=== PATIENT | male | born 1970 | race African-American/Black ===

== ENCOUNTER → 2021-02-22 15:16 | Outpatient (CLI) | payer BC, SELFPAY ==
--- NOTE | ~2021-02-22 | US_ITS ---
EXAMINATION: US abdomen complete DATE: 02/22/2021 15:43 INDICATION: Liver disease, proteinuria TECHNIQUE: Multiple grayscale and Doppler ultrasound images of the abdomen were obtained. COMPARISON: None available FINDINGS: Bowel gas obscures visualization of the pancreas. The liver is normal with normal echogenic ity and echotexture. No surface nodularity. Normal hepatopetal flow in the main portal vein. The gall bladder is normal with no abnormal wall thickening, pericholecystic fluid or stones. The normal commo n bile duct measures 4 mm. There was no sonographic Page sign. The visualized portions of the aorta and inferior vena cava are normal. The right kidney measures 10.0 x 4.2 x 4.9 cm. The left kidney measures 13.4 x 8.8 x 7.1 cm. There is a 10.4 x 11.6 x 11.3 cm heterogeneous mass of the left kidney. The kidneys demonstrate normal parenc hymal echogenicity. There is no hydronephrosis. The spleen is normal in appearance and measures 11.6 cm cm. IMPRESSION: 1. Heterogeneous left kidney mass measuring up to 11.6 cm concerning for renal cell carcinoma. Urolog ic evaluation is recommended. These findings and recommendations were discussed with Dr. Juno Fang MD at 0958 hours on 02/23/2021 . Reviewed, dictated and finalized at location B. IMPRESSION: 1. Heterogeneous left kidney mass measuring up to 11.6 cm concerning for renal cell carcinoma. Urologic evaluation is recommended. These findings and recommendations were discussed with Dr. Juno Fang MD at 0 958 hours on 02/23/2021.
== END ==
PROVIDERS: PCP Emergency Medicine; Visit Provider Emergency Medicine
DX: K76.9 Liver disease, unspecified (principal)
CPT/HCPCS: 76700

== ENCOUNTER 2021-03-01 17:15 | Observation (INO) | payer BC, SELFPAY ==
[2021-03-01] VITALS (40 sets, daily range): BP systolic 145–205; BP diastolic 91–115; PULSE 76–106; RESP 9–24; TEMP 36–36.9; O2SAT 94–99; BMI 44.7
--- NOTE | ~2021-03-01 | XR_ITS ---
EXAMINATION: XR chest 2V EXAM DATE: 03/01/2021 18:00 INDICATION: Increasing shortness of breath, hypertension. TECHNIQUE: Frontal and lateral projections of the chest obtained and reviewed. There is no prior stud y for comparison. FINDINGS: There is right upper lobe granuloma. The lungs are clear. There are no pleural effusions. The cardiomediastinal silhouette is within normal limits. There is no pneumothorax suspected. The bones and soft tissues are unremarkable. IMPRESSION: No acute cardiopulmonary findings. Reviewed, dictated and finalized at location A. PHORIC ACID OPERATOR
--- NOTE | ~2021-03-01 | CT_ITS ---
EXAMINATION: CTA chest PE protocol EXAM DATE: 03/01/2021 19:21 INDICATION: Shortness of breath since last Sunday. Cough for months. TECHNIQUE: Spiral CTA of the chest (pulmonary arteries) was performed with 100 cc Omnipaque 350 intr avenous contrast injection. Images were acquired during the pulmonary arterial phase. Coronal maxi mum intensity projection 3D-reconstructions were created by the technologist on dedicated workstation . Axial, coronal and sagittal reformatted images were reviewed. The dose-length product (DLP) for t his examination was 1064.65 mGy-cm. The exposure was tailored according to patient size (auto mA ex posure control), and iterative reconstruction (ASIR) was used as additional dose reduction technique. There is no prior study for comparison. FINDINGS: The main, central pulmonary arteries are dilated which can indicate elevated pulmonary agnes rial pressure, pulmonary arterial hypertension. Pulmonary arteries are well opacified and without in traluminal filling defects. No thoracic aortic dissection. Right upper lobe granulomas, right maulik r calcified lymph nodes from prior granulomatous process. There are no pleural or pericardial effusi ons. Tracheobronchial tree is patent. There is no mediastinal, hilar or axillary lymphadenopathy. There is no pneumothorax. Heart normal in size. No evidence of coronary arterial calcification . Incompletely imaged mass probably left renal mass, imaged portion measuring up to 14 cm. There is thoracic spondylosis without osteoblastic or osteolytic lesions identified. IMPRESSION: 1. No pulmonary emboli or acute cardiopulmonary findings. 2. Dilated pulmonary arteries, consistent with pulmonary arterial hypertension. 3. Left upper quadrant mass probably renal origin, RCC. Follow-up nonemergent CT abdomen pelvis with contrast indicated. Reviewed, dictated and finalized at location A. D DEVELOPMENT ASSISTANT IMPRESSION: 1. No pulmonary emboli or acute cardiopulmonary findings. 2. Dilated pulmonary arteries, consistent with pulmonary arterial hypertension . 3. Left upper quadrant mass probably renal origin, RCC. Follow-up nonemergent CT abdomen pelvis with contrast indicated.
--- NOTE | 2021-03-01 17:35 | ECG_ITS ---
Measurements Intervals [place] Rate: 86 P: 47 NM: 158 QRS: 7 QRSD: 101 T: 90 QT: 379 QTc: 454 Interpretive Statements SINUS RHYTHM POSSIBLE LEFT ATRIAL ENLARGEMENT INCOMPLETE RIGHT BUNDLE BRANCH BLOCK BORDERLINE T WAVE ABNORMALITY- HIGH LATERAL LEADS BORDERLINE ECG Electronically Signed On 03-01-2021 20:14:42 INSTRUMENT MAINTENANCE SUPERVISOR by Jerad Velasquez D.O.
--- NOTE | 2021-03-01 17:43 | ED.GENADULT ---
HPI - General Adult General Chief complaint: Shortness of Breath/Dyspnea Stated complaint: sob Time Seen by Provider: 03/01/21 17:23 Source: patient and RN notes reviewed History of Present Illness HPI narrative: Patient is 50 y/o male complaining of mild shortness of breath starting 4 days ago. He states that his SOB is worse with exertion. He has some cough. He has no fever or chest pain. Related Data Home Medications Medication Instructions Recorded Confirmed hydralazine 50 mg PO TID 03/01/21 03/01/21 Allergies Allergy/AdvReac Type Severity Reaction Status Date / Time No Known Allergies Allergy Verified 03/01/21 23:00 Review of Systems Constitutional: Constitutional: Denies chills, Denies fever(s), Denies headache(s) and Denies weakness Eyes: Eyes: Denies blurry vision ENT: Denies headache(s) and Denies neck pain Cardiovascular: Cardiovascular: Denies chest pain and Reports dyspnea Respiratory: Respiratory: Reports cough and Reports dyspnea Gastrointestinal: Gastrointestinal: Denies abdominal pain, Denies diarrhea, Denies nausea and Denies vomiting Genitourinary: Genitourinary: Denies hematuria and Denies dysuria Musculoskeletal: Musculoskeletal: Denies back pain and Denies neck pain Neurologic: Denies headache(s) and Denies weakness [facility] Family History Family History (Updated 03/01/21 @ 23:15 by Makeda Shafer RN) Mother Diabetes mellitus Chronic kidney disease COPD (chronic obstructive pulmonary disease) Father Diabetes mellitus Social History Social History Smoking status: Never smoker Alcohol intake: current Drinks per week: 1 Substance use: never Spiritual care concerns: No Exam Const: General: no acute distress and well developed Orientation/consciousness: oriented to person, oriented to place, oriented to time and patient oriented x3 HENMT: Head: normocephalic Ears: external ears normal General nose exam: Normal external nose present Eyes: General: appearance normal, both eyes and all related structures Conjunctivae: conjunctivae normal Neck: Neck: normal visual inspection and full ROM Chest: Chest palpation & inspection: normal inspection of the chest and no tenderness Resp: Effort & Inspection: normal respiratory effort Auscultation: clear to auscultation bilaterally Cardio: Rate: regular rate Rhythm: regular rhythm GI: GI Palp: No abdominal tenderness and Yes Soft to palpation Skin: General skin exam: normal color and turgor normal Neuro: General: oriented to person, oriented to place, oriented to time and patient oriented x3 Cognition (Neuro): normal cognition Extrem: General: full ROM and edema bilateral Psych: Appearance: grossly normal Mental Status: mental status grossly normal Affect: normal affect Course Consultations Consultation #1: Discussed with Dr. Madrigal, who agrees to admit. Date: 03/01/21 Time: 20:08 Vital Signs Vital signs: Vital Signs Temperature 36.0 C L 03/01/21 17:17 Pulse Rate 94 03/01/21 17:17 Respiratory Rate 20 03/01/21 17:17 Blood Pressure 205/115 H 03/01/21 17:17 Pulse Oximetry 98 03/01/21 17:17 Temperature 36.8 C 03/01/21 23:16 Pulse Rate 79 03/02/21 00:00 Respiratory Rate 24 H 03/01/21 23:16 Blood Pressure 166/91 H 03/01/21 23:16 Pulse Oximetry 98 03/01/21 23:16 Medical Decision Making Vital Signs Vital Signs: Vital Signs Temperature 36.0 C L 03/01/21 17:17 Pulse Rate 94 03/01/21 17:17 Respiratory Rate 20 03/01/21 17:17 Blood Pressure 205/115 H 03/01/21 17:17 Pulse Oximetry 98 03/01/21 17:17 Temperature 36.8 C 03/01/21 23:16 Pulse Rate 79 03/02/21 00:00 Respiratory Rate 24 H 03/01/21 23:16 Blood Pressure 166/91 H 03/01/21 23:16 Pulse Oximetry 98 03/01/21 23:16 Lab Data Result diagrams: 03/01/21 17:49 03/01/21 17:49 Labs: Lab Results 03/01
--- NOTE | 2021-03-01 17:51 | PC.NURSE ---
Pt off floor to radiology
[2021-03-01 18:01] LABS: Basophils Percent Auto 0.2 % (0.2-1.2); Eosinophils Absolute Auto 0.2 K/mm3 (0-0.3); Eosinophils Percent Auto 2.6 % (0-4.4); Hematocrit 33.7 % (42.0-52.0); Hemoglobin 10.4 g/dL (14.0-18.0); Immature Granulocyte Absolute 0.03 K/mm3 (0.00-0.031); Immature Granulocyte Percent A 0.4 % (0-0.5); Lymphocytes Absolute Auto 1.99 K/mm3 (0.9-3.2); Lymphocytes Percent Auto 24.4 % (18.3-44.2); Mean Corpuscular HGB Conc 30.9 g/dl (32-36); Mean Corpuscular Hemoglobin 27.4 pg (26-34); Mean Corpuscular Volume 88.7 fl (80-100); Monocytes Absolute Auto 0.9 K/mm3 (0.1-0.6); Monocytes Percent Auto 11.1 % (2.6-8.5); Neutrophils Percent Auto 61.3 % (45.5-73.1); Platelet Count Result 326 k/mm3 (150-375); Red Cell Distribution Width 15.1 % (11.5-14.5); White Blood Count 8.2 K/mm3 (4.5-10.0)
[2021-03-01 18:11] LABS: Alanine Aminotransferase 32 U/L (4-50); Albumin Level 4.2 g/dL (3.5-5.1); Alkaline Phosphatase 122 U/L (38-126); Anion Gap 7 mmol/L (8-16); Aspartate Amino Transferase 67 U/L (17-59); Bilirubin,Total 0.3 mg/dL (0.2-1.3); Blood Urea Nitrogen 16 mg/dL (9-20); Calcium 8.8 mg/dL (8.4-10.2); Carbon Dioxide 27 mmol/L (22-30); Chloride 106 mmol/L (98-107); Estimated CRCL calculation 106 ml/min; Estimated Glomerular Filt Rate > 60; Glucose 107 mg/dL (65-110); Potassium 3.8 mmol/L (3.4-5.0); Sodium 140 mmol/L (137-145)
[2021-03-01 18:13] LABS: D Dimer 1.63 ug/mL (<0.48)
[2021-03-01] MEDS: amLODIPine BESYLATE 5 MG TABLET 10 MG PO (18:13)
[2021-03-01 18:22] LABS: NT Pro B Type Natriuretic Pept 885 pg/mL (5-100)
[2021-03-01 18:28] LABS: Troponin I 0.041 ng/mL (0.000-0.034)
[2021-03-01] MEDS: lisinopriL 20 MG TABLET PO (19:27)
--- NOTE | 2021-03-01 20:18 | PM.IMHP ---
H&P: HPI History of Present Illness Date/Time: 03/01/21 20:18 Chief Complaint: Shortness of breath Narrative: This is a 50-year-old male with past medical history significant for obesity, obstructive sleep apnea had a sleep study done in the outpatient setting has been fit tested for CPAP machine it is in the midst of getting CPAP machine, hypertension. Patient presented to the emergency room due to shortness of breath at exertion, patient also has apnea episodes at nighttime, PND, patient denies chest pain or orthopnea, no dizziness ,no lightheadedness, no chest pain, no vision changes, no headaches, no syncope or near syncope, he has bilateral lower extremity ankle edema, patient has noticed worsening of shortness of breath over the course of the last few weeks or so, he has a dry cough, denies any chills, fevers, no nausea, no vomiting, no abdominal pain. Preliminary workup was significant for a blood pressure upon arrival to the emergency room 187/115, he had elevated troponins, and ECG with nonspecific changes, a chest x-ray did not show any acute cardiopulmonary abnormality and patient had a CT angio of the chest PE protocol was negative for acute pulmonary embolism. Decision has been made to admit the patient for further assessment, evaluation and treatment. Review of Systems Review of Systems: Shortness of breath at exertion bilateral lower extremity ankle edema PND Constitutional: Constitutional: Denies chills, Denies fatigue, Denies fever(s), Denies malaise and Denies weakness Eyes: Eyes: Denies change in vision ENT: Denies dysphagia, Denies vertigo, Denies dizziness, Denies headache(s), Denies nasal congestion, Denies nasal discharge, Denies nasal obstruction and Denies odynophagia Cardiovascular: Cardiovascular: Reports pedal edema, Denies claudication, Denies lightheadedness, Denies radiating jaw, neck or arm pain, Denies palpitations, Reports dyspnea, Reports dyspnea on exertion, Denies orthopnea and Reports paroxysmal nocturnal dyspnea Respiratory: Respiratory: Reports cough and Denies excessive phlegm production Comments: Nonproductive Gastrointestinal: Gastrointestinal: Denies abdominal pain, Denies dyspepsia, Denies heartburn, Denies nausea and Denies vomiting Genitourinary: Genitourinary: Reports no additional male genitourinary complaints and Reports as per HPI Musculoskeletal: Musculoskeletal: Reports no additional musculoskeletal complaints and Reports as per HPI Integumentary/Breasts: Skin/Breast: Denies rash Neurologic: Denies focal weakness and Denies Sensory deficit (Neuro) Psychiatric: Psychiatric: Reports no additional psychiatric complaints and Reports as per HPI Endocrine: Endocrine: Reports no additional endocrine complaints and Reports as per HPI Hematologic/Lymphatic: Hematologic/Lymphatic: Reports no additional hematologic/lymphatic complaints and Reports as per HPI Allergic/Immunologic: Allergic/Immunologic: Reports no additional allergic/immunologic complaints and Reports as per HPI [facility] Family History Family History (Updated 03/01/21 @ 23:15 by Makeda Shafer RN) Mother Diabetes mellitus Chronic kidney disease COPD (chronic obstructive pulmonary disease) Father Diabetes mellitus Social History Social History Smoking status: Never smoker Alcohol intake: current Drinks per week: 1 Substance use: never Spiritual care concerns: No Meds Home Medications and Allergies Home Medications Medication Instructions Recorded Confirmed Type hydralazine 50 mg PO TID 03/01/21 03/01/21 History Allergies Allergy/AdvReac Type Severity Reaction Status Date / Time No Known Allergies Allergy Verified 03/01/21 23:00 Vital Signs Vital Signs - 24 hr 03/01/21 17:17 03/01/21 17:35 03/01/21 17:36 Temperature 96.8 F L 98.5 F Pulse Rate 94 92 88 Respiratory Rate 20 16 21 H Blood Pressure 205/115 H Pulse Oximetry 98
[2021-03-01] MEDS: FUROSEMIDE INJ 40 MG/4 ML VIAL IV PUSH (20:28)
[2021-03-01 21:33] LABS: Troponin I 0.047 ng/mL (0.000-0.034)
--- NOTE | 2021-03-01 22:50 | PC.NURSE ---
This patient, Prosper Gross, was admitted to IMU Room 200-01 on 03/01/21 at 2250 . Patient/family oriented to hospital policies and general routines including ID bracelet, bed and alarms, visiting hours, pain management, procedures, bathroom and other care routines, personal items, smoking policy, room service/diet, and visiting hours. Information on how to activate the Rapid Response Team has been discussed. Patient/Family are encouraged to report perceived risks to care and to ask questions if they do not understand what they are told or what they should do.
[2021-03-02] VITALS (15 sets, daily range): BP systolic 138–153; BP diastolic 71–101; PULSE 64–101; RESP 18–210; TEMP 36.2–37.3; O2SAT 95–100
--- NOTE | 2021-03-02 | ECHO_ITS ---
Patient Info Name: Prosper Gross Age: 50 years : 1970 Gender: Male Ht: 78 in Wt: 389 lbs BSA: 3.19 m2 HR: 93 bpm BP: 150 / 87 mmHg Heart Rhythm: Sinus Rhythm Exam Date: 03/02/2021 9:19 AM Exam Location: [facility] Pulmonary Patient Status: Outpatient Admit Date: 03/01/2021 Staff Ordering Physician: Fannie Noyola MD Casualty Claim Adjuster: Elroy Page RDCS, RT Attending Provider: Judith Caceres PA-C Referring Physician: Dennys ALEJANDRE; Exam Type: CA echo dop color flow w con Study Info Indications I50.9 - Heart failure, unspecified Complete two-dimensional, color flow and Doppler transthoracic echocardiogram is performed with contrast to opacify the left ventricle and to improve the deliniation of the left ventricle endocardial borders. Summary 1. Normal left ventricular size with moderate concentric hypertrophy. No segmental wall motion abnormalities. Calculated ejection fraction 68%, visually 60-65%. Normal diastolic function. 2. No chamber enlargement. 3. No significant valve disease. 4. Moderate pulmonary hypertension, estimated pulmonary arterial systolic pressure is 48 mmHg. 5. Normal sinus rhythm. Left Ventricle Left ventricular chamber dimension is normal. Left ventricular systolic function is normal, estimated at 60-65%. There is moderately increased left ventricular wall thickness. Left ventricular septal wall motion is normal. The left ventricular diastolic function is normal. Right Ventricle Right ventricular chamber dimension is normal. Right ventricular systolic function is normal. Left Atria Left atrial chamber dimension is normal. Right Atria Right atrial chamber dimension is normal. Aortic Valve The aortic valve is trileaflet. There is no aortic valve sclerosis. There is no aortic valve stenosis. There is no aortic valve regurgitation. Pulmonic Valve The pulmonic valve is normal. There is no pulmonic valve stenosis. There is no pulmonic regurgitation. Mitral Valve The mitral valve has normal leaflets. There is no mitral valve stenosis. There is no mitral valve regurgitation. Tricuspid Valve The tricuspid valve leaflets are normal. There is no significant tricuspid valve stenosis. There is trace tricuspid valve regurgitation. Moderate pulmonary hypertension, estimated pulmonary arterial systolic pressure is 48 mmHg. Pericardium/Pleural The pericardium appears normal. There is no pericardial effusion. Inferior Vena Cava Normal inferior vena cava with >50% collapse upon inspiration consistent with Empty right atrial pressure, 10 mmHg. Aorta The aortic root size at the sinus of Valsalva is normal. The prox ascending aorta size is normal. Left Ventricular Outflow Tract Name Value Normal LVOT 2D LVOT Diameter 2.44 cm LVOT Doppler LVOT Peak Gradient 4 mmHg LVOT Mean Gradient 2 mmHg LVOT VTI 21.38 cm LVOT VTI/AV VTI Ratio 0.79 LVOT Stroke Volume 99.81 ml LVOT CO 8.5
[2021-03-02 00:35] LABS: Troponin I 0.042 ng/mL (0.000-0.034)
[2021-03-02] MEDS: hydrALAZINE HCL 50 MG TABLET PO (07:51)
[2021-03-02 08:13] LABS: Hematocrit 37.6 % (42.0-52.0); Hemoglobin 11.6 g/dL (14.0-18.0)
[2021-03-02 08:42] LABS: Anion Gap 11 mmol/L (8-16); Blood Urea Nitrogen 16 mg/dL (9-20); Carbon Dioxide 27 mmol/L (22-30); Chloride 102 mmol/L (98-107); Estimated CRCL calculation 98 ml/min; Estimated Glomerular Filt Rate > 60; Glucose 112 mg/dL (65-110); Potassium 4.1 mmol/L (3.4-5.0); Sodium 140 mmol/L (137-145)
[2021-03-02] MEDS: PERFLUTREN LIPID MICROSPHERES 1.5 ML VIAL DILUTED TO 10 ML TOTAL VOLUME IV PUSH (09:40)
--- NOTE | 2021-03-02 10:26 | PM.IMPN ---
Progress Note: A&P Assessment and Plan (1) Severe hypertension: Code(s): I10 - Essential (primary) hypertension Status: Acute Assessment and Plan: Blood pressure was significantly elevated on presentation up to 205/115. He reports he had been compliant with his blood pressure medication Blood pressure has improved at appropriate rate with resuming his home hydralazine 50 mg TID Monitor blood pressure closely; cautious normalization with goal of reducing mean arterial pressure by 25% Continue to monitor blood pressure trends closely Will obtain renal duplex (2) CHF (congestive heart failure): Qualifiers: Heart failure chronicity: unspecified Heart failure type: unspecified Qualified Code(s): I50.9 - Heart failure, unspecified Code(s): I50.9 - Heart failure, unspecified Status: Acute Assessment and Plan: Presented with SOB and lower extremity edema. BNP 885 Appreciate cardiology consultation and recommendations regarding diuresis Echocardiogram is pending Received 1 dose IV Lasix in the ED and had good output. Continue to monitor intake and output (3) Elevated troponin I level: Code(s): R77.8 - Other specified abnormalities of plasma proteins Status: Acute Assessment and Plan: Troponin mildly elevated up to 0.047. He is asymptomatic without chest pain EKG reviewed with no evidence of ischemic changes Appreciate cardiology consultation (4) Obstructive sleep apnea: Code(s): G47.33 - Obstructive sleep apnea (adult) (pediatric) Status: Acute Assessment and Plan: He is in the process of getting set up for a CPAP machine at home Echocardiogram is pending CTA demonstrates dilated pulmonary arteries consistent with pulmonary arterial hypertension (5) Acute kidney injury: Code(s): N17.9 - Acute kidney failure, unspecified Status: Acute Assessment and Plan: Creatinine mildly elevated at 1.4 today. This is likely due to contrast and diuresis Monitor renal function closely. Renally dose medications and avoid nephrotoxins (6) Left kidney mass: Code(s): N28.89 - Other specified disorders of kidney and ureter Status: Acute Assessment and Plan: CTA shows incidental left upper quadrant mass, likely renal in origin. Follow-up CT abdomen/pelvis with contrast is indicated for further evaluation He already received contrast for the CTA and his creatinine is elevated, so will hold off at this time. This can be completed outpatient Subjective Date/time seen: 03/02/21 10:26 Interval history: Date of service: 03/02/2021 Prosper Gross is a 50-year-old male with a history of hypertension who is seen in follow-up for shortness of breath. He is feeling better today. He denies shortness of breath or dyspnea on exertion. Denies orthopnea. Denies cough. He reports slight improvement in the swelling of his lower extremities. No chest pain or palpitations. He has been able to ambulate independently. He denies dizziness or lightheadedness. Denies abdominal pain, nausea, vomiting, diarrhea, fevers, or chills. No urinary symptoms. Denies back pain. No myalgias or arthralgias. He has no additional concerns at this time. Review of Systems Review of Systems: All systems reviewed & are unremarkable except as noted in HPI and below Exam Narrative: Mr. Gross is a well-nourished, well-appearing 50-year-old _male who is sitting up at bedside. He appears comfortable and is in NARD. Neuro: awake, alert and oriented x4, speech clear, no focal neuro deficits noted HEENMT: normocephalic, atraumatic, EOMI, sclerae anicteric, moist oral mucosa Neck: supple, no lymphadenopathy Respiratory: Diminished breath sounds bilaterally without crackles, rhonchi, or wheezes, nonlabored breathing Cardio: regular rate, regular rhythm with S1-S2 Abdomen: Protuberant, normoactive bowel
--- NOTE | 2021-03-02 12:06 | PM.CNCAR ---
Assessment and Plan Additional Plan This is a 50-year-old black male with longstanding hypertension currently being treated with a high dose of hydralazine with poor results. He presents to the hospital with shortness of breath and some lower extremity edema. He has responded well and that he feels better following some diuresis. He also has significant sleep apnea and evidence of pulmonary hypertension sleep apnea is not yet treated as he has not yet done a CPAP titration trial. Echocardiogram was done this morning the results of that are not available at the time of this dictation. At this time I would recommend shifting him from hydralazine to the combination of an ARVIND-inhibitor and beta-iván since he has responded poorly to hydralazine thus far. I am also going to start a diuretic as well. It is extremely important that he follows up with CPAP titration and treatment of that he understands this very well. We will leave any further recommendations as would be appropriate after reviewing his echocardiogram assessing his response to adjusting his hypertension regimen as I mentioned. Hopefully he can be discharged in the next 24-48 hours. Juan M Luna MD [facility] History of Present Illness History of Present Illness Consult date/time: 03/02/21 12:06 Reason For Visit: CHF, Severe Hypertension Narrative: This is a 50-year-old gentleman I am seeing at the request of the hospitalist today because of elevated troponin levels. The patient is not aware of any previous cardiac problems and began to experience some episodes of shortness of breath recently and went to see his primary care physician apparently yesterday about this. 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 He has noticed some episodes of exertional shortness of breath that have been unusual for him. He uses examples of walking from his car to his place of employment or up a couple of flights of stairs. He also noticed some swelling/edema of his lower extremities and went to the physician's office. His PCP found to be very hypertensive and advised him to come to the emergency room to be evaluated and admitted. He reports a longstanding history of hypertension since he was a young man. He saw physicians in [place] in the past was treated with medications that we do not have records of. He was off of treatment for a while and then recently became established with a new PCP placed him on hydralazine. Hydralazine dosage has been uptitrated over the last 6 months he states his blood pressure really has not responded or improved in response to this as best as he can tell. He is not reporting any symptoms of chest pain he denies any orthopnea or PND. He also was found recently to have evidence of sleep apnea. He has a history of loud snoring at night for a number of years and apnea spells that were noted by his . The patient states the sleep study was done that demonstrated evidence of significant sleep apnea he has yet to undergo a CPAP titration study and then receive a positive pressure device. He had a CT scan of the chest done in the emergency room upon admission presumably to promote mostly rule out pulmonary embolism. That was negative but it did show stigmata suggestive of pulmonary hypertension. The patient's troponin levels are modestly elevated since admission but they are flat. Electrocardiogram shows no acute ischemic changes. Review of Systems Constitutional: Constitutional: Reports no additional constitutional complaints Eyes: Eyes: Reports no additional eye complaints ENT: Reports system reviewed and no additional complaints, except as documented Cardiovascular: Cardiovascular: Reports as per HPI Respiratory: Respiratory: Reports dyspnea on exertion Gastrointestinal: Gastrointest
[2021-03-02] MEDS: METOPROLOL SUCCINATE EXT REL 100 MG TABCR PO (13:03)
[2021-03-03] VITALS (8 sets, daily range): BP systolic 137–143; BP diastolic 82–95; PULSE 62–81; RESP 14–24; TEMP 36.7–37; O2SAT 97–99
[2021-03-03 05:18] LABS: Hematocrit 36.6 % (42.0-52.0); Hemoglobin 11.2 g/dL (14.0-18.0); Mean Corpuscular HGB Conc 30.6 g/dl (32-36); Mean Corpuscular Hemoglobin 26.9 pg (26-34); Mean Corpuscular Volume 87.8 fl (80-100); Mean Platelet Volume 9.1 fl (7.4-10.4); Platelet Count Result 394 k/mm3 (150-375); Red Blood Count 4.17 M/mm3 (4.6-6.20); Red Cell Distribution Width 15.1 % (11.5-14.5); White Blood Count 7.3 K/mm3 (4.5-10.0)
[2021-03-03 05:41] LABS: Anion Gap 6 mmol/L (8-16); Blood Urea Nitrogen 21 mg/dL (9-20); Calcium 8.8 mg/dL (8.4-10.2); Carbon Dioxide 31 mmol/L (22-30); Chloride 102 mmol/L (98-107); Estimated CRCL calculation 92 ml/min; Estimated Glomerular Filt Rate 60; Glucose 109 mg/dL (65-110); Potassium 4.1 mmol/L (3.4-5.0); Sodium 139 mmol/L (137-145)
[2021-03-03] MEDS: CHLORTHALIDONE 25 MG TABLET PO (08:26)
[2021-03-03] MEDS: METOPROLOL SUCCINATE EXT REL 100 MG TABCR PO (08:26)
[2021-03-03] MEDS: ENOXAPARIN 40 MG/0.4 ML SYRINGE SUB-Q (08:26)
[2021-03-03] MEDS: lisinopriL 20 MG TABLET PO (08:26)
--- NOTE | 2021-03-03 12:52 | PM.PNCARD ---
Progress Note: A&P Assessment and Plan (1) Elevated troponin I level: Code(s): R77.8 - Other specified abnormalities of plasma proteins Status: Acute Assessment and Plan: Not reporting any complaints of chest pain. EKG does not have any ischemic changes. Mild, flat troponin elevation that is likely related to uncontrolled hypertension. (2) CHF (congestive heart failure): Qualifiers: Heart failure chronicity: unspecified Heart failure type: unspecified Qualified Code(s): I50.9 - Heart failure, unspecified Code(s): I50.9 - Heart failure, unspecified Status: Acute Assessment and Plan: Presented with shortness of breath and lower extremity edema. Echocardiogram demonstrated normal left ventricular systolic function with an ejection fraction of 60 65%. He has normal diastolic function. He does not have any significant valve disease. He has moderate pulmonary hypertension with a PASP of 48 mmHg. Shortness of breath and swelling have improved with control of blood pressure and diuresis. (3) Severe hypertension: Code(s): I10 - Essential (primary) hypertension Status: Acute Assessment and Plan: History of hypertension for which he had been placed on hydralazine for by his PCP. Dose had been up titrated for the past 6 months but his blood pressure had not responded appropriately. Hydralazine discontinued and started on lisinopril, metoprolol, and chlorthalidone. Reasonable control of BP on this regimen. Subjective Date/time seen: 03/03/21 12:52 Cardiology follow up for hypertension, elevated troponin Date of service 03/03/21: Patient does not have any physical complaints today. Denies chest pain, shortness of breath. However, he is agitated that he is still in the hospital. Became even more agitated when I explained the plan of care and results of his diagnostic testing to him. He and his told me that all of this information was already explained to them. Review of Systems Constitutional: Constitutional: Reports no additional constitutional complaints Eyes: Eyes: Reports no additional eye complaints ENT: Reports system reviewed and no additional complaints, except as documented Cardiovascular: Cardiovascular: Reports as per HPI and Reports dyspnea on exertion Respiratory: Respiratory: Reports dyspnea on exertion Gastrointestinal: Gastrointestinal: Reports no additional gastrointestinal complaints Musculoskeletal: Musculoskeletal: Reports no additional musculoskeletal complaints Integumentary/Breasts: Skin/Breast: Reports system reviewed and no additional complaints, except as docu Endocrine: Endocrine: Reports no additional endocrine complaints Hematologic/Lymphatic: Hematologic/Lymphatic: Reports no additional hematologic/lymphatic complaints Allergic/Immunologic: Allergic/Immunologic: Reports no additional allergic/immunologic complaints Exam Const: General: comfortable and no acute distress HENMT: Mouth: Yes moist mucous membranes Eyes: Sclera: sclerae normal Pupils: Equal, round and reactive pupils present Neck: Neck: supple and no JVD Resp: Effort & Inspection: normal respiratory effort Auscultation: clear to auscultation bilaterally Other: Breath sounds are distant but clear Cardio: Rate: regular rate Rhythm: regular rhythm Heart sounds: Gallop heart sound present S4 gallop GI: Inspection: normal to inspection GI Palp: Yes Soft to palpation Auscultation: normal bowel sounds Skin: General skin exam: normal color Neuro: Cranial nerves: Yes Equal, round and reactive pupils present Cognition (Neuro): normal cognition Extrem: General: normal to inspection Psych: Appearance: grossly normal Mental Status: mental status grossly normal Objective Data Vital Signs Vital Signs: Vital Signs - 24 hr 03/02/21 13:03 03/02/21 13:36 03/02/21 16:00 Temperature 36.2 C L Pulse Rate 85 80 71 Respiratory Rate 18 Blood Pres
--- NOTE | 2021-03-03 13:09 | PC.NURSE ---
On 03/03/21, the student, [Terry Snow], provided care and completed [facility] documentation on this patient. I have reviewed the student's documentation and agree with the findings.
--- NOTE | 2021-03-03 13:41 | PM.DS ---
DS: Admitting Diagnosis Discharge Date 03/03/2021 Admitting Diagnosis Hypertension, CHF DS: Discharge Diagnosis Discharge Diagnosis (1) Severe hypertension: Code(s): I10 - Essential (primary) hypertension Status: Acute Assessment and Plan: Blood pressure was significantly elevated on presentation up to 205/115. He reports he had been compliant with his blood pressure medication. He was seen in consultation by Cardiology recommended discontinuation of his home hydralazine and transition to lisinopril 20 mg daily, metoprolol succinate 100 mg daily and chlorthalidone 25 mg daily. His blood pressures were well controlled on this regimen. Ordered renal duplex given his kidney injury, though he refuses testing. He was instructed to monitor his blood pressure at home daily and record for review by PCP. (2) CHF (congestive heart failure): Qualifiers: Heart failure chronicity: unspecified Heart failure type: unspecified Qualified Code(s): I50.9 - Heart failure, unspecified Code(s): I50.9 - Heart failure, unspecified Status: Acute Assessment and Plan: Presented with SOB and lower extremity edema. BNP 885. Echocardiogram reviewed which showed EF 68% with normal diastolic function. He did have symptomatic improvement with diuresis. He will follow-up with cardiology as an outpatient. (3) Elevated troponin I level: Code(s): R77.8 - Other specified abnormalities of plasma proteins Status: Acute Assessment and Plan: Troponin mildly elevated up to 0.047. He was asymptomatic without chest pain. EKG reviewed with no evidence of ischemic changes. Mild elevation with flat trend felt to be related to uncontrolled hypertension, not indicative of ACS (4) Obstructive sleep apnea: Code(s): G47.33 - Obstructive sleep apnea (adult) (pediatric) Status: Acute Assessment and Plan: He is in the process of getting set up for a CPAP machine at home. Echo demonstrated moderate pulmonary hypertension, also evident on CT with dilated pulmonary arteries. It is imperative that he continues with follow-up to obtain CPAP machine and initiate CPAP therapy. (5) Acute kidney injury: Code(s): N17.9 - Acute kidney failure, unspecified Status: Acute Assessment and Plan: Creatinine mildly elevated up to 1.5. This was likely due to diuresis and IV contrast. Repeat BMP in 1 week for further monitoring. (6) Left kidney mass: Code(s): N28.89 - Other specified disorders of kidney and ureter Status: Acute Assessment and Plan: CTA showed incidental left upper quadrant mass, likely renal in origin. He did have a abdominal ultrasound performed on 02/23/2021 per his primary care provider which showed heterogenous left kidney mass measuring up to 11.6 cm concerning for renal cell carcinoma with recommendations for urologic evaluation. He would like to continue to follow-up with his PCP regarding this. No further evaluation/intervention during this hospitalization. DS: Summary Hospital Course Hospital Course: Date of admission: 03/01/2021 Date of discharge: 03/03/2021 Prosper Gross is a 50-year-old male with a history of hypertension who presented to the emergency department on 03/01/2021 with complaints of shortness of breath ongoing for 4 days. On presentation to the emergency department, his blood pressure was elevated up to 205/115 with additional vital signs stable, H&H slightly decreased with additional CBC and BMP unremarkable, troponin 0.041, BNP 885, CXR showed no acute cardiopulmonary findings, and CT of the chest was negative for PE but did demonstrate findings consistent with pulmonary artery hypertension and evidence of renal mass. He was admitted to the hospitalist service for further evaluation management was seen in consultation by cardiology. Please see above for further details. His blood pressure improved with a
== END 2021-03-03 13:55 | disposition home or self-care (01) ==
LOC: ANHED 18:20 → ANHIMU 22:30
PROVIDERS: Physician Assistant; Admitting Provider Internal Medicine; Emergency Provider Emergency Medicine; PCP Emergency Medicine; Visit Provider Internal Medicine
DX: I11.0 Hypertensive heart disease with heart failure (principal); I50.9 Heart failure, unspecified; R77.8 Other specified abnormalities of plasma proteins; R06.02 Shortness of breath; N17.9 Acute kidney failure, unspecified; G47.33 Obstructive sleep apnea (adult) (pediatric); R60.0 Localized edema; E66.01 Morbid (severe) obesity due to excess calories; N28.89 Other specified disorders of kidney and ureter; Z68.41 Body mass index [BMI] 40.0-44.9, adult
CPT/HCPCS: 36415; 71046; 71275; 80048; 80053; 83880; 84484; 85014; 85018; 85025; 85027; 85380; 93005; 96372; 96374; 99285; A9270; C8929; G0378; J1650; J1940; Q9957; Q9967

== ENCOUNTER 2021-07-28 15:27 | Outpatient (CLI) | payer BC, SELFPAY ==
--- NOTE | ~2021-07-28 | CT_ITS ---
EXAMINATION: CT abdomen pelvis wo/w con EXAM DATE: 07/28/2021 16:01 INDICATION: Neoplasm of uncertain behavior. Left renal mass on pulmonary CT. TECHNIQUE: Spiral CT of the abdomen without contrast followed by both abdomen and pelvis with 100 cc intravenous Omnipaque 350. Axial, coronal and sagittal images of the abdomen and pelvis were reviewe d. The dose-length product (DLP) for this examination was 2550.50 mGy-cm. The exposure was tailored according to patient size (auto mA exposure control), and iterative reconstruction (ASIR) was used a s additional dose reduction technique. Correlation is made to CT pulmonary scan 03/01/2021. FINDINGS: There is heterogeneously enhancing mass centered at the superior pole of left kidney measur ing 13 cm, most likely renal cell cancer. Mass does not appear to be invading the renal hilum. Only o ne left renal artery identified. Normal right kidney. The liver, spleen, adrenal glands and pancreas are unremarkable. Gallbladder is unremarkable. No bi liary obstruction. The prostate is unremarkable. The bladder is unremarkable. There is no retroper itoneal or pelvic lymphadenopathy. Small to moderate-sized umbilical fat-containing hernia. There are no findings to suggest appendicitis. The stomach and small bowel are unremarkable. There is expected amount of colonic stool. No free intraperitoneal gas. The heart is normal in size. T here are no pericardial or pleural effusions. The lung bases are unremarkable. There are no osteobl astic or osteolytic lesions identified. IMPRESSION: Large left renal mass likely renal cell cancer. No evidence of metastatic disease. Reviewed, dictated and finalized at location A. IMPRESSION: Large left renal mass likely renal cell cancer. No evidence of meta static disease.
[2021-07-28 15:52] LABS: Estimated Glomerular Filt Rate 45
== END 2021-07-28 15:28 | disposition home or self-care (01) ==
PROVIDERS: PCP Emergency Medicine; Visit Provider Urology
DX: D41.20 Neoplasm of uncertain behavior of unspecified ureter (principal)
CPT/HCPCS: 74178; Q9967

== ENCOUNTER 2022-04-19 17:29 | Outpatient (CLI) | payer BC, SELFPAY ==
--- NOTE | ~2022-04-19 | US_ITS ---
EXAMINATION: US renal BI DATE: 04/19/2022 18:24 INDICATION: TOTAL NEPHRECTOMY. History of renal cancer TECHNIQUE: Multiple grayscale and Doppler ultrasound images of the kidneys were obtained. COMPARISON: CT abdomen and pelvis 07/28/2021. FINDINGS: The right kidney measures 11.2 x 5.5 x 6.2 cm. The left kidney is surgically absent The kidneys demon strate normal parenchymal echogenicity. There is no hydronephrosis. The bladder is normal. IMPRESSION: Left nephrectomy. Otherwise unremarkable renal sonogram findings. Reviewed, dictated and finalized at location K. L [employer]
== END 2022-04-19 17:30 | disposition home or self-care (01) ==
LOC: ANHIMG 17:39
PROVIDERS: PCP Emergency Medicine; Visit Provider Internal Medicine Nephrology
DX: Z90.5 Acquired absence of kidney (principal)
CPT/HCPCS: 76775

== ENCOUNTER 2022-05-26 01:39 | Day surgery (SDC) | payer BC, SELFPAY ==
[2022-05-11 11:54] VITALS: BMI 44.6
--- NOTE | 2022-05-25 15:17 | WPDANESEPPF ---
Anes - Initial Pre Proc Eval Procedure: Operation Date: 05/26/22 10:30 Proposed Procedures p Esophagogastroduodenoscopy & Colonoscopy - Juancho Parsons MD Date/Time: 05/25/22 15:17 Surgeon: Juancho Parsons MD Pre Op Diagnosis: TOMMY Patient Data Age: 51 Gender: M Height: 1.98 m Weight: 175 kg Allergies Allergy/AdvReac Type Severity Reaction Status Date / Time lisinopril AdvReac Anaphylactic Verified 05/26/22 09:20 Shock Home Medications Medication Instructions Recorded Confirmed Type chlorthalidone 25 mg tablet 25 mg PO DAILY #30 tabs 03/03/21 05/26/22 Rx metoprolol succinate 100 mg 100 mg PO QAM #30 tabs 03/03/21 05/26/22 Rx tablet,extended release 24 hr (Toprol XL) Patient hx anesthesia problems: none Family hx anesthesia problems: none Results Review: All pre-operative results and documents have been reviewed as part of the pre-operative evaluation. [facility] Past Medical History Medical History (Updated 05/25/22 @ 15:18 by Juan J Garza DO) Anemia CHF (congestive heart failure) Hyperlipidemia Obstructive sleep apnea Severe hypertension Family History Family History (Updated 03/01/21 @ 23:15 by Makeda Shafer RN) Mother Diabetes mellitus Chronic kidney disease COPD (chronic obstructive pulmonary disease) Father Diabetes mellitus Social History Social History Smoking status: Never smoker Alcohol intake: current Drinks per week: 1 Substance use: never Substance use type: does not use Living arrangements: with family Spiritual care concerns: No Anes - Eval Final PreProcedure Day of Procedure 05/25/22 15:17 Patient weight: morbidly obese Heart: regular rate and rhythm Lungs: clear to auscultation Airway: Mallampati scale class II Neurological: alert and oriented Last oral intake: >/= 8 hours ASA classification: III Emergent: no Anesthetic plan: proceed Anesthesia type and monitoring: general GIVS and standard monitoring Results Review: All pre-operative results and documents have been reviewed as part of the pre-operative evaluation. Informed Consent: The patient's anesthetic plan and its attendant risks and benefits were discussed with the patient/family/POA. Questions were solicited and answers provided to the satisfaction of the patient/family/POA.
[2022-05-26 09:23] VITALS: BP 177/90; PULSE 66; RESP 17; O2SAT 100
[2022-05-26] MEDS: LACTATED RINGERS 1,000 ML 150 ML IV CONT (09:28)
--- NOTE | 2022-05-26 09:49 | PM.HPGS ---
History of Present Illness History of Present Illness Consent: Risks, benefits, and alternatives have been discussed and questions answered. Patient agrees to proceed with procedure. Chief complaint: MEGHAN Narrative: Prosper Gross is a 51 year old male with meghan, he has CKD and post nephrectomy. Never had scopes. Denies overt gib Review of Systems Constitutional: Constitutional: Denies headache(s) and Denies weakness Eyes: Eyes: Denies blurry vision ENT: Reports Normal hearing present, Denies headache(s) and Denies neck pain Cardiovascular: Cardiovascular: Denies chest pain and Denies dyspnea Respiratory: Respiratory: Denies dyspnea Gastrointestinal: Gastrointestinal: Reports no additional gastrointestinal complaints Genitourinary: Genitourinary: Denies dysuria Musculoskeletal: Musculoskeletal: Denies neck pain Integumentary/Breasts: Skin/Breast: Denies dry skin Neurologic: Reports Normal hearing present, Denies headache(s) and Denies weakness Psychiatric: Psychiatric: Denies anxiety Endocrine: Endocrine: Denies change in body appearance Hematologic/Lymphatic: Hematologic/Lymphatic: Denies easy bleeding Allergic/Immunologic: Allergic/Immunologic: Denies urticaria [facility] Past Medical History Medical History (Updated 05/26/22 @ 09:50 by Juancho Parsons MD) Anemia CHF (congestive heart failure) Hyperlipidemia Iron deficiency anemia Obstructive sleep apnea Severe hypertension Family History Family History (Updated 03/01/21 @ 23:15 by Makeda Shafer RN) Mother Diabetes mellitus Chronic kidney disease COPD (chronic obstructive pulmonary disease) Father Diabetes mellitus Social History Social History Smoking status: Never smoker Alcohol intake: current Drinks per week: 1 Substance use: never Substance use type: does not use Living arrangements: with family Spiritual care concerns: No Meds Home Medications and Allergies Home Medications Medication Instructions Recorded Confirmed Type chlorthalidone 25 mg tablet 25 mg PO DAILY #30 tabs 03/03/21 05/26/22 Rx metoprolol succinate 100 mg 100 mg PO QAM #30 tabs 03/03/21 05/26/22 Rx tablet,extended release 24 hr (Toprol XL) Allergies Allergy/AdvReac Type Severity Reaction Status Date / Time lisinopril AdvReac Anaphylactic Verified 05/26/22 09:20 Shock Vital Signs Vital Signs - 24 hr 05/26/22 09:23 Pulse Rate 66 Respiratory Rate 17 Blood Pressure 177/90 H Pulse Oximetry 100 Oxygen Delivery Room Air Exam Const: General: comfortable and no acute distress HENMT: Face/Nose/Sinus: Normal nares present Eyes: General: appearance normal, both eyes and all related structures Neck: Neck: no JVD Resp: Auscultation: clear to auscultation bilaterally Cardio: Rate: regular rate Rhythm: regular rhythm GI: Inspection: non-distended GI Palp: Yes Soft to palpation Skin: General skin exam: normal color Neuro: General: gait normal Speech: normal speech Extrem: General: normal to inspection Psych: Mental Status: mental status grossly normal Assessment and Plan Assessment and plan (1) Iron deficiency anemia: Code(s): D50.9 - Iron deficiency anemia, unspecified Status: Acute Assessment and Plan: egd and colonoscopy to assess if gi blood loss
--- NOTE | 2022-05-26 10:22 | SUR.OPER ---
EGD: END TIME 1007 COLON: START TIME 1014
[2022-05-26 10:31] VITALS: BP 100/54; PULSE 66; RESP 18; O2SAT 100
[2022-05-26 10:41] VITALS: BP 93/67; PULSE 68; RESP 19; O2SAT 100
[2022-05-26 10:51] VITALS: BP 114/67; PULSE 66; RESP 16; O2SAT 99
== END 2022-05-26 11:00 | disposition home or self-care (01) ==
PROVIDERS: PCP Emergency Medicine; Visit Provider Internal Medicine Gastroenterology
PROC: 0DJ08ZZ Inspection of Upper Intestinal Tract, Via Natural or Artificial Opening Endoscopic (ICD-10-PCS; CPT 43235; principal; 2022-05-26 10:30)
DX: Z12.11 Encounter for screening for malignant neoplasm of colon (principal); C7A.8 Other malignant neuroendocrine tumors; K64.8 Other hemorrhoids; D50.9 Iron deficiency anemia, unspecified; D13.2 Benign neoplasm of duodenum; I13.0 Hypertensive heart and chronic kidney disease with heart failure and stage 1 through stage 4 chronic kidney disease, or unspecified chronic kidney disease; I50.9 Heart failure, unspecified; N18.9 Chronic kidney disease, unspecified; G47.33 Obstructive sleep apnea (adult) (pediatric); E78.5 Hyperlipidemia, unspecified; E66.01 Morbid (severe) obesity due to excess calories; Z68.42 Body mass index [BMI] 45.0-49.9, adult; Z90.5 Acquired absence of kidney
CPT/HCPCS: 45378; 43239; 43251; 88305; J2704; J7120

== ENCOUNTER 2023-07-26 07:54 | Outpatient (CLI) | payer BC, SELFPAY ==
--- NOTE | ~2023-07-26 | US_ITS ---
Renal-Bladder ultrasound Clinical History: Chronic kidney disease Technique: Real-time sonographic imaging of the kidneys and urinary bladder was performed. Findings: The right kidney measures 12.3 cm in length there is no right hydronephrosis or renal calcu karol identified. Renal cortical echogenicity is increased. No right renal mass lesion is identified. L eft kidney not visualized. The urinary bladder is not imaged. Impression: Echogenic right kidney is compatible with chronic medical renal disease. Left kidney absent. Correlate for prior resection. Reviewed, dictated and finalized at location M. Impression: Echogenic right kidney is compatible with chronic medical renal disease. Left kidney absent. Correlate for prior resection.
== END 2023-07-26 07:55 | disposition home or self-care (01) ==
PROVIDERS: PCP Emergency Medicine; Visit Provider Internal Medicine Nephrology
DX: I12.9 Hypertensive chronic kidney disease with stage 1 through stage 4 chronic kidney disease, or unspecified chronic kidney disease (principal); N18.4 Chronic kidney disease, stage 4 (severe); E87.5 Hyperkalemia; Z90.5 Acquired absence of kidney
CPT/HCPCS: 76775

== ENCOUNTER 2023-08-15 15:43 | Outpatient (CLI) | payer BC, SELFPAY ==
[2023-08-15 15:55] LABS: Basophils Percent Auto 0.2 % (0.2-1.2); Eosinophils Absolute Auto 0.3 K/mm3 (0-0.3); Eosinophils Percent Auto 2.7 % (0-4.4); Hematocrit 26.7 % (42.0-52.0); Hemoglobin 7.9 g/dL (14.0-18.0); Immature Granulocyte Absolute 0.04 K/mm3 (0.00-0.031); Immature Granulocyte Percent A 0.4 % (0-0.5); Lymphocytes Absolute Auto 2.22 K/mm3 (0.9-3.2); Lymphocytes Percent Auto 22.8 % (18.3-44.2); Mean Corpuscular HGB Conc 29.6 g/dl (32-36); Mean Corpuscular Volume 98.2 fl (80-100); Mean Platelet Volume 7.9 fl (7.4-10.4); Monocytes Absolute Auto 0.9 K/mm3 (0.1-0.6); Monocytes Percent Auto 8.8 % (2.6-8.5); Neutrophils Absolute Auto 6.3 K/mm3 (1.3-6.7); Neutrophils Percent Auto 65.1 % (45.5-73.1); Platelet Count Result 346 k/mm3 (150-375); Red Blood Count 2.72 M/mm3 (4.6-6.20); Red Cell Distribution Width 14.6 % (11.5-14.5); White Blood Count 9.7 K/mm3 (4.5-10.0)
[2023-08-15 15:58] LABS: Hypochromasia 1+; Platelet Estimate Adequate (Adequate); Schistocytes None Seen
[2023-08-15 15:59] LABS: Blood Urea Nitrogen 49 mg/dL (8-26); Carbon Dioxide 21 mmol/L (22-30); Chloride 113 mmol/L (98-109); Estimated Glomerular Filt Rate 19; Glucose 90 mg/dL (70-105); Ionized Calcium (POC) 1.16 mmol/L (1.11-1.31); Potassium 5.3 mmol/L (3.5-4.9); Sodium 143 mmol/L (138-146)
== END 2023-08-15 15:44 | disposition home or self-care (01) ==
LOC: ANHLAB 15:45
PROVIDERS: PCP Emergency Medicine; Visit Provider Internal Medicine Hematology & Oncology
DX: D64.9 Anemia, unspecified (principal)
CPT/HCPCS: 36415; 80047; 85025

== ENCOUNTER 2024-04-25 12:14 | Outpatient (CLI) | payer BC, SELFPAY ==
[2024-04-25 13:40] LABS: Albumin Level 3.1 g/dL (3.5-5.1); Anion Gap 3 mmol/L (4-12); Blood Urea Nitrogen 84 mg/dL (9-20); Calcium 7.8 mg/dL (8.4-10.2); Carbon Dioxide 16 mmol/L (22-30); Chloride 121 mmol/L (98-107); Estimated Glomerular Filt Rate 9; Glucose 90 mg/dL (65-110); Phosphorus 6.8 mg/dL (2.5-4.5); Potassium 6.5 mmol/L (3.4-5.0); Sodium 140 mmol/L (137-145)
[2024-04-25 13:58] LABS: Creatinine Urine 83.4 mg/dL
[2024-04-25 14:34] LABS: Total Protein Urine Random > 600 mg/dL; Ur Ttl Prot Creatinine Ratio > 7.19 mg/mg (0-0.20)
[2024-04-25 14:37] LABS: Vitamin D 25 Hydroxy < 12.8 ng/mL
== END 2024-04-25 12:15 | disposition home or self-care (01) ==
LOC: ANHLAB 12:15
PROVIDERS: PCP Emergency Medicine; Visit Provider Internal Medicine Nephrology
DX: E55.9 Vitamin D deficiency, unspecified (principal); I12.9 Hypertensive chronic kidney disease with stage 1 through stage 4 chronic kidney disease, or unspecified chronic kidney disease; N18.4 Chronic kidney disease, stage 4 (severe); Z90.5 Acquired absence of kidney
CPT/HCPCS: 36415; 80069; 82306; 82570; 84156

== ENCOUNTER 2024-05-15 10:11 | Outpatient (CLI) | payer BC, SELFPAY ==
[2024-05-15 10:29] LABS: Hemoglobin 7.9 g/dL (14.0-18.0); Mean Corpuscular HGB Conc 30.4 g/dl (32-36); Mean Corpuscular Hemoglobin 30.3 pg (26-34); Mean Corpuscular Volume 99.6 fl (80-100); Mean Platelet Volume 8.8 fl (7.4-10.4); Platelet Count Result 419 k/mm3 (150-375); Red Blood Count 2.61 M/mm3 (4.6-6.20); Red Cell Distribution Width 15.1 % (11.5-14.5); White Blood Count 8.6 K/mm3 (4.5-10.0)
== END 2024-05-15 10:12 | disposition home or self-care (01) ==
LOC: ANHLAB 10:12
PROVIDERS: PCP Emergency Medicine; Visit Provider General Practice
DX: D64.9 Anemia, unspecified (principal)
CPT/HCPCS: 36415; 85027

== ENCOUNTER 2024-06-03 16:31 | Outpatient (CLI) | payer BC, SELFPAY ==
--- OUTSIDE RECORDS SUMMARY | 2024-06-03 16:34 | XMS_ITS | Clinical Summary ---
Author Organization [facility] [place] [address] Address [address] [place] [address] Care Team Providers Care Enrobing Machine Feeder Name Role Phone Juno Fang MD Primary Care Provider [phone] Arjun Lagunas MD Unavailable [phone] Allergies Active Allergy Reactions Criticality Noted Date Comments Lisinopril Angioedema High 09/23/2021 Unexplained angioedema R/T Lisinopril until declared otherwise by physician. Oxycodone Angioedema High 09/24/2021 Medications metoprolol XL (TOPROL-XL) 100 mg 24 hr tablet Take 1 tablet by mouth daily 1 Active levoFLOXacin (LEVAQUIN) 500 mg tabletIndicatio ns:Other (complete free text reason below),infectio n Take 500 mg by mouth daily. Indications: Other (complete free text reason below), infection Active Active Problems Problem Noted Date Diagnosed Date WAYNE (acute kidney injury) 06/03/2024 Abnormal hemoglobin (Hgb) 06/03/2024 Morbid obesity 09/20/2021 Left renal mass 08/12/2021 Overview (08/12/2021): Added automatically from request for surgery [id number] Primary hypertension 06/23/2021 Encounters Date Type Department Care Team Description 06/03/2024 Orders Only [facility] [id number] [place] [address] Fadia Bergman RN 06/03/2024 Orders Only [facility] [id number] [place] [id number] Angella Deal RN from Last 3 Months Medical History Medical History Date Comments Sleep apnea Hypertension Morbid obesity (HCC) 09/20/2021 WAYNE (acute kidney injury) (HCC) 06/03/2024 Family History Medical History Relation Name Comments Heart disease Mother Heart disease Other Relation Name Status Comments Mother Other Social History Tobacco Use Types Packs/Day Years Used Date Smoking Tobacco: Never Smokeless Tobacco: Never AUDIT-C Answer Date Recorded Q1: How often do you have a drink containing alc ohol? 2-4 times a month 09/16/2021 Q2: How many drinks containi ng alcohol do you have on a typical day when you are drinking? 3 or 4 09/16/2021 Q3: How often do you have si x or more drinks on one occasion? Never 09/16/2021 Sex and Gender Information Value Date Recorded Sex Assigned at Not on file Legal Sex Male 10:43 PM [employer] Gender Identity Not on file Sexual Orientation Not on file Obstetrics History Last Filed Vital Signs Vital Sign Reading Time Taken Comments Blood Pressure 136/84 10/19/2021 8:55 AM CDT Pulse 88 10/19/2021 8:55 AM CDT Temperature 36.4 C (97.6 F) 10/19/2021 8:55 AM CDT Respiratory Rate 16 10/19/2021 8:55 AM CDT Oxygen Saturation 97% 10/19/2021 8:55 AM CDT Inhaled Oxygen Concentration - - Weight 177.7 kg (391 lb 12.1 oz) 09/23/2021 6:24 AM CDT Height 198.1 cm (6' 5.99 ) 09/24/2021 7:34 AM CD T Body Mass Index 45.28 09/23/2021 6:24 AM CDT Plan of Treatment Health Maintenance Due Date Last Done Comments Colon Cancer Screening-Colonoscopy 1968 Depression Screening 1968 Hepatitis C Screening 1968 Prostate Cancer Screening-PSA 1968 Pneumococcal vaccine <65 (1 of 2 - PCV) 1974 DTaP/Tdap/Td Vaccine (1 - Tdap) 09/23/1979 Hepatitis B Screening 1986 Regular Well Visit/Exam 18-64 1986 Zoster Vaccine (1 of 2) 2018 Covid-19 Vaccine ( season) 2023 06/20/2021, 01/10/2021, 12/20/2020 Influenza Vaccine (#1) 2023 Insurance [facility] BCBS [employer] [facility] Advance Directives For more information, please contact: [phone] * Full Code (Latest Code Status on File) Date Activated Date Inactivated Comments 09/26/2021 11:15 AM 09/30/2021 4:39 PM * Full Code Date Activated Date Inactivated Comments 09/23/2021 2:58 PM 09/24/2021 7:29 AM * Full Code Date Activated Date Inactivated Comments 09/23/2021 2:58 PM 09/23/2021 2:58 PM Care Teams Enrobing Machine Feeder Relationship Specialty Start Date End Date Juno Fang MD PCP - General Family Medicine 03/01/21 [place] [id number] [place] [address] Consulting Physician Urology 09/23/21
--- OUTSIDE RECORDS SUMMARY | 2024-06-03 16:34 | XMS_ITS ---
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 Ordering Clinician Indication Dosage Frequency Signature (SIG) Comments Components ONS [facility] 05-27 06:00: 00 Yes [id number] Number of Repeats Allowed: Frequency: Every Dialysis Treatment Mircera 05-25 14:23: 46 Yes [id number] Number of Repeats Allowed: Frequency: LOGAN dosing, every two weeks calcitriol 05-23 16:42: 44 Yes [id number] Number of Repeats Allowed: Frequency: Three times a week heparin sodium, porcine 05-19 20:28: 31 Yes [id number] Number of Repeats Allowed: Frequency: Three times a week on Sunday, Sunday and SundayDo sOrdered: Loading Dose 1000 Units 1:1000 Units/mLRo tiffanie: Intravenou s heparin sodium, porcine 05-19 20:28: 31 Yes [id number] Number of Repeats Allowed: Frequency: Three times a week on Sunday, Sunday and SundayDo sOrdered: Hourly Dose 600 Units/Hr 1:1000 Units/mLRo tiffanie: Intravenou s hydrALAZINE HCl 05-19 20:24: 39 Yes Number of Repeats Allowed: Frequency: Two times a day Vitamin D (Ergocalcif francisco) 05-19 20:24: 33 Yes Number of Repeats Allowed: Frequency: One time a week Normal Saline Solution 0.9% NaCl 05-19 20:24: 23 Yes [id number] Number of Repeats Allowed: Frequency: Post-dialy sisDosesOr dered: Arterial Lumen 10 mL Route: Intracathe terDosesOr dered: Venous Lumen 10 mL Route: Intracathe ter Metoprolol Succinate ER 05-19 20:23: 52 Yes Number of Repeats Allowed: Frequency: One time a day Gabapentin 05-19 20:23: 42 Yes Number of Repeats Allowed: Frequency: Three times a day Colchicine 05-19 20:23: 13 Yes Number of Repeats Allowed: Frequency: Two times a week Bumetanide 05-19 20:23: 09 Yes Number of Repeats Allowed: Frequency: One time a day Oxygen 05-19 20:22: 47 Yes [id number] Number of Repeats Allowed: Frequency: As needed ondansetron hydrochlori de 05-19 20:22: 23 Yes [id number] Number of Repeats Allowed: Frequency: Every 4 hours as needed diphenhydra mine hydrochlori de 05-19 20:22: 08 Yes [id number] Number of Repeats Allowed: Frequency: Every 4 hours as needed clonidine 05-19 20:21: 50 Yes [id number] Number of Repeats Allowed: Frequency: Every 4 hours as needed acetaminoph en 05-19 20:21: 35 Yes [id number] Number of Repeats Allowed: Frequency: Every 4 hours as needed Problems This patient has no known problems. Procedures Procedure Date / Time Performed Performing Clinician Rupinder ce Details Central Venous Catheter (CVC) 2024-05-05 06:00:00 Access Site Chest (Right) Access Use Start Date 2024-05-12 00:00:0 0 DIALYSIS TREATMENT INFORMATION Conventional Hemodialysis Date Type Treatment Start Date Treatment End Date Pre-Treatment Vitals Post-Treatment Vitals Weight Gain BFR DFR Actual UF Dialysis Access Febru ian2024 In-Ce nter Hemod ialys is Treat ment 2024-06-02 T21:37:43. 000Z 2024-06-03 T01:53:08. 000Z BP Sitting (Pre-Dialysis) 174/103 mmHg BP Sitting (Post-D ialysis ) 173/ 100 mmHg BP Standing (Pre-Dialysis) 180/106 mmHg BP Standing (P ost-Dialysis) 156/99 mmHg Sitting Heart Rate Pre-Dialysis 72 BPM Sitting Heart Rate Post-Dialysis 66 BPM Standing Heart Rate Pre-Dialysis 79 BPM Standing Heart Rate Post-Dialysis 86 BPM Temperature Pre-Dialysis 97.3 degF Temperature Post -Dialysis 97.7 degF May 30, 2024 In-Center Hemodialysis Treatment [id number]:31:24.000Z [id number]:49:19.000Z BP Sitting (Pre-Dialysis) 168/96 mmHg BP Sitting (Post-Dialysis) 161/95 mmHg Concurrent Access: falseCentral Venous Catheter (CVC) Chest (Right) Arterial BP Standing (Pre-Dialysis) 161/94 mmHg BP Standing (P ost-Dialysis) 138/74 mmHg Sitting Heart Rate Pre-Dialysis 84 BPM Sitting Heart Rate Post-Dialysis 63 BPM Standing Heart Rate Pre-Dialysis 90 BPM Standing Heart Rate Post-Dialysis 95 BPM Temperature Pre-Dialysis 97.2 degF Temperature Post -Dialysis 97.6 degF May 28, 2024 In-Center Hemodialysis Treatment [id number]:37:53.000Z [id number]:37:37.000Z BP Sitting (Pre-Dialysis) 152/96 mmHg BP Sitting (Post-Dialysis) 160/92 mmHg Concurrent Access: falseCentral Venous Catheter (CVC) Chest (Right) Arterial BP Standing (Pre-Dialysis) 152/96 mmHg BP Standing (P ost-Dialysis) 150/92 mmHg Sitting Heart Rate Pre-Dialysis 75 BPM Sitting Heart Rate Post-Dialysis 58 BPM Standing Heart Rate Pre-Dialysis 75 BPM Standing Heart Rate Post-Dialysis 84 BPM Temperature Pre-Dialysis 97.4 degF Temperature Post -Dialysis 97.3 degF May 26, 2024 In-Center Hemodialysis Treatment [id number]:24:55.000Z [id number]:30:45.000Z BP Sitting (Pre-Dialysis) 164/85 mmHg BP Sitting (Post-Dialysis) 170/87 mmHg Concurrent Access: falseCentral Venous Catheter (CVC) Chest (Right) Arterial BP Standing (Pre-Dialysis) 143/84 mmHg BP Standing (P ost-Dialysis) 149/50 mmHg Sitting Heart Rate Pre-Dialysis 70 BPM Sitting Heart Rate Post-Dialysis 50 BPM Standing Heart Rate Pre-Dialysis 84 BPM Standing Heart Rate Post-Dialysis 75 BPM Temperature Pre-Dialysis 97.9 degF Temperature Post -Dialysis 97.5 degF May 23, 2024 In-Center Hemodialysis Treatment [id number]:12:53.000Z [id number]:20:23.000Z BP Sitting (Pre-Dialysis) 152/87 mmHg BP Sitting (Post-Dialysis) 180/100 mmHg Concurrent Access: falseCentral Venous Catheter (CVC) Chest (Right) Arterial Sitting Heart Rate Pre-Dialysis 87 BPM BP Standi ng (Post-Dialysis) 188/98 mmHg Temperature Pre-Dialysis 98 degF Sitting Heart Ra te Post-Dialysis 98 BPM Standing Heart Rate Post-Iliana lysis 98 BPM Temperature Post-Dialysis 98 degF May 21, 2024 In-Center Hemodialysis Treatment [id number]:54:11.000Z [id number]:56:16.000Z BP Sitting (Pre-Dialysis) 153/99 mmHg BP Sitting (Post-Dialysis) 122/78 mmHg Concurrent Access: falseCentral Venous Catheter (CVC) Chest (Right) Arterial Sitting Heart Rate Pre-Dialysis 81 BPM BP Standi ng (Post-Dialysis) 120/74 mmHg Temperature Pre-Dialysis 98 degF Sitting Heart Ra te Post-Dialysis 78 BPM Standing Heart Rate Post-Iliana lysis 87 BPM Temperature Post-Dialysis 98 degF May 19, 2024 In-Center Hemodialysis Treatment [id number]:23:10.000Z [id number]:29:25.000Z BP Sitting (Pre-Dialysis) 197/107 mmHg BP Sitting (Post-Dialysis) 170/90 mmHg Concurrent Access: falseCentral Venous Catheter (CVC) Chest (Right) Arterial Sitting Heart Rate Pre-Dialysis 96 BPM BP Standi ng (Post-Dialysis) 182/99 mmHg Temperature Pre-Dialysis 98 degF Sitting Heart Ra te Post-Dialysis 68 BPM Standing Heart Rate Post-Iliana lysis 81 BPM Temperature Post-Dialysis 98 .6 degF May 16, 2024 In-Center Hemodialysis Treatment [id number]:57:58.000Z [id number]:08:23.000Z BP Sitting (Pre-Dialysis) 167/114 mmHg BP Sitting (Post-Dialysis) 156/94 mmHg Concurrent Access: falseCentral Venous Catheter (CVC) Chest (Right) Arterial Sitting Heart Rate Pre-Dialysis 76 BPM BP Standing (Post-Dialysis) 141/79 mmHg Temperature Pre-Dialysis 98.1 degF Sitting Heart Ra te Post-Dialysis 65 BPM Standing Heart Rate Post-Iliana lysis 84 BPM Temperature Post-Dialysis 98 .2 degF May 14, 2024 In-Center Hemodialysis Treatment [id number]:22:00.000Z [id number]:27:21.000Z BP Sitting (Pre-Dialysis) 173/108 mmHg BP Sitting (Post-Dialysis) 151/104 mmHg Concurrent Access: falseCentral Venous Catheter (CVC) Chest (Right) Arterial BP Standing (Pre-Dialysis) 168/106 mmHg BP Standing (P ost-Dialysis) 144/79 mmHg Sitting Heart Rate Pre-Dialysis 73 BPM Sitting Heart Rate Post-Dialysis 59 BPM Standing Heart Rate Pre-Dialysis 81 BPM Standing Heart Rate Post-Dialysis 75 BPM Temperature Pre-Dialysis 98 degF Temperature Post -Dialysis 98 degF May 12, 2024 In-Center Hemodialysis Treatment [id number]:22:00.000Z [id number]:52:48.000Z BP Sitting (Pre-Dialysis) 146/75 mmHg BP Sitting (Post-Dialysis) 146/94 mmHg Concurrent Access: falseCentral Venous Catheter (CVC) Chest (Right) Arterial BP Standing (Pre-Dialysis) 172/99 mmHg Sitting Heart Rate Post-Dialysis 62 BPM Sitting Heart Rate Pre-Dialysis 76 BPM Standing Heart Rate Pre-Dialysis 80 BPM Temperature Pre-Dialysis 98 degF DIALYSIS ORDER Dialysis Procedure Orders Type of Dialysis Procedure Order Order Date/Time Observations In-Center Hemodialysis Treatment 2024 Target Weight 175 kg Dialysate Flow Rate 800 mL/min Blood Flow Rate 400 mL/min Treatment Time 255 min(total) Max UF Rate 13 mL/kg/hr Base Sodium Dialysate Base Sodium 138 mE q/L dialysate_temp 37 C BiCarb Dialysate BiCarbonate 38 meq/L Access Concurrent No Arterial Access Central [facility]ous [facility] (CVC) (Chest (Right)) Venous Access Central Venous [facility] (CVC) (Chest (Right)) Dialyzer Nipro Elisio 19H 162 6 treatment_[email or web address] Dialysate Bath Potassium Potassium 3 mEq /L Dialysate Bath Calcium Calcium 2.5 mEq/L Results Adequacy Description Draw Date Result/Unit Status Ref Range Result Comments stdKT/V Total 2024-06-03 17:41:01 F Unable to calculate: Post BUN lab result is unknown LENGTH OF DIALYSIS 2024-06-03 17:41:01 255 min F Total Kt/V 2024-06-03 17:41:01 F Unable to calculate: Post BUN lab result is unknown Residual kt/v 2024-06-03 17:41:01 F Unable to calculate: Post BUN lab result is unknown spKt/V 2024-06-03 17:41:01 F Unable to calculate: Post BUN lab result is unknown URR% 2024-06-03 17:41:01 F Unable to calculate: Post BUN lab result is unknown HEIGHT IN INCHES 2024-06-03 17:41:01 70 Inches F AMPUTATE FACTOR 2024-06-03 17:41:01 0 F CURRENT KRU 2024-06-03 17:41:01 F Unable to calculate: Post BUN lab result is unknown stdKt/V (DIAL) 2024-06-03 17:41:01 F Unable to calculate: Post BUN lab result is unknown Dialyzer MORRIS 2024-06-03 17:41:01 1626 Calc F BLOOD FLOW-QWB 2024-06-03 17:41:01 398 F Std Renal KT/V 2024-06-03 17:41:01 F Unable to calculate: Post BUN lab result is unknown DIALYZER FLOW-QD 2024-06-03 17:41:01 800 mL/min F PATIENT AGE 2024-06-03 17:41:01 53 Years F TOTAL HOURS/WEEK DIALYSIS 2024-06-03 17:41:01 12 hrs F TBW (Hui) 2024-06-03 17:41:01 F Unable to calculate: Post BUN lab result is unknown nPCR 2024-06-03 17:41:01 F Unable to calculate: Post BUN lab result is unknown WEIGHT - PRE DAY 1 2024-06-03 17:41:01 175.9 kg F BSA ANGEL 2024-06-03 17:41:01 F Unable to calculate: Post BUN lab result is unknown PRESCRIBED DAYS/WEEK 2024-06-03 17:41:01 3 Day/Wk F VM (KT/V MEAN VOL) 2024-06-03 17:41:01 F Unable to calculate: Post BUN lab result is unknown VT (KT/V TX VOL) 2024-06-03 17:41:01 F Unable to calculate: Post BUN lab result is unknown WEIGHT - POST DAY 1 2024-06-03 17:41:01 174.6 kg F WEIGHT (KG) 2024-06-03 17:41:01 175 kg F eKt/V 2024-06-03 17:41:01 F Unable to calculate: Post BUN lab result is unknown KT/V PRESCRIBED 2024-06-03 17:41:01 F Unable to calculate: Post BUN lab result is unknown Urea nitrogen [Mass/volume] in Serum or Plasma 2024-06-03 17:39:27 71 mg/dL F 9.0-23.0 Creatinine [Mass/volume] in Serum or Plasma 2024-06-03 17:39:27 9.18 mg/dL F 0.7-1.3 URR% 2024-06-03 17:32:15 64 % F stdKT/V Total 2024-06-03 17:32:15 N/A F nPCR 2024-06-03 17:32:15 0.91 G/KG/D F BSA ANGEL 2024-06-03 17:32:15 2.76 sq m F stdKt/V (DIAL) 2024-06-03 17:32:15 N/A F Residual kt/v 2024-06-03 17:32:15 F WEIGHT - POST DAY 1 2024-06-03 17:32:15 174.5 kg F PRESCRIBED DAYS/WEEK 2024-06-03 17:32:15 3 Day/Wk F BLOOD FLOW-QWB 2024-06-03 17:32:15 379 F PATIENT AGE 2024-06-03 17:32:15 53 Years F VM (KT/V MEAN VOL) 2024-06-03 17:32:15 78.8 F WEIGHT - PRE DAY 1 2024-06-03 17:32:15 174.5 kg F KT/V PRESCRIBED 2024-06-03 17:32:15 1.26 F CURRENT KRU 2024-06-03 17:32:15 F Std Renal KT/V 2024-06-03 17:32:15 N/A F DIALYZER FLOW-QD 2024-06-03 17:32:15 500 mL/min F HEIGHT IN INCHES 2024-06-03 17:32:15 70 Inches F TBW (Hui) 2024-06-03 17:32:15 74.98 Liters F Total Kt/V 2024-06-03 17:32:15 1.11 F WEIGHT (KG) 2024-06-03 17:32:15 175 kg F VT (KT/V TX VOL) 2024-06-03 17:32:15 63.6 L F eKt/V 2024-06-03 17:32:15 0.98 F LENGTH OF DIALYSIS 2024-06-03 17:32:15 256 min F AMPUTATE FACTOR 2024-06-03 17:32:15 0 F Dialyzer MORRIS 2024-06-03 17:32:15 1626 Calc F TOTAL HOURS/WEEK DIALYSIS 2024-06-03 17:32:15 12 hrs F spKt/V 2024-06-03 17:32:15 1.11 F Urea nitrogen [Mass/volume] in Serum or Plasma --post dialysis 2024-06-03 17:30:15 20 mg/dL F 9.0-23.0 Urea nitrogen [Mass/volume] in Serum or Plasma 2024-06-01 01:30:20 55 mg/dL F 9.0-23.0 CRE CLR UR/BSA 2024-05-30 17:30:41 6 mL/min F 85.0-125.0 BSA ANGEL 2024-05-30 17:30:41 2.76 sq m K BODY WEIGHT (LBS) 2024-05-30 17:21:33 385 lbs F Creatinine [Mass/volume] in Urine 2024-05-28 21:16:23 114.04 mg/dL F AMPUTATE FACTOR 2024-05-28 18:32:21 0 F eKt/V 2024-05-28 18:32:21 0.76 F stdKt/V (DIAL) 2024-05-28 18:32:21 N/A F Total Kt/V 2024-05-28 18:32:21 0.85 F stdKT/V Total 2024-05-28 18:32:21 N/A F LENGTH OF DIALYSIS 2024-05-28 18:32:21 242 min F spKt/V 2024-05-28 18:32:21 0.85 F HEIGHT IN INCHES 2024-05-28 18:32:21 70 Inches F nPCR 2024-05-28 18:32:21 0.82 G/KG/D F Residual kt/v 2024-05-28 18:32:21 F WEIGHT (KG) 2024-05-28 18:32:21 175 kg F WEIGHT - PRE DAY 1 2024-05-28 18:32:21 172.7 kg F Std Renal KT/V 2024-05-28 18:32:21 N/A F PATIENT AGE 2024-05-28 18:32:21 53 Years F URR% 2024-05-28 18:32:21 54 % F KT/V PRESCRIBED 2024-05-28 18:32:21 1.19 F CURRENT KRU 2024-05-28 18:32:21 F BLOOD FLOW-QWB 2024-05-28 18:32:21 371 F Dialyzer MORRIS 2024-05-28 18:32:21 1626 Calc F DIALYZER FLOW-QD 2024-05-28 18:32:21 800 mL/min F VT (KT/V TX VOL) 2024-05-28 18:32:21 83.2 L F TBW (Hui) 2024-05-28 18:32:21 74.1 Liters F WEIGHT - POST DAY 1 2024-05-28 18:32:21 171.9 kg F PRESCRIBED DAYS/WEEK 2024-05-28 18:32:21 3 Day/Wk F VM (KT/V MEAN VOL) 2024-05-28 18:32:21 83.9 F TOTAL HOURS/WEEK DIALYSIS 2024-05-28 18:32:21 12 hrs F Urea nitrogen [Mass/volume] in Serum or Plasma --post dialysis 2024-05-28 18:30:23 30 mg/dL F 9.0-23.0 BUN/CREAT 2024-05-28 16:19:15 7.6 Calc F 6.9-32.9 Creatinine [Mass/volume] in Serum or Plasma 2024-05-28 16:18:28 8.57 mg/dL F 0.7-1.3 Urea nitrogen [Mass/volume] in Serum or Plasma 2024-05-28 16:18:28 65 mg/dL F 9.0-23.0 AMPUTATE FACTOR 2024-05-27 08:15:15 0 F COLLECTION TIME FOR URINE 2024-05-26 23:24:09 1440 min F TOTAL VOLUME-24 HR URINE 2024-05-26 23:24:09 1000 mL F nPCR 2024-05-24 16:38:58 0.55 G/KG/D F LENGTH OF DIALYSIS 2024-05-24 16:38:58 240 min F VM (KT/V MEAN VOL) 2024-05-24 16:38:58 84.1 F Residual kt/v 2024-05-24 16:38:58 F TOTAL HOURS/WEEK DIALYSIS 2024-05-24 16:38:58 8 hrs F spKt/V 2024-05-24 16:38:58 0.84 F TBW (Hui) 2024-05-24 16:38:58 74.17 Liters F WEIGHT (KG) 2024-05-24 16:38:58 175 kg F PATIENT AGE 2024-05-24 16:38:58 53 Years F stdKT/V Total 2024-05-24 16:38:58 N/A F PRESCRIBED DAYS/WEEK 2024-05-24 16:38:58 3 Day/Wk F HEIGHT IN INCHES 2024-05-24 16:38:58 70 Inches F BLOOD FLOW-QWB 2024-05-24 16:38:58 377 F DIALYZER FLOW-QD 2024-05-24 16:38:58 800 mL/min F eKt/V 2024-05-24 16:38:58 0.75 F stdKt/V (DIAL) 2024-05-24 16:38:58 N/A F KT/V PRESCRIBED 2024-05-24 16:38:58 1.18 F VT (KT/V TX VOL) 2024-05-24 16:38:58 84.2 L F URR% 2024-05-24 16:38:58 51 % F AMPUTATE FACTOR 2024-05-24 16:38:58 0 F WEIGHT - PRE DAY 1 2024-05-24 16:38:58 178.1 kg F CURRENT KRU 2024-05-24 16:38:58 F Total Kt/V 2024-05-24 16:38:58 0.84 F Dialyzer MORRIS 2024-05-24 16:38:58 1626 Calc F Std Renal KT/V 2024-05-24 16:38:58 N/A F WEIGHT - POST DAY 1 2024-05-24 16:38:58 172.1 kg F BSA ANGEL 2024-05-24 16:38:58 2.76 sq m F Urea nitrogen [Mass/volume] in Serum or Plasma --post dialysis 2024-05-24 16:37:21 30 mg/dL F 9.0-23.0 URR% 2024-05-22 14:14:16 51 % F Dialyzer MORRIS 2024-05-22 14:14:16 1264 Calc F WEIGHT - POST DAY 1 2024-05-22 14:14:16 174.6 kg F TOTAL HOURS/WEEK DIALYSIS 2024-05-22 14:14:16 4 hrs F BSA ANGEL 2024-05-22 14:14:16 2.76 sq m F VT (KT/V TX VOL) 2024-05-22 14:14:16 84.1 L F stdKT/V Total 2024-05-22 14:14:16 N/A F VM (KT/V MEAN VOL) 2024-05-22 14:14:16 84.1 F WEIGHT (KG) 2024-05-22 14:14:16 175 kg F PATIENT AGE 2024-05-22 14:14:16 53 Years F spKt/V 2024-05-22 14:14:16 0.77 F DIALYZER FLOW-QD 2024-05-22 14:14:16 500 mL/min F AMPUTATE FACTOR 2024-05-22 14:14:16 0 F PRESCRIBED DAYS/WEEK 2024-05-22 14:14:16 3 Day/Wk F stdKt/V (DIAL) 2024-05-22 14:14:16 N/A F eKt/V 2024-05-22 14:14:16 0.69 F Std Renal KT/V 2024-05-22 14:14:16 N/A F LENGTH OF DIALYSIS 2024-05-22 14:14:16 240 min F WEIGHT - PRE DAY 1 2024-05-22 14:14:16 177.3 kg F Residual kt/v 2024-05-22 14:14:16 F TBW (Hui) 2024-05-22 14:14:16 75.01 Liters F Total Kt/V 2024-05-22 14:14:16 0.77 F KT/V PRESCRIBED 2024-05-22 14:14:16 1.04 F BLOOD FLOW-QWB 2024-05-22 14:14:16 394 F CURRENT KRU 2024-05-22 14:14:16 F nPCR 2024-05-22 14:14:16 0.46 G/KG/D F HEIGHT IN INCHES 2024-05-22 14:14:16 70 Inches F Urea nitrogen [Mass/volume] in Serum or Plasma --post dialysis 2024-05-22 14:12:17 44 mg/dL F 9.0-23.0 Urea nitrogen [Mass/volume] in Serum or Plasma 2024-05-22 14:07:21 89 mg/dL F 9.0-23.0 Urea nitrogen [Mass/volume] in Serum or Plasma 2024-05-22 14:06:22 61 mg/dL F 9.0-23.0 CRE CLR UR/BSA 2024-05-18 08:36:47 F Canceled - Specimen not received 5 days past draw date,Unable to Calculate. KRU-UREA CLR UR 2024-05-18 08:36:47 F Canceled - Specimen not received 5 days past draw date BSA ANGEL 2024-05-18 08:36:47 F Canceled - Specimen not received 5 days past draw date Urea nitrogen [Mass/volume] in Urine 2024-05-18 08:23:43 F Canceled - Specimen not received 5 days past draw date Creatinine [Mass/volume] in Urine 2024-05-18 08:23:43 F Canceled - Specimen not received 5 days past draw date stdKt/V (DIAL) 2024-05-13 22:57:31 N/A F PRESCRIBED DAYS/WEEK 2024-05-13 22:57:31 3 Day/Wk F Dialyzer MORRIS 2024-05-13 22:57:31 1264 Calc F spKt/V 2024-05-13 22:57:31 0.81 F stdKT/V Total 2024-05-13 22:57:31 N/A F LENGTH OF DIALYSIS 2024-05-13 22:57:31 209 min F DIALYZER FLOW-QD 2024-05-13 22:57:31 500 mL/min F HEIGHT IN INCHES 2024-05-13 22:57:31 70 Inches F Total Kt/V 2024-05-13 22:57:31 0.81 F Residual kt/v 2024-05-13 22:57:31 F PATIENT AGE 2024-05-13 22:57:31 53 Years F URR% 2024-05-13 22:57:31 53 % F VM (KT/V MEAN VOL) 2024-05-13 22:57:31 69.7 F TBW (Hui) 2024-05-13 22:57:31 75.35 Liters F BLOOD FLOW-QWB 2024-05-13 22:57:31 399 F eKt/V 2024-05-13 22:57:31 0.71 F WEIGHT - POST DAY 1 2024-05-13 22:57:31 175.6 kg F KT/V PRESCRIBED 2024-05-13 22:57:31 0.9 F nPCR 2024-05-13 22:57:31 0.48 G/KG/D F CURRENT KRU 2024-05-13 22:57:31 F VT (KT/V TX VOL) 2024-05-13 22:57:31 69.7 L F AMPUTATE FACTOR 2024-05-13 22:57:31 0 F Std Renal KT/V 2024-05-13 22:57:31 N/A F TOTAL HOURS/WEEK DIALYSIS 2024-05-13 22:57:31 3 hrs F WEIGHT (KG) 2024-05-13 22:57:31 175 kg F WEIGHT - PRE DAY 1 2024-05-13 22:57:31 177.1 kg F BUN/CREAT 2024-05-13 22:56:53 10.5 Calc F 6.9-32.9 Urea nitrogen [Mass/volume] in Serum or Plasma 2024-05-13 22:55:40 92 mg/dL F 9.0-23.0 Creatinine [Mass/volume] in Serum or Plasma 2024-05-13 22:55:40 8.79 mg/dL F 0.7-1.3 COLLECTION TIME FOR URINE 2024-05-13 21:22:28 1440 min F Urea nitrogen [Mass/volume] in Serum or Plasma --post dialysis 2024-05-13 16:12:14 43 mg/dL F 9.0-23.0 TOTAL VOLUME-24 HR URINE 2024-05-13 08:03:20 0 mL F BODY WEIGHT (LBS) 2024-05-13 08:03:20 0 lbs F AMPUTATE FACTOR 2024-05-13 08:03:13 0 F Urea nitrogen [Mass/volume] in Serum or Plasma --post dialysis Anemia Description Draw Date Result/Unit Status Ref Range Result Comments HCT CALC HGBX3 2024-05-31 21:05:58 20.7 % F 42.0-52.0 Hemoglobin [Mass/volume] in Blood 2024-05-31 21:05:10 6.9 g/dL F 14.0-18.0 HCT CALC HGBX3 2024-05-29 21:56:04 22.5 % F 42.0-52.0 Hemoglobin [Mass/volume] in Blood 2024-05-29 21:55:24 7.5 g/dL F 14.0-18.0 Ferritin [Mass/volume] in Serum or Plasma 2024-05-25 04:49:48 1147 ng/mL F 22.0-322.0 IRON SATURATION 2024-05-25 04:11:37 32 % F 21.0-49.0 TIBC 2024-05-25 04:11:37 217 ug/dL F 250.0-425.0 Iron binding capacity.unsaturated [Mass/volume] in Serum or Plasma 2024-05-25 02:18:14 148 ug/dL F 75.0-360.0 Iron [Mass/volume] in Serum or Plasma 2024-05-25 02:18:14 69 ug/dL F 65.0-175.0 HCT CALC HGBX3 2024-05-25 00:55:44 22.5 % F 42.0-52.0 Hemoglobin [Mass/volume] in Blood 2024-05-25 00:55:10 7.5 g/dL F 14.0-18.0 HCT CALC HGBX3 2024-05-22 16:39:25 22.2 % F 42.0-52.0 MCHC [Mass/volume] by Automated count 2024-05-22 16:38:16 30.3 g/dL F 29.6-35.3 Erythrocyte distribution width [Ratio] by Automated count 2024-05-22 16:38:16 15 % F 11.0-15.0 MCH [Entitic mass] by Automated count 2024-05-22 16:38:16 30.6 pg F 25.9-34.2 Hemoglobin [Mass/volume] in Blood 2024-05-22 16:38:16 7.4 g/dL F 14.0-18.0 Platelets [#/volume] in Blood by Automated count 2024-05-22 16:38:16 449 x 10^3 cells/uL F 140.0-450.0 Erythrocytes [#/volume] in Blood by Automated count 2024-05-22 16:38:16 2.4 x 10^6 cells/uL F 4.6-6.2 Hematocrit [Volume Fraction] of Blood by Automated count 2024-05-22 16:38:16 24.3 % F 41.0-53.0 MCV [Entitic volume] by Automated count 2024-05-22 16:38:16 101.1 fL F 80.0-100.0 Reticulocytes/100 erythrocytes in Blood by Automated count 2024-05-20 08:19:21 F Canceled - Specimen not received 5 days past draw date Ferritin [Mass/volume] in Serum or Plasma 2024-05-16 05:19:33 843 ng/mL F 22.0-322.0 HCT CALC HGBX3 2024-05-15 16:12:08 24.3 % F 42.0-52.0 Hemoglobin [Mass/volume] in Blood 2024-05-15 16:11:25 8.1 g/dL F 14.0-18.0 IRON SATURATION 2024-05-14 09:20:49 33 % F 21.0-49.0 TIBC 2024-05-14 09:20:49 226 ug/dL F 250.0-425.0 Iron binding capacity.unsaturated [Mass/volume] in Serum or Plasma 2024-05-14 08:36:52 151 ug/dL F 75.0-360.0 Iron [Mass/volume] in Serum or Plasma 2024-05-14 08:28:24 75 ug/dL F 65.0-175.0 TIBC Platelets [#/volume] in Blood by Automated count MCHC [Mass/volume] by Automated count IRON SATURATION MCH [Entitic mass] by Automated count Erythrocytes [#/volume] in Blood by Automated count Reticulocytes/100 erythrocytes in Blood by Automated count Iron [Mass/volume] in Serum or Plasma HCT CALC HGBX3 Erythrocyte distribution width [Ratio] by Automated count MCV [Entitic volume] by Automated count Hemoglobin [Mass/volume] in Blood Iron binding capacity.unsaturated [Mass/volume] in Serum or Plasma Ferritin [Mass/volume] in Serum or Plasma Hematocrit [Volume Fraction] of Blood by Automated count ABSOLUTE RETIC COUNT FluidBP Description Draw Date Result/Unit Status Ref Range Result Comments Sodium [Moles/volume] in Serum or Plasma 2024-05-28 19:31:28 139 mEq/L F 132.0-146.0 Sodium [Moles/volume] in Serum or Plasma 2024-05-14 08:36:53 141 mEq/L F 132.0-146.0 Sodium [Moles/volume] in Serum or Plasma General Description Draw Date Result/Unit Status Ref Range Result Comments Aspartate aminotransferase [Enzymatic activity/volume] in Serum or Plasma 2024-06-03 17:39:27 24 U/L F 0.0-33.0 Alanine aminotransferase [Enzymatic activity/volume] in Serum or Plasma 2024-06-03 17:39:27 10 U/L F 10.0-49.0 Chloride [Moles/volume] in Serum or Plasma 2024-05-28 19:31:28 100 mEq/L F 99.0-109.0 Chloride [Moles/volume] in Serum or Plasma 2024-05-23 03:55:12 106 mEq/L F 99.0-109.0 Aspartate aminotransferase [Enzymatic activity/volume] in Serum or Plasma 2024-05-22 14:07:21 34 U/L F 0.0-33.0 Chloride [Moles/volume] in Serum or Plasma 2024-05-14 08:36:53 107 mEq/L F 99.0-109.0 Alanine aminotransferase [Enzymatic activity/volume] in Serum or Plasma 2024-05-13 22:55:40 37 U/L F 10.0-49.0 Aluminum [Mass/volume] in Serum or Plasma 2024-05-13 18:52:30 10 ug/L F 0.0-9.0 Chloride [Moles/volume] in Serum or Plasma InfectionVaccination Description Draw Date Result/Unit Status Ref Range Result Comments Lymphocytes/100 leukocytes in Blood by Automated count 2024-05-22 16:38:16 12.2 % F Basophils [#/volume] in Blood by Automated count 2024-05-22 16:38:16 37 Cells/uL F 0.0-400.0 Neutrophils [#/volume] in Blood by Automated count 2024-05-22 16:38:16 3964 Cells/uL F 2000.0-8800.0 Lymphocytes [#/volume] in Blood by Automated count 2024-05-22 16:38:16 640 Cells/uL F 620.0-3660.0 Monocytes/100 leukocytes in Blood by Automated count 2024-05-22 16:38:16 7.9 % F Eosinophils/100 leukocytes in Blood by Automated count 2024-05-22 16:38:16 3.8 % F Basophils/100 leukocytes in Blood by Automated count 2024-05-22 16:38:16 0.7 % F Neutrophils/100 leukocytes in Blood by Automated count 2024-05-22 16:38:16 75.5 % F Monocytes [#/volume] in Blood by Automated count 2024-05-22 16:38:16 415 Cells/uL F 0.0-1100.0 Eosinophils [#/volume] in Blood by Automated count 2024-05-22 16:38:16 200 Cells/uL F 0.0-700.0 Leukocytes [#/volume] in Blood by Automated count 2024-05-22 16:38:16 5.2 x 10^3 cells/uL F 4.0-11.0 Lymphocytes/100 leukocytes in Blood by Automated count Basophils/100 leukocytes in Blood by Automated count Monocytes [#/volume] in Blood by Automated count Monocytes/100 leukocytes in Blood by Automated count Neutrophils [#/volume] in Blood by Automated count Eosinophils [#/volume] in Blood by Automated count Basophils [#/volume] in Blood by Automated count Neutrophils/100 leukocytes in Blood by Automated count Eosinophils/100 leukocytes in Blood by Automated count Lymphocytes [#/volume] in Blood by Automated count Leukocytes [#/volume] in Blood by Automated count MineralBone Disorder Description Draw Date Result/Unit Status Ref Range Result Comments Alkaline phosphatase [Enzymatic activity/volume] in Serum or Plasma 2024-06-03 17:39:27 114 U/L F 46.0-116.0 CA CORRECTED 2024-05-23 06:18:47 8.4 mg/dL F CA/PHOS PRODUCT 2024-05-23 06:17:03 56.3 Calc F 21.0-53.0 CA*PO4 CORRCTD 2024-05-23 06:17:03 62.9 Calc F 21.0-53.0 Calcium [Mass/volume] in Serum or Plasma 2024-05-23 03:55:12 7.5 mg/dL F 8.7-10.4 Phosphate [Mass/volume] in Serum or Plasma 2024-05-23 03:55:06 7.5 mg/dL F 2.4-5.1 Parathyrin.intact [Mass/volume] in Serum or Plasma 2024-05-22 15:13:16 1258 pg/mL F 18.0-80.0 Alkaline phosphatase [Enzymatic activity/volume] in Serum or Plasma 2024-05-22 14:07:21 112 U/L F 46.0-116.0 CA CORRECTED 2024-05-14 09:22:30 8.4 mg/dL F CA*PO4 CORRCTD 2024-05-14 09:20:49 80.4 Calc F 21.0-53.0 CA/PHOS PRODUCT 2024-05-14 09:20:49 72 Calc F 21.0-53.0 Calcium [Mass/volume] in Serum or Plasma 2024-05-14 08:28:24 7.5 mg/dL F 8.7-10.4 Phosphate [Mass/volume] in Serum or Plasma 2024-05-14 08:28:24 9.6 mg/dL F 2.4-5.1 25-Hydroxyvitamin D3+25-Hydroxyvitamin D2 [Mass/volume] in Serum or Plasma 2024-05-14 07:05:12 22.1 ng/mL F Parathyrin.intact [Mass/volume] in Serum or Plasma 2024-05-13 17:53:16 1111 pg/mL F 18.0-80.0 Phosphate [Mass/volume] in Serum or Plasma Calcium [Mass/volume] in Serum or Plasma Parathyrin.intact [Mass/volume] in Serum or Plasma CA CORRECTED CA/PHOS PRODUCT CA*PO4 CORRCTD Nutrition Description Draw Date Result/Unit Status Ref Range Result Comments A/G RATIO 2024-06-03 17:40:09 0.9 Calc F 1.0-2.5 GLOBULIN 2024-06-03 17:40:09 3.1 g/dL F 0.9-5.0 Lactate dehydrogenase [Enzymatic activity/volume] in Serum or Plasma 2024-06-03 17:39:27 295 U/L F 120.0-246.0 Albumin [Mass/volume] in Serum or Plasma by Bromocresol green (BCG) dye binding method 2024-06-03 17:39:27 2.9 g/dL F 3.4-4.8 Bicarbonate [Moles/volume] in Serum or Plasma 2024-06-03 17:39:27 29 mEq/L F 20.0-31.0 Protein [Mass/volume] in Serum or Plasma 2024-06-03 17:39:27 6 g/dL F 5.7-8.2 Potassium [Moles/volume] in Serum or Plasma 2024-05-28 19:31:28 4.6 mEq/L F 3.5-5.5 Bicarbonate [Moles/volume] in Serum or Plasma 2024-05-28 16:18:28 32 mEq/L F 20.0-31.0 Potassium [Moles/volume] in Serum or Plasma 2024-05-23 03:55:12 5 mEq/L F 3.5-5.5 A/G RATIO 2024-05-22 14:08:20 1 Calc F 1.0-2.5 GLOBULIN 2024-05-22 14:08:20 3 g/dL F 0.9-5.0 Lactate dehydrogenase [Enzymatic activity/volume] in Serum or Plasma 2024-05-22 14:07:21 401 U/L F 120.0-246.0 Bicarbonate [Moles/volume] in Serum or Plasma 2024-05-22 14:07:21 25 mEq/L F 20.0-31.0 Protein [Mass/volume] in Serum or Plasma 2024-05-22 14:07:21 5.9 g/dL F 5.7-8.2 Albumin [Mass/volume] in Serum or Plasma by Bromocresol green (BCG) dye binding method 2024-05-22 14:07:21 2.9 g/dL F 3.4-4.8 Potassium [Moles/volume] in Serum or Plasma 2024-05-14 08:36:53 5.3 mEq/L F 3.5-5.5 Glucose [Mass/volume] in Serum or Plasma 2024-05-13 22:55:40 96 mg/dL F 70.0-99.0 Bicarbonate [Moles/volume] in Serum or Plasma 2024-05-13 22:55:40 24 mEq/L F 20.0-31.0 Albumin [Mass/volume] in Serum or Plasma by Bromocresol green (BCG) dye binding method 2024-05-13 22:55:40 2.9 g/dL F 3.4-4.8 Potassium [Moles/volume] in Serum or Plasma Encounters No encounter information to report Immunizations Ordered Immunization Name Filled Immunization Name Date Status Comments Refusal Reason TST-PPD intradermal 2024-05-21 22:30:00 Influenza Vaccination 2024-02-19 05:00:00 Plan of Treatment Planned Activity Provider Planned Date Details Commen ts Diagnostic Test Pending NAVA ARSEN 2024-06-02 06:00:00 Potassium [Moles/volume] in Serum or Plasma [code = 2823-3] Diagnostic Test Pending NAVA ARSEN 2024-06-02 06:00:00 Creatinine [Mass/volume] in Serum or Plasma [code = 2160-0] Diagnostic Test Pending NAVA ARSEN 2024-06-01 07:30:[address] [code = 2265] Future Scheduled Test NADJA CHILDRESS 2024-06-04 06:00:00 Hemoglobin [Mass/volume] in Blood [code = 718-7] Diagnostic Test Pending NAVA ARSEN 2024-06-02 06:00:00 Sodium [Moles/volume] in Serum or Plasma [code = 2951-2] Diagnostic Test Pending NAVA ARSEN 2024-05-24 09:06:04 Parathyrin.intact [Mass/volume] in Serum or Plasma [code = 2731-8] Diagnostic Test Pending NAVA ARSEN 2024-06-02 06:00:[address] [code = 2265] Diagnostic Test Pending NAVA ARSEN 2024-05-23 12:45:20 Ferritin [Mass/volume] in Serum or Plasma [code = 2276-4] Diagnostic Test Pending NAVA ARSEN 2024-06-02 06:00:00 Alanine aminotransferase [Enzymatic activity/volume] in Serum or Plasma [code = 1742-6] Diagnostic Test Pending NAVA ARSEN 2024-06-01 07:30:51 Reticulocytes/100 erythrocytes in Blood by Automated count [code = 69684-8] Diagnostic Test Pending NAVA ARSEN 2024-05-26 07:14:30 Hemoglobin [Mass/volume] in Blood [code = 718-7] Diagnostic Test Pending [facility] 2024-05-30 17:58:55 In-Center Hemodialysis Treatment [code = QNF884] Diet Order [facility] May 21, 2024 Diet Calorie 20 kcal/d Fluid Value 1200 mL/d Phosphorus Value 1000 mg/d Potassium Value 2000 mg/d Protein Value 1.3 gm/kg Sodium Value 2000 mg/d Calculated Weight 153 kg
--- OUTSIDE RECORDS SUMMARY | 2024-06-03 16:34 | XMS_ITS | Clinical Summary ---
Author Organization [facility] Amaris lawson Address [address] [place] [address] Phone Care Team Providers Care Hide Puller Name Role Phone Juno Fang MD Primary Care Provider [phone] Allergies Active Allergy Reactions Criticality Noted Date Comments Lisinopril Angioedema High 09/23/2021 Unexplained angioedema R/T Lisinopril until declared otherwise by physician. Oxycodone Angioedema High 09/24/2021 Medications Medication Sig Dispensed Refills Start Date End Date Status amLODIPine (Norvasc) 10 MG tablet Take 1 tablet by mouth in the morning. 01/03/2022 Active metoprolol succinate XL (TOPROL-XL) 100 MG 24 hr tablet Take 1 tablet by mouth in the morning. 03/15/2021 Active calcium acetate (PHOSLO) 667 MG capsule Take 2 capsules (1,334 mg total) by mouth in the morning and 2 capsules (1,334 mg total) at noon and 2 capsules (1,334 mg total) in the evening. Take with meals. 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 Overview (03/22/2022): left Chronic kidney disease 03/22/2022 Anemia 03/22/2022 Morbid obesity 09/20/2021 Renal mass 08/12/2021 Overview (03/21/2022): Added automatically from request for surgery [id number] Primary hypertension 06/23/2021 Encounters Date Type Department Care Team Description 05/23/2024 Orders Only [facility] [address] [facility] [place] [address] Irene Grace NP from Last 3 Months Family History Medical History Relation Comments Hypertension Brother Kidney disease Brother Diabetes mellitus Father Hypertension Father Kidney disease Father Diabetes mellitus Mother Heart disease Mother Hypertension Mother Relation Status Comments Brother Father Mother Social History Tobacco Use Types Packs/Day Years Used Date Smoking Tobacco: Never Smokeless Tobacco: Never Tobacco Cessation:Counseling Given: Not Answered Alcohol Use Standard Drinks/Week Comments Yes 0 (1 standard drink = 0.6 oz pur e alcohol) 2 - 4 times a month Sex and Gender Information Value Date Recorded Sex Assigned at Not on file Gender Identity Not on file Sexual Orientation Not on file Last Filed Vital Signs Vital Sign Reading Time Taken Comments Blood Pressure 146/84 03/22/2022 9:00 AM COMMUNITY HEALTH PROGRAM COORDINATOR Pulse - - Temperature 37.4 C (99.3 F) 03/22/2022 9:00 AM COMMUNITY HEALTH PROGRAM COORDINATOR Respiratory Rate 18 03/22/2022 9:00 AM COMMUNITY HEALTH PROGRAM COORDINATOR Oxygen Saturation - - Inhaled Oxygen Concentration - - Weight 179 kg (394 lb) 03/22/2022 9:00 AM COMMUNITY HEALTH PROGRAM COORDINATOR Height 198.1 cm (6' 6 ) 03/22/2022 9:00 AM COMMUNITY HEALTH PROGRAM COORDINATOR Body Mass Index 45.53 03/22/2022 9:00 AM COMMUNITY HEALTH PROGRAM COORDINATOR Plan of Treatment Health Maintenance Due Date Last Done Comments Pneumococcal PPSV23 Highest Risk Adult (1 of 3 - PCV13 ) 09/23/1987 Influenza Vaccine (#1) 2023 Care Teams Hide Puller Relationship Specialty Start Date End Date Juno Fang MD [address] [place] [phone] PCP - General Family Medicine 02/07/22
--- OUTSIDE RECORDS SUMMARY | 2024-06-03 16:34 | XMS_ITS | Encounter Summary ---
Author Organization [facility] Address [address] [place] [address] Care Team Providers Care Stockroom Associate Name Role Phone Juno Fang MD Primary Care Provider [phone] Reason for Visit * Reason Onset Date Comments Blood Work Concerns 06/03/2024 Encounter Details Date Type Department Care Team (Late st Contact Info) Description 06/03/2024 Telephone [facility] [place] [address] [facility] [address] [place] [address] Armond Gonzalez MD [address] [facility] [address] [place] [address] Blood Work Concerns Social History Tobacco Use Types Packs/Day Years Used Date Smoking Tobacco: Former Cigarettes Comments:Socially when young er Alcohol Use Standard Drinks/Week Comments Not Currently 0 (1 standard drink = 0.6 oz pur e alcohol) Feeling Safe Answer Date Recorded Are you in a relationship wi th someone who hurts you emotionally and/or physically? No 08/27/2023 Sex and Gender Information Value Date Recorded Sex Assigned at Not on file Legal Sex Male 11:33 AM CONTACT CENTER ENGINEER Gender Identity Not on file Sexual Orientation Not on file documented as of this encounter Miscellaneous Notes * Telephone Encounter - Shayla Rodriguez - 06/03/2024 10:10 AM CST Patient called today and said that he was in the hospital for a couple weeks and now is on dialysis. When patient had dialysis yesterday they told him that his hemoglobin was low and that he needed to go to the ER for a blood transfusion. Patient called here and wanted to know if there was naythingthat we could do for him. He is going to come up and get labs drawn today to see what those results are and if low enough we can set him up for a blood transfusion. Patient verbalized understanding with no further questions. ACT CENTER ENGINEER documented in this encounter Plan of Treatment Upcoming Encounters Date Type Department Care Team (Late st Contact Info) Description 06/17/2024 3:30 PM CONTACT CENTER ENGINEER Office Visit [facility] [place] [address] [facility] [address] [place] [address] Armond Gonzalez MD [address] [facility] [address] [place] [address] Scheduled Orders Name Type Priority Associated Diagnoses Orde r Schedule BASIC METABOLIC PANEL Lab Routine Chronic anemia Expected: 06/03/2024, Expires: 06/03/2025 CBC WITH DIFFERENTIAL Lab Routine Chronic anemia Expected: 06/03/2024, Expires: 06/03/2025 documented as of this encounter Visit Diagnoses Diagnosis Chronic anemia- Primary Anemia, unspecified documented in this encounter Care Teams Stockroom Associate Relationship Specialty Start Date End Date Juno Fang MD [address] [place] [phone] PCP - General Family Practice 07/04/22 documented as of this encounter
--- OUTSIDE RECORDS SUMMARY | 2024-06-03 16:34 | XMS_ITS | CONTINUITY OF CARE DOCUMENT ---
Author Name magno kiran Address Unknown Organization [facility] Address [address] [place] [address] [address] [place] [address] Phone [phone] Care Team Providers Care Promotional Demonstrator Name Role Phone magno kiran Unavailable Unavailable
--- OUTSIDE RECORDS SUMMARY | 2024-06-03 16:34 | XMS_ITS | Encounter Summary ---
Author Organization [facility] Address [address] [place] [address] Phone Care Team Providers Care Police Artist Name Role Phone Juno Fang MD Primary Care Provider Arjun Lagunas MD Unavailable [phone] Encounter Details Date Type Department Care Team (Latest Contact Info) Description 04/08/2018 Orders Only [facility] Scanning, Provider Social History Tobacco Use Types Packs/Day Years Used Date Smoking Tobacco: Never Assessed Sex and Gender Information Value Date Recorded Sex Assigned at Not on file Legal Sex Male 10:43 PM MANAGER COUNTRY Gender Identity Not on file Sexual Orientation Not on file documented as of this encounter Plan of Treatment Not on file documented as of this encounter Procedures Procedure Name Priority Date/Time Associated Diagnosis Comments SCAN - LABS 04/08/2018 documented in this encounter Results * SCAN - LABS (04/08/2018) us Provider Scanning Final Result documented in this encounter Visit Diagnoses Not on filedocumented in this encounter Care Teams Police Artist Relationship Specialty Start Date End Date Juno Fang MD PCP - General Family Medicine 03/01/21 [place] [address] [place] [address] Consulting Physician Urology 09/23/21 documented as of this encounter
--- OUTSIDE RECORDS SUMMARY | 2024-06-03 16:34 | XMS_ITS | Clinical Summary ---
Author Organization [facility] Michael garrido Nessa Address [address] [place] [address] Care Team Providers Care Supply Controller Name Role Phone Juno Fang MD Primary Care Provider [phone] Allergies Active Allergy Reactions Criticality Noted Date Comments Lisinopril Shortness of Breath/Wheezing,Angioede ma High 09/23/2021 Unexplained angioedema R/T Lisinopril until declared otherwise by physician. Unexplained angioedema R/T Lisinopril until declared otherwise by physician. Oxycodone Angioedema High 09/24/2021 Medications amLODIPine (NORVASC) 10 mg tablet 07/02/2022 Active metoprolol succinate (TOPROL XL) 100 mg Extended Release 24 hour tablet Take 200 mg by mouth daily. 07/02/2022 Active IRON ORAL Take by mouth. 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 Encounters Date Type Department Care Team Description 06/03/2024 Telephone [facility] - [place] [address] [place] [address] Armond Gonzalez MD Blood Work Concerns 05/27/2024 External Device Data STL ABSTRACTION Provider, Abstract 05/13/2024 Abstract [facility] [address] [place] [address] Armond Gonzalez MD 04/02/2024 Telephone [facility] - [place] [address] [place] [address] Armond Gonzalez MD Update 03/14/2024 Telephone [facility] - [place] [address] [place] [address] Armond Gonzalez MD Retacrit Denial 03/03/2024 Orders Only [facility] [place] [address] [place] [address] Armond Gonzalez MD Chronic anemia from Last 3 Months Family History Medical History Relation Name Comments No Known Problems Brother 1 No Known Problems Brother 2 No Known Problems Brother 3 No Known Problems Daughter 1 No Known Problems Daughter 2 No Known Problems Daughter 3 Diabetes Father Breast Cancer Maternal Aunt 1 Breast Cancer Maternal Aunt 2 Breast Cancer Maternal Aunt 3 Other Maternal Grandfather tumor o n head Heart Disease Maternal Grandmother Hypertension Maternal Grandmother Other Maternal Grandmother tumors Stroke Maternal Grandmother Arthritis Mother Diabetes Mother Heart Disease Mother Hypertension Mother Kidney Disease Mother dialysis Dementia Paternal Aunt 3 No Known Problems Son Colon Cancer Neg Hx Relation Name Status Comments Brother 1 Alive Brother 2 Alive Brother 3 Alive Daughter 1 Alive Daughter 2 Alive Daughter 3 Alive Father Maternal Aunt 1 Maternal Aunt 2 Maternal Aunt 3 Maternal Aunt 4 Alive Maternal Grandfather Maternal Grandmother Maternal Uncle x4 Alive Mother Alive Nephew Alive Paternal Aunt 1 Paternal Aunt 2 Paternal Aunt 3 Alive Paternal Aunt 4 Alive Paternal Cousin 1 many Alive Paternal Cousin 2 many Alive Paternal Grandfather Paternal Grandmother Paternal Uncle 1 Paternal Uncle 2 Paternal Uncle 3 Alive Paternal Uncle 4 Alive Son Alive Social History Tobacco Use Types Packs/Day Years [...] on file Legal Sex Male 11:33 AM ANIMAL THERAPIST Gender Identity Not on file Sexual Orientation Not on file Last Filed Vital Signs Vital Sign Reading Time Taken Comments Blood Pressure 116/71 08/27/2023 10:03 AM CDT Pulse 58 08/27/2023 10:03 AM CDT Temperature 36.6 C (97.8 F) 08/27/2023 9:47 AM CDT Respiratory Rate 16 08/27/2023 10:0 3 AM CDT Oxygen Saturation 99% 08/27/2023 10: 03 AM CDT Inhaled Oxygen Concentration - - Weight 170.3 kg (375 lb 6.4 oz) 08/27/2023 7:58 AM CDT Height 198.1 cm (6' 6 ) 08/27/2023 7:58 AM CDT Body Mass Index 43.38 08/27/2023 7:58 AM CDT Plan of Treatment Upcoming Encounters Date Type Department Care Team (Late st Contact Info) Description 06/17/2024 3:30 PM ANIMAL THERAPIST Office Visit [facility] H[facility] [address] [facility] [address] [place] [address] Armond Gonzalez MD [address] [facility] [address] [place] [address] Health Maintenance Due Date Last Done Comments Pre-Diabetes and Diabetes Screening 1968 DTAP/TDAP/TD VACCINES (1 - Tdap) 09/23/1987 HEPATITIS B VACCINES (1 of 3 - 19+ 3-dose series) 09/23/1987 COLORECTAL SCREENING 2013 Colorectal Cancer Screening 2013 FIT-DNA Q 3 years 2013 FIT/FOBT Q 1 year 2013 Flex Sig/CT Colonography Q 5 years 2013 ZOSTER VACCINE (1 of 2) 2018 INFLUENZA VACCINE (#1) 2023 UPPER GI ENDOSCOPY 08/26/2024 08/27/2023, 1 , 09/21/2022, Additional history exists Insurance [facility] FEDERAL [facility] FEDERAL Advance Directives For more information, please contact: [phone] * Full Code (Latest Code Status on File) Date Activated Date Inactivated Comments 08/27/2023 7:32 AM 08/27/2023 12:53 PM * Full Code Date Activated Date Inactivated Comments 02/08/2023 10:33 AM 02/08/2023 2:42 PM * Full Code Date Activated Date Inactivated Comments 09/21/2022 11:52 AM 09/21/2022 3:52 PM Care Teams Supply Controller Relationship Specialty Start Date End Date Juno Fang MD [address] [place] [phone] PCP - General Family Practice 07/04/22
--- OUTSIDE RECORDS SUMMARY | 2024-06-03 16:34 | XMS_ITS | Referral Summary ---
Author Organization [facility] [address] Address [address] [place] [address] Care Team Providers Care Printing Machine Operator Name Role Phone Juno Fang MD Primary Care Provider [phone] Arjun Lagunas MD Unavailable [phone] Encounters Date Type Department Care Team Description 06/03/2024 Orders Only [facility] [id number] [place] [address] Fadia Bergman, DANNY 06/03/2024 Orders Only [facility] [id number] [place] [address] Angella Deal, RN from Last 3 Months Allergies Active Allergy Reactions Criticality Noted Date Comments Lisinopril Angioedema High 09/23/2021 Unexplained angioedema R/T Lisinopril until declared otherwise by physician. Oxycodone Angioedema High 09/24/2021 Medications metoprolol XL (TOPROL-XL) 100 mg 24 hr tablet Take 1 tablet by mouth daily Active levoFLOXacin (LEVAQUIN) 500 mg tabletIndicatio ns:Other (complete free text reason below),infectio n Take 500 mg by mouth daily. Indications: Other (complete free text reason below), infection Active Active Problems Problem Noted Date Diagnosed Date WAYNE (acute kidney injury) 06/03/2024 Abnormal hemoglobin (Hgb) 06/03/2024 Morbid obesity 09/20/2021 Left renal mass 08/12/2021 Overview (08/12/2021): Added automatically from request for surgery [id number] Primary hypertension 06/23/2021 Social History Tobacco Use Types Packs/Day Years [...] on file Legal Sex Male 10:43 PM MOTEL MAID Gender Identity Not on file Sexual Orientation [...] 09/23/2021 6:24 AM CDT Plan of Treatment Not on file Insurance [facility] FEDERAL [facility] Advance Directives For more information, please contact: [phone] * Full Code (Latest Code Status on File) Date Activated Date Inactivated Comments 09/26/2021 11:15 AM 09/30/2021 4:39 PM * Full Code Date Activated Date Inactivated Comments 09/23/2021 2:58 PM 09/24/2021 7:29 AM * Full Code Date Activated Date Inactivated Comments 09/23/2021 2:58 PM 09/23/2021 2:58 PM Care Teams Printing Machine Operator Relationship Specialty Start Date End Date Juno Fang MD PCP - General Family Medicine 03/01/21 [place] [address] [place] [address] Consulting Physician Urology 09/23/21
--- OUTSIDE RECORDS SUMMARY | 2024-06-03 16:34 | XMS_ITS | Continuity of Care Document ---
Author Organization [facility] Address [address] [place] [address] [place] [address] Phone Care Team Providers Care Inspector Timers Name Role Phone Juno Fang MD Unavailable Unavailable Allergies, Adverse Reactions, Alerts Substance Reaction Status Criticality oxycodone Active No Information lisinopril Active No Information Medications Medication Instructions Dosage Effective Dates (start - stop) Status Comments metoprolol succinate ER 200 mg tablet,extended release 24 hr take 1 tablet by oral route every day 200 MG - Active Norvasc 10 mg tablet take 1 tablet by or al route every day 10 MG - Active Procedures Procedure Date OFFICE/OUTPATIENT VISIT, EST PREV VISIT, EST, AGE 40-64 OFFICE/OUTPATIENT VISIT, EST OFFICE/OUTPATIENT VISIT, EST OFFICE/OUTPATIENT VISIT, EST OFFICE/OUTPATIENT VISIT, EST OFFICE/OUTPATIENT VISIT, EST PREV VISIT, EST, AGE 40-64 OFFICE/OUTPATIENT VISIT, EST OFFICE/OUTPATIENT VISIT, EST OFFICE/OUTPATIENT VISIT, EST OFFICE/OUTPATIENT VISIT, EST OFFICE/OUTPATIENT VISIT, EST OFFICE/OUTPATIENT VISIT, EST PREV VISIT, NEW, AGE 40-64 OFFICE/OUTPATIENT VISIT, NEW Advance Directives Directive Yes / No Effective Date File Name No Information Encounters Encounter Description Practice Location Reason(s) For Visit Diagnoses Date Provider Providers Copied on Encounter OFFICE/OUTPA TIENT VISIT, EST [facility], [address], [place], [place], [address], [place] tel:[phone] [facility] HTN (chief complaint) hearing loss1 (chief complaint) anemia1 (chief complaint) HLP (chief complaint) kidney1 (chief complaint) HTN w/ CKD stage 3AnemiaMixed hyperlipidemiaHyper kalemiaSensorineura l hearing loss, bilateral August- 4 Leoncio Fraire. [address], [place], [place], [address] , [place]. [phone] [facility], [address], [place], [place], [address], [place] tel:[phone] [facility] No Information 4 Leoncio Fraire. [address], [place], [place], [address] , [place]. tel:[phone] PREV VISIT, EST, AGE 40-64 [facility], [address], [place], [place], [address], [place] tel:[phone] [facility] physical (chief complaint) Encounter for general adult medical exam w abnormal findingsHTN w/ CKD stage 3Iron deficiency anemiaObstructive sleep apnea hypopneaSensorineur al hearing loss, bilateralMalignant poorly differentiated neuroendocrine tumorsHyperkalemia 4 Leoncio Fraire. [address], [place], [place], [address] , [place]. [phone] OFFICE/OUTPA TIENT VISIT, EST [facility], [address], [place], [place], [address], [place] tel:[phone] [facility] sick (chief complaint) iron deficiency 1 (chief complaint) HTN (chief complaint) Iron deficiency anemiaEssential (primary) hypertensionAcute sinusitisAcute renal failure 3 Leoncio Fraire. [address], [place], [place], [address] , [place]. tel:[phone] OFFICE/OUTPA TIENT VISIT, [facility], [address], [place], [place], [address], [place] tel:[phone] [facility] sleep apnea1 (chief complaint) renal disease1 (chief complaint) iron deficiency 1 (chief complaint) HTN (chief complaint) Essential (primary) hypertensionIron deficiency anemiaAcute renal failurePrimary central sleep apnea 2 Leoncio Fraire. [address], [place], [place], [address] , [place]. tel:[phone] OFFICE/OUTPA TIENT VISIT, EST [facility], [address], [place], [place], [address], [place] tel:[phone] [facility] HTN (chief complaint) iron deficiency 1 (chief complaint) sleep apnea1 (chief complaint) renal disease1 (chief complaint) Essential (primary) hypertensionAcute renal failureIron deficiency anemiaPrimary central sleep apnea 2 Leoncio Fraire. [address], [place], [place], [address] , [place]. tel:[phone] OFFICE/OUTPA TIENT VISIT, EST [facility], [address] [place], [address], [place] tel:[phone] [facility] HTN (chief complaint) iron deficiency 1 (chief complaint) renal (chief complaint) glucose1 (chief complaint) Essential (primary) hypertensionAcute renal failureProteinuriaI sarah deficiency anemiaHyperglycemia 2 Leoncio Fraire. [address], [place], [place], [address] , [place]. tel:[phone] PREV VISIT, EST, AGE 40-64 [facility], [address] [place], [address], [place] tel:[phone] [facility] physical (chief complaint) Encounter for general adult medical exam w abnormal findingsMalignant neoplasm of left renal pelvisSleep apneaFatty liverEssential (primary) hypertensionPulmona ry hypertensionAcute renal failureProteinuriaA bnormal weight lossAnemia 2 Leoncio Fraire. [address], [place], [place], [address] , [place]. tel:[phone] OFFICE/OUTPA TIENT VISIT, [facility], [address] [place], [address], tel:[phone] [facility] HTN (chief complaint) sleep apnea1 (chief complaint) RCC (chief complaint) Anemia1 (chief complaint) Sleep apneaEssential (primary) hypertensionMaligna nt neoplasm of left renal pelvisAnemia 2 Fang Juno. [address], [place], [place], [address] , [place]. tel:[phone] OFFICE/OUTPA TIENT VISIT, [facility], [address] [place], [address], tel:[phone] [facility] sob1 (chief complaint) anemia1 (chief complaint) sleep apnea1 (chief complaint) renal mass1 (chief complaint) LFT (chief complaint) Sleep apneaOther specified disorder of kidneyAnemiaLiver diseasePulmonary hypertension Feb- 1 Fang Juno. [address], [place], [place], [address] , [place]. tel:[phone] OFFICE/OUTPA TIENT VISIT, [facility], [address] [place], [address], [place] tel:[phone] [facility] HTN (chief complaint) sob (chief complaint) sleep apnea1 (chief complaint) renal lesion1 (chief complaint) Sleep apneaEssential (primary) hypertensionShortne ss of breathOther specified disorder of kidney 1 Fang Juno. [address], [place], [place], [address] , [place]. tel:[phone] OFFICE/OUTPA TIENT VISIT, [facility], [address] [place], [address], tel:[phone] [facility] HTN (chief complaint) proteinuri a1 (chief complaint) glucose1 (chief complaint) LFT (chief complaint) anemia1 (chief complaint) ProteinuriaLiver diseaseHyperglycemi aAnemiaEssential thrombocytosisEssen tial (primary) hypertensionSleep apnea 1 Leoncio Fraire. [address], [place], [place], [address] , [place]. tel:[phone] OFFICE/OUTPA TIENT VISIT, EST [facility], [address], [place], [place], [address], [place] tel:[phone] [facility] HTN (chief complaint) sinus1 (chief complaint) Essential (primary) hypertensionAcute sinusitis 1 Leoncio Fraire. [address], [place], [place], [address] , [place]. tel:[phone] PREV VISIT, NEW, AGE 40-64 [facility], [address], [place], [place], [address], [place] tel:[phone] [facility] physical (chief complaint) Encounter for general adult medical exam w abnormal findingsEssential (primary) hypertensionSleep apneaAbnormal weight gainEdema 1 Leoncio Fraire. [address], [place], [place], [address] , [place]. tel:[phone] Family History Family Member Type Diagnosis Age At Onset Father Problem Diabetes mellitus Father Problem Renal disease Father Problem Hypertension Brother Problem Renal disease Brother Problem Hypertension Father Problem of 75 DKA Mother Problem Hypertension Mother Problem Diabetes mellitus Payers Payer name Insurance type Covered green party ID Authoriza tion(s) No Information Social History Type Description Quantity Date Captured Comments Alcohol Use Details beer & wine Caffeine Use Details Unknown Tobacco Use Status Current non-smoker Smoking Status Never smoker Sex Male Vital Signs Date / Time: Height Weight BMI Pulse Rate Blood Pressure Temperature Respiratory Rate Body Surface Area Head Circumference BMI percentile Pulse Ox Inhaled Ox 12:18 PM 77.00 in 379.80 lbs 45.0 4 kg/m eter (2) 62 /min 140/88 mm[Hg] 97.7 F 16 /min Chief Complaint And Reason For Visit From encounter dated '09/20/2023 12:18'. HTN (chief complaint). Description: Pt has HTN Pt takes toprol and norvasc and his bp is ok today Pt denies any chest pain or headache. hearing loss1 (chief complaint). Description: Pt denies any ear pain and he stats that his hearing loss is not so bad and he does not want to do hearing study now anemia1 (chief complaint). Description: Pt has chronic anemia due to chronic renal disease. Pt is on procrit shot biweekly now by hematology. he had negative EGD and colonoscopy HLP (chief complaint). Description: Pt has mild high tG Pt is working on diet kidney1 (chief complaint). Description: Pt has chronic kidney disease with high kcl Pt is seeing nephrology Pt has normal UO Pt is on kcl lowering agent now by nephrology. He denies any chest pain Plan Of Treatment Date Type Action Status Referral Ordered: HEARING TEST PURE TONE AUDIOMETRY, AIR ordered Referral Ordered: Hematology (related to Iron deficiency anemia) ordered Referral Ordered: Referrals: Hematology. Evaluate and treat ordered Referral Ordered: COLONOSCOPY AND BIOPSY ordered Referral Ordered: Nephrology (related to Acute renal failure) ordered Referral Ordered: Referrals: Nephrology. Evaluate and treat ordered Referral Ordered: Urology (related to Other specified disorder of kidney) ordered Referral Ordered: Referrals: Urology. Evaluate and treat ordered Referral Ordered: Amador Frey -[facility] : Internal Medicine : Nephrology (related to Proteinuria) ordered Referral Referred To: Amador Frey [address], [phone] Ordered: Referrals: [facility]opathic [facility]opathic Physicians : Internal Medicine : Nephrology. Amador Frey. Evaluate and treat ordered Referral Ordered: US EXAM, ABDOM, COMPLETE ordered Referral Ordered: SLEEP STUDY, ATTENDED ordered History Of Present Illness Encounter Date Complaint History Of Prese nt Illness kidney1 Pt has chronic k idney disease with high kcl Pt is seeing nephrology Pt has normal UO Pt is on kcl lowering agent now by nephrology. He denies any chest pain HLP Pt has mild high tG Pt is working on diet anemia1 Pt has chronic a nemia due to chronic renal disease. Pt is on procrit shot biweekly now by hematology. he had negative EGD and colonoscopy hearing loss1 Pt denies any ea r pain and he stats that his hearing loss is not so bad and he does not want to do hearing study now HTN Pt has HTN Pt ta kes toprol and norvasc and his bp is ok today Pt denies any chest pain or headache. physical pt needs annual physical Pt has HTn, pt takes metoprolol and norvasc and his bp remains elevated He has chronic anemia with normal MCV. He is seeing hematology/oncology now. he also has chronic renal disease and he sees Dr. Pham now. 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 Pt has history of RCC s/p left nephrectomy. Pt has sleep apnea Pt uses cpap nighty. Pt c/o bilateral muffled hearing for several months Pt denies any tinnitus, dizziness or ear pain or drainage Pt denies any sinus issue . Pt overall doing well Pt denies any acute complaints. HTN Pt has HTN. pt t akes metoprolol and norvasc and his bp is stable at home Pt denies any chest pain or headache sick Pt c/o acute ons et of sinus pain, sinus pressure, , sinus headache, purulent sinus drainage and postnasal drainage for 4 days. Pt denies any fever or cough. Pt denies any sore throat or sob. Pt seth any GI symptoms. Pt denies any sick contact. iron deficiency1 Pt has iron def iciency anemia Pt denies any bleeding ,Pt has leonardo with hematology next month and he has EGD and colonoscopy scheduled in one week HTN Pt has HTN Pt ta kes norvasc and metoprolol and his bp is stable. Pt needs refill iron deficiency1 Pt has iron def iciency anemia. Pt has not made leonardo with GI and hematology yet. Pt denies any bleeding Pt seth any fatigue, dizziness or sob renal disease1 Pt has chronic r enal disease with proteinuria. Pt is seeing nephrology and he will do more lab work and renal ultrasound as well. Pt has normal UO sleep apnea1 Pt has severe sl eep apnea with snoring Pt got his CPAP and he started to use nightly. Pt states that he snores much less and feels much better rested the next day. Pt feels more energy as well. renal disease1 Pt has renal dis ease Pt has normal UO Pt has not heard from nephrology yet sleep apnea1 Pt has severe sl eep apnea .Pt is noncompliant with cpap set up. he still has not set up cpap yet with P iron deficiency1 Pt has iron def iciency anemia Pt denies any blood loss. pt does feel fatigue HTN Pt has HTN Pt ta kes metoprolol and norvasc and his bp is stable. Pt denies any chest pain or headache or edema. Pt denies any vision change glucose1 Pt has history o f high glucose. Pt denies any polyuria, polydipsia. Pt has normal A1c renal Pt has renal dis ease and also proteinuria. Pt has normal UO iron deficiency1 Pt had lab done which showed iron deficiency anemia. Pt denies any blood loss. Pt does have chronic fatigue. Pt seth any sob HTN Pt has history o f HTN Pt has been off all bp meds but his bp is very high today Pt denies any chest pain or headache or vision change physical Pt needs annual physical. .Pt has HTN, Pt was taking metoprolol, lisinopril and chlorthalidone but he lost some weight and his bp is normalized now and he is off above bp meds from hospital physician. He has left RCC s/p laparoscopic left nephrectomy and he is doing ok. Pt started physical therapy also. He did develop angioedema post op requiring intubation. He is allergic to ? lisinopril vs oxycodone per hospital. Pt has been intentionally losing weight and also he had surgery which he could not eat well post op and he lost some weight. He denies any appetite loss, nausea, vomiting, abd pain, change of bowel, early satiety, etc. He does have severe sleep apnea. Pt still has not set up CPAP yet. Pt also has high LFT and anemia. He also developed renal failure post op. Pt states that his renal function improved prior to discharge. Pt has normal UO now. Pt never did follow up lab work. Pt overall feels fine . Anemia1 Pt has normocyti c anemia Pt denies any bleeding. Pt does have chronic fatigue Pt denies any dizziness or chest pain RCC Pt has most like ly left RCC. Pt still has not made leonardo with urology yet. Pt is extremely noncompliant. Pt is aware of potential malignant cancer of his left kidney sleep apnea1 Pt has severe sl eep apnea. Pt c/o fatigue. Pt still has not heard from [facility] and he still has not contacted [facility] to check on the status HTN Pt has HTN. Pt t akes metoprolol, lisinopril and chlorthalidone and his bp is around 130/70 at home. Pt needs refill. pt denies any edema Pt sees cardiology Pt denies any chest pain or sob sob1 Pt presented to ER with severe HTN, mild fluid overload. he had cardiac echo done which showed normal left ventricular EF with left ventricular concentric hypertrophy. he was evaluated by cardiology and he did have elevated troponin without ischemic cardiac disease and cardiology think it is due to HTN and fluid overload. He is on lisinopril and metoprolol and chlorthalidone currently and his bp is better. He is off hydralazine. He denies any chest pain or sob. anemia1 Pt has stable an emia. Pt has normal MCV. Pt denies any blood loss. His colonguard is normal renal mass1 Pt has suspiciou s left renal mass Pt has not heard from urology yet LFT Pt has mildly hi gh LFT. His liver ultrasound is ok Pt denies any abd pain or jaundice. sleep apnea1 Pt has severe sl eep apnea. Pt has not heard from [facility] yet HTN Pt has HTN Pt ta kes hydralazine 50 mg TID and his bp is still high. Pt denies any chest pain or headache sob Pt feels exertio nal sob and some fasting heart rate since one week ago pt denies any chest pain Pt denies any calf pain or recent business travel consultant denies any edema. sleep apnea1 Pt has severe sl eep apnea. with oxygen desaturation. pt does feel fatigue. renal lesion1 Pt has suspiciou s left renal lesion suspicious for RCC. HTN Pt has HTN. Pt t akes hydralazine 25 mg tid ad his bp is still high. Pt basically is noncompliant and he misses does of the medication frequently. He denies any chest pain or headache. Pt denies any vision change. proteinuria1 Pt has proteinur ia Pt denies any urinary symptoms. glucose1 Pt has high gluc ose .Pt denies any polyuria, polydipsia. LFT Pt has mildly hi gh LFT. Pt denies any abd pain or jaundice. anemia1 Pt has mild anem ia with normal MCV. Pt denies any blood loss. Pt has mildly high platelet. Pt denies any bruising or bleeding sinus1 Pt c/o acute sin us infection, purulent sinus drainage, postnasal drainage, sore throat for 2-3 days. Pt denies any cough or sob Pt denies any fever. Pt states that he gets sinus infection same time every year. Pt denies any headache. HTN Pt has HTN Pt ceron s been taking hydralazine 10 mg TD and his bp is down to 170/100 Pt denies any chest pain, dizziness, headache vision change physical Pt needs annual physical Pt is morbidly obese. Pt has severe sleep apnea and he tried oral device but did not work so he has not been using any device for sleep apnea. pt snores heavily at night and he sometimes stop breathing at night. he feels very tired all the time. He denies any chest pain or headache. Pt also has severe HTN. Pt took some bp meds in the past but he is not sure the name of it which made him passing out. Pt states that he lost some weight during that time and he thinks the bp med was too strong. he think the bp med was a combination of HCTZ but he is not sure. Pt states that he overall feels very tired all the time and does not have any energy at all. he again denies any chest pain or headache . Instructions Date Instruction Additional Infor mation No Information Assessments Type Assessment Date assessment HTN w/ CKD stage 3 assessment Anemia assessment Mixed hyperlipidemia assessment Hyperkalemia assessment Sensorineural hearing loss, bila teral Mental Status Date Cognitive Assessment Orientation - [place] ed to time, place, person, situation.
--- OUTSIDE RECORDS SUMMARY | 2024-06-03 16:34 | XMS_ITS | Encounter Summary ---
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 Contacted [facility], where orders originated, to discuss hemodialysis schedule. Notified that patient was instructed to go to ER for transfusion & disregardorders. HT ANALYST documented in this encounter Plan of Treatment Not on file documented as of this encounter Visit Diagnoses Not on filedocumented in this encounter Care Teams Forming Tube Selector Relationship Specialty Start Date End Date Juno Fang MD PCP - General Family Medicine 03/01/21 [place] [id number] [place] [id number] Consulting Physician Urology 09/23/21 documented as of this encounter
--- OUTSIDE RECORDS SUMMARY | 2024-06-03 16:34 | XMS_ITS | Encounter Summary ---
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
[2024-06-03 17:20] LABS: Basophils Percent Auto 0.2 % (0.2-1.2); Eosinophils Absolute Auto 0.3 K/mm3 (0-0.3); Eosinophils Percent Auto 2.4 % (0-4.4); Hematocrit 23.1 % (42.0-52.0); Hemoglobin 7.2 g/dL (14.0-18.0); Immature Granulocyte Absolute 0.06 K/mm3 (0.00-0.031); Immature Granulocyte Percent A 0.5 % (0-0.5); Lymphocytes Absolute Auto 2.04 K/mm3 (0.9-3.2); Lymphocytes Percent Auto 18.5 % (18.3-44.2); Mean Corpuscular HGB Conc 31.2 g/dl (32-36); Mean Corpuscular Hemoglobin 31.6 pg (26-34); Mean Corpuscular Volume 101.3 fl (80-100); Mean Platelet Volume 9.2 fl (7.4-10.4); Monocytes Absolute Auto 1.3 K/mm3 (0.1-0.6); Monocytes Percent Auto 11.3 % (2.6-8.5); Neutrophils Absolute Auto 7.4 K/mm3 (1.3-6.7); Neutrophils Percent Auto 67.1 % (45.5-73.1); Platelet Count Result 363 k/mm3 (150-375); Red Blood Count 2.28 M/mm3 (4.6-6.20); Red Cell Distribution Width 13.9 % (11.5-14.5)
[2024-06-03 17:30] LABS: Alanine Aminotransferase 15 U/L (6-50); Albumin Level 3.1 g/dL (3.5-5.1); Alkaline Phosphatase 116 U/L (38-126); Anion Gap 5 mmol/L (4-12); Aspartate Amino Transferase 35 U/L (17-59); Bilirubin,Total 0.6 mg/dL (0.2-1.3); Blood Urea Nitrogen 46 mg/dL (9-20); Calcium 8.2 mg/dL (8.4-10.2); Carbon Dioxide 37 mmol/L (22-30); Chloride 95 mmol/L (98-107); Estimated Glomerular Filt Rate 9; Glucose 89 mg/dL (65-110); Potassium 3.9 mmol/L (3.4-5.0); Sodium 137 mmol/L (137-145)
[2024-06-03 17:39] LABS: Immunoglobulin A 467 mg/dL (70-400); Immunoglobulin G 1316 mg/dL (700-1600); Immunoglobulin M 47 mg/dL (40-230); Iron 72 ug/dL (49-181)
[2024-06-03 17:48] LABS: Percent Iron Saturation 33 % (20-50)
[2024-06-03 18:36] LABS: Folic Acid 6.4 ng/mL (2.76->20)
[2024-06-05 01:48] LABS: Protein, Total 6.2 g/dL (6.1-8.1)
[2024-06-05 15:03] LABS: Kappa\\Lambda Light Chains 1.34 (0.26-1.65); Lambda Light Chain 155.1 mg/L (5.7-26.3)
[2024-06-05 20:08] LABS: Albumin 2.7 g/dL (3.8-4.8); Alpha 1 Globulin 0.4 g/dL (0.2-0.3); Alpha 2 Globulin 0.7 g/dL (0.5-0.9); Beta 1 Globulin 0.4 g/dL (0.4-0.6); Gamma Globulin 1.3 g/dL (0.8-1.7)
== END 2024-06-03 16:32 | disposition home or self-care (01) ==
LOC: ANHLAB 16:32
PROVIDERS: PCP Emergency Medicine; Visit Provider Internal Medicine Hematology & Oncology
DX: D64.9 Anemia, unspecified (principal)
CPT/HCPCS: 36415; 80053; 82607; 82728; 82746; 82784; 83540; 83550; 83883; 84155; 84165; 85025

== ENCOUNTER 2024-06-17 06:49 | Outpatient (RCR) | payer BC, SELFPAY ==
[2024-06-17] VITALS (9 sets, daily range): BP systolic 143–168; BP diastolic 92–109; PULSE 60–67; RESP 14–16; TEMP 36.6–36.8; O2SAT 95–100
[2024-06-17 07:53] LABS: Hemoglobin 5.8 g/dL (14.0-18.0)
[2024-06-17] MEDS: ACETAMINOPHEN 325 MG TABLET 650 MG PO (07:54)
[2024-06-17] MEDS: diphenhydrAMINE HCl CAP 25 MG CAPSULE PO (07:55)
[2024-06-17] MEDS: FUROSEMIDE INJ 40 MG/4 ML VIAL 20 MG IV PUSH (10:24)
== END 2024-07-16 16:09 | disposition home or self-care (01) ==
LOC: ANHCPCTRAN 06:49
PROVIDERS: PCP Emergency Medicine; Visit Provider Internal Medicine Hematology & Oncology
DX: D64.9 Anemia, unspecified (principal)
CPT/HCPCS: 36415; 36430; 85014; 85018; 86850; 86900; 86901; 86923; 96374; A9270; J1940; J7050; P9016

== ENCOUNTER 2024-07-18 06:51 | Outpatient (RCR) | payer BC, SELFPAY ==
--- NOTE | 2024-07-17 11:03 | PC.NURSE ---
Patient arrived to have blood transfusion. I looked to see if blood was ready and it was not. The Antibody screen was still pending. I called lab to investigate and they said they would need 4 pink top tubes and they would send it out to the reference lab. I inquired how long that would take and they said around 3-4 hours. I then inquired how long after that it would take to get the blood once we had the screening done, they said at least an hour after that. The patient called off work today to receive this blood and did not get to receive his dialysis on Sunday due to his low hemoglobin. I asked the lab who they notify when they need more blood on patients and they were unsure. I called Dr. Gonzalez's office to ask if they received a call about the blood they had not. We also did not receive a call about needing more specimens. The patient will come back tomorrow to receive the blood and then try to make his appointment for dialysis tomorrow afternoon.
[2024-07-18] VITALS (7 sets, daily range): BP systolic 151–160; BP diastolic 93–100; PULSE 60–66; RESP 14–15; TEMP 36.1–36.4; O2SAT 99–100
[2024-07-18] MEDS: diphenhydrAMINE HCl CAP 25 MG CAPSULE PO (07:38)
[2024-07-18] MEDS: ACETAMINOPHEN 325 MG TABLET 650 MG PO (07:38)
[2024-07-18] MEDS: SODIUM CHLORIDE 0.9% IV 250 ML 125 ML (08:19)
[2024-07-18] MEDS: FAMOTIDINE 20 MG/2 ML VIAL IV PUSH (08:48)
== END 2024-10-16 23:59 | disposition home or self-care (01) ==
LOC: ANHCPCTRAN 06:51
PROVIDERS: PCP Emergency Medicine; Visit Provider Internal Medicine Hematology & Oncology
DX: D64.9 Anemia, unspecified (principal)
CPT/HCPCS: 36415; 36430; 86850; 86860; 86870; 86880; 86900; 86901; 86902; 86905; 86906; 86922; 86971; 86972; 86978; A9270; J7050; P9016

== ENCOUNTER 2024-08-19 15:35 | Outpatient (CLI) | payer BC, SELFPAY ==
[2024-08-19 16:26] LABS: Basophils Percent Auto 0.2 % (0.2-1.2); Eosinophils Absolute Auto 0.4 K/mm3 (0-0.3); Eosinophils Percent Auto 3.7 % (0-4.4); Immature Granulocyte Absolute 0.08 K/mm3 (0.00-0.031); Immature Granulocyte Percent A 0.8 % (0-0.5); Lymphocytes Absolute Auto 1.37 K/mm3 (0.9-3.2); Lymphocytes Percent Auto 14.4 % (18.3-44.2); Mean Corpuscular HGB Conc 30.2 g/dl (32-36); Mean Corpuscular Hemoglobin 31.6 pg (26-34); Mean Corpuscular Volume 104.6 fl (80-100); Mean Platelet Volume 9.7 fl (7.4-10.4); Monocytes Absolute Auto 1.3 K/mm3 (0.1-0.6); Monocytes Percent Auto 13.2 % (2.6-8.5); Neutrophils Absolute Auto 6.4 K/mm3 (1.3-6.7); Neutrophils Percent Auto 67.7 % (45.5-73.1); Platelet Count Result 390 k/mm3 (150-375); Red Blood Count 1.96 M/mm3 (4.6-6.20); Red Cell Distribution Width 14.2 % (11.5-14.5); White Blood Count 9.5 K/mm3 (4.5-10.0)
[2024-08-19 16:39] LABS: Hematocrit 20.5 % (42.0-52.0); Hemoglobin 6.2 g/dL (14.0-18.0)
== END 2024-08-19 15:36 | disposition home or self-care (01) ==
PROVIDERS: PCP Emergency Medicine; Visit Provider Internal Medicine Hematology & Oncology
DX: D64.9 Anemia, unspecified (principal)
CPT/HCPCS: 36415; 85025; 86850; 86880; 86900; 86901

== ENCOUNTER 2024-08-27 06:54 | Outpatient (RCR) | payer BC, SELFPAY ==
[2024-08-27 08:00] VITALS: TEMP 36.6
[2024-08-27] MEDS: ACETAMINOPHEN 325 MG TABLET 650 MG PO (08:00)
[2024-08-27] MEDS: diphenhydrAMINE HCl CAP 25 MG CAPSULE PO (08:00)
[2024-08-27] MEDS: SODIUM CHLORIDE 0.9% IV 250 ML 30 ML IV CONT (08:12)
[2024-08-27 08:15] VITALS: BP 133/79; PULSE 64; RESP 14; TEMP 36.6; O2SAT 97
[2024-08-27 08:30] VITALS: BP 137/79; PULSE 64; RESP 15; TEMP 36.5; O2SAT 96
[2024-08-27 09:30] VITALS: BP 146/94; PULSE 65; RESP 14; TEMP 36.5; O2SAT 99
[2024-08-27 10:30] VITALS: BP 134/78; PULSE 66; RESP 16; TEMP 36.4; O2SAT 96
[2024-08-27 11:08] VITALS: BP 141/89; PULSE 62; RESP 15; TEMP 36.6; O2SAT 95
== END 2024-11-25 23:59 | disposition home or self-care (01) ==
LOC: ANHCPCTRAN 06:54
PROVIDERS: PCP Emergency Medicine; Visit Provider Internal Medicine Hematology & Oncology
DX: D64.9 Anemia, unspecified (principal)
CPT/HCPCS: 36415; 36430; 86850; 86860; 86870; 86880; 86900; 86901; 86922; 86978; A9270; J7050; P9016

== ENCOUNTER 2025-01-01 07:38 | Outpatient (CLI) | payer BC, MEDICARE, SELFPAY ==
--- OUTSIDE RECORDS SUMMARY | 2024-06-19 11:49 | XMS_ITS | Continuity of Care Document ---
Author Organization [facility] Address [address] [place] [address] [place] [address] Phone Care Team Providers Care Project Officer Name Role Phone Juno Fang MD Unavailable [...] route every day 10 MG - Active hydralazine 25 mg tablet take 1 tablet by oral route 2 times every day with food 25 MG - Active Procedures Procedure Date OFFICE/OUTPATIENT VISIT, EST OFFICE/OUTPATIENT VISIT, EST PREV [...] Providers Copied on Encounter OFFICE/OUTPA TIENT VISIT, [facility], [address], [place], [place], [id number], tel:[phone] [facility] HTN (chief complaint) gout1 (chief complaint) AnemiaMixed hyperlipidemiaChron ic kidney disease, stage 4 (severe)GoutEssenti al (primary) hypertension 5 Leoncio Fierro [address], [address], [place], [place], [address] , [place]. [phone] OFFICE/OUTPA TIENT VISIT, [facility], [address], [place], [place], [address], [place] tel:[phone] [facility] HTN (chief complaint) hearing loss1 (chief complaint) anemia1 (chief complaint) HLP (chief complaint) kidney1 (chief complaint) HTN w/ CKD stage 3AnemiaMixed hyperlipidemiaHyper kalemiaSensorineura l hearing loss, bilateral August- 4 Leoncio Fraire. [address], [place], [place], [address] , [place]. tel:[phone] PREV VISIT, EST, AGE 40-64 [facility], [address], [place], [place], [address], [place] tel:[phone] [facility] physical (chief complaint) Encounter for general adult medical exam w abnormal findingsHTN w/ CKD stage 3Iron deficiency anemiaObstructive sleep apnea hypopneaSensorineur al hearing loss, bilateralMalignant poorly differentiated neuroendocrine tumorsHyperkalemia 4 Leoncio Fraire. [address], [address], [place], [place], [address] , [place]. [phone] OFFICE/OUTPA TIENT VISIT, [facility], [address], [place], [place], [address], [place] tel:[phone] [facility] sick (chief complaint) iron deficiency 1 (chief complaint) HTN (chief complaint) Iron deficiency anemiaEssential (primary) hypertensionAcute sinusitisAcute renal failure 3 Leoncio Fierro [address], [place], [place], [address] , [place]. tel:[phone] OFFICE/OUTPA TIENT VISIT, [facility], [address] [place] [address], [place] tel:[phone] [facility] sleep apnea1 (chief complaint) renal disease1 (chief complaint) iron deficiency 1 (chief complaint) HTN (chief complaint) Essential (primary) hypertensionIron deficiency anemiaAcute renal failurePrimary central sleep apnea 2 Leoncio Fierro [address], [place], [place], [address] , [place]. [phone] OFFICE/OUTPA TIENT VISIT, [facility], [address] [place] [address], [place] tel:[phone] [facility] HTN (chief complaint) iron deficiency 1 (chief complaint) sleep apnea1 (chief complaint) renal disease1 (chief complaint) Essential (primary) hypertensionAcute renal failureIron deficiency anemiaPrimary central sleep apnea 2 Leoncio Fierro [address], [address], [place], [place], [address] , [place]. [phone] OFFICE/OUTPA TIENT VISIT, [facility], [address] [place] [address], [place] tel:[phone] [facility] HTN (chief complaint) iron deficiency 1 (chief complaint) renal (chief complaint) glucose1 (chief complaint) Essential (primary) hypertensionAcute renal failureProteinuriaI sarah deficiency anemiaHyperglycemia 2 Leoncio Fierro [address], [address], [place], [place], [address] , [place]. tel:[phone] PREV VISIT, EST, AGE 40-64 [facility], [address] [place] [address], [place] tel:[phone] [facility] physical (chief complaint) Encounter for general adult medical exam w abnormal findingsMalignant neoplasm of left renal pelvisSleep apneaFatty liverEssential (primary) hypertensionPulmona ry hypertensionAcute renal failureProteinuriaA bnormal weight lossAnemia 2 Leoncio Fraire. [address], [address], [place], [place], [address] , [place]. tel:[phone] OFFICE/OUTPA TIENT VISIT, [facility], [address], [place], [place], [address], [place] tel:[phone] [facility] HTN (chief complaint) sleep apnea1 (chief complaint) RCC (chief complaint) Anemia1 (chief complaint) Sleep apneaEssential (primary) hypertensionMaligna nt neoplasm of left renal pelvisAnemia 2 Leoncio Fraire. [address], [place], [place], [address] , [place]. tel:[phone] OFFICE/OUTPA TIENT VISIT, [facility], [address], [place], [place], [address], [place] tel:[phone] [facility] sob1 (chief complaint) anemia1 (chief complaint) sleep apnea1 (chief complaint) renal mass1 (chief complaint) LFT (chief complaint) Sleep apneaOther specified disorder of kidneyAnemiaLiver diseasePulmonary hypertension Feb- 1 Leoncio Fraire. [address], [place], [place], [address] , [place]. tel:[phone] OFFICE/OUTPA TIENT VISIT, [facility], [address], [place], [place], [address], [place] tel:[phone] [facility] HTN (chief complaint) sob (chief complaint) sleep apnea1 (chief complaint) renal lesion1 (chief complaint) Sleep apneaEssential (primary) hypertensionShortne ss of breathOther specified disorder of kidney 1 Leoncio Fraire. [address], [place], [place], [address] , [place]. tel:[phone] OFFICE/OUTPA TIENT VISIT, [facility], [address] [place], [address], [place] tel:[phone] [facility] HTN (chief complaint) proteinuri a1 (chief complaint) glucose1 (chief complaint) LFT (chief complaint) anemia1 (chief complaint) ProteinuriaLiver diseaseHyperglycemi aAnemiaEssential thrombocytosisEssen tial (primary) hypertensionSleep apnea 1 Leoncio Fierro [address] [place] [address] , [place]. [phone] OFFICE/OUTPA TIENT VISIT, [facility], [address], [address], tel:[phone] [facility] HTN (chief complaint) sinus1 (chief complaint) Essential (primary) hypertensionAcute sinusitis 1 Leoncio Fierro [address] [facility] [place] [address] , [place]. tel:[phone] PREV VISIT, NEW, AGE 40-64 [facility], [address] [place], [place], [address], [place] tel:[phone] [facility] physical (chief complaint) Encounter for general adult medical exam w abnormal findingsEssential (primary) hypertensionSleep apneaAbnormal weight gainEdema 1 Leoncio Fierro [address] [facility] [place] [address] , [place]. [phone] Family History Family Member Type Diagnosis Age At Onset Father Problem Diabetes mellitus Father Problem Renal disease Father Problem Hypertension Brother Problem Renal disease Brother Problem Hypertension Father Problem of 75 DKA Mother Problem Hypertension Mother Problem Diabetes mellitus Payers Payer name Insurance type Covered alliance party ID Authoriza tiorlin(s) [facility] CI [id number] Social History Type Description Quantity Date Captured Comments Alcohol Use Details beer & wine Caffeine Use Details Unknown Tobacco Use Status Current non-smoker Smoking Status Never smoker Sex Male Vital Signs Date / Time: Height Weight BMI Pulse Rate Blood Pressure Temperature Respiratory Rate Body Surface Area Head Circumference BMI percentile Pulse Ox Inhaled Ox 5:10 PM 77.00 in 395.20 lbs 46.8 6 kg/m eter (2) 84 /min 170/120 mm[Hg] 98.5 F 16 /min Chief Complaint And Reason For Visit From encounter dated '06/19/2024 16:49'. HTN (chief complaint). Description: Pt has chronic HTN. He was recently admitted to hospital due torenal failure and he is on dialysis now M. Sunday and Sunday. He has rather severe anemia and hereceived iron transfusion last week by his change control specialist. Pt denies any bleeding Pt is only taking metoprolol now and his bp is still very high. He is not sure if he supposes to take norvasc or any other medication. he denies any chest pain or headache . gout1 (chief complaint). Description: Pt was told that he has gout while in hospital but i can not find any uric acid level Pt denies any gout attack Plan Of Treatment Date Type Action Status [...] Referred To: Amador Frey [address], [phone] Ordered: Referrals: Allopathic & Osteopathic Physicians : Internal Medicine : Nephrology. Amador Frey. Evaluate and treat ordered Referral Ordered: US EXAM, ABDOM, COMPLETE ordered Referral Ordered: SLEEP STUDY, ATTENDED ordered History Of Present Illness Encounter Date Complaint History Of Prese nt Illness HTN Pt has chronic H [place]. He was recently admitted to hospital due to renal failure and he is on dialysis now M. Sunday and Sunday. He has rather severe anemia and he received iron transfusion last week by his change control specialist. Pt denies any bleeding Pt is only taking metoprolol now and his bp is still very high. He is not sure if he supposes to take norvasc or any other medication. he denies any chest pain or headache . gout1 Pt was told that he has gout while in hospital but i can not find any uric acid level Pt denies any gout attack kidney1 Pt has chronic k idney disease [...] doing well Pt denies any acute complaints. sick Pt c/o acute ons et of [...] scheduled in one week HTN Pt has HTN. pt t akes metoprolol and norvasc and his bp is stable at home Pt denies any chest pain or headache HTN Pt has HTN Pt ta kes [...] has not set up cpap yet with [facility] iron deficiency1 Pt has iron def iciency anemia Pt denies any blood loss. pt does feel fatigue HTN Pt has HTN Pt ta kes metoprolol and norvasc and his bp is stable. Pt denies any chest pain or headache or edema. Pt denies any vision change renal Pt has renal dis ease and also proteinuria. Pt has normal UO glucose1 Pt has history o f high glucose. Pt denies any polyuria, polydipsia. Pt has normal A1c iron deficiency1 Pt had lab done which [...] fatigue. Pt still has not heard from [facility] and he still has not contacted [facility] to check on the status HTN Pt has HTN. Pt t akes metoprolol, lisinopril and chlorthalidone and his bp is around 130/70 at home. Pt needs refill. pt denies any edema Pt sees cardiology Pt denies any chest pain or sob sleep apnea1 Pt has severe sl eep apnea. Pt has not heard from [facility] yet sob1 Pt presented to ER with severe [...] He denies any chest pain or sob. renal mass1 Pt has suspiciou s left renal mass Pt has not heard from urology yet LFT Pt has mildly hi gh LFT. His liver ultrasound is ok Pt denies any abd pain or jaundice. anemia1 Pt has stable an emia. Pt has normal MCV. Pt denies any blood loss. His colonguard is normal HTN Pt has HTN Pt ta kes hydralazine 50 mg TID and his bp is still high. Pt denies any chest pain or headache sob Pt feels exertio nal sob and some fasting heart rate since one week ago pt denies any chest pain Pt denies any calf pain or recent travel nurse denies any edema. sleep apnea1 Pt has [...] headache . Instructions Date Instruction Additional Infor david No Information Assessments Type Assessment Date assessment Anemia assessment Mixed hyperlipidemia assessment Chronic kidney disease, stage 4 (severe) assessment Gout assessment Essential (primary) hypertension Mental Status Date Cognitive Assessment Orientation - [place] ed to time, place, person, situation.
--- NOTE | ~2025-01-01 | CT_ITS ---
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 Lung bases: Clear. Visualized heart and pericardium: Unremarkable. Liver: Small cyst in segment 6. Gallbladder: Unremarkable. Spleen: Unremarkable. Pancreas: Unremarkable. Adrenal glands: Left side probably removed. Kidneys: Right kidney- No hydronephrosis. No renal stones. Left kidney-removed. No soft tissue abnormality within nephrectomy bed. Distal esophagus/stomach: Unremarkable. Small bowel loops: Normal caliber and wall thickness. Colon: Normal caliber and wall thickness. Normal RLQ appendix. Nodes: No enlarged nodes. A few small nodes between right kidney and IVC unchanged. Small mesenteric nodes unchanged Peritoneum: No ascites. No free intraperitoneal air. Urinary bladder: Unremarkable. Prostate: Unremarkable. Bones: No acute bony abnormality. Soft tissues: Small umbilical hernia with fat. Small midline ventral supraumbilical hernia with fat. Unopacified abdominal aorta: No aneurysmal dilatation. IMPRESSION: 1. No acute findings or significant change from prior exam. 2. No evidence of active malignancy given noncontrast technique. Reviewed, dictated and finalized at location R.
--- OUTSIDE RECORDS SUMMARY | 2025-01-01 07:54 | XMS_ITS ---
Author Organization [facility] [address] Address [address] [place] [address] Care Team Providers Care Box Sorter Name Role Phone Juno Fang MD Primary Care Provider Arjun Lagunas MD Unavailable [phone] Devin Pham MD Unavailable [phone] Melissa Beltran RN Unavailable Juan M Luna MD Unavailable [phone] Transplant Episode Kidney Candidate [facility] ([place], [place]) - [facility] Evaluation began on 10/02/2024 Marked as Active on 10/02/2024 Reason: Evaluation - Standard Kidney CoordinatorMelissa Beltran RN Fax: N/A Email: N/A Scores Score Value Updated Exceptions/Reas ons CPRA Not available EPTS (Calc) 22 01/01/2025 [place] Organ Diagnosis Organ Primary Contributory Kidney Hypertensive Nephrosclerosis Care Team Name Role Phone Fax Email Melissa Beltran RN Kidney Coordinator [phone] N/A N/A Devin Pham MD Referring Physician [phone] N/A Pippa Lagunas [employer] Architect [phone] N/A N/A Melissa Rivera Primary Senior Branch Manager N/A N/A N/A Events Pre-Transplant Referred: 08/25/2024 Evaluation began: 10/02/2024 Appointments (12/01/2024 - 01/31/2025) When With Visit Type Description 12/30/2024 Transplant - [facility] O UTPATIENT VISIT Dialysis History Dialysis History Start End Type Comments Center 07/23/2024 In-center Hemodialysis [facility] Dialysis Center Information Center Phone Fax Address [facility] [phone] [place] [phone]
--- OUTSIDE RECORDS SUMMARY | 2025-01-01 07:54 | XMS_ITS | Clinical Summary ---
Author Organization [facility] [address] Address [address] [place] [address] Care Team Providers Care Cartridge Gauger Name Role Phone Juno Fang MD Primary Care Provider [phone] Arjun Lagunas MD Unavailable [phone] Devin Pham MD Unavailable [phone] Melissa Beltran RN Unavailable [phone] Juan M Luna MD Unavailable [phone] Allergies Active Allergy Reactions Criticality Noted Date Comments Lisinopril Angioedema,Shortness of breath High 09/23/2021 Unexplained angioedema R/T Lisinopril until declared otherwise by physician. Unexplained angioedema R/T Lisinopril until declared otherwise by physician. Unexplained angioedema R/T Lisinopril until declared otherwise by physician. Oxycodone Angioedema High 09/24/2021 Medications metoprolol XL (TOPROL-XL) 200 mg extended release tablet Take 1 tablet (200 mg total) by mouth daily 03/15/2021 Active hydrALAZINE (APRESOLINE) 25 mg tablet Take 1 tablet (25 mg total) by mouth 2 (two) times a day 06/19/2024 Active calcium acetate,phospha t bind, (PHOSLO) 667 mg capsule Take 2 capsules (1,334 mg total) by mouth 3 (three) times a day with meals TAKES 1 WITH SNACK 05/23/2024 Active amLODIPine (NORVASC) 10 mg tablet Take 1 tablet (10 mg total) by mouth daily Active magnesium gluconate 200 mg tabletIndicatio ns:hypomagnesem ia Take 2 tablets (400 mg total) by mouth daily Active Active Problems Problem Noted Date Diagnosed Date ESRD (end stage renal disease) on dialysis 08/26 Assessment & Plan (10/09/2024 4:22 PM CDT): Patient agreeable for permanent access during office visit. All questions were appropriately answered. As he is right-hand dominant will proceed with creation of left arm AV fistula versus graft. Risks of the procedure including not limited to bleeding, infection, nerve injury, stroke, , communicated patient full understanding. He wishes to proceed. Assessment & Plan (08/26/2024 12:46 PM CDT): Patient requiring permanent access. As he is right-hand dominant will proceed with creation of left arm AV fistula versus graft. Risks of the procedure including not limited to bleeding, infection, nerve injury, stroke, PA, communicated patient full understanding. Will have patient obtain cardiac risk assessment before procedure. Since his was on the phone with minimal opportunity to ask questions due to her location will offer patient to return and discuss surgery further with before procedure. WAYNE (acute kidney injury) 06/03/2024 Abnormal hemoglobin (Hgb) 06/03/2024 Morbid obesity 09/20/2021 Left renal mass 08/12/2021 Overview (08/12/2021): Added automatically from request for surgery [id number] Primary hypertension 06/23/2021 Encounters Date Type Department Care Team Description 12/31/2024 Telephone [facility] Transplant [facility]ney [address] [facility] [address] [id number] [place] [address] Pippa Lagunas 12/30/2024 9:00 AM CDT Documentation [facility] [address] [facility], 8th Floor, [place] [address] Pippa Lagunas 12/30/2024 Telephone [facility] Trans[facility]ney [address] [facility] [address] [phone] [place] [address] Pippa Lagunas. 12/30/2024 Telephone [facility] [address] [facility] [address] [id number] [place] [address] Pippa Lagunas. 12/15/2024 Telephone [facility] [address] [facility] [address] [id number] [place] [address] Pippa Lagunas. 12/03/2024 Telephone [facility] [address] [facility] [address] [id number] [place] [address] Pippa Lagunas. 11/10/2024 Telephone [facility] D[facility] Access Center at [address] [address] Luci Sheehan RN 11/06/2024 12:00 PM CDT Anesthesia Event [facility] OR [address] [place] [address] Lisa Velez NP 11/06/2024 9:28 AM CDT - 11/06/2024 12:40 PM CDT Hospital Encounter [facility] OR [address] [place] [address] Charbel Tracy MD Discharge Disposition: Discharge to home or self care 10/20/2024 Documentation [facility] [address] [facility] [address] [phone] [place] [address] Melissa Rivera 10/10/2024 Orders Only [facility] [address] [address] Charbel Tracy MD Dependence on renal dialysis (Primary Dx); End stage renal disease (HCC); Other specified complication of vascular prosthetic devices, implants and grafts, initial encounter 10/09/2024 8:42 AM CDT - 10/09/2024 11:59 PM CDT Hospital [facility] [address] [facility] [address] [place] [address] ESRD (end stage renal disease) on dialysis (HCC) (Primary Dx); Primary hypertension Discharge Disposition: Discharge to home or self care 10/09/2024 Documentation [facility] [address] [facility] [address] [phone] [place] [address] Alyse Astorga 10/06/2024 Documentation [facility] [address] [facility] [address] [phone] [place] [address] Alyse Astorga Evaluation Scheduling 10/02/2024 Telephone [facility] [address] [facility] [address] [phone] [place] [address] Melissa Beltran RN 10/02/2024 Telephone [facility] [address] [facility] [address] [phone] [place] [address] Alyse Astorga 10/02/2024 Telephone [facility]ney [address] [facility] [address] [phone] [place] [address] Melissa Beltran, RN from Last 3 Months Immunizations Immunization Administration Dates Next Due Influenza, Unspecified 02/19/2024 Td, Unspecified 05/21/2024 Surgical History Surgery Date Site/Laterality Comments NEPHRECTOMY 04/23/2021 - 04/22/2022 Left KNEE SURGERY Left ARTHROSCOPY ESOPHAGOGASTRODUODENOSCOPY 09/21/2022 with needle aspiration/biopsy ESOPHAGOGASTRODUODENOSCOPY 02/08/2023 TUNNELED VENOUS CATHETER PLACEMENT 05/05/2024 Right RIJ permacath placement -Dr. Dowd @ [facility] Medical History Medical History Date Comments Sleep apnea W/ CPAP Hypertension Morbid obesity (HCC) 09/20/2021 WAYNE (acute kidney injury) 06/03/2024 CKD (chronic kidney disease) requiring chronic d ialysis (HCC) Neuroendocrine neoplasm of duodenum (HCC) 2022 Renal cell carcinoma of left kidney (HCC) 2021 Family History Medical History Relation Name Comments Diabetes Father Arthritis Mother Diabetes Mother Heart disease Mother Hypertension Mother Kidney disease Mother Relation Name Status Comments Father Mother Other Social History Tobacco Use Types Packs/Day Years Used Date Smoking Tobacco: Former Cigarettes Smokeless Tobacco: Never Tobacco Cessation:Counseling Given: Not Answered AUDIT-C Answer Date Recorded Q1: How often do you have a drink containing alcohol? Never 11/06/2024 Q2: How many drinks containi ng alcohol do you have on a typical day when you are drinking? Patient does not drink Q3: How often do you have si x or more drinks on one occasion? Never 11/06/2024 Personal Safety Answer Date Recorded Have you ever been in or are you currently in a harmful physical or emotional relationship or is someone making you feel afraid or unsafe? 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 Gender Identity Not on file Sexual Orientation Not on file Obstetrics History Last Filed Vital Signs Vital Sign Reading Time Taken Comments Blood Pressure 141/84 11/06/2024 10:04 AM CDT Pulse 70 11/06/2024 10:04 AM CDT Temperature 37.1 C (98.7 F) 11/06/2024 10:04 AM CDT Respiratory Rate 20 11/06/2024 10:04 AM CDT Oxygen Saturation 98% 11/06/2024 10:04 AM CDT Inhaled Oxygen Concentration - - Weight 158.3 kg (349 lb) 11/06/2024 10:04 AM CDT Height 198.1 cm (6' 6) 11/06/2024 10:04 AM CDT Body Mass Index 40.33 11/06/2024 10:04 AM CDT Plan of Treatment Health Maintenance Due Date Last Done Comments Colon Cancer Screening-Colonoscopy 1968 Depression Screening 1968 Hepatitis C Screening 1968 Prostate Cancer Screening-PSA 1968 Meningococcal B Vaccine (1 o f 4 - Increased Risk) 1978 Hepatitis B Screening 1986 Regular Well Visit/Exam 18-64 1986 Pneumococcal vaccine <65 (1 of 2 - PCV) 09/23/1987 Zoster Vaccine (1 of 2) 2018 DTaP/Tdap/Td Vaccine (1 - Tdap) 05/22/2024 Covid-19 Vaccine (4 - season) 2024 06/20/2021, 01/10/2021, 12/20/2020 Influenza Vaccine (#1) 2024 02/19/2024 Procedures Procedure Name Priority Date/Time Associated Diagnosis Comments ANTIBODY IDENTIFICATION Timed 11/07/19 10:55 AM CDT ANTIBODY SCREEN Timed 11/06/2024 10:55 AM CDT ABO/RH Timed 11/06/2024 10:55 AM CDT TYPE AND SCREEN Timed 11/06/2024 10:55 AM CDT EGFR STAT 11/06/2024 10:03 AM CDT DIFFERENTIAL AUTO STAT 11/06/2024 10: 03 AM CDT PROTIME-INR STAT 11/06/2024 10:03 AM CDT BASIC METABOLIC PANEL STAT 11/06/2024 10:03 AM CDT CBC WITH AUTO DIFFERENTIAL STAT 11/06/2024 10:03 AM CDT from Last 3 Months Results * Antibody identification (11/06/2024 10:55 AM CDT) Antibody Identification Interpretation See Comments Comment: 11/06/2024 12:45 [id number] Unable to resolve reactivity due to insufficient sample Blood 11/06/2024 10:5 5 AM CDT 11/06/2024 10:58 AM CDT us Nicole Montgomery MD LAB BLOOD BANK TEST ORDERABL ES Final Result [facility] [address] [place] [address] * ABO/Rh (11/06/2024 10:55 AM CDT) Pathologist [facility] ABO/Rh O Positive Blood 11/06/2024 10:5 5 AM CDT 11/06/2024 10:58 AM CDT Narrative [facility] - 11/06/2024 12:43 PM CDT Has the patient had Daratumumab or Isatuximab in the past 6 months?->Unknown Nicole Montgomery MD LAB BLOOD BANK TEST ORDERABL ES Final Result Performing Organization Address [facility] Co de Phone Number [address] [address] * (ABNORMAL) Antibody screen (11/06/2024 10:55 AM CDT) Pathologist [facility] Zain, indirect, Gel Interpretation Positive( A) Blood 11/06/2024 10:5 5 AM CDT 11/06/2024 10:58 AM CDT Narrative [facility] - 11/06/2024 12:43 PM CDT Has the patient had Daratumumab or Isatuximab in the past 6 months?->Unknown Nicole Montgomery MD LAB BLOOD BANK TEST ORDERABL ES Final Result Performing Organization Address City/[facility] Co de Phone Number [address] [address] * (ABNORMAL) eGFR (11/06/2024 10:03 AM CDT) Pathologist [facility] eGFR 6(L) >=60 mL/min/1. 73 m2 Comment: Interpretive Data Reference Interval Normal >/= 90 mL/min/1.73m2 Mildly decreased* 60 - 89 mL/min/1.73m2 Mildly to moderately decreased 45 - 59 mL/min/1.73m2 Moderately to severely decreased 30 - 44 mL/min/1.73m2 Severely decreased 15 - 29 mL/min/1.73m2 Kidney Failure < 15 mL/min/1.73m2 *Relative to young adult level Estimated glomerular filtration rate is determined by the 2020 CKD-EPI equation recommended by the National Kidney Foundation (A Unifying Approach to GFR Estimation: Recommendations of the NKF-ASK Task Force on Reassessing the Inclusion of Race in Diagnosing Kidney Disease, JASN 2020). The CKD-EPI equation should not be used for patients with unstable renal function and has not been validated in children and those over 70. Current interpretive data was last reviewed 2021. Blood 11/06/2024 10:0 3 AM CDT 11/06/2024 10:06 AM CDT us Charbel Tracy MD LAB BLOOD ORDERABLES Final Resul t [place] [id number] [facility] [place] [address] * (ABNORMAL) Differential, auto (11/06/2024 10:03 AM CDT) Neutrophil abs 5.02 1.50 - 6.50 K/cumm Imm gran abs 0.02 0.00 - 0.10 K/cumm [facility] Lymphocyte abs 1.33 0.80 - 3.30 K/cumm [facility] Monocyte abs 0.90(H) 0.20 - 0.80 K/cumm [facility] Eosinophil abs 0.27 0.00 - 0.50 K/cumm [facility] Basophil abs 0.03 0.00 - 0.10 K/cumm [facility] Neutrophil pct 66.2 % [facility] Comment: Interpretive Data Percent cell count reference ranges are not reported, since discordance with absolute values may lead to misinterpretation of CBC data. Current Interpretive Data was last revised on 2017. Imm gran pct 0.3 % [facility] Comment: Interpretive Data Percent cell count reference ranges are not reported, since discordance with absolute values may lead to misinterpretation of CBC data. Current Interpretive Data was last revised on 2017. Lymphocyte pct 17.6 % [facility] Comment: Interpretive Data Percent cell count reference ranges are not reported, since discordance with absolute values may lead to misinterpretation of CBC data. Current Interpretive Data was last revised on 2017. Monocyte pct 11.9 % [facility] Comment: Interpretive Data Percent cell count reference ranges are not reported, since discordance with absolute values may lead to misinterpretation of CBC data. Current Interpretive Data was last revised on 2017. Eosinophil pct 3.6 % [facility] Comment: Interpretive Data Percent cell count reference ranges are not reported, since discordance with absolute values may lead to misinterpretation of CBC data. Current Interpretive Data was last revised on 2017. Basophil pct 0.4 % [facility] Comment: Interpretive Data Percent cell count reference ranges are not reported, since discordance with absolute values may lead to misinterpretation of CBC data. Current Interpretive Data was last revised on 2017. Blood 11/06/2024 10:0 3 AM CDT 11/06/2024 10:06 AM CDT us Charbel Tracy MD LAB BLOOD ORDERABLES Final Resul t [place] [address] [facility] [place] [address] * (ABNORMAL) CBC with auto differential (11/06/2024 10:03 AM CDT) WBC 7.57 3.80 - 9.90 K/cumm Hgb 7.3(L) 13.0 - 17.5 g/dL [facility] Hct 23.2(L) 38.9 - 50.3 % [facility] Plt 297 150 - 400 K/cumm [facility] MPV 8.9(L) 9.1 - 12.3 fL [facility] RBC 2.28(L) 4.30 - 5.80 M/cumm [facility] MCV 101.8(H) 81.3 - 96.4 fL [facility] MCH 32.0 27.1 - 33.3 pg [facility] MCHC 31.5(L) 32.3 - 35.7 g/dL [facility] RDW CV 14.4 11.1 - 14.9 % [facility] RDW SD 51.8(H) 35.7 - 48.1 fL [facility] NRBC abs 0.00 0.00 - 0.01 K/cumm [facility] Blood 11/06/2024 10:0 3 AM CDT 11/06/2024 10:06 AM CDT Charbel Tracy MD LAB BLOOD ORDERABLES Final Resul t Performing Organization Address [facility] de Phone Number [address] [place] [address] * (ABNORMAL) Protime-INR (11/06/2024 10:03 AM CDT) PT 15.40(H) 12.00 - 14.60 sec Comment:Ref Range High INR 1.20 0.90 - 1.20 [facility] Comment: Ref Range High Interpretive data Oral anticoagulant therapeutic ranges: Venous thromboembolism prophylaxis or treatment: 2.0-3.0 CARDIOLOGY Standard range: 2.0-3.0 High-intensity range: 2.5-3.5 Refer to indication-specific guidelines for appropriate target ranges for prosthetic heart valve replacement. Current interpretive data was last revised on 2019. Blood 11/06/2024 10:0 3 AM CDT 11/06/2024 10:06 AM CDT Charbel Tracy MD LAB BLOOD ORDERABLES Final Resul t Performing Organization Address [facility] Co de Phone Number [address] [address] * (ABNORMAL) Basic metabolic panel (11/06/2024 10:03 AM CDT) Sodium 137 135 - 145 mmol/L Potassium, pl 5.0(H) 3.3 - 4.9 mmol/L [facility] Chloride 95(L) 97 - 110 mmol/L [facility] CO2 32 22 - 32 mmol/L [facility] Anion gap 10 2 - 15 mmol/L [facility] BUN 56(H) 6 - 25 mg/dL [facility] Creatinine 9.22(H) 0.80 - 1.30 mg/dL [facility] Glucose 100 70 - 199 mg/dL [facility] Comment: Interpretive Data Fasting glucose >/= 126 mg/dl is diagnostic for diabetes. Fasting is defined as no caloric intake for at least 8 hours. Fasting glucose between 100 mg/dl to 125 mg/dl is diagnostic of prediabetes. In a patient with classic symptoms of hyperglycemia or hyperglycemic crisis, a random glucose >/= 200 mg/dl is diagnostic for diabetes. In the absence of unequivocal hyperglycemia, results should be confirmed by repeat testing. The classification and Diagnosis of Diabetes Diabetes Care 202; 46: S19-S40. Current interpretive data was last revised 2022. Calcium 9.1 8.5 - 10.3 mg/dL [facility] Blood 11/06/2024 10:0 3 AM CDT 11/06/2024 10:06 AM CDT us Charbel Tracy MD LAB BLOOD ORDERABLES Final Resul t Performing Organization Address City/State/[facility] Co de Phone Number [facility] [address] [facility] [place] [address] from Last 3 Months Insurance [facility] FEDERAL [facility] FEDERAL [facility] [employer]AL [facility] FEDERAL MEDICARE Advance Directives For more information, please contact: [phone] * Full Code (Latest Code Status on File) Date Activated Date Inactivated Comments 09/26/2021 11:15 AM 09/30/2021 4:39 PM * Full Code Date Activated Date Inactivated Comments 09/23/2021 2:58 PM 09/24/2021 7:29 AM * Full Code Date Activated Date Inactivated Comments 09/23/2021 2:58 PM 09/23/2021 2:58 PM Care Teams Cartridge Gauger Relationship Specialty Start Date End Date Juno Fang MD PCP - General Family Medicine 03/01/21 [place] [address] [place] [address] Consulting Physician Urology 09/23/21 Devin Pham MD [address] [facility] 1 [place] [address] Referring Physician Nephrology 08/25/24 Melissa Beltran, RN [address] [address] Drafter Civil 08/25/24 Juan M Luna MD [address] [facility] [address] [place] [address] Consulting Physician Cardiology 10/31/24
--- OUTSIDE RECORDS SUMMARY | 2025-01-01 07:54 | XMS_ITS | Encounter Summary ---
Author Organization [facility] Address [address] [place] [address] Phone Care Team Providers Care Forms Builder Name Role Phone Juno Fang MD Primary Care Provider [phone] Arjun Laugnas MD Unavailable [phone] Devin Pham MD Unavailable [phone] Melissa Beltran RN Unavailable [phone] Juan M Luna MD Unavailable [phone] Encounter Details Date Type Department Care Team (Latest Contact Info) Description 04/08/2018 Orders Only [facility] Scanning, Provider Social History Tobacco Use Types Packs/Day Years Used Date Smoking Tobacco: Never Assessed Sex and Gender Information Value Date Recorded Sex Assigned at Not on file 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 1 [place] [address] Referring Physician Nephrology 08/25/24 Melissa Beltran, RN [address] [facility] [address] [place] [address] Machine Hoop Maker Helper 08/25/24 Juan M Luna MD [address] [facility] [address] [place] [address] Consulting Physician Cardiology 10/31/24 documented as of this encounter
--- OUTSIDE RECORDS SUMMARY | 2025-01-01 07:54 | XMS_ITS | Encounter Summary ---
Author Organization [facility] Healthcare Address [address] [place] [address] Care Team Providers Care Manager Activities Name Role Phone Juno Fang MD Primary Care Provider [phone] Arjun Lagunas MD Unavailable [phone] Devin Pham MD Unavailable [phone] Melissa Beltran RN Unavailable [phone] Juan M Luna MD Unavailable [phone] Encounter Details Date Type Department Care Team (Late st Contact Info) Description 09/23/2024 Orders Only [facility] Health Information Management [address] [place] [address] Scanning, Provider Social History Tobacco Use Types Packs/Day Years Used Date Smoking Tobacco: Former Cigarettes Smokeless Tobacco: Never AUDIT-C Answer Date Recorded Q1: How often do you have a drink containing alcohol? Never 08/19/2024 Q2: How many drinks containi ng alcohol do you have on a typical day when you are drinking? Patient does not drink Q3: How often do you have si x or more drinks on one occasion? 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 Gender Identity Not on file Sexual Orientation Not on file documented as of this encounter Plan of Treatment Not on file documented as of this encounter Procedures Procedure Name Priority Date/Time Associated Diagnosis Comments CARDIOLOGY DOCUMENT SCAN 09/23/2024 9:28 PM CDT documented in this encounter Results * Cardiology Document Scan (09/23/2024 9:28 PM CDT) Anatomical Region Laterality Modality Other us Provider Scanning CV CARDIAC SERVICES PROCEDURES Final Result documented in this encounter Visit Diagnoses Not on filedocumented in this encounter Care Teams Manager Activities Relationship Specialty Start Date End Date Juno Fang MD PCP - General Family Medicine 03/01/21 [place] [address] [address] [facility] [address] [place] [address] Consulting Physician Urology 09/23/21 Devin Pham MD [address] [facility] 1 [place], [place] [id number] Referring Physician Nephrology 08/25/24 Melissa Beltran, RN [address] [facility] [address] [place] [address] Low Raw Sugar Cutter 08/25/24 Juan M Luna MD [address] [facility] 102 [place] [address] Consulting Physician Cardiology 10/31/24 documented as of this encounter
--- OUTSIDE RECORDS SUMMARY | 2025-01-01 07:55 | XMS_ITS | Clinical Summary ---
Author Organization [facility] Michael Santo Address [address] [place] [address] Care Team Providers Care Sole Filler Name Role Phone Juno Fang MD Primary Care Provider [phone] Allergies Active Allergy Reactions Criticality Noted Date Comments Lisinopril Shortness of Breath/Wheezing,Angioede ma High 09/23/2021 Unexplained angioedema R/T Lisinopril until declared otherwise by physician. Unexplained angioedema R/T Lisinopril until declared otherwise by physician. Oxycodone Angioedema High 09/24/2021 Medications metoprolol succinate (TOPROL XL) 100 mg Extended Release 24 hour tablet Take 200 mg by mouth daily. 07/02/2022 Active IRON ORAL Take by mouth. Active colchicine (COLCRYS) 0.6 mg tablet 05/09/2024 Active calcium ACETATE (PHOSLO) 667 mg Capsule Take 1,334 mg by mouth. 05/23/2024 Active ergocalciferol (VITAMIN D2) 50,000 unit capsule 05/09/2024 Active cholecalciferol, vitamin D3, 5,000 unit Take 5,000 Units by mouth daily. Active torsemide (DEMADEX) 100 mg tablet Take 100 mg by mouth daily. 07/16/2024 Active hydrALAZINE (APRESOLINE) 25 mg tablet Take 25 mg by mouth 2 times daily. 06/19/2024 Active amLODIPine (NORVASC) 10 mg tablet Take 10 mg by mouth daily. 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 Encounters Date Type Department Care Team Description 10/14/2024 External Device Data STL ABSTRACTION Provider, Abstract 10/14/2024 Orders Only [facility] [address] [place] [address] Armond Gonzalez MD 10/07/2024 3:45 PM CDT Office Visit [facility] On[facility] [address] [place] [address] Armond Gonzalez MD Chronic anemia (Primary Dx); 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 Gender Identity Not on file Sexual Orientation Not on file Last Filed Vital Signs Vital Sign Reading Time Taken Comments Blood Pressure 124/77 10/07/2024 3:36 PM CDT Pulse 71 10/07/2024 3:36 PM CDT Temperature 36.6 C (97.9 F) 10/07/2024 3:36 PM CDT Respiratory Rate 15 10/07/2024 3:36 PM CDT Oxygen Saturation 93% 10/07/2024 3:36 PM CDT Inhaled Oxygen Concentration - - Weight 157.8 kg (347 lb 12.8 oz) 10/07/2024 3:36 PM CDT Height 198.1 cm (6' 6) 08/27/2023 7:58 AM CDT Body Mass Index 40.19 08/27/2023 7:58 AM CDT Plan of Treatment Upcoming Encounters Date Type Department Care Team (Late st Contact Info) Description 01/15/2025 3:45 PM CDT Office Visit [facility] Oncology and Hematology [facility] [address] [place] [address] Armond Gonzalez MD [address] [facility] [place] [address] Health Maintenance Due Date Last Done Comments Pre-Diabetes and Diabetes Screening 1968 DTAP/TDAP/TD VACCINES (1 - Tdap) 09/23/1987 HEPATITIS B VACCINES (1 of 3 - 19+ 3-dose series) 09/23/1987 COLORECTAL SCREENING 2013 Colorectal Cancer Screening 2013 FIT-DNA Q 3 years 2013 FIT/FOBT Q 1 year 2013 Flex Sig/CT Colonography Q 5 years 2013 ZOSTER VACCINE (1 of 2) 2018 UPPER GI ENDOSCOPY 08/26/2024 08/27/2023, 1 , 09/21/2022, Additional history exists INFLUENZA VACCINE (#1) 2024 Procedures Procedure Name Priority Date/Time Associated Diagnosis Comments BASIC METABOLIC PANEL Routine 10/07/2024 4:25 PM CDT CBC WITH DIFFERENTIAL Routine 10/07/2024 4:24 PM CDT from Last 3 Months Results * BASIC METABOLIC PANEL (10/07/2024 4:25 PM CDT) Blood Armond Gonzalez MD CHEMISTRY ORDERABLES Final Resu lt * CBC WITH DIFFERENTIAL (10/07/2024 4:24 PM CDT) Blood Armond Gonzalez MD HEMATOLOGY ORDERABLES Final Res ult from Last 3 Months Insurance [facility] [place] [id number] FEDERAL [facility] [employer] Advance Directives For more information, please contact: [phone] * Full Code (Latest Code Status on File) Date Activated Date Inactivated Comments 08/27/2023 7:32 AM 08/27/2023 12:53 PM * Full Code Date Activated Date Inactivated Comments 02/08/2023 10:33 AM 02/08/2023 2:42 PM * Full Code Date Activated Date Inactivated Comments 09/21/2022 11:52 AM 09/21/2022 3:52 PM Care Teams Sole Filler Relationship Specialty Start Date End Date Juno Fang MD [address] [place] [address] PCP - General Family Practice 07/04/22
--- OUTSIDE RECORDS SUMMARY | 2025-01-01 07:55 | XMS_ITS | Clinical Summary ---
Author Organization [facility] Amaris lawson Address [address] [place] [address] Phone Care Team Providers Care Operator Ground [employer] Name Role Phone Juno Fang MD Primary Care Provider [phone] Allergies Active Allergy Reactions Criticality Noted Date Comments Lisinopril Angioedema High 09/23/2021 Unexplained angioedema R/T Lisinopril until declared otherwise by physician. Oxycodone Angioedema High 09/24/2021 Medications amLODIPine (Norvasc) 10 MG tablet Take 1 [...] with meals. 180 capsule 3 05/23/2024 Active hydrALAZINE (APRESOLINE) 25 MG tablet Take 1 tablet (25 mg total) by mouth in the morning and 1 tablet (25 mg total) in the evening. 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): left Chronic kidney disease 03/22/2022 Anemia 03/22/2022 Morbid obesity 09/20/2021 Renal mass 08/12/2021 Overview (03/21/2022): Added automatically from request for surgery [id number] Primary hypertension 06/23/2021 Encounters Date Type Department Care Team Description 10/06/2024 Orders Only [facility] [address] [place] [address] Irene Grace, MANAGER STONE from Last 3 Months Family History Medical [...] at Not on file Legal Sex Male 10:35 AM MDT Gender Identity Not on file Sexual Orientation Not on file Last Filed Vital Signs Vital Sign Reading Time Taken Comments Blood Pressure 146/84 03/22/2022 9:00 AM STEERER Pulse - - Temperature 37.4 C (99.3 F) 03/22/2022 9:00 AM STEERER Respiratory Rate 18 03/22/2022 9:00 AM STEERER Oxygen Saturation - - Inhaled Oxygen Concentration - - Weight 179 kg (394 lb) 03/22/2022 9:00 AM STEERER Height 198.1 cm (6' 6) 03/22/2022 9:00 AM STEERER Body Mass Index 45.53 03/22/2022 9:00 AM STEERER Plan of Treatment Health Maintenance Due Date Last Done Comments Pneumococcal PPSV23 Highest Risk Adult (1 of 3 - PCV13) 09/23/1987 Influenza Vaccine (#1) 2024 02/19/2024 [place] [address] [facility] Care Teams Operator Ground Based [employer] Relationship Specialty Start Date End Date Juno Fang MD [address] [place] [address] PCP - General Family Medicine 02/07/22
--- OUTSIDE RECORDS SUMMARY | 2025-01-01 07:55 | XMS_ITS | Encounter Summary ---
Author Organization [facility] Address [address] [place] [address] Care Team Providers Care Drink Box Mechanic Name Role Phone Juno Fang MD Primary Care Provider [phone] Arjun Lagunas MD Unavailable [phone] Devin Pham MD Unavailable [phone] Melissa Beltran RN Unavailable [phone] Juan M Luna MD Unavailable [phone] Encounter Details Date Type Department Care Team (Late st Contact Info) Description 12/31/2024 Telephone [facility] Transplant Kidney [address] [facility] [phone] [place] [address] Pippa Lagunas Social History Tobacco Use Types Packs/Day Years [...] on file Legal Sex Male 10:43 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 Told him to call his RN coordinator once he confirms that is thecase. He left a message on my VM today noting he's having the test on tomorrow. Transferred call Brent Mcallister---SLW documented in this encounter Plan of Treatment Not on file documented as of this encounter Visit Diagnoses Not on filedocumented in this encounter Care Teams Drink Box Mechanic Relationship Specialty Start Date End Date Juno Fang MD PCP - General Family Medicine 03/01/21 [place] [address] [address] [facility] [address] [place] [address] Consulting Physician Urology 09/23/21 Devin Pham MD [address] [facility] [address] [place], [place] [id number] Referring Physician Nephrology 08/25/24 Melissa Beltran, RN [address] [facility] [address] [place] [address] School Photograph Editor 08/25/24 Juan M Luna MD [address] [facility] [address] [place] [address] Consulting Physician Cardiology 10/31/24 documented as of this encounter
--- OUTSIDE RECORDS SUMMARY | 2025-01-01 07:56 | XMS_ITS ---
Author Organization [facility] ([facility]) Address [address] [place] [id number] Care Team Providers Care Hammer Heater Name Role Phone Unavailable Unavailable Unavailable Allergies, Adverse Reactions, Alerts Allergy Name Allergy Type Status Severity Reaction(s) Onset Date Inactive Date Treating Clinician Comments No Known Allergies Allergy Active 2024-04 17:47:3 9 Medications Ordered Medication Name Filled Medication Name Start Date Stop Date Current Medication? Ordering Clinician Indication Dosage Frequency Signature (SIG) Comments Components Venofer 12-04 21:18: 26 Yes [id number] Number of Repeats Allowed: Frequency: One time a weekDosesO rdered: Maintenanc e Dose 50 Milligram Route: Intravenou s calcitriol 12-04 19:27: 44 Yes [id number] Number of Repeats Allowed: Frequency: Three times a week calcitriol 10-04 05:00: 00 Yes [id number] Number of Repeats Allowed: Frequency: Three times a week Epogen 10-02 15:48: 00 Yes [id number] Number of Repeats Allowed: Frequency: Three times a week Venofer 10-02 15:45: 41 Yes [id number] Number of Repeats Allowed: Frequency: One time a weekDosesO rdered: Maintenanc e Dose 100 Milligram Route: Intravenou s calcitriol 09-13 05:00: 00 Yes [id number] Number of Repeats Allowed: Frequency: Three times a week heparin sodium, porcine 08-22 18:59: 18 Yes [id number] Number of Repeats Allowed: Frequency: Three times a week on Sunday, Sunday and SundayDose sOrdered: Post CVC Instillati on 2200 Units 1:1000 Units/mLRo torres martinez: Intracathe terDosesOr dered: Post CVC Instillati on 2300 Units 1:1000 Units/mLRo torres martinez: Intracathe ter ONS [facility] 08-14 18:03: 20 Yes [id number] Number of Repeats Allowed: Frequency: Every Dialysis Treatment Epogen 08-13 13:51: 49 Yes [id number] Number of Repeats Allowed: Frequency: Three times a week Normal Saline Solution 0.9% NaCl 07-23 15:00: 39 Yes [id number] Number of Repeats Allowed: Frequency: Post-dialy sisDosesOr dered: Arterial Lumen 10 mL Route: Intracathe terDosesOr dered: Venous Lumen 10 mL Route: Intracathe ter heparin sodium, porcine 07-11 17:23: 10 Yes [id number] Number of Repeats Allowed: Frequency: Three times a week on Sunday, Sunday and sOrdered: Loading Dose 2000 Units 1:1000 Units/mLRo torres martinez: Intravenou s calcitriol 07-10 05:00: 00 Yes [id number] Number of Repeats Allowed: Frequency: Three times a week heparin sodium, porcine 06-13 21:39: 56 Yes [id number] Number of Repeats Allowed: Frequency: Three times a week on Sunday, Sunday and sOrdered: Hourly Dose 1000 Units/Hr 1:1000 Units/mLRo torres martinez: Intravenou s hydrALAZINE HCl 05-19 20:24: 39 Yes Number of Repeats Allowed: Frequency: Two times a day Vitamin D (Ergocalcif francisco) 05-19 20:24: 33 Yes Number of Repeats Allowed: Frequency: One time a week Metoprolol Succinate ER 05-19 20:23: 52 Yes Number of Repeats Allowed: Frequency: One time a day Gabapentin 05-19 20:23: 42 Yes Number of Repeats Allowed: Frequency: Three times a day Colchicine 05-19 20:23: 13 Yes Number of Repeats Allowed: Frequency: Two times a week Bumetanide 05-19 20:23: 09 Yes Number of Repeats Allowed: Frequency: One time a day Oxygen 05-19 20:22: 47 Yes [id number] Number of Repeats Allowed: Frequency: As needed ondansetron hydrochlori de 05-19 20:22: 23 Yes [id number] Number of Repeats Allowed: Frequency: Every 4 hours as needed diphenhydra mine hydrochlori de 05-19 20:22: 08 Yes [id number] Number of Repeats Allowed: Frequency: Every 4 hours as needed clonidine 05-19 20:21: 50 Yes [id number] Number of Repeats Allowed: Frequency: Every 4 hours as needed acetaminoph en 05-19 20:21: 35 Yes [id number] Number of Repeats Allowed: Frequency: Every 4 [...] Gain BFR DFR Actual UF Dialysis Access [facility] 2024 In-Ce nter Hemod ialys is Treat ment 2024-12-31 T20:33:21. 000Z 2025-01-01 T01:18:21. 000Z BP Sitting (Pre-Dialysis) 158/80 mmHg BP Sitting (Post-D ialysis ) 150/ 71 mmHg Sitting Heart Rate Pre-Dialysis 66 BPM BP Standi ng (Post-Dialysis) 120/78 mmHg Temperature Pre-Dialysis 98 degF Sitting Heart Ra te Post-Dialysis 76 BPM Standing Heart Rate Post-Iliana lysis 76 BPM Temperature Post-Dialysis 97 .6 degF December 29, 2024 In-Center Hemodialysis Treatment 7229-63-56M30:32:05.000Z 7758-20-86J27:05:50.000Z BP Sitting (Pre-Dialysis) 163/87 mmHg BP Sitting (Post-Dialysis) 152/86 mmHg Concurrent Access: falseCentral Venous Catheter (CVC) Chest (Right) Arterial Sitting Heart Rate Pre-Dialysis 66 BPM BP Standing (Post-Dialysis) 139/85 mmHg Temperature Pre-Dialysis 97.8 degF Sitting Heart Ra te Post-Dialysis 73 BPM Standing Heart Rate Post-Iliana lysis 74 BPM Temperature Post-Dialysis 97 .2 degF December 26, 2024 In-Center Hemodialysis Treatment 8778-31-11L22:52:50.000Z 2938-84-15Q03:22:50.000Z BP Sitting (Pre-Dialysis) 142/85 mmHg BP Sitting (Post-Dialysis) 130/83 mmHg Concurrent Access: falseCentral Venous Catheter (CVC) Chest (Right) Arterial Sitting Heart Rate Pre-Dialysis 63 BPM BP Standi ng (Post-Dialysis) 132/77 mmHg Temperature Pre-Dialysis 98 degF Sitting Heart Ra te Post-Dialysis 60 BPM Standing Heart Rate Post-Iliana lysis 69 BPM Temperature Post-Dialysis 97 .8 degF December 24, 2024 In-Center Hemodialysis Treatment 3936-01-42P04:30:32.000Z 2265-24-45G28:08:52.000Z BP Sitting (Pre-Dialysis) 180/95 mmHg BP Sitting (Post-Dialysis) 154/84 mmHg Concurrent Access: falseCentral Venous Catheter (CVC) Chest (Right) Arterial Sitting Heart Rate Pre-Dialysis 67 BPM Sitting H eart Rate Post-Dialysis 58 BPM Temperature Pre-Dialysis 97.5 degF Temperature Post -Dialysis 97.9 degF December 22, 2024 In-Center Hemodialysis Treatment 9710-61-28U57:48:23.000Z 0707-88-83V58:22:08.000Z BP Sitting (Pre-Dialysis) 170/87 mmHg BP Sitting (Post-Dialysis) 170/93 mmHg Concurrent Access: falseCentral Venous Catheter (CVC) Chest (Right) Arterial Sitting Heart Rate Pre-Dialysis 83 BPM BP Standing (Post-Dialysis) 146/91 mmHg Temperature Pre-Dialysis 98.3 degF Sitting Heart Ra te Post-Dialysis 72 BPM Standing Heart Rate Post-Iliana lysis 69 BPM Temperature Post-Dialysis 98 degF December 19, 2024 In-Center Hemodialysis Treatment 5224-78-90V52:34:23.000Z 9022-27-07Y12:40:13.000Z BP Sitting (Pre-Dialysis) 161/99 mmHg BP Sitting (Post-Dialysis) 149/88 mmHg Concurrent Access: falseCentral Venous Catheter (CVC) Chest (Right) Arterial Sitting Heart Rate Pre-Dialysis 59 BPM Sitting H eart Rate Post-Dialysis 54 BPM Temperature Pre-Dialysis 98 degF Temperature Post -Dialysis 97.3 degF December 17, 2024 In-Center Hemodialysis Treatment 2236-26-99N67:34:13.000Z 9350-40-25P74:07:55.000Z BP Sitting (Pre-Dialysis) 149/84 mmHg BP Sitting (Post-Dialysis) 132/76 mmHg Concurrent Access: falseCentral Venous Catheter (CVC) Chest (Right) Arterial Sitting Heart Rate Pre-Dialysis 62 BPM Sitting H eart Rate Post-Dialysis 57 BPM Temperature Pre-Dialysis 97.8 degF Temperature Post -Dialysis 97.8 degF December 15, 2024 In-Center Hemodialysis Treatment 8614-76-83L07:33:37.000Z 3228-01-00M42:06:57.000Z BP Sitting (Pre-Dialysis) 161/87 mmHg BP Sitting (Post-Dialysis) 142/88 mmHg Concurrent Access: falseCentral Venous Catheter (CVC) Chest (Right) Arterial Sitting Heart Rate Pre-Dialysis 65 BPM BP Standi ng (Post-Dialysis) 131/73 mmHg Temperature Pre-Dialysis 98 degF Sitting Heart Ra te Post-Dialysis 57 BPM Standing Heart Rate Post-Iliana lysis 54 BPM Temperature Post-Dialysis 97 .5 degF December 12, 2024 In-Center Hemodialysis Treatment 1705-47-14P85:30:35.000Z 1171-69-98J26:04:45.000Z BP Sitting (Pre-Dialysis) 152/87 mmHg BP Sitting (Post-Dialysis) 130/69 mmHg Concurrent Access: falseCentral Venous Catheter (CVC) Chest (Right) Arterial Sitting Heart Rate Pre-Dialysis 66 BPM Sitting H eart Rate Post-Dialysis 60 BPM Temperature Pre-Dialysis 97.5 degF Temperature Post -Dialysis 97.9 degF December 10, 2024 In-Center Hemodialysis Treatment 4343-83-14H29:25:21.000Z 3240-20-25G80:58:16.000Z BP Sitting (Pre-Dialysis) 165/68 mmHg BP Sitting (Post-Dialysis) 133/84 mmHg Concurrent Access: falseCentral Venous Catheter (CVC) Chest (Right) Arterial Sitting Heart Rate Pre-Dialysis 68 BPM Sitting H eart Rate Post-Dialysis 59 BPM Temperature Pre-Dialysis 97.6 degF Temperature Post -Dialysis 98 degF December 08, 2024 In-Center Hemodialysis Treatment 8179-05-38O22:33:30.000Z 7819-73-48I78:03:30.000Z BP Sitting (Pre-Dialysis) 152/87 mmHg BP Sitting (Post-Dialysis) 142/83 mmHg Concurrent Access: falseCentral Venous Catheter (CVC) Chest (Right) Arterial Sitting Heart Rate Pre-Dialysis 77 BPM BP Standi ng (Post-Dialysis) 136/82 mmHg Temperature Pre-Dialysis 98 degF Sitting Heart Ra te Post-Dialysis 68 BPM Standing Heart Rate Post-Iliana lysis 71 BPM Temperature Post-Dialysis 97 .4 degF December 05, 2024 In-Center Hemodialysis Treatment 5373-56-99P65:34:30.000Z 0383-09-13Q76:05:45.000Z BP Sitting (Pre-Dialysis) 152/84 mmHg BP Sitting (Post-Dialysis) 120/60 mmHg Concurrent Access: falseCentral Venous Catheter (CVC) Chest (Right) Arterial Sitting Heart Rate Pre-Dialysis 72 BPM BP Standing (Post-Dialysis) 123/78 mmHg Temperature Pre-Dialysis 98.7 degF Sitting Heart Ra te Post-Dialysis 71 BPM Standing Heart Rate Post-Iliana lysis 77 BPM Temperature Post-Dialysis 98 .7 degF December 03, 2024 In-Center Hemodialysis Treatment 6382-65-22M87:33:34.000Z 1043-51-57R61:11:36.000Z BP Sitting (Pre-Dialysis) 131/76 mmHg BP Sitting (Post-Dialysis) 136/71 mmHg Concurrent Access: falseCentral Venous Catheter (CVC) Chest (Right) Arterial Sitting Heart Rate Pre-Dialysis 81 BPM BP Standing (Post-Dialysis) 140/86 mmHg Temperature Pre-Dialysis 98.2 degF Sitting Heart Ra te Post-Dialysis 68 BPM Standing Heart Rate Post-Iliana lysis 78 BPM Temperature Post-Dialysis 97 .6 degF December 01, 2024 In-Center Hemodialysis Treatment 5832-10-08U12:31:22.000Z 0805-51-05B85:06:22.000Z BP Sitting (Pre-Dialysis) 116/68 mmHg BP Sitting (Post-Dialysis) 117/71 mmHg Concurrent Access: falseCentral Venous Catheter (CVC) Chest (Right) Arterial Sitting Heart Rate Pre-Dialysis 72 BPM Sitting H eart Rate Post-Dialysis 62 BPM Temperature Pre-Dialysis 98.7 degF Temperature Post -Dialysis 98.1 degF November 28, 2024 In-Center Hemodialysis Treatment 5213-05-88S00:34:10.000Z 9871-90-36K79:17:05.000Z BP Sitting (Pre-Dialysis) 159/119 mmHg BP Sitting (Post-Dialysis) 118/63 mmHg Concurrent Access: falseCentral Venous Catheter (CVC) Chest (Right) Arterial Sitting Heart Rate Pre-Dialysis 62 BPM Sitting H eart Rate Post-Dialysis 72 BPM Temperature Pre-Dialysis 97.3 degF Temperature Post -Dialysis 97.7 degF November 26, 2024 In-Center Hemodialysis Treatment 6371-80-48S72:28:09.000Z 1137-54-84G14:02:44.000Z BP Sitting (Pre-Dialysis) 170/76 mmHg BP Sitting (Post-Dialysis) 137/69 mmHg Concurrent Access: falseCentral Venous Catheter (CVC) Chest (Right) Arterial Sitting Heart Rate Pre-Dialysis 74 BPM Sitting H eart Rate Post-Dialysis 61 BPM Temperature Pre-Dialysis 98 degF Temperature Post -Dialysis 97.4 degF November 24, 2024 In-Center Hemodialysis Treatment 4847-60-95H77:29:05.000Z 3548-88-81P58:04:05.000Z BP Sitting (Pre-Dialysis) 130/84 mmHg BP Sitting (Post-Dialysis) 130/71 mmHg Concurrent Access: falseCentral Venous Catheter (CVC) Chest (Right) Arterial Sitting Heart Rate Pre-Dialysis 78 BPM BP Standing (Post-Dialysis) 126/70 mmHg Temperature Pre-Dialysis 97.8 degF Sitting Heart Ra te Post-Dialysis 75 BPM Standing Heart Rate Post-Iliana lysis 75 BPM Temperature Post-Dialysis 97 .6 degF November 21, 2024 In-Center Hemodialysis Treatment 2666-73-68W14:28:00.000Z 9914-10-65X46:58:00.000Z BP Sitting (Pre-Dialysis) 178/103 mmHg BP Sitting (Post-Dialysis) 161/97 mmHg Concurrent Access: falseCentral Venous Catheter (CVC) Chest (Right) Arterial Sitting Heart Rate Pre-Dialysis 82 BPM Sitting H eart Rate Post-Dialysis 64 BPM Temperature Pre-Dialysis 97.7 degF November 19, 2024 In-Center Hemodialysis Treatment 2422-03-90U44:26:41.000Z 8739-96-74D20:57:06.000Z BP Sitting (Pre-Dialysis) 167/90 mmHg BP Sitting (Post-Dialysis) 145/85 mmHg Concurrent Access: falseCentral Venous Catheter (CVC) Chest (Right) Arterial Sitting Heart Rate Pre-Dialysis 74 BPM Sitting H eart Rate Post-Dialysis 61 BPM Temperature Pre-Dialysis 97.5 degF Temperature Post -Dialysis 97.5 degF November 17, 2024 In-Center Hemodialysis Treatment 6171-87-10Q87:37:25.000Z 5082-80-36N61:14:30.000Z BP Sitting (Pre-Dialysis) 145/84 mmHg BP Sitting (Post-Dialysis) 145/85 mmHg Concurrent Access: falseCentral Venous Catheter (CVC) Chest (Right) Arterial Sitting Heart Rate Pre-Dialysis 78 BPM BP Standi ng (Post-Dialysis) 163/91 mmHg Temperature Pre-Dialysis 98 degF Sitting Heart Ra te Post-Dialysis 61 BPM Standing Heart Rate Post-Iliana lysis 71 BPM Temperature Post-Dialysis 97 .7 degF November 14, 2024 In-Center Hemodialysis Treatment 0243-68-26O63:24:00.000Z 2867-03-52X77:01:41.000Z BP Sitting (Pre-Dialysis) 142/75 mmHg BP Sitting (Post-Dialysis) 123/76 mmHg Concurrent Access: falseCentral Venous Catheter (CVC) Chest (Right) Arterial Sitting Heart Rate Pre-Dialysis 72 BPM BP Standi ng (Post-Dialysis) 168/78 mmHg Temperature Pre-Dialysis 98 degF Sitting Heart Ra te Post-Dialysis 64 BPM Standing Heart Rate Post-Iliana lysis 75 BPM Temperature Post-Dialysis 98 degF November 12, 2024 In-Center Hemodialysis Treatment 2257-44-48Y34:28:36.000Z 3147-79-91Q54:02:00.000Z BP Sitting (Pre-Dialysis) 152/78 mmHg BP Sitting (Post-Dialysis) 119/68 mmHg Concurrent Access: falseCentral Venous Catheter (CVC) Chest (Right) Arterial Sitting Heart Rate Pre-Dialysis 73 BPM Sitting H eart Rate Post-Dialysis 59 BPM Temperature Pre-Dialysis 97.9 degF Temperature Post -Dialysis 97.5 degF November 10, 2024 In-Center Hemodialysis Treatment 4887-44-53W66:33:54.000Z 6827-06-43V94:06:24.000Z BP Sitting (Pre-Dialysis) 152/76 mmHg BP Sitting (Post-Dialysis) 141/82 mmHg Concurrent Access: falseCentral Venous Catheter (CVC) Chest (Right) Arterial Sitting Heart Rate Pre-Dialysis 78 BPM BP Standing (Post-Dialysis) 126/86 mmHg Temperature Pre-Dialysis 97.5 degF Sitting Heart Ra te Post-Dialysis 60 BPM Standing Heart Rate Post-Iliana lysis 62 BPM Temperature Post-Dialysis 97 .3 degF November 07, 2024 In-Center Hemodialysis Treatment 9128-01-18Q77:10:36.000Z 1319-55-61I15:52:16.000Z BP Sitting (Pre-Dialysis) 158/85 mmHg BP Sitting (Post-Dialysis) 146/84 mmHg Concurrent Access: falseCentral Venous Catheter (CVC) Chest (Right) Arterial Sitting Heart Rate Pre-Dialysis 75 BPM Sitting H eart Rate Post-Dialysis 61 BPM Temperature Pre-Dialysis 97.3 degF Temperature Post -Dialysis 97.5 degF November 05, 2024 In-Center Hemodialysis Treatment 1028-04-28Q72:30:46.000Z 1261-28-78M69:07:26.000Z BP Sitting (Pre-Dialysis) 139/77 mmHg BP Sitting (Post-Dialysis) 124/62 mmHg Concurrent Access: falseCentral Venous Catheter (CVC) Chest (Right) Arterial Sitting Heart Rate Pre-Dialysis 77 BPM BP Standing (Post-Dialysis) 123/40 mmHg Temperature Pre-Dialysis 97.5 degF Sitting Heart Ra te Post-Dialysis 67 BPM Standing Heart Rate Post-Iliana lysis 78 BPM Temperature Post-Dialysis 97 .8 degF November 03, 2024 In-Center Hemodialysis Treatment 9046-73-33V26:40:23.000Z 0692-36-45B98:12:28.000Z BP Sitting (Pre-Dialysis) 144/79 mmHg BP Sitting (Post-Dialysis) 107/56 mmHg Concurrent Access: falseCentral Venous Catheter (CVC) Chest (Right) Arterial BP Standing (Pre-Dialysis) 160/77 mmHg BP Standing (P ost-Dialysis) 124/69 mmHg Sitting Heart Rate Pre-Dialysis 67 BPM Sitting Heart Rate Post-Dialysis 75 BPM Standing Heart Rate Pre-Dialysis 87 BPM Standing Heart Rate Post-Dialysis 64 BPM Temperature Pre-Dialysis 97.2 degF Temperature Post -Dialysis 97.5 degF October 31, 2024 In-Center Hemodialysis Treatment 5794-22-32O25:33:18.000Z 2276-96-12U24:06:14.000Z BP Sitting (Pre-Dialysis) 133/72 mmHg BP Sitting (Post-Dialysis) 124/69 mmHg Concurrent Access: falseCentral Venous Catheter (CVC) Chest (Right) Arterial Sitting Heart Rate Pre-Dialysis 67 BPM Sitting H eart Rate Post-Dialysis 61 BPM Temperature Pre-Dialysis 97.6 degF Temperature Post -Dialysis 97.5 degF October 29, 2024 In-Center Hemodialysis Treatment 1636-54-19K60:27:24.000Z 2711-50-98U21:56:59.000Z BP Sitting (Pre-Dialysis) 141/82 mmHg BP Sitting (Post-Dialysis) 137/87 mmHg Concurrent Access: falseCentral Venous Catheter (CVC) Chest (Right) Arterial Sitting Heart Rate Pre-Dialysis 78 BPM Sitting H eart Rate Post-Dialysis 72 BPM Temperature Pre-Dialysis 97.3 degF Temperature Post -Dialysis 97.5 degF October 27, 2024 In-Center Hemodialysis Treatment 1136-52-12A20:36:10.000Z 8455-64-98D19:07:00.000Z BP Sitting (Pre-Dialysis) 138/78 mmHg BP Sitting (Post-Dialysis) 138/76 mmHg Concurrent Access: falseCentral Venous Catheter (CVC) Chest (Right) Arterial Sitting Heart Rate Pre-Dialysis 66 BPM BP Standing (Post-Dialysis) 117/68 mmHg Temperature Pre-Dialysis 97.3 degF Sitting Heart Ra te Post-Dialysis 76 BPM Standing Heart Rate Post-Iliana lysis 71 BPM Temperature Post-Dialysis 97 .5 degF October 24, 2024 In-Center Hemodialysis Treatment 4732-28-99G62:58:00.000Z 1093-05-02I36:30:58.000Z BP Sitting (Pre-Dialysis) 133/75 mmHg BP Sitting (Post-Dialysis) 128/76 mmHg Concurrent Access: falseCentral Venous Catheter (CVC) Chest (Right) Arterial BP Standing (Pre-Dialysis) 160/77 mmHg BP Standing (P ost-Dialysis) 140/77 mmHg Sitting Heart Rate Pre-Dialysis 66 BPM Sitting Heart Rate Post-Dialysis 56 BPM Standing Heart Rate Pre-Dialysis 87 BPM Standing Heart Rate Post-Dialysis 87 BPM Temperature Pre-Dialysis 97.2 degF Temperature Post -Dialysis 97.7 degF October 22, 2024 In-Center Hemodialysis Treatment 3599-97-08X33:37:43.000Z 5724-40-32B97:10:38.000Z BP Sitting (Pre-Dialysis) 124/71 mmHg BP Sitting (Post-Dialysis) 126/75 mmHg Concurrent Access: falseCentral Venous Catheter (CVC) Chest (Right) Arterial Sitting Heart Rate Pre-Dialysis 66 BPM BP Standing (Post-Dialysis) 145/88 mmHg Temperature Pre-Dialysis 97.5 degF Sitting Heart Ra te Post-Dialysis 60 BPM Standing Heart Rate Post-Iliana lysis 75 BPM Temperature Post-Dialysis 97 .5 degF October 20, 2024 In-Center Hemodialysis Treatment 1250-59-74X31:29:45.000Z 8620-10-95Y93:58:55.000Z BP Sitting (Pre-Dialysis) 138/66 mmHg BP Sitting (Post-Dialysis) 141/73 mmHg Concurrent Access: falseCentral Venous Catheter (CVC) Chest (Right) Arterial Sitting Heart Rate Pre-Dialysis 63 BPM Sitting H eart Rate Post-Dialysis 61 BPM Temperature Pre-Dialysis 97.7 degF Temperature Post -Dialysis 97.8 degF October 17, 2024 In-Center Hemodialysis Treatment 6410-36-82S16:32:26.000Z 2125-67-24Z06:04:06.000Z BP Sitting (Pre-Dialysis) 172/89 mmHg BP Sitting (Post-Dialysis) 152/93 mmHg Concurrent Access: falseCentral Venous Catheter (CVC) Chest (Right) Arterial Sitting Heart Rate Pre-Dialysis 71 BPM Sitting H eart Rate Post-Dialysis 61 BPM Temperature Pre-Dialysis 98 degF October 15, 2024 In-Center Hemodialysis Treatment 1058-44-71P81:36:52.000Z 6661-93-79N42:13:07.000Z BP Sitting (Pre-Dialysis) 158/85 mmHg BP Sitting (Post-Dialysis) 136/73 mmHg Concurrent Access: falseCentral Venous Catheter (CVC) Chest (Right) Arterial Sitting Heart Rate Pre-Dialysis 71 BPM Sitting H eart Rate Post-Dialysis 63 BPM Temperature Pre-Dialysis 97.3 degF Temperature Post -Dialysis 97.5 degF October 13, 2024 In-Center Hemodialysis Treatment 8605-27-64W31:30:38.000Z 6769-05-02Y36:03:58.000Z BP Sitting (Pre-Dialysis) 146/83 mmHg BP Sitting (Post-Dialysis) 128/76 mmHg Concurrent Access: falseCentral Venous Catheter (CVC) Chest (Right) Arterial Sitting Heart Rate Pre-Dialysis 78 BPM Sitting H eart Rate Post-Dialysis 70 BPM Temperature Pre-Dialysis 97.3 degF Temperature Post -Dialysis 98 degF October 10, 2024 In-Center Hemodialysis Treatment 3902-80-43I76:41:52.000Z 4539-71-15Z18:14:47.000Z BP Sitting (Pre-Dialysis) 156/86 mmHg BP Sitting (Post-Dialysis) 142/81 mmHg Concurrent Access: falseCentral Venous Catheter (CVC) Chest (Right) Arterial Sitting Heart Rate Pre-Dialysis 75 BPM BP Standing (Post-Dialysis) 122/87 mmHg Temperature Pre-Dialysis 97.9 degF Sitting Heart Ra te Post-Dialysis 57 BPM Standing Heart Rate Post-Iliana lysis 71 BPM Temperature Post-Dialysis 97 .2 degF October 08, 2024 In-Center Hemodialysis Treatment 8761-93-99O58:46:00.000Z 8503-54-46S91:19:59.000Z BP Sitting (Pre-Dialysis) 144/76 mmHg BP Sitting (Post-Dialysis) 140/77 mmHg Concurrent Access: falseCentral Venous Catheter (CVC) Chest (Right) Arterial Sitting Heart Rate Pre-Dialysis 61 BPM Sitting H eart Rate Post-Dialysis 62 BPM Temperature Pre-Dialysis 98 degF Temperature Post -Dialysis 98 degF October 06, 2024 In-Center Hemodialysis Treatment 3492-69-80M40:31:45.000Z 7282-60-84P34:06:45.000Z BP Sitting (Pre-Dialysis) 155/86 mmHg BP Sitting (Post-Dialysis) 117/61 mmHg Concurrent Access: falseCentral Venous Catheter (CVC) Chest (Right) Arterial Sitting Heart Rate Pre-Dialysis 66 BPM BP Standi ng (Post-Dialysis) 126/73 mmHg Temperature Pre-Dialysis 98 degF Sitting Heart Ra te Post-Dialysis 60 BPM Standing Heart Rate Post-Iliana lysis 71 BPM Temperature Post-Dialysis 98 degF October 03, 2024 In-Center Hemodialysis Treatment 8158-37-80N53:30:00.000Z 8411-91-33R33:06:37.000Z BP Sitting (Pre-Dialysis) 141/76 mmHg BP Sitting (Post-Dialysis) 135/59 mmHg Concurrent Access: falseCentral Venous Catheter (CVC) Chest (Right) Arterial BP Standing (Pre-Dialysis) 132/88 mmHg BP Standing (P ost-Dialysis) 111/64 mmHg Sitting Heart Rate Pre-Dialysis 71 BPM Sitting Heart Rate Post-Dialysis 63 BPM Standing Heart Rate Pre-Dialysis 75 BPM Standing Heart Rate Post-Dialysis 70 BPM Temperature Pre-Dialysis 97.5 degF Temperature Post -Dialysis 98 degF October 01, 2024 In-Center Hemodialysis Treatment 8413-30-62H01:33:38.000Z 7093-02-97X08:03:13.000Z BP Sitting (Pre-Dialysis) 150/75 mmHg BP Sitting (Post-Dialysis) 140/75 mmHg Concurrent Access: falseCentral Venous Catheter (CVC) Chest (Right) Arterial Sitting Heart Rate Pre-Dialysis 74 BPM BP Standi ng (Post-Dialysis) 138/71 mmHg Temperature Pre-Dialysis 98 degF Sitting Heart Ra te Post-Dialysis 66 BPM Standing Heart Rate Post-Iliana lysis 94 BPM Temperature Post-Dialysis 97 .8 degF September 29, 2024 In-Center Hemodialysis Treatment 2750-07-46S71:42:58.000Z 9543-71-36Z59:19:38.000Z BP Sitting (Pre-Dialysis) 129/71 mmHg BP Sitting (Post-Dialysis) 133/68 mmHg Concurrent Access: falseCentral Venous Catheter (CVC) Chest (Right) Arterial Sitting Heart Rate Pre-Dialysis 69 BPM BP Standing (Post-Dialysis) 141/80 mmHg Temperature Pre-Dialysis 97.3 degF Sitting Heart Ra te Post-Dialysis 69 BPM Standing Heart Rate Post-Iliana lysis 69 BPM Temperature Post-Dialysis 97 .6 degF September 26, 2024 In-Center Hemodialysis Treatment 2936-10-41X59:32:14.000Z 4465-66-63U70:08:29.000Z BP Sitting (Pre-Dialysis) 135/69 mmHg BP Sitting (Post-Dialysis) 113/69 mmHg Concurrent Access: falseCentral Venous Catheter (CVC) Chest (Right) Arterial Sitting Heart Rate Pre-Dialysis 87 BPM BP Standing (Post-Dialysis) 110/65 mmHg Temperature Pre-Dialysis 97.5 degF Sitting Heart Ra te Post-Dialysis 61 BPM Standing Heart Rate Post-Iliana lysis 63 BPM September 24, 2024 In-Center Hemodialysis Treatment 8725-50-52E92:38:25.000Z 3796-84-08L77:29:15.000Z BP Sitting (Pre-Dialysis) 137/67 mmHg BP Sitting (Post-Dialysis) 130/69 mmHg Concurrent Access: falseCentral Venous Catheter (CVC) Chest (Right) Arterial Sitting Heart Rate Pre-Dialysis 66 BPM Sitting H eart Rate Post-Dialysis 69 BPM Temperature Pre-Dialysis 97.3 degF Temperature Post -Dialysis 97.9 degF 2024 In-Center Hemodialysis Treatment 2846-94-77J15:29:58.000Z 8057-68-74H50:44:33.000Z BP Sitting (Pre-Dialysis) 132/68 mmHg BP Sitting (Post-Dialysis) 151/64 mmHg Concurrent Access: falseCentral Venous Catheter (CVC) Chest (Right) Arterial Sitting Heart Rate Pre-Dialysis 74 BPM Sitting H eart Rate Post-Dialysis 64 BPM Temperature Pre-Dialysis 97.5 degF Temperature Post -Dialysis 98 degF September 19, 2024 In-Center Hemodialysis Treatment 5094-62-62A48:54:56.000Z 1221-74-86R73:28:16.000Z BP Sitting (Pre-Dialysis) 152/88 mmHg BP Sitting (Post-Dialysis) 123/69 mmHg Concurrent Access: falseCentral Venous Catheter (CVC) Chest (Right) Arterial Sitting Heart Rate Pre-Dialysis 72 BPM BP Standing (Post-Dialysis) 123/59 mmHg Temperature Pre-Dialysis 97.6 degF Sitting Heart Ra te Post-Dialysis 60 BPM Standing Heart Rate Post-Iliana lysis 71 BPM Temperature Post-Dialysis 97 .5 degF September 17, 2024 In-Center Hemodialysis Treatment [id number]:33:27.000Z 1419-56-90A34:35:32.000Z BP Sitting (Pre-Dialysis) 138/79 mmHg BP Sitting (Post-Dialysis) 135/78 mmHg Concurrent Access: falseCentral Venous Catheter (CVC) Chest (Right) Arterial Sitting Heart Rate Pre-Dialysis 80 BPM Sitting H eart Rate Post-Dialysis 67 BPM Temperature Pre-Dialysis 97.7 degF September 15, 2024 In-Center Hemodialysis Treatment 5510-49-69D62:33:19.000Z 6487-71-77U58:07:54.000Z BP Sitting (Pre-Dialysis) 138/79 mmHg BP Sitting (Post-Dialysis) 144/77 mmHg Concurrent Access: falseCentral Venous Catheter (CVC) Chest (Right) Arterial Sitting Heart Rate Pre-Dialysis 64 BPM BP Standing (Post-Dialysis) 128/71 mmHg Temperature Pre-Dialysis 97.6 degF Sitting Heart Ra te Post-Dialysis 58 BPM Standing Heart Rate Post-Iliana lysis 57 BPM Temperature Post-Dialysis 97 .7 degF September 12, 2024 In-Center Hemodialysis Treatment 2625-41-45V89:33:40.000Z 6621-13-21R19:02:25.000Z BP Sitting (Pre-Dialysis) 152/82 mmHg BP Sitting (Post-Dialysis) 140/65 mmHg Concurrent Access: falseCentral Venous Catheter (CVC) Chest (Right) Arterial Sitting Heart Rate Pre-Dialysis 80 BPM BP Standing (Post-Dialysis) 120/68 mmHg Temperature Pre-Dialysis 97.9 degF Sitting Heart Ra te Post-Dialysis 69 BPM Standing Heart Rate Post-Iliana lysis 75 BPM Temperature Post-Dialysis 97 .6 degF September 10, 2024 In-Center Hemodialysis Treatment 4825-73-28A58:38:16.000Z 3025-55-62F68:08:41.000Z BP Sitting (Pre-Dialysis) 134/80 mmHg BP Sitting (Post-Dialysis) 138/76 mmHg Concurrent Access: falseCentral Venous Catheter (CVC) Chest (Right) Arterial Sitting Heart Rate Pre-Dialysis 71 BPM Sitting H eart Rate Post-Dialysis 63 BPM Temperature Pre-Dialysis 97.6 degF Temperature Post -Dialysis 97.6 degF September 08, 2024 In-Center Hemodialysis Treatment 5819-14-24P88:31:56.000Z 6683-01-59T69:10:16.000Z BP Sitting (Pre-Dialysis) 163/82 mmHg BP Sitting (Post-Dialysis) 120/73 mmHg Concurrent Access: falseCentral Venous Catheter (CVC) Chest (Right) Arterial Sitting Heart Rate Pre-Dialysis 71 BPM BP Standing (Post-Dialysis) 149/78 mmHg Temperature Pre-Dialysis 97.7 degF Sitting Heart Ra te Post-Dialysis 62 BPM Standing Heart Rate Post-Iliana lysis 71 BPM Temperature Post-Dialysis 97 .8 degF September 05, 2024 In-Center Hemodialysis Treatment 3858-46-29H05:40:54.000Z 1122-93-67O52:13:49.000Z BP Sitting (Pre-Dialysis) 151/85 mmHg BP Sitting (Post-Dialysis) 144/76 mmHg Concurrent Access: falseCentral Venous Catheter (CVC) Chest (Right) Arterial Sitting Heart Rate Pre-Dialysis 75 BPM BP Standing (Post-Dialysis) 131/79 mmHg Temperature Pre-Dialysis 97.7 degF Sitting Heart Ra te Post-Dialysis 64 BPM Standing Heart Rate Post-Iliana lysis 69 BPM Temperature Post-Dialysis 97 .6 degF September 03, 2024 In-Center Hemodialysis Treatment [id number]:31:26.000Z 2641-15-07E19:13:06.000Z BP Sitting (Pre-Dialysis) 157/82 mmHg BP Sitting (Post-Dialysis) 134/74 mmHg Concurrent Access: falseCentral Venous Catheter (CVC) Chest (Right) Arterial Sitting Heart Rate Pre-Dialysis 82 BPM Sitting H eart Rate Post-Dialysis 62 BPM Temperature Pre-Dialysis 98 degF Temperature Post -Dialysis 97.5 degF September 01, 2024 In-Center Hemodialysis Treatment 2521-68-25R72:28:27.000Z 7229-13-77O04:01:22.000Z BP Sitting (Pre-Dialysis) 157/92 mmHg BP Sitting (Post-Dialysis) 128/70 mmHg Concurrent Access: falseCentral Venous Catheter (CVC) Chest (Right) Arterial Sitting Heart Rate Pre-Dialysis 71 BPM BP Standing (Post-Dialysis) 130/69 mmHg Temperature Pre-Dialysis 97.5 degF Sitting Heart Ra te Post-Dialysis 60 BPM Standing Heart Rate Post-Iliana lysis 75 BPM Temperature Post-Dialysis 97 .5 degF August 29, 2024 In-Center Hemodialysis Treatment 4166-10-88E48:59:10.000Z 9940-39-60B86:29:10.000Z BP Sitting (Pre-Dialysis) 156/92 mmHg BP Sitting (Post-Dialysis) 165/82 mmHg Concurrent Access: falseCentral Venous Catheter (CVC) Chest (Right) Arterial Sitting Heart Rate Pre-Dialysis 78 BPM Sitting H eart Rate Post-Dialysis 64 BPM Temperature Pre-Dialysis 97.3 degF Temperature Post -Dialysis 98 degF August 27, 2024 In-Center Hemodialysis Treatment 7426-47-32C79:25:51.000Z 7571-17-77Y10:00:51.000Z BP Sitting (Pre-Dialysis) 149/83 mmHg BP Sitting (Post-Dialysis) 153/82 mmHg Concurrent Access: falseCentral Venous Catheter (CVC) Chest (Right) Arterial Sitting Heart Rate Pre-Dialysis 74 BPM Sitting H eart Rate Post-Dialysis 67 BPM Temperature Pre-Dialysis 97.3 degF Temperature Post -Dialysis 98 degF August 25, 2024 In-Center Hemodialysis Treatment 1703-18-28G46:35:14.000Z 6002-33-55W90:07:19.000Z BP Sitting (Pre-Dialysis) 97/65 mmHg BP Sitting (Post-Dialysis) 124/75 mmHg Concurrent Access: falseCentral Venous Catheter (CVC) Chest (Right) Arterial Sitting Heart Rate Pre-Dialysis 72 BPM BP Standing (Post-Dialysis) 124/66 mmHg Temperature Pre-Dialysis 97.2 degF Sitting Heart Ra te Post-Dialysis 68 BPM Standing Heart Rate Post-Iliana lysis 79 BPM Temperature Post-Dialysis 97 degF August 22, 2024 In-Center Hemodialysis Treatment [id number]:11:18.000Z 2796-79-32N01:46:18.000Z BP Sitting (Pre-Dialysis) 129/62 mmHg BP Sitting (Post-Dialysis) 134/59 mmHg Concurrent Access: falseCentral Venous Catheter (CVC) Chest (Right) Arterial Sitting Heart Rate Pre-Dialysis 68 BPM BP Standing (Post-Dialysis) 121/40 mmHg Temperature Pre-Dialysis 96.9 degF Sitting Heart Ra te Post-Dialysis 64 BPM Standing Heart Rate Post-Iliana lysis 81 BPM Temperature Post-Dialysis 97 .2 degF August 20, 2024 In-Center Hemodialysis Treatment 6999-27-46U44:45:59.000Z 1952-85-01L42:17:39.000Z BP Sitting (Pre-Dialysis) 130/70 mmHg BP Sitting (Post-Dialysis) 109/59 mmHg Concurrent Access: falseCentral Venous Catheter (CVC) Chest (Right) Arterial Sitting Heart Rate Pre-Dialysis 74 BPM BP Standi ng (Post-Dialysis) 99/50 mmHg Temperature Pre-Dialysis 97.8 degF Sitting Heart Ra te Post-Dialysis 87 BPM Standing Heart Rate Post-Iliana lysis 76 BPM Temperature Post-Dialysis 97 .7 degF August 18, 2024 In-Center Hemodialysis Treatment 6690-14-21U65:36:17.000Z 7663-88-06P14:06:42.000Z BP Sitting (Pre-Dialysis) 145/77 mmHg BP Sitting (Post-Dialysis) 132/77 mmHg Concurrent Access: falseCentral Venous Catheter (CVC) Chest (Right) Arterial Sitting Heart Rate Pre-Dialysis 77 BPM Sitting H eart Rate Post-Dialysis 63 BPM Temperature Pre-Dialysis 97.8 degF Temperature Post -Dialysis 97.6 degF August 15, 2024 In-Center Hemodialysis Treatment 7973-36-53F99:37:13.000Z 0448-90-14K78:09:43.000Z BP Sitting (Pre-Dialysis) 136/68 mmHg BP Sitting (Post-Dialysis) 125/87 mmHg Concurrent Access: falseCentral Venous Catheter (CVC) Chest (Right) Arterial BP Standing (Pre-Dialysis) 150/87 mmHg BP Standing (P ost-Dialysis) 134/76 mmHg Sitting Heart Rate Pre-Dialysis 70 BPM Sitting Heart Rate Post-Dialysis 69 BPM Standing Heart Rate Pre-Dialysis 65 BPM Standing Heart Rate Post-Dialysis 71 BPM Temperature Pre-Dialysis 97.2 degF Temperature Post -Dialysis 97.5 degF August 13, 2024 In-Center Hemodialysis Treatment 3270-23-46W20:56:22.000Z 2637-40-41Z31:28:27.000Z BP Sitting (Pre-Dialysis) 139/77 mmHg BP Sitting (Post-Dialysis) 125/71 mmHg Concurrent Access: falseCentral Venous Catheter (CVC) Chest (Right) Arterial Sitting Heart Rate Pre-Dialysis 71 BPM BP Standing (Post-Dialysis) 126/77 mmHg Temperature Pre-Dialysis 97.5 degF Sitting Heart Ra te Post-Dialysis 84 BPM Standing Heart Rate Post-Iliana lysis 86 BPM Temperature Post-Dialysis 97 .5 degF August 11, 2024 In-Center Hemodialysis Treatment 2877-96-77A93:41:55.000Z 3117-19-30P73:10:00.000Z BP Sitting (Pre-Dialysis) 151/70 mmHg BP Sitting (Post-Dialysis) 141/82 mmHg Concurrent Access: falseCentral Venous Catheter (CVC) Chest (Right) Arterial Sitting Heart Rate Pre-Dialysis 75 BPM BP Standing (Post-Dialysis) 144/82 mmHg Temperature Pre-Dialysis 97.9 degF Sitting Heart Ra te Post-Dialysis 69 BPM Standing Heart Rate Post-Iliana lysis 81 BPM Temperature Post-Dialysis 97 .5 degF August 08, 2024 In-Center Hemodialysis Treatment 4480-97-85Y40:41:19.000Z 0355-10-24O45:13:24.000Z BP Sitting (Pre-Dialysis) 150/85 mmHg BP Sitting (Post-Dialysis) 149/80 mmHg Concurrent Access: falseCentral Venous Catheter (CVC) Chest (Right) Arterial Sitting Heart Rate Pre-Dialysis 71 BPM BP Standi ng (Post-Dialysis) 148/85 mmHg Temperature Pre-Dialysis 98 degF Sitting Heart Ra te Post-Dialysis 66 BPM Standing Heart Rate Post-Iliana lysis 79 BPM Temperature Post-Dialysis 97 degF August 06, 2024 In-Center Hemodialysis Treatment 7649-26-29K19:32:39.000Z 1120-65-02L39:07:39.000Z BP Sitting (Pre-Dialysis) 158/99 mmHg BP Sitting (Post-Dialysis) 154/90 mmHg Concurrent Access: falseCentral Venous Catheter (CVC) Chest (Right) Arterial Sitting Heart Rate Pre-Dialysis 62 BPM BP Standing (Post-Dialysis) 143/78 mmHg Temperature Pre-Dialysis 97.6 degF Sitting Heart Ra te Post-Dialysis 66 BPM Standing Heart Rate Post-Iliana lysis 83 BPM Temperature Post-Dialysis 97 .5 degF August 04, 2024 In-Center Hemodialysis Treatment 1674-96-31U40:29:00.000Z 2902-99-41S70:02:59.000Z BP Sitting (Pre-Dialysis) 158/82 mmHg BP Sitting (Post-Dialysis) 146/86 mmHg Concurrent Access: falseCentral Venous Catheter (CVC) Chest (Right) Arterial Sitting Heart Rate Pre-Dialysis 75 BPM Sitting H eart Rate Post-Dialysis 74 BPM Temperature Pre-Dialysis 97.9 degF Temperature Post -Dialysis 97.3 degF August 01, 2024 In-Center Hemodialysis Treatment 5486-89-88A71:31:16.000Z 4989-48-03C99:02:31.000Z BP Sitting (Pre-Dialysis) 121/68 mmHg BP Sitting (Post-Dialysis) 125/73 mmHg Concurrent Access: falseCentral Venous Catheter (CVC) Chest (Right) Arterial BP Standing (Pre-Dialysis) 121/88 mmHg Sitting Heart Rate Post-Dialysis 72 BPM Sitting Heart Rate Pre-Dialysis 88 BPM Temperatu re Post-Dialysis 97 degF Standing Heart Rate Pre-Dialysis 68 BPM Temperature Pre-Dialysis 97.3 degF July 30, 2024 In-Center Hemodialysis Treatment 3953-67-80R68:38:35.000Z 4302-61-97Q65:06:30.000Z BP Sitting (Pre-Dialysis) 155/85 mmHg BP Sitting (Post-Dialysis) 142/90 mmHg Concurrent Access: falseCentral Venous Catheter (CVC) Chest (Right) Arterial Sitting Heart Rate Pre-Dialysis 71 BPM BP Standing (Post-Dialysis) 168/88 mmHg Temperature Pre-Dialysis 97.5 degF Sitting Heart Ra te Post-Dialysis 67 BPM Standing Heart Rate Post-Iliana lysis 77 BPM Temperature Post-Dialysis 98 .6 degF July 28, 2024 In-Center Hemodialysis Treatment 9205-22-08F04:39:10.000Z 9607-78-12Z58:11:40.000Z BP Sitting (Pre-Dialysis) 130/75 mmHg BP Sitting (Post-Dialysis) 117/62 mmHg Concurrent Access: falseCentral Venous Catheter (CVC) Chest (Right) Arterial Sitting Heart Rate Pre-Dialysis 83 BPM Sitting H eart Rate Post-Dialysis 79 BPM Temperature Pre-Dialysis 97.5 degF Temperature Post -Dialysis 97.6 degF July 25, 2024 In-Center Hemodialysis Treatment 5157-30-63B40:37:30.000Z 1590-58-71J82:11:40.000Z BP Sitting (Pre-Dialysis) 157/64 mmHg BP Sitting (Post-Dialysis) 155/77 mmHg Concurrent Access: falseCentral Venous Catheter (CVC) Chest (Right) Arterial BP Standing (Pre-Dialysis) 140/77 mmHg BP Standing (P ost-Dialysis) 162/82 mmHg Sitting Heart Rate Pre-Dialysis 68 BPM Sitting Heart Rate Post-Dialysis 91 BPM Standing Heart Rate Pre-Dialysis 98 BPM Standing Heart Rate Post-Dialysis 87 BPM Temperature Pre-Dialysis 97.2 degF Temperature Post -Dialysis 97.2 degF July 23, 2024 In-Center Hemodialysis Treatment 6479-53-72F01:26:29.000Z 8372-25-78F21:26:29.000Z BP Sitting (Pre-Dialysis) 156/98 mmHg BP Sitting (Post-Dialysis) 147/62 mmHg Concurrent Access: falseCentral Venous Catheter (CVC) Chest (Right) Arterial BP Standing (Pre-Dialysis) 196/106 mmHg Sitti ng Heart Rate Post-Dialysis 60 BPM Sitting Heart Rate Pre-Dialysis 70 BPM Temperatu re Post-Dialysis 97 degF Standing Heart Rate Pre-Dialysis 83 BPM Temperature Pre-Dialysis 97.7 degF July 21, 2024 In-Center Hemodialysis Treatment 3291-59-05G68:31:01.000Z 2661-44-80C83:05:11.000Z BP Sitting (Pre-Dialysis) 171/85 mmHg BP Sitting (Post-Dialysis) 180/91 mmHg Concurrent Access: falseCentral Venous Catheter (CVC) Chest (Right) Arterial Sitting Heart Rate Pre-Dialysis 75 BPM BP Standing (Post-Dialysis) 194/123 mmHg Temperature Pre-Dialysis 97.3 degF Sitting Heart Ra te Post-Dialysis 62 BPM Standing Heart R ate Post-Dialysis 70 BPM Temperature Post-Dialysis 97 .8 degF July 18, 2024 In-Center Hemodialysis Treatment 2357-28-28C66:43:26.000Z 2603-73-33J04:20:00.000Z BP Sitting (Pre-Dialysis) 149/86 mmHg BP Sitting (Post-Dialysis) 142/75 mmHg Concurrent Access: falseCentral Venous Catheter (CVC) Chest (Right) Arterial Sitting Heart Rate Pre-Dialysis 71 BPM BP Standing (Post-Dialysis) 151/83 mmHg Temperature Pre-Dialysis 98.2 degF Sitting Heart Ra te Post-Dialysis 66 BPM Standing Heart Rate Post-Iliana lysis 78 BPM Temperature Post-Dialysis 97 .7 degF July 14, 2024 In-Center Hemodialysis Treatment 3777-77-83H72:47:30.000Z 9477-33-53N20:17:30.000Z BP Sitting (Pre-Dialysis) 163/77 mmHg BP Sitting (Post-Dialysis) 156/86 mmHg Concurrent Access: falseCentral Venous Catheter (CVC) Chest (Right) Arterial Sitting Heart Rate Pre-Dialysis 76 BPM Sitting H eart Rate Post-Dialysis 66 BPM Temperature Pre-Dialysis 97.8 degF Temperature Post -Dialysis 97.6 degF July 11, 2024 In-Center Hemodialysis Treatment 0761-86-40O56:27:24.000Z 6762-08-51N19:58:14.000Z BP Sitting (Pre-Dialysis) 173/89 mmHg BP Sitting (Post-Dialysis) 169/88 mmHg Concurrent Access: falseCentral Venous Catheter (CVC) Chest (Right) Arterial Sitting Heart Rate Pre-Dialysis 74 BPM BP Standing (Post-Dialysis) 175/101 mmHg Temperature Pre-Dialysis 97.6 degF Sitting Heart Ra te Post-Dialysis 64 BPM Standing Heart R ate Post-Dialysis 77 BPM Temperature Post-Dialysis 97 .7 degF July 09, 2024 In-Center Hemodialysis Treatment 7188-98-09N02:33:13.000Z 5795-35-75L40:14:28.000Z BP Sitting (Pre-Dialysis) 162/98 mmHg BP Sitting (Post-Dialysis) 140/75 mmHg Concurrent Access: falseCentral Venous Catheter (CVC) Chest (Right) Arterial Sitting Heart Rate Pre-Dialysis 76 BPM Sitting H eart Rate Post-Dialysis 67 BPM Temperature Pre-Dialysis 97.7 degF Temperature Post -Dialysis 97.6 degF July 07, 2024 In-Center Hemodialysis Treatment 6517-55-04N78:47:17.000Z 0380-92-09X90:21:52.000Z BP Sitting (Pre-Dialysis) 149/87 mmHg BP Sitting (Post-Dialysis) 146/93 mmHg Concurrent Access: falseCentral Venous Catheter (CVC) Chest (Right) Arterial BP Standing (Pre-Dialysis) 150/82 mmHg BP Standing (P ost-Dialysis) 154/82 mmHg Sitting Heart Rate Pre-Dialysis 78 BPM Sitting Heart Rate Post-Dialysis 76 BPM Standing Heart Rate Pre-Dialysis 81 BPM Standing Heart Rate Post-Dialysis 76 BPM Temperature Pre-Dialysis 97.8 degF Temperature Post -Dialysis 97.8 degF July 04, 2024 In-Center Hemodialysis Treatment 1378-98-84F17:37:52.000Z 6361-67-50A44:01:12.000Z BP Sitting (Pre-Dialysis) 141/77 mmHg BP Sitting (Post-Dialysis) 133/76 mmHg Concurrent Access: falseCentral Venous Catheter (CVC) Chest (Right) Arterial Sitting Heart Rate Pre-Dialysis 70 BPM BP Standing (Post-Dialysis) 131/74 mmHg Temperature Pre-Dialysis 97.6 degF Sitting Heart Ra te Post-Dialysis 73 BPM Standing Heart Rate Post-Iliana lysis 74 BPM Temperature Post-Dialysis 97 .6 degF July 02, 2024 In-Center Hemodialysis Treatment 9714-99-52M35:30:28.000Z 7939-65-71Y11:20:00.000Z BP Sitting (Pre-Dialysis) 123/95 mmHg BP Sitting (Post-Dialysis) 136/78 mmHg Concurrent Access: falseCentral Venous Catheter (CVC) Chest (Right) Arterial Sitting Heart Rate Pre-Dialysis 88 BPM BP Standing (Post-Dialysis) 128/87 mmHg Temperature Pre-Dialysis 97.4 degF Sitting Heart Ra te Post-Dialysis 74 BPM Standing Heart Rate Post-Iliana lysis 76 BPM Temperature Post-Dialysis 97 .3 degF June 30, 2024 In-Center Hemodialysis Treatment 5188-01-83F60:37:00.000Z 1453-74-01P66:09:55.000Z BP Sitting (Pre-Dialysis) 138/70 mmHg BP Sitting (Post-Dialysis) 133/78 mmHg Concurrent Access: falseCentral Venous Catheter (CVC) Chest (Right) Arterial Sitting Heart Rate Pre-Dialysis 80 BPM Sitting H eart Rate Post-Dialysis 73 BPM Temperature Pre-Dialysis 97.5 degF Temperature Post -Dialysis 97.6 degF June 27, 2024 In-Center Hemodialysis Treatment 4193-56-98L75:33:05.000Z 8507-36-45B57:03:55.000Z BP Sitting (Pre-Dialysis) 166/93 mmHg BP Sitting (Post-Dialysis) 137/81 mmHg Concurrent Access: falseCentral Venous Catheter (CVC) Chest (Right) Arterial Sitting Heart Rate Pre-Dialysis 89 BPM BP Standing (Post-Dialysis) 150/84 mmHg Temperature Pre-Dialysis 97.5 degF Sitting Heart Ra te Post-Dialysis 71 BPM Standing Heart Rate Post-Iliana lysis 76 BPM Temperature Post-Dialysis 97 .3 degF June 25, 2024 In-Center Hemodialysis Treatment 7250-18-16M33:28:33.000Z 1707-62-68A17:01:03.000Z BP Sitting (Pre-Dialysis) 168/101 mmHg BP Sitting (Post-Dialysis) 166/98 mmHg Concurrent Access: falseCentral Venous Catheter (CVC) Chest (Right) Arterial Sitting Heart Rate Pre-Dialysis 82 BPM Sitting H eart Rate Post-Dialysis 76 BPM Temperature Pre-Dialysis 97.3 degF Temperature Post -Dialysis 97.3 degF June 23, 2024 In-Center Hemodialysis Treatment 5045-26-06W86:27:00.000Z 2524-40-03I81:58:56.000Z BP Sitting (Pre-Dialysis) 160/94 mmHg BP Sitting (Post-Dialysis) 178/94 mmHg Concurrent Access: falseCentral Venous Catheter (CVC) Chest (Right) Arterial BP Standing (Pre-Dialysis) 153/92 mmHg BP Standing (P ost-Dialysis) 177/99 mmHg Sitting Heart Rate Pre-Dialysis 80 BPM Sitting Heart Rate Post-Dialysis 68 BPM Standing Heart Rate Pre-Dialysis 74 BPM Standing Heart Rate Post-Dialysis 69 BPM Temperature Pre-Dialysis 98.3 degF Temperature Post -Dialysis 97.5 degF June 20, 2024 In-Center Hemodialysis Treatment 8600-56-30R04:40:18.000Z 0445-00-52D19:54:03.000Z BP Sitting (Pre-Dialysis) 178/101 mmHg BP Sitting (Post-Dialysis) 165/97 mmHg Concurrent Access: falseCentral Venous Catheter (CVC) Chest (Right) Arterial Sitting Heart Rate Pre-Dialysis 76 BPM Sitting H eart Rate Post-Dialysis 65 BPM Temperature Pre-Dialysis 97.6 degF Temperature Post -Dialysis 97.7 degF June 18, 2024 In-Center Hemodialysis Treatment 4020-18-14R23:32:00.000Z 1122-55-09K16:48:06.000Z BP Sitting (Pre-Dialysis) 152/95 mmHg BP Sitting (Post-Dialysis) 182/106 mmHg Concurrent Access: falseCentral Venous Catheter (CVC) Chest (Right) Arterial BP Standing (Pre-Dialysis) 132/83 mmHg BP Standing (P ost-Dialysis) 178/66 mmHg Sitting Heart Rate Pre-Dialysis 82 BPM Sitting Heart Rate Post-Dialysis 83 BPM Standing Heart Rate Pre-Dialysis 99 BPM Standing Heart Rate Post-Dialysis 87 BPM Temperature Pre-Dialysis 97.7 degF Temperature Post -Dialysis 97.5 degF June 16, 2024 In-Center Hemodialysis Treatment 0254-11-87M14:34:00.000Z 1021-75-24N60:51:45.000Z BP Sitting (Pre-Dialysis) 174/101 mmHg BP Sitting (Post-Dialysis) 162/100 mmHg Concurrent Access: falseCentral Venous Catheter (CVC) Chest (Right) Arterial BP Standing (Pre-Dialysis) 182/103 mmHg BP Standing (P ost-Dialysis) 140/84 mmHg Sitting Heart Rate Pre-Dialysis 93 BPM Sitting Heart Rate Post-Dialysis 72 BPM Standing Heart Rate Pre-Dialysis 90 BPM Standing Heart Rate Post-Dialysis 84 BPM Temperature Pre-Dialysis 97.2 degF Temperature Post -Dialysis 97 degF June 13, 2024 In-Center Hemodialysis Treatment 3024-01-92U13:24:46.000Z 6572-13-99P20:43:56.000Z BP Sitting (Pre-Dialysis) 165/81 mmHg BP Sitting (Post-Dialysis) 174/96 mmHg Concurrent Access: falseCentral Venous Catheter (CVC) Chest (Right) Arterial BP Standing (Pre-Dialysis) 178/68 mmHg BP Standing (P ost-Dialysis) 165/101 mmHg Sitting Heart Rate Pre-Dialysis 75 BPM Sitting Heart Rate Post-Dialysis 76 BPM Standing Heart Rate Pre-Dialysis 85 BPM Standing Heart Rate Post-Dialysis 85 BPM Temperature Pre-Dialysis 97.5 degF Temperature Post -Dialysis 97.4 degF June 11, 2024 In-Center Hemodialysis Treatment 9094-49-49U40:38:07.000Z 8765-89-40F71:37:42.000Z BP Sitting (Pre-Dialysis) 163/97 mmHg BP Sitting (Post-Dialysis) 156/87 mmHg Concurrent Access: falseCentral Venous Catheter (CVC) Chest (Right) Arterial BP Standing (Pre-Dialysis) 179/114 mmHg BP Standing (P ost-Dialysis) 130/87 mmHg Sitting Heart Rate Pre-Dialysis 81 BPM Sitting Heart Rate Post-Dialysis 76 BPM Standing Heart Rate Pre-Dialysis 88 BPM Standing Heart Rate Post-Dialysis 74 BPM Temperature Pre-Dialysis 97.6 degF Temperature Post -Dialysis 97.5 degF June 09, 2024 In-Center Hemodialysis Treatment 1957-86-75E88:39:59.000Z 1496-20-61D73:59:59.000Z BP Sitting (Pre-Dialysis) 153/89 mmHg BP Sitting (Post-Dialysis) 148/85 mmHg Concurrent Access: falseCentral Venous Catheter (CVC) Chest (Right) Arterial BP Standing (Pre-Dialysis) 149/95 mmHg BP Standing (P ost-Dialysis) 138/83 mmHg Sitting Heart Rate Pre-Dialysis 92 BPM Sitting Heart Rate Post-Dialysis 75 BPM Standing Heart Rate Pre-Dialysis 61 BPM Standing Heart Rate Post-Dialysis 76 BPM Temperature Pre-Dialysis 97.8 degF Temperature Post -Dialysis 97.2 degF June 06, 2024 In-Center Hemodialysis Treatment 9792-53-38S11:44:48.000Z 7776-16-20V27:53:33.000Z BP Sitting (Pre-Dialysis) 182/118 mmHg BP Sitting (Post-Dialysis) 167/99 mmHg Concurrent Access: falseCentral Venous Catheter (CVC) Chest (Right) Arterial Sitting Heart Rate Pre-Dialysis 75 BPM BP Standing (Post-Dialysis) 160/93 mmHg Temperature Pre-Dialysis 97.6 degF Sitting Heart Ra te Post-Dialysis 63 BPM Standing Heart Rate Post-Iliana lysis 80 BPM Temperature Post-Dialysis 97 .4 degF June 04, 2024 In-Center Hemodialysis Treatment 9512-97-90G58:32:33.000Z 1132-97-55Y02:32:58.000Z BP Sitting (Pre-Dialysis) 177/100 mmHg BP Sitting (Post-Dialysis) 147/94 mmHg Concurrent Access: falseCentral Venous Catheter (CVC) Chest (Right) Arterial Sitting Heart Rate Pre-Dialysis 82 BPM BP Standing (Post-Dialysis) 161/80 mmHg Temperature Pre-Dialysis 97.3 degF Sitting Heart Ra te Post-Dialysis 60 BPM Standing Heart Rate Post-Iliana lysis 80 BPM Temperature Post-Dialysis 97 .2 degF June 02, 2024 In-Center Hemodialysis Treatment 9059-71-46S31:37:43.000Z 5310-52-43P21:53:08.000Z BP Sitting (Pre-Dialysis) 174/103 mmHg BP Sitting (Post-Dialysis) 173/100 mmHg Concurrent Access: falseCentral Venous Catheter (CVC) Chest (Right) Arterial BP Standing (Pre-Dialysis) 180/106 mmHg BP Standing (P ost-Dialysis) 156/99 mmHg Sitting Heart Rate Pre-Dialysis 72 BPM Sitting Heart Rate Post-Dialysis 66 BPM Standing Heart Rate Pre-Dialysis 79 BPM Standing Heart Rate Post-Dialysis 86 BPM Temperature Pre-Dialysis 97.3 degF Temperature Post -Dialysis 97.7 degF May 30, 2024 In-Center Hemodialysis Treatment 6632-09-06M78:31:24.000Z 0976-15-04B14:49:19.000Z BP Sitting (Pre-Dialysis) 168/96 mmHg BP Sitting (Post-Dialysis) 161/95 mmHg Concurrent Access: falseCentral Venous Catheter (CVC) Chest (Right) Arterial BP Standing (Pre-Dialysis) 161/94 mmHg BP Standing (P ost-Dialysis) 38/74 mmHg Sitting Heart Rate Pre-Dialysis 84 BPM Sitting Heart Rate Post-Dialysis 63 BPM Standing Heart Rate Pre-Dialysis 90 BPM Standing Heart Rate Post-Dialysis 95 BPM Temperature Pre-Dialysis 97.2 degF Temperature Post -Dialysis 97.6 degF May 28, 2024 In-Center Hemodialysis Treatment 0040-53-56J68:37:53.000Z 1316-04-49K49:37:37.000Z BP Sitting (Pre-Dialysis) 152/96 mmHg BP Sitting [...] degF May 26, 2024 In-Center Hemodialysis Treatment 7016-56-21S30:24:55.000Z 9470-12-09L92:30:45.000Z BP Sitting (Pre-Dialysis) 164/85 mmHg BP Sitting [...] degF May 23, 2024 In-Center Hemodialysis Treatment 8447-27-70P68:12:53.000Z 1503-37-20T17:20:23.000Z BP Sitting (Pre-Dialysis) 152/87 mmHg BP Sitting (Post-Dialysis) 180/100 mmHg Concurrent Access: falseCentral Venous Catheter (CVC) Chest (Right) Arterial Sitting Heart Rate Pre-Dialysis 87 BPM BP Standi ng (Post-Dialysis) 188/98 mmHg Temperature Pre-Dialysis 98 degF Sitting Heart Ra te Post-Dialysis 98 BPM Standing Heart Rate Post-Iliana lysis 98 BPM Temperature Post-Dialysis 98 degF May 21, 2024 In-Center Hemodialysis Treatment 3104-78-44L73:54:11.000Z 0021-44-07K11:56:16.000Z BP Sitting (Pre-Dialysis) 153/99 mmHg BP Sitting (Post-Dialysis) 122/78 mmHg Concurrent Access: falseCentral Venous Catheter (CVC) Chest (Right) Arterial Sitting Heart Rate Pre-Dialysis 81 BPM BP Standi ng (Post-Dialysis) 120/74 mmHg Temperature Pre-Dialysis 98 degF Sitting Heart Ra te Post-Dialysis 78 BPM Standing Heart Rate Post-Iliana lysis 87 BPM Temperature Post-Dialysis 98 degF May 19, 2024 In-Center Hemodialysis Treatment [id number]:10.000Z [id number]:29:25.000Z BP Sitting (Pre-Dialysis) 197/107 mmHg BP Sitting (Post-Dialysis) 170/90 mmHg Concurrent Access: falseCentral Venous Catheter (CVC) Chest (Right) Arterial Sitting Heart Rate Pre-Dialysis 96 BPM BP Standi ng (Post-Dialysis) 182/99 mmHg Temperature Pre-Dialysis 98 degF Sitting Heart Ra te Post-Dialysis 68 BPM Standing Heart Rate Post-Iliana lysis 81 BPM Temperature Post-Dialysis 98 .6 degF May 16, 2024 In-Center Hemodialysis Treatment [id number]:58.000Z [id number]:08:23.000Z BP Sitting (Pre-Dialysis) 167/114 mmHg BP Sitting (Post-Dialysis) 156/94 mmHg Concurrent Access: falseCentral Venous Catheter (CVC) Chest (Right) Arterial Sitting Heart Rate Pre-Dialysis 76 BPM BP Standing (Post-Dialysis) 141/79 mmHg Temperature Pre-Dialysis 98.1 degF Sitting Heart Ra te Post-Dialysis 65 BPM Standing Heart Rate Post-Iliana lysis 84 BPM Temperature Post-Dialysis 98 .2 degF May 14, 2024 In-Center Hemodialysis Treatment [id number]:22:00.000Z [id number]:27:21.000Z BP Sitting (Pre-Dialysis) 173/108 mmHg BP Sitting [...] degF May 12, 2024 In-Center Hemodialysis Treatment [id number]:22:00.000Z [id number]:52:48.000Z BP Sitting (Pre-Dialysis) 146/75 mmHg BP Sitting (Post-Dialysis) 146/94 mmHg Concurrent Access: falseCentral Venous Catheter (CVC) Chest (Right) Arterial BP Standing (Pre-Dialysis) 172/99 mmHg Sitting Heart Rate Post-Dialysis 62 BPM Sitting Heart Rate Pre-Dialysis 76 BPM Standing Heart Rate Pre-Dialysis 80 BPM Temperature Pre-Dialysis 98 degF DIALYSIS ORDER Dialysis Procedure Orders Type of Dialysis Procedure Order Order Date/Time Observations In-Center Hemodialysis Treatment September 15, 2024 Target Weight 159 kg Dialysate Flow Rate 800 mL/min Blood Flow Rate 400 mL/min Treatment Time 270 min(total) Max UF Rate 13 mL/kg/hr Base Sodium Dialysate Base Sodium 138 mE q/L dialysate_temp 37 C BiCarb Dialysate BiCarbonate 38 meq/L Access Concurrent No Arterial Access [facility] (CVC) (Chest (Right)) Venous Access [facility] (CVC) (Chest (Right)) Dialyzer Franki Xie 19H 162 6 treatment_[email or web address] Dialysate Bath Potassium Potassium 3 mEq /L Dialysate Bath Calcium Calcium 2.5 mEq/L In-Center Hemodialysis [id number] Observation Value Target Weight 161 kg Dialysate Flow Rate 800 mL/min Blood Flow Rate 400 mL/min Treatment Time 270 min(total) Max UF Rate 13 mL/kg/hr Base Sodium Dialysate Base Sodium 138 mE q/L dialysate_temp 37 C BiCarb Dialysate BiCarbonate 38 meq/L Access Concurrent No Arterial Access [facility] (CVC) (Chest (Right)) Venous Access [facility] (CVC) (Chest (Right)) Dialyzer Franki Xie 19H 162 6 treatment_[email or web address] Dialysate Bath Potassium Potassium 3 mEq /L Dialysate Bath Calcium Calcium 2.5 mEq/L Results Adequacy Description Draw Date Result/Unit Status Ref Range Result Comments AMPUTATE FACTOR 2024-12-31 21:25:43 0 F WEIGHT (KG) 2024-12-31 21:25:43 159 kg F HEIGHT IN INCHES 2024-12-31 21:25:43 70 Inches F PATIENT AGE 2024-12-31 21:25:43 54 Years F KT/V PRESCRIBED 2024-12-31 15:27:20 1.44 F stdKT/V Total 2024-12-31 15:27:20 N/A F DIALYZER FLOW-QD 2024-12-31 15:27:20 800 mL/min F TOTAL HOURS/WEEK DIALYSIS 2024-12-31 15:27:20 13 hrs F BLOOD FLOW-QWB 2024-12-31 15:27:20 374 F PRESCRIBED DAYS/WEEK 2024-12-31 15:27:20 3 Day/Wk F WEIGHT (KG) 2024-12-31 15:27:20 159 kg F AMPUTATE FACTOR 2024-12-31 15:27:20 0 F HEIGHT IN INCHES 2024-12-31 15:27:20 70 Inches F URR% 2024-12-31 15:27:20 58 % F CURRENT KRU 2024-12-31 15:27:20 F Unable to calculate: Post BUN lab result is unknown Total Kt/V 2024-12-31 15:27:20 1.06 F eKt/V 2024-12-31 15:27:20 0.94 F WEIGHT - POST DAY 1 2024-12-31 15:27:20 160.6 kg F BSA ANGEL 2024-12-31 15:27:20 2.65 sq m F PATIENT AGE 2024-12-31 15:27:20 54 Years F Std Renal KT/V 2024-12-31 15:27:20 N/A F spKt/V 2024-12-31 15:27:20 1.06 F WEIGHT - PRE DAY 1 2024-12-31 15:27:20 165 kg F LENGTH OF DIALYSIS 2024-12-31 15:27:20 270 min F VT (KT/V TX VOL) 2024-12-31 15:27:20 74.7 L F nPCR 2024-12-31 15:27:20 1.25 G/KG/D F Dialyzer MORRIS 2024-12-31 15:27:20 1626 Calc F TBW (Hui) 2024-12-31 15:27:20 70.21 Liters F VM (KT/V MEAN VOL) 2024-12-31 15:27:20 70.1 F stdKt/V (DIAL) 2024-12-31 15:27:20 N/A F Residual kt/v 2024-12-31 15:27:20 F Unable to calculate: Post BUN lab result is unknown Urea nitrogen [Mass/volume] in Serum or Plasma --post dialysis 2024-12-31 15:25:18 31 mg/dL F 9.0-23.0 Creatinine [Mass/volume] in Serum or Plasma 2024-12-31 15:19:19 13.71 mg/dL F 0.7-1.3 nPCR 2024-12-30 07:45:28 F Unable to calculate: Post BUN lab result is unknown VM (KT/V MEAN VOL) 2024-12-30 07:45:28 F Unable to calculate: Post BUN lab result is unknown WEIGHT - POST DAY 1 2024-12-30 07:45:28 162.1 kg F WEIGHT - PRE DAY 1 2024-12-30 07:45:28 166.1 kg F BSA ANGEL 2024-12-30 07:45:28 F Unable to calculate: Post BUN lab result is unknown TOTAL HOURS/WEEK DIALYSIS 2024-12-30 07:45:28 13 hrs F spKt/V 2024-12-30 07:45:28 F Unable to calculate: Post BUN lab result is unknown Residual kt/v 2024-12-30 07:45:28 F Unable to calculate: Post BUN lab result is unknown BLOOD FLOW-QWB 2024-12-30 07:45:28 389 F PRESCRIBED DAYS/WEEK 2024-12-30 07:45:28 3 Day/Wk F KT/V PRESCRIBED 2024-12-30 07:45:28 F Unable to calculate: Post BUN lab result is unknown WEIGHT (KG) 2024-12-30 07:45:28 159 kg F PATIENT AGE 2024-12-30 07:45:28 54 Years F Std Renal KT/V 2024-12-30 07:45:28 F Unable to calculate: Post BUN lab result is unknown TBW (Hui) 2024-12-30 07:45:28 F Unable to calculate: Post BUN lab result is unknown URR% 2024-12-30 07:45:28 F Unable to calculate: Post BUN lab result is unknown,Unable to Calculate. DIALYZER FLOW-QD 2024-12-30 07:45:28 800 mL/min F Total Kt/V 2024-12-30 07:45:28 F Unable to calculate: Post BUN lab result is unknown HEIGHT IN INCHES 2024-12-30 07:45:28 70 Inches F LENGTH OF DIALYSIS 2024-12-30 07:45:28 270 min F stdKT/V Total 2024-12-30 07:45:28 F Unable to calculate: Post BUN lab result is unknown AMPUTATE FACTOR 2024-12-30 07:45:28 0 F CURRENT KRU 2024-12-30 07:45:28 F Unable to calculate: Post BUN lab result is unknown stdKt/V (DIAL) 2024-12-30 07:45:28 F Unable to calculate: Post BUN lab result is unknown Dialyzer MORRIS 2024-12-30 07:45:28 1626 Calc F VT (KT/V TX VOL) 2024-12-30 07:45:28 F Unable to calculate: Post BUN lab result is unknown eKt/V 2024-12-30 07:45:28 F Unable to calculate: Post BUN lab result is unknown WEIGHT - POST DAY 1 2024-12-30 07:45:28 162.1 kg F Std Renal KT/V 2024-12-30 07:45:28 F Unable to calculate: Post BUN lab result is unknown TBW (Ez) 2024-12-30 07:45:28 F Unable to calculate: Post BUN lab result is unknown Residual kt/v 2024-12-30 07:45:28 F Unable to calculate: Post BUN lab result is unknown VM (KT/V MEAN VOL) 2024-12-30 07:45:28 F Unable to calculate: Post BUN lab result is unknown eKt/V 2024-12-30 07:45:28 F Unable to calculate: Post BUN lab result is unknown stdKt/V (DIAL) 2024-12-30 07:45:28 F Unable to calculate: Post BUN lab result is unknown DIALYZER FLOW-QD 2024-12-30 07:45:28 800 mL/min F PRESCRIBED DAYS/WEEK 2024-12-30 07:45:28 3 Day/Wk F TOTAL HOURS/WEEK DIALYSIS 2024-12-30 07:45:28 13 hrs F KT/V PRESCRIBED 2024-12-30 07:45:28 F Unable to calculate: Post BUN lab result is unknown nPCR 2024-12-30 07:45:28 F Unable to calculate: Post BUN lab result is unknown WEIGHT (KG) 2024-12-30 07:45:28 159 kg F Dialyzer MORRIS 2024-12-30 07:45:28 1626 Calc F PATIENT AGE 2024-12-30 07:45:28 54 Years F WEIGHT - PRE DAY 1 2024-12-30 07:45:28 166.1 kg F CURRENT KRU 2024-12-30 07:45:28 F Unable to calculate: Post BUN lab result is unknown stdKT/V Total 2024-12-30 07:45:28 F Unable to calculate: Post BUN lab result is unknown URR% 2024-12-30 07:45:28 F Unable to calculate: Post BUN lab result is unknown,Unable to Calculate. Total Kt/V 2024-12-30 07:45:28 F Unable to calculate: Post BUN lab result is unknown AMPUTATE FACTOR 2024-12-30 07:45:28 0 F HEIGHT IN INCHES 2024-12-30 07:45:28 70 Inches F spKt/V 2024-12-30 07:45:28 F Unable to calculate: Post BUN lab result is unknown VT (KT/V TX VOL) 2024-12-30 07:45:28 F Unable to calculate: Post BUN lab result is unknown BLOOD FLOW-QWB 2024-12-30 07:45:28 389 F BSA ANGEL 2024-12-30 07:45:28 F Unable to calculate: Post BUN lab result is unknown LENGTH OF DIALYSIS 2024-12-30 07:45:28 270 min F Urea nitrogen [Mass/volume] in Serum or Plasma --post dialysis 2024-12-30 07:27:13 F Canceled - Speci men not received 5 days past draw date Urea nitrogen [Mass/volume] in Serum or Plasma --post dialysis 2024-12-30 07:27:13 F Canceled - Speci men not received 5 days past draw date spKt/V 2024-12-28 07:39:33 F Unable to calculate: Post BUN lab result is unknown Std Renal KT/V 2024-12-28 07:39:33 F Unable to calculate: Post BUN lab result is unknown CURRENT KRU 2024-12-28 07:39:33 F Unable to calculate: Post BUN lab result is unknown TBW (Hui) 2024-12-28 07:39:33 F Unable to calculate: Post BUN lab result is unknown VM (KT/V MEAN VOL) 2024-12-28 07:39:33 F Unable to calculate: Post BUN lab result is unknown eKt/V 2024-12-28 07:39:33 F Unable to calculate: Post BUN lab result is unknown URR% 2024-12-28 07:39:33 F Unable to calculate: Post BUN lab result is unknown nPCR 2024-12-28 07:39:33 F Unable to calculate: Post BUN lab result is unknown BSA ANGEL 2024-12-28 07:39:33 F Unable to calculate: Post BUN lab result is unknown VT (KT/V TX VOL) 2024-12-28 07:39:33 F Unable to calculate: Post BUN lab result is unknown Total Kt/V 2024-12-28 07:39:33 F Unable to calculate: Post BUN lab result is unknown Residual kt/v 2024-12-28 07:39:33 F Unable to calculate: Post BUN lab result is unknown KT/V PRESCRIBED 2024-12-28 07:39:33 F Unable to calculate: Post BUN lab result is unknown stdKt/V (DIAL) 2024-12-28 07:39:33 F Unable to calculate: Post BUN lab result is unknown stdKT/V Total 2024-12-28 07:39:33 F Unable to calculate: Post BUN lab result is unknown LENGTH OF DIALYSIS 2024-12-28 07:39:33 270 min F PATIENT AGE 2024-12-28 07:39:33 54 Years F HEIGHT IN INCHES 2024-12-28 07:39:33 70 Inches F AMPUTATE FACTOR 2024-12-28 07:39:33 0 F WEIGHT (KG) 2024-12-28 07:39:33 159 kg F Dialyzer MORRIS 2024-12-28 07:39:33 1626 Calc F PRESCRIBED DAYS/WEEK 2024-12-28 07:39:33 3 Day/Wk F BLOOD FLOW-QWB 2024-12-28 07:39:33 374 F WEIGHT - POST DAY 1 2024-12-28 07:39:33 160.6 kg F WEIGHT - PRE DAY 1 2024-12-28 07:39:33 165 kg F TOTAL HOURS/WEEK DIALYSIS 2024-12-28 07:39:33 13 hrs F DIALYZER FLOW-QD 2024-12-28 07:39:33 800 mL/min F Urea nitrogen [Mass/volume] in Serum or Plasma 2024-12-28 03:12:13 74 mg/dL F 9.0-23.0 Urea nitrogen [Mass/volume] in Serum or Plasma 2024-12-28 03:12:13 74 mg/dL F 9.0-23.0 Urea nitrogen [Mass/volume] in Serum or Plasma 2024-12-27 04:53:19 73 mg/dL F 9.0-23.0 Urea nitrogen [Mass/volume] in Serum or Plasma 2024-12-27 04:53:19 73 mg/dL F 9.0-23.0 Creatinine [Mass/volume] in Serum or Plasma 2024-12-03 04:20:14 12.72 mg/dL F 0.7-1.3 Dialyzer MORRIS 2024-11-25 15:49:05 1626 Calc F DIALYZER FLOW-QD 2024-11-25 15:49:05 800 mL/min F URR% 2024-11-25 15:49:05 62 % F LENGTH OF DIALYSIS 2024-11-25 15:49:05 270 min F PATIENT AGE 2024-11-25 15:49:05 54 Years F WEIGHT - POST DAY 1 2024-11-25 15:49:05 159.4 kg F BSA ANGEL 2024-11-25 15:49:05 2.65 sq m F WEIGHT (KG) 2024-11-25 15:49:05 159 kg F WEIGHT - PRE DAY 1 2024-11-25 15:49:05 163.8 kg F HEIGHT IN INCHES 2024-11-25 15:49:05 70 Inches F PRESCRIBED DAYS/WEEK 2024-11-25 15:49:05 3 Day/Wk F VM (KT/V MEAN VOL) 2024-11-25 15:49:05 68.5 F VT (KT/V TX VOL) 2024-11-25 15:49:05 65.8 L F Residual kt/v 2024-11-25 15:49:05 F Unable to calculate: Post BUN lab result is unknown Total Kt/V 2024-11-25 15:49:05 1.21 F KT/V PRESCRIBED 2024-11-25 15:49:05 1.44 F eKt/V 2024-11-25 15:49:05 1.06 F nPCR 2024-11-25 15:49:05 1.44 G/KG/D F AMPUTATE FACTOR 2024-11-25 15:49:05 0 F spKt/V 2024-11-25 15:49:05 1.21 F TBW (Hui) 2024-11-25 15:49:05 69.8 Liters F Std Renal KT/V 2024-11-25 15:49:05 N/A F stdKt/V (DIAL) 2024-11-25 15:49:05 N/A F BLOOD FLOW-QWB 2024-11-25 15:49:05 374 F TOTAL HOURS/WEEK DIALYSIS 2024-11-25 15:49:05 13 hrs F CURRENT KRU 2024-11-25 15:49:05 F Unable to calculate: Post BUN lab result is unknown stdKT/V Total 2024-11-25 15:49:05 N/A F VM (KT/V MEAN VOL) 2024-11-25 15:49:05 68.5 F BSA ANGEL 2024-11-25 15:49:05 2.65 sq m F DIALYZER FLOW-QD 2024-11-25 15:49:05 800 mL/min F AMPUTATE FACTOR 2024-11-25 15:49:05 0 F WEIGHT (KG) 2024-11-25 15:49:05 159 kg F Total Kt/V 2024-11-25 15:49:05 1.21 F URR% 2024-11-25 15:49:05 62 % F KT/V PRESCRIBED 2024-11-25 15:49:05 1.44 F TBW (Hui) 2024-11-25 15:49:05 69.8 Liters F eKt/V 2024-11-25 15:49:05 1.06 F nPCR 2024-11-25 15:49:05 1.44 G/KG/D F PRESCRIBED DAYS/WEEK 2024-11-25 15:49:05 3 Day/Wk F spKt/V 2024-11-25 15:49:05 1.21 F Std Renal KT/V 2024-11-25 15:49:05 N/A F WEIGHT - PRE DAY 1 2024-11-25 15:49:05 163.8 kg F HEIGHT IN INCHES 2024-11-25 15:49:05 70 Inches F stdKt/V (DIAL) 2024-11-25 15:49:05 N/A F stdKT/V Total 2024-11-25 15:49:05 N/A F LENGTH OF DIALYSIS 2024-11-25 15:49:05 270 min F Residual kt/v 2024-11-25 15:49:05 F Unable to calculate: Post BUN lab result is unknown WEIGHT - POST DAY 1 2024-11-25 15:49:05 159.4 kg F CURRENT KRU 2024-11-25 15:49:05 F Unable to calculate: Post BUN lab result is unknown TOTAL HOURS/WEEK DIALYSIS 2024-11-25 15:49:05 13 hrs F VT (KT/V TX VOL) 2024-11-25 15:49:05 65.8 L F Dialyzer MORRIS 2024-11-25 15:49:05 1626 Calc F BLOOD FLOW-QWB 2024-11-25 15:49:05 374 F PATIENT AGE 2024-11-25 15:49:05 54 Years F Urea nitrogen [Mass/volume] in Serum or Plasma --post dialysis 2024-11-25 15:47:14 29 mg/dL F 9.0-23.0 Urea nitrogen [Mass/volume] in Serum or Plasma --post dialysis 2024-11-25 15:47:14 29 mg/dL F 9.0-23.0 Urea nitrogen [Mass/volume] in Serum or Plasma 2024-11-23 02:46:10 77 mg/dL F 9.0-23.0 Urea nitrogen [Mass/volume] in Serum or Plasma 2024-11-23 02:46:10 77 mg/dL F 9.0-23.0 Creatinine [Mass/volume] in Serum or Plasma 2024-11-05 19:10:08 13.73 mg/dL F 0.7-1.3 Creatinine [Mass/volume] in Serum or Plasma 2024-11-05 19:10:08 13.73 mg/dL F 0.7-1.3 URR% 2024-11-01 17:32:07 67 % F DIALYZER FLOW-QD 2024-11-01 17:32:07 800 mL/min F Dialyzer MORRIS 2024-11-01 17:32:07 1626 Calc F PATIENT AGE 2024-11-01 17:32:07 54 Years F BSA ANGEL 2024-11-01 17:32:07 2.65 sq m F LENGTH OF DIALYSIS 2024-11-01 17:32:07 270 min F HEIGHT IN INCHES 2024-11-01 17:32:07 70 Inches F WEIGHT - PRE DAY 1 2024-11-01 17:32:07 163.4 kg F WEIGHT - POST DAY 1 2024-11-01 17:32:07 158.7 kg F WEIGHT (KG) 2024-11-01 17:32:07 159 kg F PRESCRIBED DAYS/WEEK 2024-11-01 17:32:07 3 Day/Wk F VT (KT/V TX VOL) 2024-11-01 17:32:07 56.2 L F VM (KT/V MEAN VOL) 2024-11-01 17:32:07 69.4 F Total Kt/V 2024-11-01 17:32:07 1.39 F Residual kt/v 2024-11-01 17:32:07 F Unable to calculate: Post BUN lab result is unknown KT/V PRESCRIBED 2024-11-01 17:32:07 1.44 F TBW (Hui) 2024-11-01 17:32:07 69.57 Liters F spKt/V 2024-11-01 17:32:07 1.39 F nPCR 2024-11-01 17:32:07 1.51 G/KG/D F AMPUTATE FACTOR 2024-11-01 17:32:07 0 F eKt/V 2024-11-01 17:32:07 1.22 F Std Renal KT/V 2024-11-01 17:32:07 N/A F TOTAL HOURS/WEEK DIALYSIS 2024-11-01 17:32:07 13 hrs F stdKt/V (DIAL) 2024-11-01 17:32:07 N/A F stdKT/V Total 2024-11-01 17:32:07 N/A F BLOOD FLOW-QWB 2024-11-01 17:32:07 365 F CURRENT KRU 2024-11-01 17:32:07 F Unable to calculate: Post BUN lab result is unknown DIALYZER FLOW-QD 2024-11-01 17:32:07 800 mL/min F BLOOD FLOW-QWB 2024-11-01 17:32:07 365 F spKt/V 2024-11-01 17:32:07 1.39 F LENGTH OF DIALYSIS 2024-11-01 17:32:07 270 min F KT/V PRESCRIBED 2024-11-01 17:32:07 1.44 F Std Renal KT/V 2024-11-01 17:32:07 N/A F AMPUTATE FACTOR 2024-11-01 17:32:07 0 F PATIENT AGE 2024-11-01 17:32:07 54 Years F VT (KT/V TX VOL) 2024-11-01 17:32:07 56.2 L F Total Kt/V 2024-11-01 17:32:07 1.39 F WEIGHT - PRE DAY 1 2024-11-01 17:32:07 163.4 kg F TOTAL HOURS/WEEK DIALYSIS 2024-11-01 17:32:07 13 hrs F BSA ANGEL 2024-11-01 17:32:07 2.65 sq m F WEIGHT - POST DAY 1 2024-11-01 17:32:07 158.7 kg F HEIGHT IN INCHES 2024-11-01 17:32:07 70 Inches F stdKT/V Total 2024-11-01 17:32:07 N/A F CURRENT KRU 2024-11-01 17:32:07 F Unable to calculate: Post BUN lab result is unknown Dialyzer MORRIS 2024-11-01 17:32:07 1626 Calc F URR% 2024-11-01 17:32:07 67 % F stdKt/V (DIAL) 2024-11-01 17:32:07 N/A F WEIGHT (KG) 2024-11-01 17:32:07 159 kg F VM (KT/V MEAN VOL) 2024-11-01 17:32:07 69.4 F Residual kt/v 2024-11-01 17:32:07 F Unable to calculate: Post BUN lab result is unknown TBW (Hui) 2024-11-01 17:32:07 69.57 Liters F PRESCRIBED DAYS/WEEK 2024-11-01 17:32:07 3 Day/Wk F eKt/V 2024-11-01 17:32:07 1.22 F nPCR 2024-11-01 17:32:07 1.51 G/KG/D F Urea nitrogen [Mass/volume] in Serum or Plasma --post dialysis 2024-11-01 17:30:11 27 mg/dL F 9.0-23.0 Urea nitrogen [Mass/volume] in Serum or Plasma --post dialysis 2024-11-01 17:30:11 27 mg/dL F 9.0-23.0 AMPUTATE FACTOR 2024-10-31 05:33:01 0 F DIALYZER FLOW-QD 2024-10-31 05:33:01 800 mL/min F eKt/V 2024-10-31 05:33:01 F Unable to calculate: Post BUN lab result is unknown Total Kt/V 2024-10-31 05:33:01 F Unable to calculate: Post BUN lab result is unknown nPCR 2024-10-31 05:33:01 F Unable to calculate: Post BUN lab result is unknown Std Renal KT/V 2024-10-31 05:33:01 F Unable to calculate: Post BUN lab result is unknown VT (KT/V TX VOL) 2024-10-31 05:33:01 F Unable to calculate: Post BUN lab result is unknown BLOOD FLOW-QWB 2024-10-31 05:33:01 365 F Residual kt/v 2024-10-31 05:33:01 F Unable to calculate: Post BUN lab result is unknown WEIGHT - POST DAY 1 2024-10-31 05:33:01 158.7 kg F Dialyzer MORRIS 2024-10-31 05:33:01 1626 Calc F PRESCRIBED DAYS/WEEK 2024-10-31 05:33:01 3 Day/Wk F WEIGHT - PRE DAY 1 2024-10-31 05:33:01 163.4 kg F PATIENT AGE 2024-10-31 05:33:01 54 Years F VM (KT/V MEAN VOL) 2024-10-31 05:33:01 F Unable to calculate: Post BUN lab result is unknown TOTAL HOURS/WEEK DIALYSIS 2024-10-31 05:33:01 13 hrs F stdKt/V (DIAL) 2024-10-31 05:33:01 F Unable to calculate: Post BUN lab result is unknown URR% 2024-10-31 05:33:01 F Unable to calculate: Post BUN lab result is unknown HEIGHT IN INCHES 2024-10-31 05:33:01 70 Inches F TBW (Hui) 2024-10-31 05:33:01 F Unable to calculate: Post BUN lab result is unknown KT/V PRESCRIBED 2024-10-31 05:33:01 F Unable to calculate: Post BUN lab result is unknown CURRENT KRU 2024-10-31 05:33:01 F Unable to calculate: Post BUN lab result is unknown WEIGHT (KG) 2024-10-31 05:33:01 159 kg F BSA ANGEL 2024-10-31 05:33:01 F Unable to calculate: Post BUN lab result is unknown stdKT/V Total 2024-10-31 05:33:01 F Unable to calculate: Post BUN lab result is unknown spKt/V 2024-10-31 05:33:01 F Unable to calculate: Post BUN lab result is unknown LENGTH OF DIALYSIS 2024-10-31 05:33:01 270 min F Urea nitrogen [Mass/volume] in Serum or Plasma 2024-10-31 05:31:20 83 mg/dL F 9.0-23.0 Urea nitrogen [Mass/volume] in Serum or Plasma 2024-10-31 05:31:20 83 mg/dL F 9.0-23.0 Urea nitrogen [Mass/volume] in Serum or Plasma 2024-10-31 05:31:20 83 mg/dL F 9.0-23.0 URR% 2024-10-28 07:34:45 F Unable to calculate: Post BUN lab result is unknown,Unable to Calculate.,Unable to calculate: Post BUN lab result is unknown WEIGHT - POST DAY 1 2024-10-28 07:34:45 159.7 kg F VT (KT/V TX VOL) 2024-10-28 07:34:45 F Unable to calculate: Post BUN lab result is unknown,Unable to calculate: Post BUN lab result is unknown eKt/V 2024-10-28 07:34:45 F Unable to calculate: Post BUN lab result is unknown,Unable to calculate: Post BUN lab result is unknown LENGTH OF DIALYSIS 2024-10-28 07:34:45 270 min F PATIENT AGE 2024-10-28 07:34:45 54 Years F VM (KT/V MEAN VOL) 2024-10-28 07:34:45 F Unable to calculate: Post BUN lab result is unknown,Unable to calculate: Post BUN lab result is unknown Residual kt/v 2024-10-28 07:34:45 F Unable to calculate: Post BUN lab result is unknown,Unable to calculate: Post BUN lab result is unknown PRESCRIBED DAYS/WEEK 2024-10-28 07:34:45 3 Day/Wk F Dialyzer MORRIS 2024-10-28 07:34:45 1626 Calc F stdKt/V (DIAL) 2024-10-28 07:34:45 F Unable to calculate: Post BUN lab result is unknown,Unable to calculate: Post BUN lab result is unknown HEIGHT IN INCHES 2024-10-28 07:34:45 70 Inches F Std Renal KT/V 2024-10-28 07:34:45 F Unable to calculate: Post BUN lab result is unknown,Unable to calculate: Post BUN lab result is unknown TOTAL HOURS/WEEK DIALYSIS 2024-10-28 07:34:45 13 hrs F CURRENT KRU 2024-10-28 07:34:45 F Unable to calculate: Post BUN lab result is unknown,Unable to calculate: Post BUN lab result is unknown stdKT/V Total 2024-10-28 07:34:45 F Unable to calculate: Post BUN lab result is unknown,Unable to calculate: Post BUN lab result is unknown DIALYZER FLOW-QD 2024-10-28 07:34:45 525 mL/min F WEIGHT (KG) 2024-10-28 07:34:45 159 kg F AMPUTATE FACTOR 2024-10-28 07:34:45 0 F TBW (Hui) 2024-10-28 07:34:45 F Unable to calculate: Post BUN lab result is unknown,Unable to calculate: Post BUN lab result is unknown nPCR 2024-10-28 07:34:45 F Unable to calculate: Post BUN lab result is unknown,Unable to calculate: Post BUN lab result is unknown WEIGHT - PRE DAY 1 2024-10-28 07:34:45 163.9 kg F Total Kt/V 2024-10-28 07:34:45 F Unable to calculate: Post BUN lab result is unknown,Unable to calculate: Post BUN lab result is unknown BLOOD FLOW-QWB 2024-10-28 07:34:45 399 F KT/V PRESCRIBED 2024-10-28 07:34:45 F Unable to calculate: Post BUN lab result is unknown,Unable to calculate: Post BUN lab result is unknown spKt/V 2024-10-28 07:34:45 F Unable to calculate: Post BUN lab result is unknown,Unable to calculate: Post BUN lab result is unknown BSA ANGEL 2024-10-28 07:34:45 F Unable to calculate: Post BUN lab result is unknown,Unable to calculate: Post BUN lab result is unknown URR% 2024-10-28 07:34:45 F Unable to calculate: Post BUN lab result is unknown,Unable to Calculate. DIALYZER FLOW-QD 2024-10-28 07:34:45 525 mL/min F LENGTH OF DIALYSIS 2024-10-28 07:34:45 270 min F Dialyzer MORRIS 2024-10-28 07:34:45 1626 Calc F BSA ANGEL 2024-10-28 07:34:45 F Unable to calculate: Post BUN lab result is unknown PATIENT AGE 2024-10-28 07:34:45 54 Years F WEIGHT - POST DAY 1 2024-10-28 07:34:45 159.7 kg F WEIGHT (KG) 2024-10-28 07:34:45 159 kg F WEIGHT - PRE DAY 1 2024-10-28 07:34:45 163.9 kg F HEIGHT IN INCHES 2024-10-28 07:34:45 70 Inches F VT (KT/V TX VOL) 2024-10-28 07:34:45 F Unable to calculate: Post BUN lab result is unknown PRESCRIBED DAYS/WEEK 2024-10-28 07:34:45 3 Day/Wk F VM (KT/V MEAN VOL) 2024-10-28 07:34:45 F Unable to calculate: Post BUN lab result is unknown Residual kt/v 2024-10-28 07:34:45 F Unable to calculate: Post BUN lab result is unknown Total Kt/V 2024-10-28 07:34:45 F Unable to calculate: Post BUN lab result is unknown KT/V PRESCRIBED 2024-10-28 07:34:45 F Unable to calculate: Post BUN lab result is unknown AMPUTATE FACTOR 2024-10-28 07:34:45 0 F spKt/V 2024-10-28 07:34:45 F Unable to calculate: Post BUN lab result is unknown TBW (Hui) 2024-10-28 07:34:45 F Unable to calculate: Post BUN lab result is unknown nPCR 2024-10-28 07:34:45 F Unable to calculate: Post BUN lab result is unknown eKt/V 2024-10-28 07:34:45 F Unable to calculate: Post BUN lab result is unknown stdKt/V (DIAL) 2024-10-28 07:34:45 F Unable to calculate: Post BUN lab result is unknown Std Renal KT/V 2024-10-28 07:34:45 F Unable to calculate: Post BUN lab result is unknown stdKT/V Total 2024-10-28 07:34:45 F Unable to calculate: Post BUN lab result is unknown TOTAL HOURS/WEEK DIALYSIS 2024-10-28 07:34:45 13 hrs F BLOOD FLOW-QWB 2024-10-28 07:34:45 399 F CURRENT KRU 2024-10-28 07:34:45 F Unable to calculate: Post BUN lab result is unknown Urea nitrogen [Mass/volume] in Serum or Plasma --post dialysis 2024-10-28 07:21:41 F Canceled - Speci men not received 5 days past draw date,Canceled - Specimen not received 5 days past draw date Urea nitrogen [Mass/volume] in Serum or Plasma --post dialysis 2024-10-28 07:21:41 F Canceled - Speci men not received 5 days past draw date Urea nitrogen [Mass/volume] in Serum or Plasma 2024-10-23 13:26:11 96 mg/dL F 9.0-23.0 Urea nitrogen [Mass/volume] in Serum or Plasma 2024-10-23 13:26:11 96 mg/dL F 9.0-23.0 BSA ANGEL 2024-10-12 07:31:24 F Unable to calculate: Post BUN lab result is unknown,Unable to calculate: Post BUN lab result is unknown spKt/V 2024-10-12 07:31:24 F Unable to calculate: Post BUN lab result is unknown,Unable to calculate: Post BUN lab result is unknown eKt/V 2024-10-12 07:31:24 F Unable to calculate: Post BUN lab result is unknown,Unable to calculate: Post BUN lab result is unknown VT (KT/V TX VOL) 2024-10-12 07:31:24 F Unable to calculate: Post BUN lab result is unknown,Unable to calculate: Post BUN lab result is unknown Total Kt/V 2024-10-12 07:31:24 F Unable to calculate: Post BUN lab result is unknown,Unable to calculate: Post BUN lab result is unknown PRESCRIBED DAYS/WEEK 2024-10-12 07:31:24 3 Day/Wk F HEIGHT IN INCHES 2024-10-12 07:31:24 70 Inches F Std Renal KT/V 2024-10-12 07:31:24 F Unable to calculate: Post BUN lab result is unknown,Unable to calculate: Post BUN lab result is unknown Dialyzer MORRIS 2024-10-12 07:31:24 1626 Calc F TBW (Hui) 2024-10-12 07:31:24 F Unable to calculate: Post BUN lab result is unknown,Unable to calculate: Post BUN lab result is unknown WEIGHT - PRE DAY 1 2024-10-12 07:31:24 163.9 kg F TOTAL HOURS/WEEK DIALYSIS 2024-10-12 07:31:24 13 hrs F Residual kt/v 2024-10-12 07:31:24 F Unable to calculate: Post BUN lab result is unknown,Unable to calculate: Post BUN lab result is unknown WEIGHT - POST DAY 1 2024-10-12 07:31:24 159.8 kg F AMPUTATE FACTOR 2024-10-12 07:31:24 0 F URR% 2024-10-12 07:31:24 F Unable to calculate: Post BUN lab result is unknown,Unable to Calculate.,Unable to calculate: Post BUN lab result is unknown LENGTH OF DIALYSIS 2024-10-12 07:31:24 271 min F KT/V PRESCRIBED 2024-10-12 07:31:24 F Unable to calculate: Post BUN lab result is unknown,Unable to calculate: Post BUN lab result is unknown stdKT/V Total 2024-10-12 07:31:24 F Unable to calculate: Post BUN lab result is unknown,Unable to calculate: Post BUN lab result is unknown DIALYZER FLOW-QD 2024-10-12 07:31:24 800 mL/min F nPCR 2024-10-12 07:31:24 F Unable to calculate: Post BUN lab result is unknown,Unable to calculate: Post BUN lab result is unknown PATIENT AGE 2024-10-12 07:31:24 54 Years F stdKt/V (DIAL) 2024-10-12 07:31:24 F Unable to calculate: Post BUN lab result is unknown,Unable to calculate: Post BUN lab result is unknown VM (KT/V MEAN VOL) 2024-10-12 07:31:24 F Unable to calculate: Post BUN lab result is unknown,Unable to calculate: Post BUN lab result is unknown CURRENT KRU 2024-10-12 07:31:24 F Unable to calculate: Post BUN lab result is unknown,Unable to calculate: Post BUN lab result is unknown WEIGHT (KG) 2024-10-12 07:31:24 159 kg F BLOOD FLOW-QWB 2024-10-12 07:31:24 399 F eKt/V 2024-10-12 07:31:24 F Unable to calculate: Post BUN lab result is unknown KT/V PRESCRIBED 2024-10-12 07:31:24 F Unable to calculate: Post BUN lab result is unknown CURRENT KRU 2024-10-12 07:31:24 F Unable to calculate: Post BUN lab result is unknown PRESCRIBED DAYS/WEEK 2024-10-12 07:31:24 3 Day/Wk F Std Renal KT/V 2024-10-12 07:31:24 F Unable to calculate: Post BUN lab result is unknown WEIGHT (KG) 2024-10-12 07:31:24 159 kg F VT (KT/V TX VOL) 2024-10-12 07:31:24 F Unable to calculate: Post BUN lab result is unknown URR% 2024-10-12 07:31:24 F Unable to calculate: Post BUN lab result is unknown,Unable to Calculate. TBW (Hui) 2024-10-12 07:31:24 F Unable to calculate: Post BUN lab result is unknown VM (KT/V MEAN VOL) 2024-10-12 07:31:24 F Unable to calculate: Post BUN lab result is unknown stdKT/V Total 2024-10-12 07:31:24 F Unable to calculate: Post BUN lab result is unknown HEIGHT IN INCHES 2024-10-12 07:31:24 70 Inches F stdKt/V (DIAL) 2024-10-12 07:31:24 F Unable to calculate: Post BUN lab result is unknown WEIGHT - POST DAY 1 2024-10-12 07:31:24 159.8 kg F spKt/V 2024-10-12 07:31:24 F Unable to calculate: Post BUN lab result is unknown TOTAL HOURS/WEEK DIALYSIS 2024-10-12 07:31:24 13 hrs F Total Kt/V 2024-10-12 07:31:24 F Unable to calculate: Post BUN lab result is unknown LENGTH OF DIALYSIS 2024-10-12 07:31:24 271 min F Dialyzer MORRIS 2024-10-12 07:31:24 1626 Calc F AMPUTATE FACTOR 2024-10-12 07:31:24 0 F BSA ANGEL 2024-10-12 07:31:24 F Unable to calculate: Post BUN lab result is unknown WEIGHT - PRE DAY 1 2024-10-12 07:31:24 163.9 kg F Residual kt/v 2024-10-12 07:31:24 F Unable to calculate: Post BUN lab result is unknown nPCR 2024-10-12 07:31:24 F Unable to calculate: Post BUN lab result is unknown PATIENT AGE 2024-10-12 07:31:24 54 Years F DIALYZER FLOW-QD 2024-10-12 07:31:24 800 mL/min F BLOOD FLOW-QWB 2024-10-12 07:31:24 399 F Urea nitrogen [Mass/volume] in Serum or Plasma --post dialysis 2024-10-12 07:22:08 F Canceled - Speci men not received 5 days past draw date,Canceled - Specimen not received 5 days past draw date Urea nitrogen [Mass/volume] in Serum or Plasma --post dialysis 2024-10-12 07:22:08 F Canceled - Speci men not received 5 days past draw date DIALYZER FLOW-QD 2024-10-10 08:34:48 800 mL/min F BLOOD FLOW-QWB 2024-10-10 08:34:48 399 F TBW (Hui) 2024-10-10 08:34:48 70.07 Liters F VM (KT/V MEAN VOL) 2024-10-10 08:34:48 72.1 F VT (KT/V TX VOL) 2024-10-10 08:34:48 66.9 L F Dialyzer MORRIS 2024-10-10 08:34:48 1626 Calc F KT/V PRESCRIBED 2024-10-10 08:34:48 1.44 F Total Kt/V 2024-10-10 08:34:48 1.24 F stdKT/V Total 2024-10-10 08:34:48 N/A F nPCR 2024-10-10 08:34:48 1.12 G/KG/D F HEIGHT IN INCHES 2024-10-10 08:34:48 70 Inches F stdKt/V (DIAL) 2024-10-10 08:34:48 N/A F Std Renal KT/V 2024-10-10 08:34:48 N/A F Residual kt/v 2024-10-10 08:34:48 F Unable to calculate: Post BUN lab result is unknown WEIGHT - POST DAY 1 2024-10-10 08:34:48 160.2 kg F spKt/V 2024-10-10 08:34:48 1.24 F PATIENT AGE 2024-10-10 08:34:48 54 Years F TOTAL HOURS/WEEK DIALYSIS 2024-10-10 08:34:48 13 hrs F BSA ANGEL 2024-10-10 08:34:48 2.65 sq m F WEIGHT (KG) 2024-10-10 08:34:48 159 kg F WEIGHT - PRE DAY 1 2024-10-10 08:34:48 163.7 kg F eKt/V 2024-10-10 08:34:48 1.1 F LENGTH OF DIALYSIS 2024-10-10 08:34:48 271 min F PRESCRIBED DAYS/WEEK 2024-10-10 08:34:48 3 Day/Wk F CURRENT KRU 2024-10-10 08:34:48 F Unable to calculate: Post BUN lab result is unknown AMPUTATE FACTOR 2024-10-10 08:34:48 0 F URR% 2024-10-10 08:34:48 65 % F Urea nitrogen [Mass/volume] in Serum or Plasma 2024-10-07 14:31:20 67 mg/dL F 9.0-23.0 Urea nitrogen [Mass/volume] in Serum or Plasma 2024-10-07 14:31:20 67 mg/dL F 9.0-23.0 DIALYZER FLOW-QD 2024-10-07 14:20:59 800 mL/min F Std Renal KT/V 2024-10-07 14:20:59 N/A F WEIGHT (KG) 2024-10-07 14:20:59 159 kg F stdKT/V Total 2024-10-07 14:20:59 N/A F TBW (Hui) 2024-10-07 14:20:59 69.87 Liters F HEIGHT IN INCHES 2024-10-07 14:20:59 70 Inches F KT/V PRESCRIBED 2024-10-07 14:20:59 1.45 F PRESCRIBED DAYS/WEEK 2024-10-07 14:20:59 3 Day/Wk F VM (KT/V MEAN VOL) 2024-10-07 14:20:59 73.8 F stdKt/V (DIAL) 2024-10-07 14:20:59 N/A F URR% 2024-10-07 14:20:59 70 % F LENGTH OF DIALYSIS 2024-10-07 14:20:59 272 min F Total Kt/V 2024-10-07 14:20:59 1.51 F TOTAL HOURS/WEEK DIALYSIS 2024-10-07 14:20:59 13 hrs F spKt/V 2024-10-07 14:20:59 1.51 F WEIGHT - POST DAY 1 2024-10-07 14:20:59 159.6 kg F AMPUTATE FACTOR 2024-10-07 14:20:59 0 F Residual kt/v 2024-10-07 14:20:59 F Unable to calculate: Post BUN lab result is unknown BSA ANGEL 2024-10-07 14:20:59 2.65 sq m F BLOOD FLOW-QWB 2024-10-07 14:20:59 384 F WEIGHT - PRE DAY 1 2024-10-07 14:20:59 163.8 kg F CURRENT KRU 2024-10-07 14:20:59 F Unable to calculate: Post BUN lab result is unknown Dialyzer MORRIS 2024-10-07 14:20:59 1626 Calc F eKt/V 2024-10-07 14:20:59 1.32 F nPCR 2024-10-07 14:20:59 1.38 G/KG/D F PATIENT AGE 2024-10-07 14:20:59 54 Years F VT (KT/V TX VOL) 2024-10-07 14:20:59 53.7 L F nPCR 2024-10-07 14:20:59 1.38 G/KG/D F Dialyzer MORRIS 2024-10-07 14:20:59 1626 Calc F stdKt/V (DIAL) 2024-10-07 14:20:59 N/A F KT/V PRESCRIBED 2024-10-07 14:20:59 1.45 F DIALYZER FLOW-QD 2024-10-07 14:20:59 800 mL/min F Residual kt/v 2024-10-07 14:20:59 F Unable to calculate: Post BUN lab result is unknown WEIGHT - POST DAY 1 2024-10-07 14:20:59 159.6 kg F CURRENT KRU 2024-10-07 14:20:59 F Unable to calculate: Post BUN lab result is unknown Std Renal KT/V 2024-10-07 14:20:59 N/A F PATIENT AGE 2024-10-07 14:20:59 54 Years F LENGTH OF DIALYSIS 2024-10-07 14:20:59 272 min F HEIGHT IN INCHES 2024-10-07 14:20:59 70 Inches F BLOOD FLOW-QWB 2024-10-07 14:20:59 384 F WEIGHT (KG) 2024-10-07 14:20:59 159 kg F WEIGHT - PRE DAY 1 2024-10-07 14:20:59 163.8 kg F stdKT/V Total 2024-10-07 14:20:59 N/A F spKt/V 2024-10-07 14:20:59 1.51 F AMPUTATE FACTOR 2024-10-07 14:20:59 0 F VM (KT/V MEAN VOL) 2024-10-07 14:20:59 73.8 F VT (KT/V TX VOL) 2024-10-07 14:20:59 53.7 L F PRESCRIBED DAYS/WEEK 2024-10-07 14:20:59 3 Day/Wk F TOTAL HOURS/WEEK DIALYSIS 2024-10-07 14:20:59 13 hrs F TBW (Hui) 2024-10-07 14:20:59 69.87 Liters F Total Kt/V 2024-10-07 14:20:59 1.51 F URR% 2024-10-07 14:20:59 70 % F eKt/V 2024-10-07 14:20:59 1.32 F BSA ANGEL 2024-10-07 14:20:59 2.65 sq m F Urea nitrogen [Mass/volume] in Serum or Plasma --post dialysis 2024-10-07 14:19:11 19 mg/dL F 9.0-23.0 Urea nitrogen [Mass/volume] in Serum or Plasma --post dialysis 2024-10-07 14:19:11 19 mg/dL F 9.0-23.0 Urea nitrogen [Mass/volume] in Serum or Plasma 2024-10-04 19:33:18 64 mg/dL F 9.0-23.0 Urea nitrogen [Mass/volume] in Serum or Plasma 2024-10-04 19:33:18 64 mg/dL F 9.0-23.0 AMPUTATE FACTOR 2024-10-02 20:04:21 0 F BSA ANGEL 2024-10-02 20:04:21 2.65 sq m F PATIENT AGE 2024-10-02 20:04:21 54 Years F HEIGHT IN INCHES 2024-10-02 20:04:21 70 Inches F stdKt/V (DIAL) 2024-10-02 20:04:21 N/A F nPCR 2024-10-02 20:04:21 1.12 G/KG/D F CURRENT KRU 2024-10-02 20:04:21 F LENGTH OF DIALYSIS 2024-10-02 20:04:21 271 min F Std Renal KT/V 2024-10-02 20:04:21 N/A F TOTAL HOURS/WEEK DIALYSIS 2024-10-02 20:04:21 13 hrs F BLOOD FLOW-QWB 2024-10-02 20:04:21 399 F PRESCRIBED DAYS/WEEK 2024-10-02 20:04:21 3 Day/Wk F WEIGHT (KG) 2024-10-02 20:04:21 159 kg F stdKT/V Total 2024-10-02 20:04:21 N/A F Residual kt/v 2024-10-02 20:04:21 F Dialyzer MORRIS 2024-10-02 20:04:21 1626 Calc F WEIGHT - PRE DAY 1 2024-10-02 20:04:21 163.7 kg F eKt/V 2024-10-02 20:04:21 1.1 F TBW (Hui) 2024-10-02 20:04:21 70.07 Liters F URR% 2024-10-02 20:03:21 65 % F 65.0-100.0 Urea nitrogen [Mass/volume] in Serum or Plasma --post dialysis 2024-10-02 20:02:19 27 mg/dL F 9.0-23.0 Urea nitrogen [Mass/volume] in Serum or Plasma --post dialysis 2024-10-02 20:02:19 27 mg/dL F 9.0-23.0 VM (KT/V MEAN VOL) 2024-09-30 21:43:33 F Unable to calculate: Post BUN lab result is unknown Total Kt/V 2024-09-30 21:43:33 F Unable to calculate: Post BUN lab result is unknown KT/V PRESCRIBED 2024-09-30 21:43:33 F Unable to calculate: Post BUN lab result is unknown VT (KT/V TX VOL) 2024-09-30 21:43:33 F Unable to calculate: Post BUN lab result is unknown WEIGHT - POST DAY 1 2024-09-30 21:43:33 160.2 kg F DIALYZER FLOW-QD 2024-09-30 21:43:33 800 mL/min F spKt/V 2024-09-30 21:43:33 F Unable to calculate: Post BUN lab result is unknown Creatinine [Mass/volume] in Serum or Plasma 2024-09-30 21:41:19 11.29 mg/dL F 0.7-1.3 Urea nitrogen [Mass/volume] in Serum or Plasma 2024-09-30 21:41:19 78 mg/dL F 9.0-23.0 Creatinine [Mass/volume] in Serum or Plasma 2024-09-30 21:41:19 11.29 mg/dL F 0.7-1.3 Urea nitrogen [Mass/volume] in Serum or Plasma 2024-09-30 21:41:19 78 mg/dL F 9.0-23.0 WEIGHT - POST DAY 1 2024-09-30 20:50:41 159.5 kg F Dialyzer MORRIS 2024-09-30 20:50:41 1626 Calc F WEIGHT - PRE DAY 1 2024-09-30 20:50:41 162.9 kg F URR% 2024-09-30 20:50:41 60 % F stdKT/V Total 2024-09-30 20:50:41 N/A F Total Kt/V 2024-09-30 20:50:41 1.11 F spKt/V 2024-09-30 20:50:41 1.11 F stdKt/V (DIAL) 2024-09-30 20:50:41 N/A F PATIENT AGE 2024-09-30 20:50:41 54 Years F VT (KT/V TX VOL) 2024-09-30 20:50:41 71.7 L F VM (KT/V MEAN VOL) 2024-09-30 20:50:41 73.8 F Residual kt/v 2024-09-30 20:50:41 F Unable to calculate: Post BUN lab result is unknown BSA ANGEL 2024-09-30 20:50:41 2.65 sq m F DIALYZER FLOW-QD 2024-09-30 20:50:41 800 mL/min F BLOOD FLOW-QWB 2024-09-30 20:50:41 374 F KT/V PRESCRIBED 2024-09-30 20:50:41 1.44 F Std Renal KT/V 2024-09-30 20:50:41 N/A F AMPUTATE FACTOR 2024-09-30 20:50:41 0 F WEIGHT (KG) 2024-09-30 20:50:41 159 kg F TBW (Hui) 2024-09-30 20:50:41 69.84 Liters F HEIGHT IN INCHES 2024-09-30 20:50:41 70 Inches F CURRENT KRU 2024-09-30 20:50:41 F Unable to calculate: Post BUN lab result is unknown eKt/V 2024-09-30 20:50:41 0.99 F nPCR 2024-09-30 20:50:41 1.45 G/KG/D F LENGTH OF DIALYSIS 2024-09-30 20:50:41 271 min F PRESCRIBED DAYS/WEEK 2024-09-30 20:50:41 3 Day/Wk F TOTAL HOURS/WEEK DIALYSIS 2024-09-30 20:50:41 13 hrs F Std Renal KT/V 2024-09-30 20:50:41 N/A F HEIGHT IN INCHES 2024-09-30 20:50:41 70 Inches F WEIGHT - PRE DAY 1 2024-09-30 20:50:41 162.9 kg F KT/V PRESCRIBED 2024-09-30 20:50:41 1.44 F CURRENT KRU 2024-09-30 20:50:41 F Dialyzer MORRIS 2024-09-30 20:50:41 1626 Calc F stdKT/V Total 2024-09-30 20:50:41 N/A F eKt/V 2024-09-30 20:50:41 0.99 F URR% 2024-09-30 20:50:41 60 % F AMPUTATE FACTOR 2024-09-30 20:50:41 0 F stdKt/V (DIAL) 2024-09-30 20:50:41 N/A F WEIGHT - POST DAY 1 2024-09-30 20:50:41 159.5 kg F VM (KT/V MEAN VOL) 2024-09-30 20:50:41 73.8 F VT (KT/V TX VOL) 2024-09-30 20:50:41 71.7 L F LENGTH OF DIALYSIS 2024-09-30 20:50:41 271 min F Total Kt/V 2024-09-30 20:50:41 1.11 F spKt/V 2024-09-30 20:50:41 1.11 F WEIGHT (KG) 2024-09-30 20:50:41 159 kg F Residual kt/v 2024-09-30 20:50:41 F PATIENT AGE 2024-09-30 20:50:41 54 Years F BSA ANGEL 2024-09-30 20:50:41 2.65 sq m F TBW (Hui) 2024-09-30 20:50:41 69.84 Liters F TOTAL HOURS/WEEK DIALYSIS 2024-09-30 20:50:41 13 hrs F DIALYZER FLOW-QD 2024-09-30 20:50:41 800 mL/min F nPCR 2024-09-30 20:50:41 1.45 G/KG/D F PRESCRIBED DAYS/WEEK 2024-09-30 20:50:41 3 Day/Wk F BLOOD FLOW-QWB 2024-09-30 20:50:41 374 F Urea nitrogen [Mass/volume] in Serum or Plasma --post dialysis 2024-09-30 20:49:15 33 mg/dL F 9.0-23.0 Urea nitrogen [Mass/volume] in Serum or Plasma --post dialysis 2024-09-30 20:49:15 33 mg/dL F 9.0-23.0 Urea nitrogen [Mass/volume] in Serum or Plasma 2024-09-27 23:09:17 83 mg/dL F 9.0-23.0 Urea nitrogen [Mass/volume] in Serum or Plasma 2024-09-27 23:09:17 83 mg/dL F 9.0-23.0 TBW (Hui) 2024-09-26 02:47:16 70.48 Liters F WEIGHT - POST DAY 1 2024-09-26 02:47:16 161.4 kg F Total Kt/V 2024-09-26 02:47:16 0.84 F stdKT/V Total 2024-09-26 02:47:16 N/A F eKt/V 2024-09-26 02:47:16 0.75 F Dialyzer MORRIS 2024-09-26 02:47:16 1626 Calc F URR% 2024-09-26 02:47:16 52 % F Residual kt/v 2024-09-26 02:47:16 F Unable to calculate: Post BUN lab result is unknown KT/V PRESCRIBED 2024-09-26 02:47:16 1.31 F PRESCRIBED DAYS/WEEK 2024-09-26 02:47:16 3 Day/Wk F VT (KT/V TX VOL) 2024-09-26 02:47:16 87.3 L F PATIENT AGE 2024-09-26 02:47:16 54 Years F WEIGHT - PRE DAY 1 2024-09-26 02:47:16 164.9 kg F DIALYZER FLOW-QD 2024-09-26 02:47:16 800 mL/min F spKt/V 2024-09-26 02:47:16 0.84 F VM (KT/V MEAN VOL) 2024-09-26 02:47:16 74.5 F TOTAL HOURS/WEEK DIALYSIS 2024-09-26 02:47:16 12 hrs F BLOOD FLOW-QWB 2024-09-26 02:47:16 381 F CURRENT KRU 2024-09-26 02:47:16 F Unable to calculate: Post BUN lab result is unknown AMPUTATE FACTOR 2024-09-26 02:47:16 0 F nPCR 2024-09-26 02:47:16 1.08 G/KG/D F WEIGHT (KG) 2024-09-26 02:47:16 159 kg F Std Renal KT/V 2024-09-26 02:47:16 N/A F LENGTH OF DIALYSIS 2024-09-26 02:47:16 246 min F HEIGHT IN INCHES 2024-09-26 02:47:16 70 Inches F BSA ANGEL 2024-09-26 02:47:16 2.65 sq m F stdKt/V (DIAL) 2024-09-26 02:47:16 N/A F WEIGHT - POST DAY 1 2024-09-26 02:47:16 161.4 kg F VM (KT/V MEAN VOL) 2024-09-26 02:47:16 74.5 F Dialyzer MORRIS 2024-09-26 02:47:16 1626 Calc F TOTAL HOURS/WEEK DIALYSIS 2024-09-26 02:47:16 12 hrs F nPCR 2024-09-26 02:47:16 1.08 G/KG/D F BLOOD FLOW-QWB 2024-09-26 02:47:16 381 F DIALYZER FLOW-QD 2024-09-26 02:47:16 800 mL/min F TBW (Hui) 2024-09-26 02:47:16 70.48 Liters F stdKT/V Total 2024-09-26 02:47:16 N/A F Total Kt/V 2024-09-26 02:47:16 0.84 F LENGTH OF DIALYSIS 2024-09-26 02:47:16 246 min F AMPUTATE FACTOR 2024-09-26 02:47:16 0 F Std Renal KT/V 2024-09-26 02:47:16 N/A F CURRENT KRU 2024-09-26 02:47:16 F URR% 2024-09-26 02:47:16 52 % F Residual kt/v 2024-09-26 02:47:16 F WEIGHT (KG) 2024-09-26 02:47:16 159 kg F eKt/V 2024-09-26 02:47:16 0.75 F spKt/V 2024-09-26 02:47:16 0.84 F VT (KT/V TX VOL) 2024-09-26 02:47:16 87.3 L F KT/V PRESCRIBED 2024-09-26 02:47:16 1.31 F PRESCRIBED DAYS/WEEK 2024-09-26 02:47:16 3 Day/Wk F WEIGHT - PRE DAY 1 2024-09-26 02:47:16 164.9 kg F PATIENT AGE 2024-09-26 02:47:16 54 Years F BSA ANGEL 2024-09-26 02:47:16 2.65 sq m F HEIGHT IN INCHES 2024-09-26 02:47:16 70 Inches F stdKt/V (DIAL) 2024-09-26 02:47:16 N/A F Urea nitrogen [Mass/volume] in Serum or Plasma --post dialysis 2024-09-26 02:45:13 46 mg/dL F 9.0-23.0 Urea nitrogen [Mass/volume] in Serum or Plasma --post dialysis 2024-09-26 02:45:13 46 mg/dL F 9.0-23.0 Urea nitrogen [Mass/volume] in Serum or Plasma 2024-09-23 23:32:18 95 mg/dL F 9.0-23.0 Urea nitrogen [Mass/volume] in Serum or Plasma 2024-09-23 23:32:18 95 mg/dL F 9.0-23.0 DIALYZER FLOW-QD 2024-09-04 14:34:57 800 mL/min F VM (KT/V MEAN VOL) 2024-09-04 14:34:57 70.3 F PATIENT AGE 2024-09-04 14:34:57 53 Years F KT/V PRESCRIBED 2024-09-04 14:34:57 1.43 F Total Kt/V 2024-09-04 14:34:57 1.27 F URR% 2024-09-04 14:34:57 66 % F WEIGHT - POST DAY 1 2024-09-04 14:34:57 159.3 kg F CURRENT KRU 2024-09-04 14:34:57 F Unable to calculate: Post BUN lab result is unknown spKt/V 2024-09-04 14:34:57 1.27 F BSA ANGEL 2024-09-04 14:34:57 2.66 sq m F LENGTH OF DIALYSIS 2024-09-04 14:34:57 271 min F BLOOD FLOW-QWB 2024-09-04 14:34:57 390 F VT (KT/V TX VOL) 2024-09-04 14:34:57 64.7 L F AMPUTATE FACTOR 2024-09-04 14:34:57 0 F Std Renal KT/V 2024-09-04 14:34:57 N/A F nPCR 2024-09-04 14:34:57 1.06 G/KG/D F Residual kt/v 2024-09-04 14:34:57 F Unable to calculate: Post BUN lab result is unknown stdKt/V (DIAL) 2024-09-04 14:34:57 N/A F HEIGHT IN INCHES 2024-09-04 14:34:57 70 Inches F WEIGHT (KG) 2024-09-04 14:34:57 160 kg F stdKT/V Total 2024-09-04 14:34:57 N/A F Dialyzer MORRIS 2024-09-04 14:34:57 1626 Calc F PRESCRIBED DAYS/WEEK 2024-09-04 14:34:57 3 Day/Wk F TBW ([facility]) 2024-09-04 14:34:57 69.87 Liters F eKt/V 2024-09-04 14:34:57 1.11 F TOTAL HOURS/WEEK DIALYSIS 2024-09-04 14:34:57 13 hrs F WEIGHT - PRE DAY 1 2024-09-04 14:34:57 163.3 kg F WEIGHT (KG) 2024-09-04 14:34:57 160 kg F Dialyzer MORRIS 2024-09-04 14:34:57 1626 Calc F HEIGHT IN INCHES 2024-09-04 14:34:57 70 Inches F PRESCRIBED DAYS/WEEK 2024-09-04 14:34:57 3 Day/Wk F WEIGHT - PRE DAY 1 2024-09-04 14:34:57 163.3 kg F Residual kt/v 2024-09-04 14:34:57 F eKt/V 2024-09-04 14:34:57 1.11 F TBW (Hui) 2024-09-04 14:34:57 69.87 Liters F stdKt/V (DIAL) 2024-09-04 14:34:57 N/A F stdKT/V Total 2024-09-04 14:34:57 N/A F TOTAL HOURS/WEEK DIALYSIS 2024-09-04 14:34:57 13 hrs F LENGTH OF DIALYSIS 2024-09-04 14:34:57 271 min F URR% 2024-09-04 14:34:57 66 % F DIALYZER FLOW-QD 2024-09-04 14:34:57 800 mL/min F BSA ANGEL 2024-09-04 14:34:57 2.66 sq m F WEIGHT - POST DAY 1 2024-09-04 14:34:57 159.3 kg F PATIENT AGE 2024-09-04 14:34:57 53 Years F VT (KT/V TX VOL) 2024-09-04 14:34:57 64.7 L F KT/V PRESCRIBED 2024-09-04 14:34:57 1.43 F VM (KT/V MEAN VOL) 2024-09-04 14:34:57 70.3 F Total Kt/V 2024-09-04 14:34:57 1.27 F spKt/V 2024-09-04 14:34:57 1.27 F AMPUTATE FACTOR 2024-09-04 14:34:57 0 F nPCR 2024-09-04 14:34:57 1.06 G/KG/D F Std Renal KT/V 2024-09-04 14:34:57 N/A F CURRENT KRU 2024-09-04 14:34:57 F BLOOD FLOW-QWB 2024-09-04 14:34:57 390 F Urea nitrogen [Mass/volume] in Serum or Plasma --post dialysis 2024-09-04 14:33:15 26 mg/dL F 9.0-23.0 Urea nitrogen [Mass/volume] in Serum or Plasma --post dialysis 2024-09-04 14:33:15 26 mg/dL F 9.0-23.0 Urea nitrogen [Mass/volume] in Serum or Plasma 2024-09-02 16:50:18 76 mg/dL F 9.0-23.0 Urea nitrogen [Mass/volume] in Serum or Plasma 2024-09-02 16:50:18 76 mg/dL F 9.0-23.0 VT (KT/V TX VOL) 2024-08-31 01:05:43 71.1 L F TOTAL HOURS/WEEK DIALYSIS 2024-08-31 01:05:43 13 hrs F WEIGHT (KG) 2024-08-31 01:05:43 161 kg F eKt/V 2024-08-31 01:05:43 1.03 F TBW (Hui) 2024-08-31 01:05:43 69.87 Liters F Total Kt/V 2024-08-31 01:05:43 1.16 F stdKT/V Total 2024-08-31 01:05:43 N/A F Std Renal KT/V 2024-08-31 01:05:43 N/A F KT/V PRESCRIBED 2024-08-31 01:05:43 1.42 F stdKt/V (DIAL) 2024-08-31 01:05:43 N/A F Dialyzer MORRIS 2024-08-31 01:05:43 1626 Calc F BLOOD FLOW-QWB 2024-08-31 01:05:43 399 F nPCR 2024-08-31 01:05:43 1.33 G/KG/D F DIALYZER FLOW-QD 2024-08-31 01:05:43 800 mL/min F AMPUTATE FACTOR 2024-08-31 01:05:43 0 F Residual kt/v 2024-08-31 01:05:43 F BSA ANGEL 2024-08-31 01:05:43 2.66 sq m F VM (KT/V MEAN VOL) 2024-08-31 01:05:43 72.2 F LENGTH OF DIALYSIS 2024-08-31 01:05:43 270 min F WEIGHT - POST DAY 1 2024-08-31 01:05:43 159.3 kg F WEIGHT - PRE DAY 1 2024-08-31 01:05:43 161.9 kg F spKt/V 2024-08-31 01:05:43 1.16 F PATIENT AGE 2024-08-31 01:05:43 53 Years F CURRENT KRU 2024-08-31 01:05:43 F PRESCRIBED DAYS/WEEK 2024-08-31 01:05:43 3 Day/Wk F HEIGHT IN INCHES 2024-08-31 01:05:43 70 Inches F DIALYZER FLOW-QD 2024-08-31 01:05:43 800 mL/min F LENGTH OF DIALYSIS 2024-08-31 01:05:43 270 min F PATIENT AGE 2024-08-31 01:05:43 53 Years F BSA ANGEL 2024-08-31 01:05:43 2.66 sq m F HEIGHT IN INCHES 2024-08-31 01:05:43 70 Inches F WEIGHT - POST DAY 1 2024-08-31 01:05:43 159.3 kg F PRESCRIBED DAYS/WEEK 2024-08-31 01:05:43 3 Day/Wk F WEIGHT - PRE DAY 1 2024-08-31 01:05:43 161.9 kg F VM (KT/V MEAN VOL) 2024-08-31 01:05:43 72.2 F Residual kt/v 2024-08-31 01:05:43 F nPCR 2024-08-31 01:05:43 1.33 G/KG/D F spKt/V 2024-08-31 01:05:43 1.16 F AMPUTATE FACTOR 2024-08-31 01:05:43 0 F CURRENT KRU 2024-08-31 01:05:43 F Dialyzer MORRIS 2024-08-31 01:05:43 1626 Calc F WEIGHT (KG) 2024-08-31 01:05:43 161 kg F VT (KT/V TX VOL) 2024-08-31 01:05:43 71.1 L F KT/V PRESCRIBED 2024-08-31 01:05:43 1.42 F Total Kt/V 2024-08-31 01:05:43 1.16 F TBW (Hui) 2024-08-31 01:05:43 69.87 Liters F eKt/V 2024-08-31 01:05:43 1.03 F stdKt/V (DIAL) 2024-08-31 01:05:43 N/A F Std Renal KT/V 2024-08-31 01:05:43 N/A F TOTAL HOURS/WEEK DIALYSIS 2024-08-31 01:05:43 13 hrs F stdKT/V Total 2024-08-31 01:05:43 N/A F BLOOD FLOW-QWB 2024-08-31 01:05:43 399 F DIALYZER FLOW-QD 2024-08-31 01:05:43 800 mL/min F VM (KT/V MEAN VOL) 2024-08-31 01:05:43 72.2 F AMPUTATE FACTOR 2024-08-31 01:05:43 0 F eKt/V 2024-08-31 01:05:43 1.03 F BSA ANGEL 2024-08-31 01:05:43 2.66 sq m F Residual kt/v 2024-08-31 01:05:43 F WEIGHT (KG) 2024-08-31 01:05:43 161 kg F TOTAL HOURS/WEEK DIALYSIS 2024-08-31 01:05:43 13 hrs F VT (KT/V TX VOL) 2024-08-31 01:05:43 71.1 L F Total Kt/V 2024-08-31 01:05:43 1.16 F LENGTH OF DIALYSIS 2024-08-31 01:05:43 270 min F TBW (Hui) 2024-08-31 01:05:43 69.87 Liters F Dialyzer MORRIS 2024-08-31 01:05:43 1626 Calc F stdKT/V Total 2024-08-31 01:05:43 N/A F nPCR 2024-08-31 01:05:43 1.33 G/KG/D F PRESCRIBED DAYS/WEEK 2024-08-31 01:05:43 3 Day/Wk F Std Renal KT/V 2024-08-31 01:05:43 N/A F PATIENT AGE 2024-08-31 01:05:43 53 Years F WEIGHT - POST DAY 1 2024-08-31 01:05:43 159.3 kg F KT/V PRESCRIBED 2024-08-31 01:05:43 1.42 F WEIGHT - PRE DAY 1 2024-08-31 01:05:43 161.9 kg F HEIGHT IN INCHES 2024-08-31 01:05:43 70 Inches F CURRENT KRU 2024-08-31 01:05:43 F spKt/V 2024-08-31 01:05:43 1.16 F stdKt/V (DIAL) 2024-08-31 01:05:43 N/A F BLOOD FLOW-QWB 2024-08-31 01:05:43 399 F URR% 2024-08-31 01:05:42 63 % F URR% 2024-08-31 01:05:42 63 % F URR% 2024-08-31 01:05:42 63 % F Urea nitrogen [Mass/volume] in Serum or Plasma --post dialysis 2024-08-31 00:36:17 27 mg/dL F 9.0-23.0 Urea nitrogen [Mass/volume] in Serum or Plasma --post dialysis 2024-08-31 00:36:17 27 mg/dL F 9.0-23.0 Urea nitrogen [Mass/volume] in Serum or Plasma --post dialysis 2024-08-31 00:36:17 27 mg/dL F 9.0-23.0 Urea nitrogen [Mass/volume] in Serum or Plasma 2024-08-31 00:35:28 72 mg/dL F 9.0-23.0 Urea nitrogen [Mass/volume] in Serum or Plasma 2024-08-31 00:35:28 72 mg/dL F 9.0-23.0 Urea nitrogen [Mass/volume] in Serum or Plasma 2024-08-31 00:35:28 72 mg/dL F 9.0-23.0 PRESCRIBED DAYS/WEEK 2024-08-28 16:40:31 3 Day/Wk F BLOOD FLOW-QWB 2024-08-28 16:40:31 381 F AMPUTATE FACTOR 2024-08-28 16:40:31 0 F Total Kt/V 2024-08-28 16:40:31 1.06 F Std Renal KT/V 2024-08-28 16:40:31 N/A F HEIGHT IN INCHES 2024-08-28 16:40:31 70 Inches F TBW (Hui) 2024-08-28 16:40:31 70.3 Liters F LENGTH OF DIALYSIS 2024-08-28 16:40:31 272 min F CURRENT KRU 2024-08-28 16:40:31 F eKt/V 2024-08-28 16:40:31 0.94 F Residual kt/v 2024-08-28 16:40:31 F KT/V PRESCRIBED 2024-08-28 16:40:31 1.43 F WEIGHT - POST DAY 1 2024-08-28 16:40:31 160.6 kg F PATIENT AGE 2024-08-28 16:40:31 53 Years F URR% 2024-08-28 16:40:31 61 % F Dialyzer MORRIS 2024-08-28 16:40:31 1626 Calc F WEIGHT - PRE DAY 1 2024-08-28 16:40:31 162 kg F stdKt/V (DIAL) 2024-08-28 16:40:31 N/A F DIALYZER FLOW-QD 2024-08-28 16:40:31 800 mL/min F WEIGHT (KG) 2024-08-28 16:40:31 161 kg F TOTAL HOURS/WEEK DIALYSIS 2024-08-28 16:40:31 13 hrs F nPCR 2024-08-28 16:40:31 0.96 G/KG/D F stdKT/V Total 2024-08-28 16:40:31 N/A F BSA ANGEL 2024-08-28 16:40:31 2.66 sq m F VM (KT/V MEAN VOL) 2024-08-28 16:40:31 72.5 F VT (KT/V TX VOL) 2024-08-28 16:40:31 76.2 L F spKt/V 2024-08-28 16:40:31 1.06 F DIALYZER FLOW-QD 2024-08-28 16:40:31 800 mL/min F BSA ANGEL 2024-08-28 16:40:31 2.66 sq m F WEIGHT (KG) 2024-08-28 16:40:31 161 kg F VT (KT/V TX VOL) 2024-08-28 16:40:31 76.2 L F stdKT/V Total 2024-08-28 16:40:31 N/A F VM (KT/V MEAN VOL) 2024-08-28 16:40:31 72.5 F nPCR 2024-08-28 16:40:31 0.96 G/KG/D F spKt/V 2024-08-28 16:40:31 1.06 F TOTAL HOURS/WEEK DIALYSIS 2024-08-28 16:40:31 13 hrs F Dialyzer MORRIS 2024-08-28 16:40:31 1626 Calc F LENGTH OF DIALYSIS 2024-08-28 16:40:31 272 min F PATIENT AGE 2024-08-28 16:40:31 53 Years F URR% 2024-08-28 16:40:31 61 % F WEIGHT - POST DAY 1 2024-08-28 16:40:31 160.6 kg F WEIGHT - PRE DAY 1 2024-08-28 16:40:31 162 kg F HEIGHT IN INCHES 2024-08-28 16:40:31 70 Inches F Total Kt/V 2024-08-28 16:40:31 1.06 F PRESCRIBED DAYS/WEEK 2024-08-28 16:40:31 3 Day/Wk F KT/V PRESCRIBED 2024-08-28 16:40:31 1.43 F Residual kt/v 2024-08-28 16:40:31 F AMPUTATE FACTOR 2024-08-28 16:40:31 0 F eKt/V 2024-08-28 16:40:31 0.94 F TBW (Hui) 2024-08-28 16:40:31 70.3 Liters F stdKt/V (DIAL) 2024-08-28 16:40:31 N/A F BLOOD FLOW-QWB 2024-08-28 16:40:31 381 F Std Renal KT/V 2024-08-28 16:40:31 N/A F CURRENT KRU 2024-08-28 16:40:31 F Std Renal KT/V 2024-08-28 16:40:31 N/A F BSA ANGEL 2024-08-28 16:40:31 2.66 sq m F DIALYZER FLOW-QD 2024-08-28 16:40:31 800 mL/min F LENGTH OF DIALYSIS 2024-08-28 16:40:31 272 min F nPCR 2024-08-28 16:40:31 0.96 G/KG/D F WEIGHT (KG) 2024-08-28 16:40:31 161 kg F AMPUTATE FACTOR 2024-08-28 16:40:31 0 F TBW (Hui) 2024-08-28 16:40:31 70.3 Liters F stdKT/V Total 2024-08-28 16:40:31 N/A F TOTAL HOURS/WEEK DIALYSIS 2024-08-28 16:40:31 13 hrs F CURRENT KRU 2024-08-28 16:40:31 F Total Kt/V 2024-08-28 16:40:31 1.06 F HEIGHT IN INCHES 2024-08-28 16:40:31 70 Inches F BLOOD FLOW-QWB 2024-08-28 16:40:31 381 F PRESCRIBED DAYS/WEEK 2024-08-28 16:40:31 3 Day/Wk F PATIENT AGE 2024-08-28 16:40:31 53 Years F WEIGHT - PRE DAY 1 2024-08-28 16:40:31 162 kg F WEIGHT - POST DAY 1 2024-08-28 16:40:31 160.6 kg F URR% 2024-08-28 16:40:31 61 % F stdKt/V (DIAL) 2024-08-28 16:40:31 N/A F VM (KT/V MEAN VOL) 2024-08-28 16:40:31 72.5 F Dialyzer MORRIS 2024-08-28 16:40:31 1626 Calc F spKt/V 2024-08-28 16:40:31 1.06 F VT (KT/V TX VOL) 2024-08-28 16:40:31 76.2 L F Residual kt/v 2024-08-28 16:40:31 F eKt/V 2024-08-28 16:40:31 0.94 F KT/V PRESCRIBED 2024-08-28 16:40:31 1.43 F Urea nitrogen [Mass/volume] in Serum or Plasma 2024-08-28 16:34:18 61 mg/dL F 9.0-23.0 Urea nitrogen [Mass/volume] in Serum or Plasma 2024-08-28 16:34:18 61 mg/dL F 9.0-23.0 Urea nitrogen [Mass/volume] in Serum or Plasma 2024-08-28 16:34:18 61 mg/dL F 9.0-23.0 Urea nitrogen [Mass/volume] in Serum or Plasma --post dialysis 2024-08-28 16:31:18 24 mg/dL F 9.0-23.0 Urea nitrogen [Mass/volume] in Serum or Plasma --post dialysis 2024-08-28 16:31:18 24 mg/dL F 9.0-23.0 Urea nitrogen [Mass/volume] in Serum or Plasma --post dialysis 2024-08-28 16:31:18 24 mg/dL F 9.0-23.0 TOTAL HOURS/WEEK DIALYSIS 2024-08-24 15:20:57 13 hrs F Dialyzer MORRIS 2024-08-24 15:20:57 1626 Calc F PRESCRIBED DAYS/WEEK 2024-08-24 15:20:57 3 Day/Wk F HEIGHT IN INCHES 2024-08-24 15:20:57 70 Inches F Total Kt/V 2024-08-24 15:20:57 1.16 F WEIGHT - POST DAY 1 2024-08-24 15:20:57 157 kg F stdKt/V (DIAL) 2024-08-24 15:20:57 N/A F spKt/V 2024-08-24 15:20:57 1.16 F WEIGHT - PRE DAY 1 2024-08-24 15:20:57 159.7 kg F BSA ANGEL 2024-08-24 15:20:57 2.67 sq m F VT (KT/V TX VOL) 2024-08-24 15:20:57 70.5 L F BLOOD FLOW-QWB 2024-08-24 15:20:57 390 F stdKT/V Total 2024-08-24 15:20:57 N/A F CURRENT KRU 2024-08-24 15:20:57 F LENGTH OF DIALYSIS 2024-08-24 15:20:57 271 min F TBW (Hui) 2024-08-24 15:20:57 69.09 Liters F WEIGHT (KG) 2024-08-24 15:20:57 162 kg F PATIENT AGE 2024-08-24 15:20:57 53 Years F URR% 2024-08-24 15:20:57 62 % F AMPUTATE FACTOR 2024-08-24 15:20:57 0 F nPCR 2024-08-24 15:20:57 1.28 G/KG/D F Residual kt/v 2024-08-24 15:20:57 F VM (KT/V MEAN VOL) 2024-08-24 15:20:57 71.3 F eKt/V 2024-08-24 15:20:57 1.03 F Std Renal KT/V 2024-08-24 15:20:57 N/A F DIALYZER FLOW-QD 2024-08-24 15:20:57 800 mL/min F KT/V PRESCRIBED 2024-08-24 15:20:57 1.42 F BSA ANGEL 2024-08-24 15:20:57 2.67 sq m F WEIGHT - PRE DAY 1 2024-08-24 15:20:57 159.7 kg F AMPUTATE FACTOR 2024-08-24 15:20:57 0 F BLOOD FLOW-QWB 2024-08-24 15:20:57 390 F DIALYZER FLOW-QD 2024-08-24 15:20:57 800 mL/min F WEIGHT - POST DAY 1 2024-08-24 15:20:57 157 kg F URR% 2024-08-24 15:20:57 62 % F CURRENT KRU 2024-08-24 15:20:57 F PRESCRIBED DAYS/WEEK 2024-08-24 15:20:57 3 Day/Wk F LENGTH OF DIALYSIS 2024-08-24 15:20:57 271 min F nPCR 2024-08-24 15:20:57 1.28 G/KG/D F VM (KT/V MEAN VOL) 2024-08-24 15:20:57 71.3 F spKt/V 2024-08-24 15:20:57 1.16 F stdKT/V Total 2024-08-24 15:20:57 N/A F HEIGHT IN INCHES 2024-08-24 15:20:57 70 Inches F PATIENT AGE 2024-08-24 15:20:57 53 Years F Total Kt/V 2024-08-24 15:20:57 1.16 F Residual kt/v 2024-08-24 15:20:57 F stdKt/V (DIAL) 2024-08-24 15:20:57 N/A F Dialyzer MORRIS 2024-08-24 15:20:57 1626 Calc F WEIGHT (KG) 2024-08-24 15:20:57 162 kg F TBW (Hui) 2024-08-24 15:20:57 69.09 Liters F TOTAL HOURS/WEEK DIALYSIS 2024-08-24 15:20:57 13 hrs F KT/V PRESCRIBED 2024-08-24 15:20:57 1.42 F Std Renal KT/V 2024-08-24 15:20:57 N/A F eKt/V 2024-08-24 15:20:57 1.03 F VT (KT/V TX VOL) 2024-08-24 15:20:57 70.5 L F Urea nitrogen [Mass/volume] in Serum or Plasma 2024-08-24 15:18:15 63 mg/dL F 9.0-23.0 Creatinine [Mass/volume] in Serum or Plasma 2024-08-24 15:18:15 9.11 mg/dL F 0.7-1.3 Urea nitrogen [Mass/volume] in Serum or Plasma 2024-08-24 15:18:15 63 mg/dL F 9.0-23.0 Creatinine [Mass/volume] in Serum or Plasma 2024-08-24 15:18:15 9.11 mg/dL F 0.7-1.3 Urea nitrogen [Mass/volume] in Serum or Plasma --post dialysis 2024-08-23 23:14:23 24 mg/dL F 9.0-23.0 Urea nitrogen [Mass/volume] in Serum or Plasma --post dialysis 2024-08-23 23:14:23 24 mg/dL F 9.0-23.0 Creatinine [Mass/volume] in Serum or Plasma 2024-08-19 04:59:59 10.69 mg/dL F 0.7-1.3 Creatinine [Mass/volume] in Serum or Plasma 2024-08-19 04:59:59 10.69 mg/dL F 0.7-1.3 CURRENT KRU 2024-07-31 17:43:01 F Std Renal KT/V 2024-07-31 17:43:01 N/A F PRESCRIBED DAYS/WEEK 2024-07-31 17:43:01 3 Day/Wk F BLOOD FLOW-QWB 2024-07-31 17:43:01 399 F stdKT/V Total 2024-07-31 17:43:01 N/A F Dialyzer MORRIS 2024-07-31 17:43:01 1626 Calc F eKt/V 2024-07-31 17:43:01 1.08 F KT/V PRESCRIBED 2024-07-31 17:43:01 1.33 F VT (KT/V TX VOL) 2024-07-31 17:43:01 67.8 L F LENGTH OF DIALYSIS 2024-07-31 17:43:01 270 min F nPCR 2024-07-31 17:43:01 1.1 G/KG/D F BSA ANGEL 2024-07-31 17:43:01 2.76 sq m F HEIGHT IN INCHES 2024-07-31 17:43:01 70 Inches F TBW (Hui) 2024-07-31 17:43:01 73.9 Liters F TOTAL HOURS/WEEK DIALYSIS 2024-07-31 17:43:01 10 hrs F AMPUTATE FACTOR 2024-07-31 17:43:01 0 F PATIENT AGE 2024-07-31 17:43:01 53 Years F Residual kt/v 2024-07-31 17:43:01 F WEIGHT - POST DAY 1 2024-07-31 17:43:01 171.3 kg F DIALYZER FLOW-QD 2024-07-31 17:43:01 800 mL/min F WEIGHT (KG) 2024-07-31 17:43:01 175 kg F spKt/V 2024-07-31 17:43:01 1.22 F Total Kt/V 2024-07-31 17:43:01 1.22 F stdKt/V (DIAL) 2024-07-31 17:43:01 N/A F VM (KT/V MEAN VOL) 2024-07-31 17:43:01 71.6 F URR% 2024-07-31 17:43:01 63 % F WEIGHT - PRE DAY 1 2024-07-31 17:43:01 177.7 kg F Urea nitrogen [Mass/volume] in Serum or Plasma --post dialysis 2024-07-31 17:27:15 28 mg/dL F 9.0-23.0 Urea nitrogen [Mass/volume] in Serum or Plasma 2024-07-29 16:51:24 75 mg/dL F 9.0-23.0 URR% 2024-07-29 16:44:17 62 % F WEIGHT - PRE DAY 1 2024-07-29 16:44:17 177.2 kg F BLOOD FLOW-QWB 2024-07-29 16:44:17 390 F nPCR 2024-07-29 16:44:17 1.21 G/KG/D F Std Renal KT/V 2024-07-29 16:44:17 N/A F WEIGHT - POST DAY 1 2024-07-29 16:44:17 174.8 kg F LENGTH OF DIALYSIS 2024-07-29 16:44:17 270 min F HEIGHT IN INCHES 2024-07-29 16:44:17 70 Inches F spKt/V 2024-07-29 16:44:17 1.13 F AMPUTATE FACTOR 2024-07-29 16:44:17 0 F KT/V PRESCRIBED 2024-07-29 16:44:17 1.33 F TOTAL HOURS/WEEK DIALYSIS 2024-07-29 16:44:17 10 hrs F DIALYZER FLOW-QD 2024-07-29 16:44:17 800 mL/min F WEIGHT (KG) 2024-07-29 16:44:17 175 kg F Total Kt/V 2024-07-29 16:44:17 1.13 F Dialyzer MORRIS 2024-07-29 16:44:17 1626 Calc F PRESCRIBED DAYS/WEEK 2024-07-29 16:44:17 3 Day/Wk F Residual kt/v 2024-07-29 16:44:17 F stdKT/V Total 2024-07-29 16:44:17 N/A F VT (KT/V TX VOL) 2024-07-29 16:44:17 72.1 L F eKt/V 2024-07-29 16:44:17 1 F stdKt/V (DIAL) 2024-07-29 16:44:17 N/A F TBW (Hui) 2024-07-29 16:44:17 75.08 Liters F PATIENT AGE 2024-07-29 16:44:17 53 Years F CURRENT KRU 2024-07-29 16:44:17 F BSA ANGEL 2024-07-29 16:44:17 2.76 sq m F VM (KT/V MEAN VOL) 2024-07-29 16:44:17 72.9 F LENGTH OF DIALYSIS 2024-07-29 16:44:17 270 min F HEIGHT IN INCHES 2024-07-29 16:44:17 70 Inches F Residual kt/v 2024-07-29 16:44:17 F WEIGHT (KG) 2024-07-29 16:44:17 175 kg F KT/V PRESCRIBED 2024-07-29 16:44:17 1.33 F nPCR 2024-07-29 16:44:17 1.21 G/KG/D F stdKT/V Total 2024-07-29 16:44:17 N/A F spKt/V 2024-07-29 16:44:17 1.13 F URR% 2024-07-29 16:44:17 62 % F Dialyzer MORRIS 2024-07-29 16:44:17 1626 Calc F PATIENT AGE 2024-07-29 16:44:17 53 Years F DIALYZER FLOW-QD 2024-07-29 16:44:17 800 mL/min F BSA ANGEL 2024-07-29 16:44:17 2.76 sq m F WEIGHT - POST DAY 1 2024-07-29 16:44:17 174.8 kg F WEIGHT - PRE DAY 1 2024-07-29 16:44:17 177.2 kg F AMPUTATE FACTOR 2024-07-29 16:44:17 0 F VM (KT/V MEAN VOL) 2024-07-29 16:44:17 72.9 F PRESCRIBED DAYS/WEEK 2024-07-29 16:44:17 3 Day/Wk F Total Kt/V 2024-07-29 16:44:17 1.13 F VT (KT/V TX VOL) 2024-07-29 16:44:17 72.1 L F eKt/V 2024-07-29 16:44:17 1 F TBW (Hui) 2024-07-29 16:44:17 75.08 Liters F stdKt/V (DIAL) 2024-07-29 16:44:17 N/A F Std Renal KT/V 2024-07-29 16:44:17 N/A F BLOOD FLOW-QWB 2024-07-29 16:44:17 390 F TOTAL HOURS/WEEK DIALYSIS 2024-07-29 16:44:17 10 hrs F CURRENT U 2024-07-29 16:44:17 F Urea nitrogen [Mass/volume] in Serum or Plasma --post dialysis 2024-07-29 16:42:20 27 mg/dL F 9.0-23.0 Urea nitrogen [Mass/volume] in Serum or Plasma --post dialysis 2024-07-29 16:42:20 27 mg/dL F 9.0-23.0 Urea nitrogen [Mass/volume] in Serum or Plasma 2024-07-26 23:39:22 71 mg/dL F 9.0-23.0 Urea nitrogen [Mass/volume] in Serum or Plasma 2024-07-26 23:39:22 71 mg/dL F 9.0-23.0 CRE CLR UR/BSA 2024-07-01 19:47:12 5 mL/min F 85.0-125.0 CRE CLR UR/BSA 2024-07-01 19:47:12 5 mL/min F 85.0-125.0 Creatinine [Mass/volume] in Urine 2024-07-01 19:45:18 91.97 mg/dL F Creatinine [Mass/volume] in Urine 2024-07-01 19:45:18 91.97 mg/dL F BSA ANGEL 2024-07-01 15:52:24 2.76 sq m F BSA ANGEL 2024-07-01 15:52:24 2.76 sq m F Creatinine [Mass/volume] in Serum or Plasma 2024-07-01 15:51:19 8.77 mg/dL F 0.7-1.3 Creatinine [Mass/volume] in Serum or Plasma 2024-07-01 15:51:19 8.77 mg/dL F 0.7-1.3 TOTAL VOLUME-24 HR URINE 2024-06-30 22:43:24 1000 mL F COLLECTION TIME FOR URINE 2024-06-30 22:43:24 1440 min F COLLECTION TIME FOR URINE 2024-06-30 22:43:24 1440 min F TOTAL VOLUME-24 HR URINE 2024-06-30 22:43:24 1000 mL F HEIGHT IN INCHES 2024-06-30 22:43:24 70 Inches F BODY WEIGHT (LBS) 2024-06-30 22:43:24 385 lbs F BODY WEIGHT (LBS) 2024-06-30 22:43:24 385 lbs F HEIGHT IN INCHES 2024-06-30 22:43:24 70 Inches F AMPUTATE FACTOR 2024-06-30 22:43:23 0 F AMPUTATE FACTOR 2024-06-30 22:43:23 0 F PATIENT AGE 2024-06-27 04:55:08 53 Years F VM (KT/V MEAN VOL) 2024-06-27 04:55:08 73.2 F VT (KT/V TX VOL) 2024-06-27 04:55:08 64 L F Total Kt/V 2024-06-27 04:55:08 1.25 F nPCR 2024-06-27 04:55:08 1.04 G/KG/D F Std Renal KT/V 2024-06-27 04:55:08 N/A F URR% 2024-06-27 04:55:08 67 % F CURRENT KRU 2024-06-27 04:55:08 F TBW (Hui) 2024-06-27 04:55:08 75.24 Liters F LENGTH OF DIALYSIS 2024-06-27 04:55:08 270 min F TOTAL HOURS/WEEK DIALYSIS 2024-06-27 04:55:08 11 hrs F stdKT/V Total 2024-06-27 04:55:08 N/A F WEIGHT - PRE DAY 1 2024-06-27 04:55:08 176.9 kg F Residual kt/v 2024-06-27 04:55:08 F stdKt/V (DIAL) 2024-06-27 04:55:08 N/A F Dialyzer MORRIS 2024-06-27 04:55:08 1626 Calc F DIALYZER FLOW-QD 2024-06-27 04:55:08 800 mL/min F BSA ANGEL 2024-06-27 04:55:08 2.76 sq m F BLOOD FLOW-QWB 2024-06-27 04:55:08 381 F WEIGHT - POST DAY 1 2024-06-27 04:55:08 175.3 kg F HEIGHT IN INCHES 2024-06-27 04:55:08 70 Inches F AMPUTATE FACTOR 2024-06-27 04:55:08 0 F spKt/V 2024-06-27 04:55:08 1.25 F WEIGHT (KG) 2024-06-27 04:55:08 175 kg F PRESCRIBED DAYS/WEEK 2024-06-27 04:55:08 3 Day/Wk F KT/V PRESCRIBED 2024-06-27 04:55:08 1.33 F eKt/V 2024-06-27 04:55:08 1.1 F DIALYZER FLOW-QD 2024-06-27 04:55:08 800 mL/min F HEIGHT IN INCHES 2024-06-27 04:55:08 70 Inches F WEIGHT - POST DAY 1 2024-06-27 04:55:08 175.3 kg F VT (KT/V TX VOL) 2024-06-27 04:55:08 64 L F Residual kt/v 2024-06-27 04:55:08 F nPCR 2024-06-27 04:55:08 1.04 G/KG/D F VM (KT/V MEAN VOL) 2024-06-27 04:55:08 73.2 F Total Kt/V 2024-06-27 04:55:08 1.25 F TBW (Hui) 2024-06-27 04:55:08 75.24 Liters F BLOOD FLOW-QWB 2024-06-27 04:55:08 381 F eKt/V 2024-06-27 04:55:08 1.1 F spKt/V 2024-06-27 04:55:08 1.25 F CURRENT KRU 2024-06-27 04:55:08 F URR% 2024-06-27 04:55:08 67 % F Dialyzer MORRIS 2024-06-27 04:55:08 1626 Calc F LENGTH OF DIALYSIS 2024-06-27 04:55:08 270 min F PATIENT AGE 2024-06-27 04:55:08 53 Years F WEIGHT - PRE DAY 1 2024-06-27 04:55:08 176.9 kg F BSA ANGEL 2024-06-27 04:55:08 2.76 sq m F WEIGHT (KG) 2024-06-27 04:55:08 175 kg F KT/V PRESCRIBED 2024-06-27 04:55:08 1.33 F PRESCRIBED DAYS/WEEK 2024-06-27 04:55:08 3 Day/Wk F AMPUTATE FACTOR 2024-06-27 04:55:08 0 F stdKt/V (DIAL) 2024-06-27 04:55:08 N/A F stdKT/V Total 2024-06-27 04:55:08 N/A F TOTAL HOURS/WEEK DIALYSIS 2024-06-27 04:55:08 11 hrs F Std Renal KT/V 2024-06-27 04:55:08 N/A F Urea nitrogen [Mass/volume] in Serum or Plasma --post dialysis 2024-06-27 04:53:23 24 mg/dL F 9.0-23.0 Urea nitrogen [Mass/volume] in Serum or Plasma --post dialysis 2024-06-27 04:53:23 24 mg/dL F 9.0-23.0 CRE CLR UR/BSA 2024-06-25 07:25:35 see comments F 85.0-125.0 Unable to Calculate. CRE CLR UR/BSA 2024-06-25 07:25:35 see comments F 85.0-125.0 Unable to Calculate. Creatinine [Mass/volume] in Serum or Plasma 2024-06-25 07:24:26 8.49 mg/dL F 0.7-1.3 Urea nitrogen [Mass/volume] in Serum or Plasma 2024-06-25 07:24:26 73 mg/dL F 9.0-23.0 Creatinine [Mass/volume] in Serum or Plasma 2024-06-25 07:24:26 8.49 mg/dL F 0.7-1.3 Urea nitrogen [Mass/volume] in Serum or Plasma 2024-06-25 07:24:26 73 mg/dL F 9.0-23.0 Creatinine [Mass/volume] in Urine 2024-06-24 19:59:03 F Recollect - Labeling Error Creatinine [Mass/volume] in Urine 2024-06-24 19:59:03 F Recollect - Labeling Error BODY WEIGHT (LBS) 2024-06-23 23:29:04 385 lbs F BODY WEIGHT (LBS) 2024-06-23 23:29:04 385 lbs F COLLECTION TIME FOR URINE 2024-06-23 23:29:04 1440 min F TOTAL VOLUME-24 HR URINE 2024-06-23 23:29:04 1000 mL F COLLECTION TIME FOR URINE 2024-06-23 23:29:04 1440 min F TOTAL VOLUME-24 HR URINE 2024-06-23 23:29:04 1000 mL F VM (KT/V MEAN VOL) 2024-06-21 15:55:46 76.2 F AMPUTATE FACTOR 2024-06-21 15:55:46 0 F Total Kt/V 2024-06-21 15:55:46 1.1 F URR% 2024-06-21 15:55:46 61 % F spKt/V 2024-06-21 15:55:46 1.1 F PRESCRIBED DAYS/WEEK 2024-06-21 15:55:46 3 Day/Wk F WEIGHT - POST DAY 1 2024-06-21 15:55:46 174 kg F TBW (Hui) 2024-06-21 15:55:46 74.81 Liters F nPCR 2024-06-21 15:55:46 1.02 G/KG/D F KT/V PRESCRIBED 2024-06-21 15:55:46 1.24 F BLOOD FLOW-QWB 2024-06-21 15:55:46 389 F Dialyzer MORRIS 2024-06-21 15:55:46 1626 Calc F WEIGHT - PRE DAY 1 2024-06-21 15:55:46 176.2 kg F HEIGHT IN INCHES 2024-06-21 15:55:46 70 Inches F stdKT/V Total 2024-06-21 15:55:46 N/A F Std Renal KT/V 2024-06-21 15:55:46 N/A F BSA ANGEL 2024-06-21 15:55:46 2.76 sq m F LENGTH OF DIALYSIS 2024-06-21 15:55:46 251 min F PATIENT AGE 2024-06-21 15:55:46 53 Years F eKt/V 2024-06-21 15:55:46 0.96 F WEIGHT (KG) 2024-06-21 15:55:46 175 kg F stdKt/V (DIAL) 2024-06-21 15:55:46 N/A F CURRENT KRU 2024-06-21 15:55:46 F DIALYZER FLOW-QD 2024-06-21 15:55:46 800 mL/min F VT (KT/V TX VOL) 2024-06-21 15:55:46 69.1 L F TOTAL HOURS/WEEK DIALYSIS 2024-06-21 15:55:46 11 hrs F Residual kt/v 2024-06-21 15:55:46 F Urea nitrogen [Mass/volume] in Serum or Plasma --post dialysis 2024-06-21 15:54:14 24 mg/dL F 9.0-23.0 Urea nitrogen [Mass/volume] in Serum or Plasma 2024-06-19 14:09:11 62 mg/dL F 9.0-23.0 nPCR 2024-06-17 08:31:34 F Unable to calculate: Post BUN lab result is unknown HEIGHT IN INCHES 2024-06-17 08:31:34 70 Inches F [facility] 2024-06-17 08:31:34 F Unable to calculate: Post BUN lab result is unknown AMPUTATE FACTOR 2024-06-17 08:31:34 0 F stdKT/V Total 2024-06-17 08:31:34 F Unable to calculate: Post BUN lab result is unknown WEIGHT (KG) 2024-06-17 08:31:34 175 kg F TOTAL HOURS/WEEK DIALYSIS 2024-06-17 08:31:34 12 hrs F Dialyzer [facility] 2024-06-17 08:31:34 1626 Calc F stdKt/V (DIAL) 2024-06-17 08:31:34 F Unable to calculate: Post BUN lab result is unknown WEIGHT - POST DAY 1 2024-06-17 08:31:34 174.3 kg F LENGTH OF DIALYSIS 2024-06-17 08:31:34 237 min F BLOOD FLOW-QWB 2024-06-17 08:31:34 399 F Residual kt/v 2024-06-17 08:31:34 F Unable to calculate: Post BUN lab result is unknown Total Kt/V 2024-06-17 08:31:34 F Unable to calculate: Post BUN lab result is unknown URR% 2024-06-17 08:31:34 F Unable to calculate: Post BUN lab result is unknown eKt/V 2024-06-17 08:31:34 F Unable to calculate: Post BUN lab result is unknown PRESCRIBED DAYS/WEEK 2024-06-17 08:31:34 3 Day/Wk F DIALYZER FLOW-QD 2024-06-17 08:31:34 800 mL/min F Std Renal KT/V 2024-06-17 08:31:34 F Unable to calculate: Post BUN lab result is unknown PATIENT AGE 2024-06-17 08:31:34 53 Years F BSA [facility]GEL 2024-06-17 08:31:34 F Unable to calculate: Post BUN lab result is unknown KT/V PRESCRIBED 2024-06-17 08:31:34 F Unable to calculate: Post BUN lab result is unknown VT (KT/V TX VOL) 2024-06-17 08:31:34 F Unable to calculate: Post BUN lab result is unknown WEIGHT - PRE DAY 1 2024-06-17 08:31:34 174.8 kg F TBW (Hui) 2024-06-17 08:31:34 F Unable to calculate: Post BUN lab result is unknown VM (KT/V MEAN VOL) 2024-06-17 08:31:34 F Unable to calculate: Post BUN lab result is unknown spKt/V 2024-06-17 08:31:34 F Unable to calculate: Post BUN lab result is unknown Urea nitrogen [Mass/volume] in Serum or Plasma --post dialysis 2024-06-17 08:22:49 F Canceled - Speci men not received 5 days past draw date Urea nitrogen [Mass/volume] in Serum or Plasma 2024-06-12 16:50:19 66 mg/dL F 9.0-23.0 VT (KT/V TX VOL) 2024-06-10 20:27:09 77.7 L F stdKt/V (DIAL) 2024-06-10 20:27:09 N/A F Residual kt/v 2024-06-10 20:27:09 F CURRENT KRU 2024-06-10 20:27:09 F HEIGHT IN INCHES 2024-06-10 20:27:09 70 Inches F Total Kt/V 2024-06-10 20:27:09 0.96 F BLOOD FLOW-QWB 2024-06-10 20:27:09 370 F spKt/V 2024-06-10 20:27:09 0.96 F eKt/V 2024-06-10 20:27:09 0.85 F Std Renal KT/V 2024-06-10 20:27:09 N/A F AMPUTATE FACTOR 2024-06-10 20:27:09 0 F TBW (Hui) 2024-06-10 20:27:09 74.14 Liters F TOTAL HOURS/WEEK DIALYSIS 2024-06-10 20:27:09 12 hrs F DIALYZER FLOW-QD 2024-06-10 20:27:09 790 mL/min F BSA ANGEL 2024-06-10 20:27:09 2.76 sq m F PATIENT AGE 2024-06-10 20:27:09 53 Years F VM (KT/V MEAN VOL) 2024-06-10 20:27:09 78.6 F URR% 2024-06-10 20:27:09 58 % F Dialyzer [facility] 2024-06-10 20:27:09 1626 Calc F PRESCRIBED DAYS/WEEK 2024-06-10 20:27:09 3 Day/Wk F KT/V PRESCRIBED 2024-06-10 20:27:09 1.26 F stdKT/V Total 2024-06-10 20:27:09 N/A F WEIGHT (KG) 2024-06-10 20:27:09 175 kg F LENGTH OF DIALYSIS 2024-06-10 20:27:09 256 min F nPCR 2024-06-10 20:27:09 0.97 G/KG/D F WEIGHT - PRE DAY 1 2024-06-10 20:27:09 172.7 kg F WEIGHT - POST DAY 1 2024-06-10 20:27:09 172 kg F Urea nitrogen [Mass/volume] in Serum or Plasma 2024-06-10 20:25:20 74 mg/dL F 9.0-23.0 VT (KT/V TX VOL) 2024-06-10 19:07:02 88.1 L F HEIGHT IN INCHES 2024-06-10 19:07:02 70 Inches F BSA ANGEL 2024-06-10 19:07:02 2.76 sq m F DIALYZER FLOW-QD 2024-06-10 19:07:02 800 mL/min F LENGTH OF DIALYSIS 2024-06-10 19:07:02 245 min F VM (KT/V MEAN VOL) 2024-06-10 19:07:02 78.9 F BLOOD FLOW-QWB 2024-06-10 19:07:02 399 F Std Renal KT/V 2024-06-10 19:07:02 N/A F AMPUTATE FACTOR 2024-06-10 19:07:02 0 F nPCR 2024-06-10 19:07:02 1.04 G/KG/D F CURRENT KRU 2024-06-10 19:07:02 F WEIGHT (KG) 2024-06-10 19:07:02 175 kg F WEIGHT - POST DAY 1 2024-06-10 19:07:02 173.5 kg F WEIGHT - PRE DAY 1 2024-06-10 19:07:02 174 kg F stdKt/V (DIAL) 2024-06-10 19:07:02 N/A F PATIENT AGE 2024-06-10 19:07:02 53 Years F KT/V PRESCRIBED 2024-06-10 19:07:02 1.21 F stdKT/V Total 2024-06-10 19:07:02 N/A F TOTAL HOURS/WEEK DIALYSIS 2024-06-10 19:07:02 12 hrs F TBW (Hui) 2024-06-10 19:07:02 74.64 Liters F Residual kt/v 2024-06-10 19:07:02 F URR% 2024-06-10 19:07:02 54 % F eKt/V 2024-06-10 19:07:02 0.76 F spKt/V 2024-06-10 19:07:02 0.85 F Total Kt/V 2024-06-10 19:07:02 0.85 F PRESCRIBED DAYS/WEEK 2024-06-10 19:07:02 3 Day/Wk F Dialyzer [facility] 2024-06-10 19:07:02 1626 Calc F Urea nitrogen [Mass/volume] in Serum or Plasma --post dialysis 2024-06-10 19:05:18 33 mg/dL F 9.0-23.0 Urea nitrogen [Mass/volume] in Serum or Plasma --post dialysis 2024-06-10 17:44:17 31 mg/dL F 9.0-23.0 Urea nitrogen [Mass/volume] in Serum or Plasma 2024-06-07 18:30:19 71 mg/dL F 9.0-23.0 Dialyzer [facility] 2024-06-06 16:56:21 1626 Calc F KT/V PRESCRIBED 2024-06-06 16:56:21 1.26 F BSA ANGEL 2024-06-06 16:56:21 2.76 sq m F HEIGHT IN INCHES 2024-06-06 16:56:21 70 Inches F PATIENT AGE 2024-06-06 16:56:21 53 Years F spKt/V 2024-06-06 16:56:21 1.16 F WEIGHT - PRE DAY 1 2024-06-06 16:56:21 175.9 kg F DIALYZER FLOW-QD 2024-06-06 16:56:21 800 mL/min F WEIGHT - POST DAY 1 2024-06-06 16:56:21 174.6 kg F URR% 2024-06-06 16:56:21 65 % F WEIGHT (KG) 2024-06-06 16:56:21 175 kg F Std Renal KT/V 2024-06-06 16:56:21 N/A F TBW (Hui) 2024-06-06 16:56:21 75.01 Liters F VM (KT/V MEAN VOL) 2024-06-06 16:56:21 75.9 F CURRENT KRU 2024-06-06 16:56:21 F PRESCRIBED DAYS/WEEK 2024-06-06 16:56:21 3 Day/Wk F VT (KT/V TX VOL) 2024-06-06 16:56:21 67.2 L F AMPUTATE FACTOR 2024-06-06 16:56:21 0 F nPCR 2024-06-06 16:56:21 0.96 G/KG/D F BLOOD FLOW-QWB 2024-06-06 16:56:21 398 F Residual kt/v 2024-06-06 16:56:21 F eKt/V 2024-06-06 16:56:21 1.02 F LENGTH OF DIALYSIS 2024-06-06 16:56:21 255 min F TOTAL HOURS/WEEK DIALYSIS 2024-06-06 16:56:21 12 hrs F Total Kt/V 2024-06-06 16:56:21 1.16 F stdKt/V (DIAL) 2024-06-06 16:56:21 N/A F stdKT/V Total 2024-06-06 16:56:21 N/A F Urea nitrogen [Mass/volume] in Serum or Plasma --post dialysis 2024-06-06 16:54:29 25 mg/dL F 9.0-23.0 Creatinine [Mass/volume] in Serum or Plasma 2024-06-03 17:39:27 9.18 mg/dL F 0.7-1.3 Urea nitrogen [Mass/volume] in Serum or Plasma 2024-06-03 17:39:27 71 mg/dL F 9.0-23.0 Std Renal KT/V 2024-06-03 17:32:15 N/A F Dialyzer [facility] 2024-06-03 17:32:15 1626 Calc F BSA ANGEL 2024-06-03 17:32:15 2.76 sq m F stdKT/V Total 2024-06-03 17:32:15 N/A F Residual kt/v 2024-06-03 17:32:15 F URR% 2024-06-03 17:32:15 64 % F PATIENT AGE 2024-06-03 17:32:15 53 Years F WEIGHT (KG) 2024-06-03 17:32:15 175 kg F WEIGHT - POST DAY 1 2024-06-03 17:32:15 174.5 kg F PRESCRIBED DAYS/WEEK 2024-06-03 17:32:15 3 Day/Wk F TBW (Hui) 2024-06-03 17:32:15 74.98 Liters F LENGTH OF DIALYSIS 2024-06-03 17:32:15 256 min F AMPUTATE FACTOR 2024-06-03 17:32:15 0 F VT (KT/V TX VOL) 2024-06-03 17:32:15 63.6 L F TOTAL HOURS/WEEK DIALYSIS 2024-06-03 17:32:15 12 hrs F Total Kt/V 2024-06-03 17:32:15 1.11 F CURRENT KRU 2024-06-03 17:32:15 F HEIGHT IN INCHES 2024-06-03 17:32:15 70 Inches F KT/V PRESCRIBED 2024-06-03 17:32:15 1.26 F DIALYZER FLOW-QD 2024-06-03 17:32:15 500 mL/min F nPCR 2024-06-03 17:32:15 0.91 G/KG/D F eKt/V 2024-06-03 17:32:15 0.98 F VM (KT/V MEAN VOL) 2024-06-03 17:32:15 78.8 F BLOOD FLOW-QWB 2024-06-03 17:32:15 379 F spKt/V 2024-06-03 17:32:15 1.11 F WEIGHT - PRE DAY 1 2024-06-03 17:32:15 174.5 kg F stdKt/V (DIAL) 2024-06-03 17:32:15 N/A F Urea nitrogen [Mass/volume] in Serum or Plasma --post dialysis 2024-06-03 17:30:15 20 mg/dL F 9.0-23.0 Urea nitrogen [Mass/volume] in Serum or Plasma 2024-06-01 01:30:20 55 mg/dL F 9.0-23.0 CRE CLR UR/BSA 2024-05-18 08:36:47 F Canceled - Speci men not received 5 days past draw date,Unable to Calculate. BSA ANGEL 2024-05-18 08:36:47 F Canceled - Speci men not received 5 days past draw date KRU-UREA CLR UR 2024-05-18 08:36:47 F Canceled - Speci men not received 5 days past draw date KRU-UREA CLR UR 2024-05-18 08:36:47 F Canceled - Speci men not received 5 days past draw date CRE CLR UR/BSA 2024-05-18 08:36:47 F Canceled - Speci men not received 5 days past draw date,Unable to Calculate. BSA ANGEL 2024-05-18 08:36:47 F Canceled - Speci men not received 5 days past draw date Creatinine [Mass/volume] in Urine 2024-05-18 08:23:43 F Canceled - Speci men not received 5 days past draw date Urea nitrogen [Mass/volume] in Urine 2024-05-18 08:23:43 F Canceled - Speci men not received 5 days past draw date Urea nitrogen [Mass/volume] in Urine 2024-05-18 08:23:43 F Canceled - Speci men not received 5 days past draw date Creatinine [Mass/volume] in Urine 2024-05-18 08:23:43 F Canceled - Speci men not received 5 days past draw date KT/V PRESCRIBED 2024-05-13 22:57:31 0.9 F Dialyzer MORRIS 2024-05-13 22:57:31 1264 Calc F stdKt/V (DIAL) 2024-05-13 22:57:31 N/A F PRESCRIBED DAYS/WEEK 2024-05-13 22:57:31 3 Day/Wk F spKt/V 2024-05-13 22:57:31 0.81 F stdKT/V Total 2024-05-13 22:57:31 N/A F VM (KT/V MEAN VOL) 2024-05-13 22:57:31 69.7 F TBW (Hiu) 2024-05-13 22:57:31 75.35 Liters F DIALYZER FLOW-QD 2024-05-13 22:57:31 500 mL/min F VT (KT/V TX VOL) 2024-05-13 22:57:31 69.7 L F Std Renal KT/V 2024-05-13 22:57:31 N/A F LENGTH OF DIALYSIS 2024-05-13 22:57:31 209 min F AMPUTATE FACTOR 2024-05-13 22:57:31 0 F HEIGHT IN INCHES 2024-05-13 22:57:31 70 Inches F CURRENT KRU 2024-05-13 22:57:31 F BLOOD FLOW-QWB 2024-05-13 22:57:31 399 F Total Kt/V 2024-05-13 22:57:31 0.81 F nPCR 2024-05-13 22:57:31 0.48 G/KG/D F TOTAL HOURS/WEEK DIALYSIS 2024-05-13 22:57:31 3 hrs F URR% 2024-05-13 22:57:31 53 % F WEIGHT - POST DAY 1 2024-05-13 22:57:31 175.6 kg F PATIENT AGE 2024-05-13 22:57:31 53 Years F WEIGHT - PRE DAY 1 2024-05-13 22:57:31 177.1 kg F WEIGHT (KG) 2024-05-13 22:57:31 175 kg F Residual kt/v 2024-05-13 22:57:31 F eKt/V 2024-05-13 22:57:31 0.71 F URR% 2024-05-13 22:57:31 53 % F DIALYZER FLOW-QD 2024-05-13 22:57:31 500 mL/min F Dialyzer MORRIS 2024-05-13 22:57:31 1264 Calc F WEIGHT - POST DAY 1 2024-05-13 22:57:31 175.6 kg F Residual kt/v 2024-05-13 22:57:31 F WEIGHT (KG) 2024-05-13 22:57:31 175 kg F VT (KT/V TX VOL) 2024-05-13 22:57:31 69.7 L F VM (KT/V MEAN VOL) 2024-05-13 22:57:31 69.7 F AMPUTATE FACTOR 2024-05-13 22:57:31 0 F Total Kt/V 2024-05-13 22:57:31 0.81 F spKt/V 2024-05-13 22:57:31 0.81 F stdKt/V (DIAL) 2024-05-13 22:57:31 N/A F BLOOD FLOW-QWB 2024-05-13 22:57:31 399 F LENGTH OF DIALYSIS 2024-05-13 22:57:31 209 min F WEIGHT - PRE DAY 1 2024-05-13 22:57:31 177.1 kg F PATIENT AGE 2024-05-13 22:57:31 53 Years F PRESCRIBED DAYS/WEEK 2024-05-13 22:57:31 3 Day/Wk F HEIGHT IN INCHES 2024-05-13 22:57:31 70 Inches F KT/V PRESCRIBED 2024-05-13 22:57:31 0.9 F nPCR 2024-05-13 22:57:31 0.48 G/KG/D F TBW (Hui) 2024-05-13 22:57:31 75.35 Liters F Std Renal KT/V 2024-05-13 22:57:31 N/A F eKt/V 2024-05-13 22:57:31 0.71 F stdKT/V Total 2024-05-13 22:57:31 N/A F TOTAL HOURS/WEEK DIALYSIS 2024-05-13 22:57:31 3 hrs F CURRENT KRU 2024-05-13 22:57:31 F BUN/CREAT 2024-05-13 22:56:53 10.5 Calc F 6.9-32.9 BUN/CREAT 2024-05-13 22:56:53 10.5 Calc F 6.9-32.9 Creatinine [Mass/volume] in Serum or Plasma 2024-05-13 22:55:40 8.79 mg/dL F 0.7-1.3 Urea nitrogen [Mass/volume] in Serum or Plasma 2024-05-13 22:55:40 92 mg/dL F 9.0-23.0 Creatinine [Mass/volume] in Serum or Plasma 2024-05-13 22:55:40 8.79 mg/dL F 0.7-1.3 Urea nitrogen [Mass/volume] in Serum or Plasma 2024-05-13 22:55:40 92 mg/dL F 9.0-23.0 COLLECTION TIME FOR URINE 2024-05-13 21:22:28 1440 min F COLLECTION TIME FOR URINE 2024-05-13 21:22:28 1440 min F Urea nitrogen [Mass/volume] in Serum or Plasma --post dialysis 2024-05-13 16:12:14 43 mg/dL F 9.0-23.0 Urea nitrogen [Mass/volume] in Serum or Plasma --post dialysis 2024-05-13 16:12:14 43 mg/dL F 9.0-23.0 BODY WEIGHT (LBS) 2024-05-13 08:03:20 0 lbs F TOTAL VOLUME-24 HR URINE 2024-05-13 08:03:20 0 mL F BODY WEIGHT (LBS) 2024-05-13 08:03:20 0 lbs F TOTAL VOLUME-24 HR URINE 2024-05-13 08:03:20 0 mL F AMPUTATE FACTOR 2024-05-13 08:03:13 0 F AMPUTATE FACTOR 2024-05-13 08:03:13 0 F WEIGHT - PRE DAY 1 BLOOD FLOW-QWB TBW (Hui) CURRENT KRU WEIGHT - POST DAY 1 spKt/V Urea nitrogen [Mass/volume] in Serum or Plasma LENGTH OF DIALYSIS BSA ANGEL VM (KT/V MEAN VOL) Std Renal KT/V eKt/V Dialyzer MORRIS stdKT/V Total Total Kt/V stdKt/V (DIAL) nPCR URR% VT (KT/V TX VOL) Residual kt/v PRESCRIBED DAYS/WEEK TOTAL HOURS/WEEK DIALYSIS DIALYZER FLOW-QD KT/V PRESCRIBED Urea nitrogen [Mass/volume] in Serum or Plasma --post dialysis Urea nitrogen [Mass/volume] in Serum or Plasma --post dialysis Creatinine [Mass/volume] in Serum or Plasma Anemia Description Draw Date Result/Unit Status Ref Range Result Comments HCT CALC HGBX3 2024-12-31 05:09:12 28.5 % F 42.0-52.0 MCV [Entitic volume] by Automated count 2024-12-31 05:08:14 100.3 fL F 80.0-100.0 MCH [Entitic mass] by Automated count 2024-12-31 05:08:14 31.5 pg F 25.9-34.2 MCHC [Mass/volume] by Automated count 2024-12-31 05:08:14 31.4 g/dL F 29.6-35.3 ABSOLUTE RETIC COUNT 2024-12-31 05:08:14 0.078 x 10^6 cells/uL F 0.035-0.127 Hemoglobin [Mass/volume] in Blood 2024-12-31 05:08:14 9.5 g/dL F 14.0-18.0 Erythrocytes [#/volume] in Blood by Automated count 2024-12-31 05:08:14 3.03 x 10^6 cells/uL F 4.6-6.2 Hematocrit [Volume Fraction] of Blood by Automated count 2024-12-31 05:08:14 30.4 % F 41.0-53.0 Erythrocyte distribution width [Ratio] by Automated count 2024-12-31 05:08:14 16.3 % F 11.0-15.0 Platelets [#/volume] in Blood by Automated count 2024-12-31 05:08:14 364 x 10^3 cells/uL F 140.0-450.0 Reticulocytes/100 erythrocytes in Blood by Automated count 2024-12-31 05:08:14 2.57 % F 0.7-2.5 HCT CALC HGBX3 2024-12-17 01:36:09 25.2 % F 42.0-52.0 Hemoglobin [Mass/volume] in Blood 2024-12-17 01:35:10 8.4 g/dL F 14.0-18.0 Ferritin [Mass/volume] in Serum or Plasma 2024-12-03 23:17:14 694 ng/mL F 22.0-322.0 IRON SATURATION 2024-12-03 15:59:49 13 % F 21.0-49.0 TIBC 2024-12-03 15:59:49 331 ug/dL F 250.0-425.0 Iron [Mass/volume] in Serum or Plasma 2024-12-03 15:50:52 43 ug/dL F 65.0-175.0 Iron binding capacity.unsaturated [Mass/volume] in Serum or Plasma 2024-12-03 15:50:52 288 ug/dL F 75.0-360.0 HCT CALC HGBX3 2024-12-03 05:19:26 24.3 % F 42.0-52.0 Hematocrit [Volume Fraction] of Blood by Automated count 2024-12-03 05:18:15 25.9 % F 41.0-53.0 Erythrocyte distribution width [Ratio] by Automated count 2024-12-03 05:18:15 15.9 % F 11.0-15.0 Erythrocytes [#/volume] in Blood by Automated count 2024-12-03 05:18:15 2.59 x 10^6 cells/uL F 4.6-6.2 Hemoglobin [Mass/volume] in Blood 2024-12-03 05:18:15 8.1 g/dL F 14.0-18.0 MCHC [Mass/volume] by Automated count 2024-12-03 05:18:15 31.1 g/dL F 29.6-35.3 MCV [Entitic volume] by Automated count 2024-12-03 05:18:15 99.9 fL F 80.0-100.0 MCH [Entitic mass] by Automated count 2024-12-03 05:18:15 31.1 pg F 25.9-34.2 Platelets [#/volume] in Blood by Automated count 2024-12-03 05:18:15 436 x 10^3 cells/uL F 140.0-450.0 Reticulocytes/100 erythrocytes in Blood by Automated count 2024-12-03 05:18:15 3.82 % F 0.7-2.5 ABSOLUTE RETIC COUNT 2024-12-03 05:18:15 0.099 x 10^6 cells/uL F 0.035-0.127 HCT CALC HGBX3 2024-11-26 06:58:58 23.4 % F 42.0-52.0 Hemoglobin [Mass/volume] in Blood 2024-11-26 06:23:20 7.8 g/dL F 14.0-18.0 HCT CALC HGBX3 2024-11-19 06:59:17 22.2 % F 42.0-52.0 Hemoglobin [Mass/volume] in Blood 2024-11-19 06:58:16 7.4 g/dL F 14.0-18.0 HCT CALC HGBX3 2024-11-16 07:35:48 see comments F 42.0-52.0 Unable to Calculate. Hemoglobin [Mass/volume] in Blood 2024-11-16 07:25:01 F Canceled - Specimen not received 5 days past draw date HCT CALC HGBX3 2024-11-05 22:21:54 21.3 % F 42.0-52.0 HCT CALC HGBX3 2024-11-05 22:21:54 21.3 % F 42.0-52.0 Erythrocyte distribution width [Ratio] by Automated count 2024-11-05 22:21:17 15.6 % F 11.0-15.0 Erythrocytes [#/volume] in Blood by Automated count 2024-11-05 22:21:17 2.33 x 10^6 cells/uL F 4.6-6.2 Hemoglobin [Mass/volume] in Blood 2024-11-05 22:21:17 7.1 g/dL F 14.0-18.0 MCH [Entitic mass] by Automated count 2024-11-05 22:21:17 30.5 pg F 25.9-34.2 MCV [Entitic volume] by Automated count 2024-11-05 22:21:17 99.2 fL F 80.0-100.0 Hematocrit [Volume Fraction] of Blood by Automated count 2024-11-05 22:21:17 23.1 % F 41.0-53.0 MCHC [Mass/volume] by Automated count 2024-11-05 22:21:17 30.7 g/dL F 29.6-35.3 Platelets [#/volume] in Blood by Automated count 2024-11-05 22:21:17 363 x 10^3 cells/uL F 140.0-450.0 ABSOLUTE RETIC COUNT 2024-11-05 22:21:17 0.111 x 10^6 cells/uL F 0.035-0.127 Reticulocytes/100 erythrocytes in Blood by Automated count 2024-11-05 22:21:17 4.77 % F 0.7-2.5 ABSOLUTE RETIC COUNT 2024-11-05 22:21:17 0.111 x 10^6 cells/uL F 0.035-0.127 Reticulocytes/100 erythrocytes in Blood by Automated count 2024-11-05 22:21:17 4.77 % F 0.7-2.5 Erythrocyte distribution width [Ratio] by Automated count 2024-11-05 22:21:17 15.6 % F 11.0-15.0 Hemoglobin [Mass/volume] in Blood 2024-11-05 22:21:17 7.1 g/dL F 14.0-18.0 Platelets [#/volume] in Blood by Automated count 2024-11-05 22:21:17 363 x 10^3 cells/uL F 140.0-450.0 MCHC [Mass/volume] by Automated count 2024-11-05 22:21:17 30.7 g/dL F 29.6-35.3 MCH [Entitic mass] by Automated count 2024-11-05 22:21:17 30.5 pg F 25.9-34.2 Erythrocytes [#/volume] in Blood by Automated count 2024-11-05 22:21:17 2.33 x 10^6 cells/uL F 4.6-6.2 Hematocrit [Volume Fraction] of Blood by Automated count 2024-11-05 22:21:17 23.1 % F 41.0-53.0 MCV [Entitic volume] by Automated count 2024-11-05 22:21:17 99.2 fL F 80.0-100.0 HCT CALC HGBX3 2024-10-23 22:32:21 22.5 % F 42.0-52.0 HCT CALC HGBX3 2024-10-23 22:32:21 22.5 % F 42.0-52.0 Hemoglobin [Mass/volume] in Blood 2024-10-23 22:31:12 7.5 g/dL F 14.0-18.0 Hemoglobin [Mass/volume] in Blood 2024-10-23 22:31:12 7.5 g/dL F 14.0-18.0 HCT CALC HGBX3 2024-10-14 20:13:02 21.6 % F 42.0-52.0 HCT CALC HGBX3 2024-10-14 20:13:02 21.6 % F 42.0-52.0 Hemoglobin [Mass/volume] in Blood 2024-10-14 20:12:20 7.2 g/dL F 14.0-18.0 Hemoglobin [Mass/volume] in Blood 2024-10-14 20:12:20 7.2 g/dL F 14.0-18.0 HCT CALC HGBX3 2024-10-11 19:38:59 21 % F 42.0-52.0 HCT CALC HGBX3 2024-10-11 19:38:59 21 % F 42.0-52.0 Hemoglobin [Mass/volume] in Blood 2024-10-11 19:38:15 7 g/dL F 14.0-18.0 Hemoglobin [Mass/volume] in Blood 2024-10-11 19:38:15 7 g/dL F 14.0-18.0 HCT CALC HGBX3 2024-10-01 15:45:34 19.8 % F 42.0-52.0 HCT CALC HGBX3 2024-10-01 15:45:34 19.8 % F 42.0-52.0 ABSOLUTE RETIC COUNT 2024-10-01 15:44:12 0.087 x 10^6 cells/uL F 0.035-0.127 Hemoglobin [Mass/volume] in Blood 2024-10-01 15:44:12 6.6 g/dL F 14.0-18.0 Erythrocytes [#/volume] in Blood by Automated count 2024-10-01 15:44:12 2 x 10^6 cells/uL F 4.6-6.2 Hematocrit [Volume Fraction] of Blood by Automated count 2024-10-01 15:44:12 20.7 % F 41.0-53.0 ABSOLUTE RETIC COUNT 2024-10-01 15:44:12 0.087 x 10^6 cells/uL F 0.035-0.127 Hemoglobin [Mass/volume] in Blood 2024-10-01 15:44:12 6.6 g/dL F 14.0-18.0 Erythrocytes [#/volume] in Blood by Automated count 2024-10-01 15:44:12 2 x 10^6 cells/uL F 4.6-6.2 Hematocrit [Volume Fraction] of Blood by Automated count 2024-10-01 15:44:12 20.7 % F 41.0-53.0 Reticulocytes/100 erythrocytes in Blood by Automated count 2024-10-01 15:44:10 4.33 % F 0.7-2.5 Platelets [#/volume] in Blood by Automated count 2024-10-01 15:44:10 463 x 10^3 cells/uL F 140.0-450.0 MCHC [Mass/volume] by Automated count 2024-10-01 15:44:10 32 g/dL F 29.6-35.3 MCH [Entitic mass] by Automated count 2024-10-01 15:44:10 33 pg F 25.9-34.2 Erythrocyte distribution width [Ratio] by Automated count 2024-10-01 15:44:10 15.4 % F 11.0-15.0 MCV [Entitic volume] by Automated count 2024-10-01 15:44:10 103.2 fL F 80.0-100.0 Reticulocytes/100 erythrocytes in Blood by Automated count 2024-10-01 15:44:10 4.33 % F 0.7-2.5 Erythrocyte distribution width [Ratio] by Automated count 2024-10-01 15:44:10 15.4 % F 11.0-15.0 Platelets [#/volume] in Blood by Automated count 2024-10-01 15:44:10 463 x 10^3 cells/uL F 140.0-450.0 MCH [Entitic mass] by Automated count 2024-10-01 15:44:10 33 pg F 25.9-34.2 MCHC [Mass/volume] by Automated count 2024-10-01 15:44:10 32 g/dL F 29.6-35.3 MCV [Entitic volume] by Automated count 2024-10-01 15:44:10 103.2 fL F 80.0-100.0 Ferritin [Mass/volume] in Serum or Plasma 2024-10-01 12:58:17 621 ng/mL F 22.0-322.0 Ferritin [Mass/volume] in Serum or Plasma 2024-10-01 12:58:17 621 ng/mL F 22.0-322.0 TIBC 2024-10-01 07:19:21 602 ug/dL F 250.0-425.0 IRON SATURATION 2024-10-01 07:19:21 7 % F 21.0-49.0 IRON SATURATION 2024-10-01 07:19:21 7 % F 21.0-49.0 TIBC 2024-10-01 07:19:21 602 ug/dL F 250.0-425.0 Iron [Mass/volume] in Serum or Plasma 2024-10-01 07:10:04 45 ug/dL F 65.0-175.0 Iron [Mass/volume] in Serum or Plasma 2024-10-01 07:10:04 45 ug/dL F 65.0-175.0 Iron binding capacity.unsaturated [Mass/volume] in Serum or Plasma 2024-10-01 04:36:19 557 ug/dL F 75.0-360.0 Iron binding capacity.unsaturated [Mass/volume] in Serum or Plasma 2024-10-01 04:36:19 557 ug/dL F 75.0-360.0 HCT CALC HGBX3 2024-09-26 15:34:51 20.1 % F 42.0-52.0 HCT CALC HGBX3 2024-09-26 15:34:51 20.1 % F 42.0-52.0 Hemoglobin [Mass/volume] in Blood 2024-09-26 15:34:14 6.7 g/dL F 14.0-18.0 Hemoglobin [Mass/volume] in Blood 2024-09-26 15:34:14 6.7 g/dL F 14.0-18.0 HCT CALC HGBX3 2024-09-19 06:12:08 20.1 % F 42.0-52.0 HCT CALC HGBX3 2024-09-19 06:12:08 20.1 % F 42.0-52.0 Hemoglobin [Mass/volume] in Blood 2024-09-19 06:11:17 6.7 g/dL F 14.0-18.0 Hemoglobin [Mass/volume] in Blood 2024-09-19 06:11:17 6.7 g/dL F 14.0-18.0 HCT CALC HGBX3 2024-09-11 04:34:03 19.8 % F 42.0-52.0 HCT CALC HGBX3 2024-09-11 04:34:03 19.8 % F 42.0-52.0 Hemoglobin [Mass/volume] in Blood 2024-09-11 04:27:09 6.6 g/dL F 14.0-18.0 Hematocrit [Volume Fraction] of Blood by Automated count 2024-09-11 04:27:09 21.4 % F 41.0-53.0 Hematocrit [Volume Fraction] of Blood by Automated count 2024-09-11 04:27:09 21.4 % F 41.0-53.0 Hemoglobin [Mass/volume] in Blood 2024-09-11 04:27:09 6.6 g/dL F 14.0-18.0 Ferritin [Mass/volume] in Serum or Plasma 2024-09-11 01:40:12 954 ng/mL F 22.0-322.0 Ferritin [Mass/volume] in Serum or Plasma 2024-09-11 01:40:12 954 ng/mL F 22.0-322.0 HCT CALC HGBX3 2024-08-24 18:57:26 17.4 % F 42.0-52.0 HCT CALC HGBX3 2024-08-24 18:57:26 17.4 % F 42.0-52.0 Reticulocytes/100 erythrocytes in Blood by Automated count 2024-08-24 18:56:29 7.02 % F 0.7-2.5 Hemoglobin [Mass/volume] in Blood 2024-08-24 18:56:29 5.8 g/dL F 14.0-18.0 Erythrocyte distribution width [Ratio] by Automated count 2024-08-24 18:56:29 15.1 % F 11.0-15.0 MCH [Entitic mass] by Automated count 2024-08-24 18:56:29 30.9 pg F 25.9-34.2 Platelets [#/volume] in Blood by Automated count 2024-08-24 18:56:29 417 x 10^3 cells/uL F 140.0-450.0 MCV [Entitic volume] by Automated count 2024-08-24 18:56:29 108.3 fL F 80.0-100.0 ABSOLUTE RETIC COUNT 2024-08-24 18:56:29 0.133 x 10^6 cells/uL F 0.035-0.127 MCHC [Mass/volume] by Automated count 2024-08-24 18:56:29 28.5 g/dL F 29.6-35.3 Hematocrit [Volume Fraction] of Blood by Automated count 2024-08-24 18:56:29 20.5 % F 41.0-53.0 Erythrocytes [#/volume] in Blood by Automated count 2024-08-24 18:56:29 1.89 x 10^6 cells/uL F 4.6-6.2 Erythrocytes [#/volume] in Blood by Automated count 2024-08-24 18:56:29 1.89 x 10^6 cells/uL F 4.6-6.2 Platelets [#/volume] in Blood by Automated count 2024-08-24 18:56:29 417 x 10^3 cells/uL F 140.0-450.0 MCHC [Mass/volume] by Automated count 2024-08-24 18:56:29 28.5 g/dL F 29.6-35.3 Hemoglobin [Mass/volume] in Blood 2024-08-24 18:56:29 5.8 g/dL F 14.0-18.0 MCH [Entitic mass] by Automated count 2024-08-24 18:56:29 30.9 pg F 25.9-34.2 ABSOLUTE RETIC COUNT 2024-08-24 18:56:29 0.133 x 10^6 cells/uL F 0.035-0.127 Hematocrit [Volume Fraction] of Blood by Automated count 2024-08-24 18:56:29 20.5 % F 41.0-53.0 MCV [Entitic volume] by Automated count 2024-08-24 18:56:29 108.3 fL F 80.0-100.0 Reticulocytes/100 erythrocytes in Blood by Automated count 2024-08-24 18:56:29 7.02 % F 0.7-2.5 Erythrocyte distribution width [Ratio] by Automated count 2024-08-24 18:56:29 15.1 % F 11.0-15.0 TIBC 2024-08-24 17:01:21 235 ug/dL F 250.0-425.0 IRON SATURATION 2024-08-24 17:01:21 17 % F 21.0-49.0 TIBC 2024-08-24 17:01:21 235 ug/dL F 250.0-425.0 IRON SATURATION 2024-08-24 17:01:21 17 % F 21.0-49.0 Iron binding capacity.unsaturated [Mass/volume] in Serum or Plasma 2024-08-24 16:58:43 196 ug/dL F 75.0-360.0 Iron [Mass/volume] in Serum or Plasma 2024-08-24 16:58:43 39 ug/dL F 65.0-175.0 Iron binding capacity.unsaturated [Mass/volume] in Serum or Plasma 2024-08-24 16:58:43 196 ug/dL F 75.0-360.0 Iron [Mass/volume] in Serum or Plasma 2024-08-24 16:58:43 39 ug/dL F 65.0-175.0 Ferritin [Mass/volume] in Serum or Plasma 2024-08-24 01:22:14 F CANCELED - TEST CANCELED,CANCEL ED - TEST CANCELED Ferritin [Mass/volume] in Serum or Plasma 2024-08-24 01:22:14 F CANCELED - TEST CANCELED IRON SATURATION 2024-08-19 04:59:59 22 % F 20-50 MCHC [Mass/volume] by Automated count 2024-08-19 04:59:59 32.8 g/dL F 32-36 Iron [Mass/volume] in Serum or Plasma 2024-08-19 04:59:59 54 ug/dL F 49-181 Erythrocyte distribution width [Ratio] by Automated count 2024-08-19 04:59:59 14 % F 11.5-14.5 Reticulocytes/100 erythrocytes in Blood by Automated count 2024-08-19 04:59:59 4.4 % F 0.7-4.3 MCH [Entitic mass] by Automated count 2024-08-19 04:59:59 33.3 pg F 26-34 Hemoglobin [Mass/volume] in Blood 2024-08-19 04:59:59 5.8 g/dL F 14-18 Platelets [#/volume] in Blood by Automated count 2024-08-19 04:59:59 370 x 10^3 cells/uL F 150-375 TIBC 2024-08-19 04:59:59 249 ug/dL F 265-497 Erythrocytes [#/volume] in Blood by Automated count 2024-08-19 04:59:59 1.74 x 10^6 cells/uL F 4.6-6.2 MCV [Entitic volume] by Automated count 2024-08-19 04:59:59 101.7 fL F 80-100 Hematocrit [Volume Fraction] of Blood by Automated count 2024-08-19 04:59:59 17.7 % F 42-52 Reticulocytes/100 erythrocytes in Blood by Automated count 2024-08-19 04:59:59 4.4 % F 0.7-4.3 Hemoglobin [Mass/volume] in Blood 2024-08-19 04:59:59 5.8 g/dL F 14-18 Platelets [#/volume] in Blood by Automated count 2024-08-19 04:59:59 370 x 10^3 cells/uL F 150-375 IRON SATURATION 2024-08-19 04:59:59 22 % F 20-50 MCH [Entitic mass] by Automated count 2024-08-19 04:59:59 33.3 pg F 26-34 TIBC 2024-08-19 04:59:59 249 ug/dL F 265-497 MCHC [Mass/volume] by Automated count 2024-08-19 04:59:59 32.8 g/dL F 32-36 Erythrocytes [#/volume] in Blood by Automated count 2024-08-19 04:59:59 1.74 x 10^6 cells/uL F 4.6-6.2 Hematocrit [Volume Fraction] of Blood by Automated count 2024-08-19 04:59:59 17.7 % F 42-52 Iron [Mass/volume] in Serum or Plasma 2024-08-19 04:59:59 54 ug/dL F 49-181 MCV [Entitic volume] by Automated count 2024-08-19 04:59:59 101.7 fL F 80-100 Erythrocyte distribution width [Ratio] by Automated count 2024-08-19 04:59:59 14 % F 11.5-14.5 HCT CALC HGBX3 2024-07-29 17:02:06 19.5 % F 42.0-52.0 Hemoglobin [Mass/volume] in Blood 2024-07-29 17:01:14 6.5 g/dL F 14.0-18.0 HCT CALC HGBX3 2024-07-22 13:44:12 21 % F 42.0-52.0 Hemoglobin [Mass/volume] in Blood 2024-07-22 13:43:12 7 g/dL F 14.0-18.0 IRON SATURATION 2024-07-20 05:14:39 53 % F 21.0-49.0 TIBC 2024-07-20 05:14:39 217 ug/dL F 250.0-425.0 Iron binding capacity.unsaturated [Mass/volume] in Serum or Plasma 2024-07-20 05:03:08 102 ug/dL F 75.0-360.0 Iron [Mass/volume] in Serum or Plasma 2024-07-20 04:58:50 115 ug/dL F 65.0-175.0 Ferritin [Mass/volume] in Serum or Plasma 2024-07-20 04:25:44 1124 ng/mL F 22.0-322.0 HCT CALC HGBX3 2024-07-15 17:21:04 20.4 % F 42.0-52.0 Hemoglobin [Mass/volume] in Blood 2024-07-15 17:20:11 6.8 g/dL F 14.0-18.0 IRON SATURATION 2024-07-04 07:52:25 27 % F 21.0-49.0 TIBC 2024-07-04 07:52:25 217 ug/dL F 250.0-425.0 Iron [Mass/volume] in Serum or Plasma 2024-07-04 07:15:18 58 ug/dL F 65.0-175.0 Iron binding capacity.unsaturated [Mass/volume] in Serum or Plasma 2024-07-04 07:15:18 159 ug/dL F 75.0-360.0 Ferritin [Mass/volume] in Serum or Plasma 2024-07-02 06:54:15 768 ng/mL F 22.0-322.0 HCT CALC HGBX3 2024-07-02 02:00:38 21.9 % F 42.0-52.0 Reticulocytes/100 erythrocytes in Blood by Automated count 2024-07-02 01:59:11 8.16 % F 0.7-2.5 ABSOLUTE RETIC COUNT 2024-07-02 01:59:11 0.204 x 10^6 cells/uL F 0.035-0.127 Erythrocyte distribution width [Ratio] by Automated count 2024-07-02 01:59:11 15.9 % F 11.0-15.0 Hemoglobin [Mass/volume] in Blood 2024-07-02 01:59:11 7.3 g/dL F 14.0-18.0 Platelets [#/volume] in Blood by Automated count 2024-07-02 01:59:11 409 x 10^3 cells/uL F 140.0-450.0 MCHC [Mass/volume] by Automated count 2024-07-02 01:59:11 29 g/dL F 29.6-35.3 MCH [Entitic mass] by Automated count 2024-07-02 01:59:11 29.4 pg F 25.9-34.2 Erythrocytes [#/volume] in Blood by Automated count 2024-07-02 01:59:11 2.5 x 10^6 cells/uL F 4.6-6.2 Hematocrit [Volume Fraction] of Blood by Automated count 2024-07-02 01:59:11 25.3 % F 41.0-53.0 MCV [Entitic volume] by Automated count 2024-07-02 01:59:11 101.1 fL F 80.0-100.0 HCT CALC HGBX3 2024-06-25 14:54:02 22.5 % F 42.0-52.0 HCT CALC HGBX3 2024-06-25 14:54:02 22.5 % F 42.0-52.0 Hemoglobin [Mass/volume] in Blood 2024-06-25 14:53:10 7.5 g/dL F 14.0-18.0 Hemoglobin [Mass/volume] in Blood 2024-06-25 14:53:10 7.5 g/dL F 14.0-18.0 IRON SATURATION 2024-06-20 08:55:18 23 % F 21.0-49.0 TIBC 2024-06-20 08:55:18 229 ug/dL F 250.0-425.0 Ferritin [Mass/volume] in Serum or Plasma 2024-06-20 08:10:32 959 ng/mL F 22.0-322.0 Iron [Mass/volume] in Serum or Plasma 2024-06-20 07:34:54 53 ug/dL F 65.0-175.0 Iron binding capacity.unsaturated [Mass/volume] in Serum or Plasma 2024-06-20 07:34:54 176 ug/dL F 75.0-360.0 HCT CALC HGBX3 2024-06-18 06:47:55 19.5 % F 42.0-52.0 Hemoglobin [Mass/volume] in Blood 2024-06-18 06:47:12 6.5 g/dL F 14.0-18.0 Reticulocytes/100 erythrocytes in Blood by Automated count 2024-06-13 02:43:17 3.49 % F 0.7-2.5 HCT CALC HGBX3 2024-06-10 22:33:22 20.4 % F 42.0-52.0 Hemoglobin [Mass/volume] in Blood 2024-06-10 22:32:15 6.8 g/dL F 14.0-18.0 Ferritin [Mass/volume] in Serum or Plasma 2024-06-04 08:54:46 820 ng/mL F 22.0-322.0 IRON SATURATION 2024-06-04 08:00:29 22 % F 21.0-49.0 TIBC 2024-06-04 08:00:29 234 ug/dL F 250.0-425.0 Iron [Mass/volume] in Serum or Plasma 2024-06-04 07:52:29 51 ug/dL F 65.0-175.0 Iron binding capacity.unsaturated [Mass/volume] in Serum or Plasma 2024-06-04 07:52:29 183 ug/dL F 75.0-360.0 HCT CALC HGBX3 2024-06-03 22:40:14 21.6 % F 42.0-52.0 Reticulocytes/100 erythrocytes in Blood by Automated count 2024-06-03 22:39:11 5.62 % F 0.7-2.5 ABSOLUTE RETIC COUNT 2024-06-03 22:39:11 0.13 x 10^6 cells/uL F 0.035-0.127 Erythrocyte distribution width [Ratio] by Automated count 2024-06-03 22:39:11 15.5 % F 11.0-15.0 Hemoglobin [Mass/volume] in Blood 2024-06-03 22:39:11 7.2 g/dL F 14.0-18.0 Platelets [#/volume] in Blood by Automated count 2024-06-03 22:39:11 437 x 10^3 cells/uL F 140.0-450.0 MCH [Entitic mass] by Automated count 2024-06-03 22:39:11 31.2 pg F 25.9-34.2 MCHC [Mass/volume] by Automated count 2024-06-03 22:39:11 30.9 g/dL F 29.6-35.3 Hematocrit [Volume Fraction] of Blood by Automated count 2024-06-03 22:39:11 23.3 % F 41.0-53.0 Erythrocytes [#/volume] in Blood by Automated count 2024-06-03 22:39:11 2.31 x 10^6 cells/uL F 4.6-6.2 MCV [Entitic volume] by Automated count 2024-06-03 22:39:11 100.9 fL F 80.0-100.0 HCT CALC HGBX3 2024-05-31 21:05:58 20.7 % F 42.0-52.0 Hemoglobin [Mass/volume] in Blood 2024-05-31 21:05:10 6.9 g/dL F 14.0-18.0 Reticulocytes/100 erythrocytes in Blood by Automated count 2024-05-20 08:19:21 F Canceled - Specimen not received 5 days past draw date Reticulocytes/100 erythrocytes in Blood by Automated count 2024-05-20 08:19:21 F Canceled - Specimen not received 5 days past draw date IRON SATURATION 2024-05-14 09:20:49 33 % F 21.0-49.0 TIBC 2024-05-14 09:20:49 226 ug/dL F 250.0-425.0 TIBC 2024-05-14 09:20:49 226 ug/dL F 250.0-425.0 IRON SATURATION 2024-05-14 09:20:49 33 % F 21.0-49.0 Iron binding capacity.unsaturated [Mass/volume] in Serum or Plasma 2024-05-14 08:36:52 151 ug/dL F 75.0-360.0 Iron binding capacity.unsaturated [Mass/volume] in Serum or Plasma 2024-05-14 08:36:52 151 ug/dL F 75.0-360.0 Iron [Mass/volume] in Serum or Plasma 2024-05-14 08:28:24 75 ug/dL F 65.0-175.0 Iron [Mass/volume] in Serum or Plasma 2024-05-14 08:28:24 75 ug/dL F 65.0-175.0 HCT CALC HGBX3 Iron binding capacity.unsaturated [Mass/volume] in Serum or Plasma HCT CALC HGBX3 Iron binding capacity.unsaturated [Mass/volume] in Serum or Plasma Hemoglobin [Mass/volume] in Blood FluidBP Description Draw Date Result/Unit Status Ref Range Result Comments Sodium [Moles/volume] in Serum or Plasma 2024-12-31 17:06:03 145 mEq/L F 136.0-145.0 Sodium [Moles/volume] in Serum or Plasma 2024-12-03 15:50:52 138 mEq/L F 136.0-145.0 Sodium [Moles/volume] in Serum or Plasma 2024-11-06 01:57:51 141 mEq/L F 136.0-145.0 Sodium [Moles/volume] in Serum or Plasma 2024-11-06 01:57:51 141 mEq/L F 136.0-145.0 Sodium [Moles/volume] in Serum or Plasma 2024-10-01 07:10:02 141 mEq/L F 136.0-145.0 Sodium [Moles/volume] in Serum or Plasma 2024-10-01 07:10:02 141 mEq/L F 136.0-145.0 Sodium [Moles/volume] in Serum or Plasma 2024-08-24 16:58:43 141 mEq/L F 132.0-146.0 Sodium [Moles/volume] in Serum or Plasma 2024-08-24 16:58:43 141 mEq/L F 132.0-146.0 Sodium [Moles/volume] in Serum or Plasma 2024-08-19 04:59:59 140 mEq/L F 137-145 Sodium [Moles/volume] in Serum or Plasma 2024-08-19 04:59:59 140 mEq/L F 137-145 Sodium [Moles/volume] in Serum or Plasma 2024-07-04 07:15:18 141 mEq/L F 132.0-146.0 Sodium [Moles/volume] in Serum or Plasma 2024-06-04 07:52:29 141 mEq/L F 132.0-146.0 Sodium [Moles/volume] in Serum or Plasma 2024-05-14 08:36:53 141 mEq/L F 132.0-146.0 Sodium [Moles/volume] in Serum or Plasma 2024-05-14 08:36:53 141 mEq/L F 132.0-146.0 General Description Draw Date Result/Unit Status Ref Range Result Comments Chloride [Moles/volume] in Serum or Plasma 2024-12-31 17:06:03 102 mEq/L F 98.0-107.0 Aspartate aminotransferase [Enzymatic activity/volume] in Serum or Plasma 2024-12-31 15:19:19 22 U/L F 0.0-33.0 Alanine aminotransferase [Enzymatic activity/volume] in Serum or Plasma 2024-12-31 15:19:19 13 U/L F 10.0-49.0 Chloride [Moles/volume] in Serum or Plasma 2024-12-03 15:50:52 97 mEq/L F 98.0-107.0 Alanine aminotransferase [Enzymatic activity/volume] in Serum or Plasma 2024-12-03 04:20:14 10 U/L F 10.0-49.0 Aspartate aminotransferase [Enzymatic activity/volume] in Serum or Plasma 2024-12-03 04:20:14 19 U/L F 0.0-33.0 Chloride [Moles/volume] in Serum or Plasma 2024-11-06 01:57:51 97 mEq/L F 98.0-107.0 Chloride [Moles/volume] in Serum or Plasma 2024-11-06 01:57:51 97 mEq/L F 98.0-107.0 Alanine aminotransferase [Enzymatic activity/volume] in Serum or Plasma 2024-11-05 19:10:08 11 U/L F 10.0-49.0 Aspartate aminotransferase [Enzymatic activity/volume] in Serum or Plasma 2024-11-05 19:10:08 20 U/L F 0.0-33.0 Aspartate aminotransferase [Enzymatic activity/volume] in Serum or Plasma 2024-11-05 19:10:08 20 U/L F 0.0-33.0 Alanine aminotransferase [Enzymatic activity/volume] in Serum or Plasma 2024-11-05 19:10:08 11 U/L F 10.0-49.0 Chloride [Moles/volume] in Serum or Plasma 2024-10-01 07:10:02 99 mEq/L F 98.0-107.0 Chloride [Moles/volume] in Serum or Plasma 2024-10-01 07:10:02 99 mEq/L F 98.0-107.0 Aspartate aminotransferase [Enzymatic activity/volume] in Serum or Plasma 2024-09-30 21:41:19 23 U/L F 0.0-33.0 Alanine aminotransferase [Enzymatic activity/volume] in Serum or Plasma 2024-09-30 21:41:19 11 U/L F 10.0-49.0 Aspartate aminotransferase [Enzymatic activity/volume] in Serum or Plasma 2024-09-30 21:41:19 23 U/L F 0.0-33.0 Alanine aminotransferase [Enzymatic activity/volume] in Serum or Plasma 2024-09-30 21:41:19 11 U/L F 10.0-49.0 Chloride [Moles/volume] in Serum or Plasma 2024-08-24 16:58:43 96 mEq/L F 99.0-109.0 Chloride [Moles/volume] in Serum or Plasma 2024-08-24 16:58:43 96 mEq/L F 99.0-109.0 Aspartate aminotransferase [Enzymatic activity/volume] in Serum or Plasma 2024-08-24 15:18:15 22 U/L F 0.0-33.0 Alanine aminotransferase [Enzymatic activity/volume] in Serum or Plasma 2024-08-24 15:18:15 11 U/L F 10.0-49.0 Aspartate aminotransferase [Enzymatic activity/volume] in Serum or Plasma 2024-08-24 15:18:15 22 U/L F 0.0-33.0 Alanine aminotransferase [Enzymatic activity/volume] in Serum or Plasma 2024-08-24 15:18:15 11 U/L F 10.0-49.0 Alanine aminotransferase [Enzymatic activity/volume] in Serum or Plasma 2024-08-19 04:59:59 15 U/L F 6-50 Alanine aminotransferase [Enzymatic activity/volume] in Serum or Plasma 2024-08-19 04:59:59 15 U/L F 6-50 Chloride [Moles/volume] in Serum or Plasma 2024-07-04 07:15:18 103 mEq/L F 99.0-109.0 Aspartate aminotransferase [Enzymatic activity/volume] in Serum or Plasma 2024-07-03 14:13:19 28 U/L F 0.0-33.0 Alanine aminotransferase [Enzymatic activity/volume] in Serum or Plasma 2024-07-03 14:13:19 13 U/L F 10.0-49.0 Chloride [Moles/volume] in Serum or Plasma 2024-06-04 07:52:29 100 mEq/L F 99.0-109.0 Aspartate aminotransferase [Enzymatic activity/volume] in Serum or Plasma 2024-06-03 17:39:27 24 U/L F 0.0-33.0 Alanine aminotransferase [Enzymatic activity/volume] in Serum or Plasma 2024-06-03 17:39:27 10 U/L F 10.0-49.0 Chloride [Moles/volume] in Serum or Plasma 2024-05-14 08:36:53 107 mEq/L F 99.0-109.0 Chloride [Moles/volume] in Serum or Plasma 2024-05-14 08:36:53 107 mEq/L F 99.0-109.0 Alanine aminotransferase [Enzymatic activity/volume] in Serum or Plasma 2024-05-13 22:55:40 37 U/L F 10.0-49.0 Alanine aminotransferase [Enzymatic activity/volume] in Serum or Plasma 2024-05-13 22:55:40 37 U/L F 10.0-49.0 Aluminum [Mass/volume] in Serum or Plasma 2024-05-13 18:52:30 10 ug/L F 0.0-9.0 Aluminum [Mass/volume] in Serum or Plasma 2024-05-13 18:52:30 10 ug/L F 0.0-9.0 InfectionVaccination Description Draw Date Result/Unit Status Ref Range Result Comments Eosinophils [#/volume] in Blood by Automated count 2024-12-31 05:08:14 458 Cells/uL F 0.0-700.0 Monocytes/100 leukocytes in Blood by Automated count 2024-12-31 05:08:14 6.9 % F Neutrophils [#/volume] in Blood by Automated count 2024-12-31 05:08:14 3315 Cells/uL F 2000.0-8800.0 Lymphocytes [#/volume] in Blood by Automated count 2024-12-31 05:08:14 1207 Cells/uL F 620.0-3660.0 Eosinophils/100 leukocytes in Blood by Automated count 2024-12-31 05:08:14 8.5 % F Basophils/100 leukocytes in Blood by Automated count 2024-12-31 05:08:14 0.7 % F Monocytes [#/volume] in Blood by Automated count 2024-12-31 05:08:14 372 Cells/uL F 0.0-1100.0 Neutrophils/100 leukocytes in Blood by Automated count 2024-12-31 05:08:14 61.5 % F Basophils [#/volume] in Blood by Automated count 2024-12-31 05:08:14 38 Cells/uL F 0.0-400.0 Lymphocytes/100 leukocytes in Blood by Automated count 2024-12-31 05:08:14 22.4 % F Leukocytes [#/volume] in Blood by Automated count 2024-12-31 05:08:14 5.4 x 10^3 cells/uL F 4.0-11.0 Neutrophils/100 leukocytes in Blood by Automated count 2024-12-03 05:18:15 64.2 % F Basophils/100 leukocytes in Blood by Automated count 2024-12-03 05:18:15 0.6 % F Lymphocytes/100 leukocytes in Blood by Automated count 2024-12-03 05:18:15 22.2 % F Leukocytes [#/volume] in Blood by Automated count 2024-12-03 05:18:15 6.1 x 10^3 cells/uL F 4.0-11.0 Monocytes/100 leukocytes in Blood by Automated count 2024-12-03 05:18:15 6.6 % F Eosinophils/100 leukocytes in Blood by Automated count 2024-12-03 05:18:15 6.4 % F Neutrophils [#/volume] in Blood by Automated count 2024-12-03 05:18:15 3942 Cells/uL F 2000.0-8800.0 Lymphocytes [#/volume] in Blood by Automated count 2024-12-03 05:18:15 1363 Cells/uL F 620.0-3660.0 Monocytes [#/volume] in Blood by Automated count 2024-12-03 05:18:15 405 Cells/uL F 0.0-1100.0 Basophils [#/volume] in Blood by Automated count 2024-12-03 05:18:15 37 Cells/uL F 0.0-400.0 Eosinophils [#/volume] in Blood by Automated count 2024-12-03 05:18:15 393 Cells/uL F 0.0-700.0 Lymphocytes/100 leukocytes in Blood by Automated count 2024-11-05 22:21:17 16.7 % F Basophils/100 leukocytes in Blood by Automated count 2024-11-05 22:21:17 0.6 % F Neutrophils/100 leukocytes in Blood by Automated count 2024-11-05 22:21:17 69.6 % F Monocytes/100 leukocytes in Blood by Automated count 2024-11-05 22:21:17 7.9 % F Eosinophils/100 leukocytes in Blood by Automated count 2024-11-05 22:21:17 5.1 % F Leukocytes [#/volume] in Blood by Automated count 2024-11-05 22:21:17 7.1 x 10^3 cells/uL F 4.0-11.0 Lymphocytes [#/volume] in Blood by Automated count 2024-11-05 22:21:17 1187 Cells/uL F 620.0-3660.0 Neutrophils [#/volume] in Blood by Automated count 2024-11-05 22:21:17 4949 Cells/uL F 2000.0-8800.0 Monocytes [#/volume] in Blood by Automated count 2024-11-05 22:21:17 562 Cells/uL F 0.0-1100.0 Basophils [#/volume] in Blood by Automated count 2024-11-05 22:21:17 43 Cells/uL F 0.0-400.0 Eosinophils [#/volume] in Blood by Automated count 2024-11-05 22:21:17 363 Cells/uL F 0.0-700.0 Neutrophils/100 leukocytes in Blood by Automated count 2024-11-05 22:21:17 69.6 % F Basophils/100 leukocytes in Blood by Automated count 2024-11-05 22:21:17 0.6 % F Monocytes/100 leukocytes in Blood by Automated count 2024-11-05 22:21:17 7.9 % F Eosinophils/100 leukocytes in Blood by Automated count 2024-11-05 22:21:17 5.1 % F Lymphocytes/100 leukocytes in Blood by Automated count 2024-11-05 22:21:17 16.7 % F Monocytes [#/volume] in Blood by Automated count 2024-11-05 22:21:17 562 Cells/uL F 0.0-1100.0 Basophils [#/volume] in Blood by Automated count 2024-11-05 22:21:17 43 Cells/uL F 0.0-400.0 Eosinophils [#/volume] in Blood by Automated count 2024-11-05 22:21:17 363 Cells/uL F 0.0-700.0 Neutrophils [#/volume] in Blood by Automated count 2024-11-05 22:21:17 4949 Cells/uL F 2000.0-8800.0 Leukocytes [#/volume] in Blood by Automated count 2024-11-05 22:21:17 7.1 x 10^3 cells/uL F 4.0-11.0 Lymphocytes [#/volume] in Blood by Automated count 2024-11-05 22:21:17 1187 Cells/uL F 620.0-3660.0 Basophils [#/volume] in Blood by Automated count 2024-10-01 15:44:12 157 Cells/uL F 0.0-400.0 Eosinophils [#/volume] in Blood by Automated count 2024-10-01 15:44:12 235 Cells/uL F 0.0-700.0 Lymphocytes [#/volume] in Blood by Automated count 2024-10-01 15:44:12 1276 Cells/uL F 620.0-3660.0 Neutrophils/100 leukocytes in Blood by Automated count 2024-10-01 15:44:12 69.5 % F Basophils/100 leukocytes in Blood by Automated count 2024-10-01 15:44:12 2.2 % F Eosinophils/100 leukocytes in Blood by Automated count 2024-10-01 15:44:12 3.3 % F Monocytes/100 leukocytes in Blood by Automated count 2024-10-01 15:44:12 7.2 % F Lymphocytes/100 leukocytes in Blood by Automated count 2024-10-01 15:44:12 17.9 % F Monocytes [#/volume] in Blood by Automated count 2024-10-01 15:44:12 513 Cells/uL F 0.0-1100.0 Neutrophils [#/volume] in Blood by Automated count 2024-10-01 15:44:12 4955 Cells/uL F 2000.0-8800.0 Basophils/100 leukocytes in Blood by Automated count 2024-10-01 15:44:12 2.2 % F Neutrophils/100 leukocytes in Blood by Automated count 2024-10-01 15:44:12 69.5 % F Eosinophils/100 leukocytes in Blood by Automated count 2024-10-01 15:44:12 3.3 % F Lymphocytes/100 leukocytes in Blood by Automated count 2024-10-01 15:44:12 17.9 % F Monocytes/100 leukocytes in Blood by Automated count 2024-10-01 15:44:12 7.2 % F Basophils [#/volume] in Blood by Automated count 2024-10-01 15:44:12 157 Cells/uL F 0.0-400.0 Monocytes [#/volume] in Blood by Automated count 2024-10-01 15:44:12 513 Cells/uL F 0.0-1100.0 Eosinophils [#/volume] in Blood by Automated count 2024-10-01 15:44:12 235 Cells/uL F 0.0-700.0 Neutrophils [#/volume] in Blood by Automated count 2024-10-01 15:44:12 4955 Cells/uL F 2000.0-8800.0 Lymphocytes [#/volume] in Blood by Automated count 2024-10-01 15:44:12 1276 Cells/uL F 620.0-3660.0 Leukocytes [#/volume] in Blood by Automated count 2024-10-01 15:44:10 7.1 x 10^3 cells/uL F 4.0-11.0 Leukocytes [#/volume] in Blood by Automated count 2024-10-01 15:44:10 7.1 x 10^3 cells/uL F 4.0-11.0 Eosinophils/100 leukocytes in Blood by Automated count 2024-08-24 18:56:29 2.3 % F Monocytes/100 leukocytes in Blood by Automated count 2024-08-24 18:56:29 5.9 % F Neutrophils/100 leukocytes in Blood by Automated count 2024-08-24 18:56:29 81 % F Eosinophils [#/volume] in Blood by Automated count 2024-08-24 18:56:29 209 Cells/uL F 0.0-700.0 Basophils [#/volume] in Blood by Automated count 2024-08-24 18:56:29 9 Cells/uL F 0.0-400.0 Lymphocytes [#/volume] in Blood by Automated count 2024-08-24 18:56:29 970 Cells/uL F 620.0-3660.0 Leukocytes [#/volume] in Blood by Automated count 2024-08-24 18:56:29 9.1 x 10^3 cells/uL F 4.0-11.0 Lymphocytes/100 leukocytes in Blood by Automated count 2024-08-24 18:56:29 10.7 % F Monocytes [#/volume] in Blood by Automated count 2024-08-24 18:56:29 535 Cells/uL F 0.0-1100.0 Basophils/100 leukocytes in Blood by Automated count 2024-08-24 18:56:29 0.1 % F Neutrophils [#/volume] in Blood by Automated count 2024-08-24 18:56:29 7347 Cells/uL F 2000.0-8800.0 Neutrophils/100 leukocytes in Blood by Automated count 2024-08-24 18:56:29 81 % F Neutrophils [#/volume] in Blood by Automated count 2024-08-24 18:56:29 7347 Cells/uL F 2000.0-8800.0 Monocytes/100 leukocytes in Blood by Automated count 2024-08-24 18:56:29 5.9 % F Monocytes [#/volume] in Blood by Automated count 2024-08-24 18:56:29 535 Cells/uL F 0.0-1100.0 Basophils/100 leukocytes in Blood by Automated count 2024-08-24 18:56:29 0.1 % F Leukocytes [#/volume] in Blood by Automated count 2024-08-24 18:56:29 9.1 x 10^3 cells/uL F 4.0-11.0 Eosinophils/100 leukocytes in Blood by Automated count 2024-08-24 18:56:29 2.3 % F Eosinophils [#/volume] in Blood by Automated count 2024-08-24 18:56:29 209 Cells/uL F 0.0-700.0 Basophils [#/volume] in Blood by Automated count 2024-08-24 18:56:29 9 Cells/uL F 0.0-400.0 Lymphocytes/100 leukocytes in Blood by Automated count 2024-08-24 18:56:29 10.7 % F Lymphocytes [#/volume] in Blood by Automated count 2024-08-24 18:56:29 970 Cells/uL F 620.0-3660.0 Leukocytes [#/volume] in Blood by Automated count 2024-08-19 04:59:59 8.5 x 10^3 cells/uL F 4.5-10 Leukocytes [#/volume] in Blood by Automated count 2024-08-19 04:59:59 8.5 x 10^3 cells/uL F 4.5-10 Monocytes/100 leukocytes in Blood by Automated count 2024-07-02 01:59:11 6.6 % F Lymphocytes/100 leukocytes in Blood by Automated count 2024-07-02 01:59:11 17.5 % F Eosinophils/100 leukocytes in Blood by Automated count 2024-07-02 01:59:11 2.9 % F Basophils/100 leukocytes in Blood by Automated count 2024-07-02 01:59:11 0.3 % F Neutrophils/100 leukocytes in Blood by Automated count 2024-07-02 01:59:11 72.7 % F Monocytes [#/volume] in Blood by Automated count 2024-07-02 01:59:11 494 Cells/uL F 0.0-1100.0 Eosinophils [#/volume] in Blood by Automated count 2024-07-02 01:59:11 217 Cells/uL F 0.0-700.0 Basophils [#/volume] in Blood by Automated count 2024-07-02 01:59:11 22 Cells/uL F 0.0-400.0 Neutrophils [#/volume] in Blood by Automated count 2024-07-02 01:59:11 5438 Cells/uL F 2000.0-8800.0 Leukocytes [#/volume] in Blood by Automated count 2024-07-02 01:59:11 7.5 x 10^3 cells/uL F 4.0-11.0 Lymphocytes [#/volume] in Blood by Automated count 2024-07-02 01:59:11 1309 Cells/uL F 620.0-3660.0 Monocytes/100 leukocytes in Blood by Automated count 2024-06-03 22:39:11 5.4 % F Eosinophils/100 leukocytes in Blood by Automated count 2024-06-03 22:39:11 2.7 % F Basophils/100 leukocytes in Blood by Automated count 2024-06-03 22:39:11 1.7 % F Neutrophils/100 leukocytes in Blood by Automated count 2024-06-03 22:39:11 75.3 % F Lymphocytes/100 leukocytes in Blood by Automated count 2024-06-03 22:39:11 14.9 % F Eosinophils [#/volume] in Blood by Automated count 2024-06-03 22:39:11 258 Cells/uL F 0.0-700.0 Monocytes [#/volume] in Blood by Automated count 2024-06-03 22:39:11 515 Cells/uL F 0.0-1100.0 Basophils [#/volume] in Blood by Automated count 2024-06-03 22:39:11 162 Cells/uL F 0.0-400.0 Neutrophils [#/volume] in Blood by Automated count 2024-06-03 22:39:11 7184 Cells/uL F 2000.0-8800.0 Leukocytes [#/volume] in Blood by Automated count 2024-06-03 22:39:11 9.5 x 10^3 cells/uL F 4.0-11.0 Lymphocytes [#/volume] in Blood by Automated count 2024-06-03 22:39:11 1421 Cells/uL F 620.0-3660.0 Neutrophils [#/volume] in Blood by Automated count Neutrophils/100 leukocytes in Blood by Automated count Eosinophils [#/volume] in Blood by Automated count Basophils [#/volume] in Blood by Automated count Monocytes/100 leukocytes in Blood by Automated count Monocytes [#/volume] in Blood by Automated count Eosinophils/100 leukocytes in Blood by Automated count Basophils/100 leukocytes in Blood by Automated count Lymphocytes [#/volume] in Blood by Automated count Lymphocytes/100 leukocytes in Blood by Automated count Lymphocytes/100 leukocytes in Blood by Automated count Eosinophils [#/volume] in Blood by Automated count Lymphocytes [#/volume] in Blood by Automated count Eosinophils/100 leukocytes in Blood by Automated count Basophils [#/volume] in Blood by Automated count Neutrophils [#/volume] in Blood by Automated count Monocytes/100 leukocytes in Blood by Automated count Basophils/100 leukocytes in Blood by Automated count Neutrophils/100 leukocytes in Blood by Automated count Monocytes [#/volume] in Blood by Automated count MineralBone Disorder Description Draw Date Result/Unit Status Ref Range Result Comments CA CORRECTED 2024-12-31 17:11:37 9.8 mg/dL F CA*PO4 CORRCTD 2024-12-31 17:08:51 83.9 Calc F 21.0-53.0 CA/PHOS PRODUCT 2024-12-31 17:08:51 82.6 Calc F 21.0-53.0 Calcium [Mass/volume] in Serum or Plasma 2024-12-31 17:06:03 9.6 mg/dL F 8.7-10.4 Alkaline phosphatase [Enzymatic activity/volume] in Serum or Plasma 2024-12-31 15:19:21 131 U/L F 46.0-116.0 Phosphate [Mass/volume] in Serum or Plasma 2024-12-31 15:19:21 8.6 mg/dL F 2.4-5.1 Parathyrin.intact [Mass/volume] in Serum or Plasma 2024-12-31 05:35:15 507 pg/mL F 18.0-80.0 Parathyrin.intact [Mass/volume] in Serum or Plasma 2024-12-03 23:17:14 917 pg/mL F 18.0-80.0 CA CORRECTED 2024-12-03 16:01:29 8.9 mg/dL F CA*PO4 CORRCTD 2024-12-03 15:59:49 54.2 Calc F 21.0-53.0 CA/PHOS PRODUCT 2024-12-03 15:59:49 53.7 Calc F 21.0-53.0 Calcium [Mass/volume] in Serum or Plasma 2024-12-03 15:50:52 8.8 mg/dL F 8.7-10.4 Alkaline phosphatase [Enzymatic activity/volume] in Serum or Plasma 2024-12-03 04:20:14 136 U/L F 46.0-116.0 Phosphate [Mass/volume] in Serum or Plasma 2024-12-03 04:20:14 6.1 mg/dL F 2.4-5.1 CA CORRECTED 2024-11-06 02:22:33 8.6 mg/dL F CA CORRECTED 2024-11-06 02:22:33 8.6 mg/dL F CA/PHOS PRODUCT 2024-11-06 02:20:48 65.5 Calc F 21.0-53.0 CA*PO4 CORRCTD 2024-11-06 02:20:48 66.8 Calc F 21.0-53.0 CA/PHOS PRODUCT 2024-11-06 02:20:48 65.5 Calc F 21.0-53.0 CA*PO4 CORRCTD 2024-11-06 02:20:48 66.8 Calc F 21.0-53.0 Calcium [Mass/volume] in Serum or Plasma 2024-11-06 01:57:51 8.4 mg/dL F 8.7-10.4 Calcium [Mass/volume] in Serum or Plasma 2024-11-06 01:57:51 8.4 mg/dL F 8.7-10.4 Parathyrin.intact [Mass/volume] in Serum or Plasma 2024-11-05 19:54:19 1000 pg/mL F 18.0-80.0 Parathyrin.intact [Mass/volume] in Serum or Plasma 2024-11-05 19:54:19 1000 pg/mL F 18.0-80.0 Alkaline phosphatase [Enzymatic activity/volume] in Serum or Plasma 2024-11-05 19:10:08 108 U/L F 46.0-116.0 Phosphate [Mass/volume] in Serum or Plasma 2024-11-05 19:10:08 7.8 mg/dL F 2.4-5.1 Phosphate [Mass/volume] in Serum or Plasma 2024-11-05 19:10:08 7.8 mg/dL F 2.4-5.1 Alkaline phosphatase [Enzymatic activity/volume] in Serum or Plasma 2024-11-05 19:10:08 108 U/L F 46.0-116.0 Parathyrin.intact [Mass/volume] in Serum or Plasma 2024-10-01 12:58:17 1093 pg/mL F 18.0-80.0 Parathyrin.intact [Mass/volume] in Serum or Plasma 2024-10-01 12:58:17 1093 pg/mL F 18.0-80.0 CA CORRECTED 2024-10-01 07:21:04 8.8 mg/dL F CA CORRECTED 2024-10-01 07:21:04 8.8 mg/dL F CA*PO4 CORRCTD 2024-10-01 07:19:21 51.8 Calc F 21.0-53.0 CA/PHOS PRODUCT 2024-10-01 07:19:21 51.3 Calc F 21.0-53.0 CA*PO4 CORRCTD 2024-10-01 07:19:21 51.8 Calc F 21.0-53.0 CA/PHOS PRODUCT 2024-10-01 07:19:21 51.3 Calc F 21.0-53.0 Calcium [Mass/volume] in Serum or Plasma 2024-10-01 07:10:02 8.7 mg/dL F 8.7-10.4 Calcium [Mass/volume] in Serum or Plasma 2024-10-01 07:10:02 8.7 mg/dL F 8.7-10.4 Phosphate [Mass/volume] in Serum or Plasma 2024-09-30 21:41:19 5.9 mg/dL F 2.4-5.1 Alkaline phosphatase [Enzymatic activity/volume] in Serum or Plasma 2024-09-30 21:41:19 124 U/L F 46.0-116.0 Phosphate [Mass/volume] in Serum or Plasma 2024-09-30 21:41:19 5.9 mg/dL F 2.4-5.1 Alkaline phosphatase [Enzymatic activity/volume] in Serum or Plasma 2024-09-30 21:41:19 124 U/L F 46.0-116.0 Parathyrin.intact [Mass/volume] in Serum or Plasma 2024-09-11 01:40:12 954 pg/mL F 18.0-80.0 Parathyrin.intact [Mass/volume] in Serum or Plasma 2024-09-11 01:40:12 954 pg/mL F 18.0-80.0 CA CORRECTED 2024-08-24 17:04:09 9 mg/dL F CA CORRECTED 2024-08-24 17:04:09 9 mg/dL F CA*PO4 CORRCTD 2024-08-24 17:01:21 52.9 Calc F 21.0-53.0 CA/PHOS PRODUCT 2024-08-24 17:01:21 47.2 Calc F 21.0-53.0 CA/PHOS PRODUCT 2024-08-24 17:01:21 47.2 Calc F 21.0-53.0 CA*PO4 CORRCTD 2024-08-24 17:01:21 52.9 Calc F 21.0-53.0 Phosphate [Mass/volume] in Serum or Plasma 2024-08-24 16:58:43 5.9 mg/dL F 2.4-5.1 Calcium [Mass/volume] in Serum or Plasma 2024-08-24 16:58:43 8 mg/dL F 8.7-10.4 Phosphate [Mass/volume] in Serum or Plasma 2024-08-24 16:58:43 5.9 mg/dL F 2.4-5.1 Calcium [Mass/volume] in Serum or Plasma 2024-08-24 16:58:43 8 mg/dL F 8.7-10.4 Alkaline phosphatase [Enzymatic activity/volume] in Serum or Plasma 2024-08-24 15:18:15 84 U/L F 46.0-116.0 Alkaline phosphatase [Enzymatic activity/volume] in Serum or Plasma 2024-08-24 15:18:15 84 U/L F 46.0-116.0 Parathyrin.intact [Mass/volume] in Serum or Plasma 2024-08-24 01:22:14 F CANCELED - TEST CANCELED,CANCELED - TEST CANCELED Parathyrin.intact [Mass/volume] in Serum or Plasma 2024-08-24 01:22:14 F CANCELED - TEST CANCELED Phosphate [Mass/volume] in Serum or Plasma 2024-08-19 04:59:59 5.4 mg/dL F 2.5-4.5 Parathyrin.intact [Mass/volume] in Serum or Plasma 2024-08-19 04:59:59 695.1 pg/mL F 14.5-75.2 Phosphate [Mass/volume] in Serum or Plasma 2024-08-19 04:59:59 5.4 mg/dL F 2.5-4.5 Parathyrin.intact [Mass/volume] in Serum or Plasma 2024-08-19 04:59:59 695.1 pg/mL F 14.5-75.2 CA CORRECTED 2024-07-04 07:55:07 8.6 mg/dL F CA*PO4 CORRCTD 2024-07-04 07:52:25 49.2 Calc F 21.0-53.0 CA/PHOS PRODUCT 2024-07-04 07:52:25 43.3 Calc F 21.0-53.0 Phosphate [Mass/volume] in Serum or Plasma 2024-07-04 07:15:18 5.7 mg/dL F 2.4-5.1 Calcium [Mass/volume] in Serum or Plasma 2024-07-04 07:15:18 7.6 mg/dL F 8.7-10.4 Alkaline phosphatase [Enzymatic activity/volume] in Serum or Plasma 2024-07-03 14:13:19 114 U/L F 46.0-116.0 Parathyrin.intact [Mass/volume] in Serum or Plasma 2024-07-01 14:25:23 1087 pg/mL F 18.0-80.0 CA CORRECTED 2024-06-04 08:01:21 8.4 mg/dL F CA/PHOS PRODUCT 2024-06-04 08:00:29 54 Calc F 21.0-53.0 CA*PO4 CORRCTD 2024-06-04 08:00:29 60.3 Calc F 21.0-53.0 Parathyrin.intact [Mass/volume] in Serum or Plasma 2024-06-04 07:59:15 1332 pg/mL F 18.0-80.0 Phosphate [Mass/volume] in Serum or Plasma 2024-06-04 07:52:29 7.2 mg/dL F 2.4-5.1 Calcium [Mass/volume] in Serum or Plasma 2024-06-04 07:52:29 7.5 mg/dL F 8.7-10.4 Alkaline phosphatase [Enzymatic activity/volume] in Serum or Plasma 2024-06-03 17:39:27 114 U/L F 46.0-116.0 CA CORRECTED 2024-05-14 09:22:30 8.4 mg/dL F CA CORRECTED 2024-05-14 09:22:30 8.4 mg/dL F CA*PO4 CORRCTD 2024-05-14 09:20:49 80.4 Calc F 21.0-53.0 CA/PHOS PRODUCT 2024-05-14 09:20:49 72 Calc F 21.0-53.0 CA*PO4 CORRCTD 2024-05-14 09:20:49 80.4 Calc F 21.0-53.0 CA/PHOS PRODUCT 2024-05-14 09:20:49 72 Calc F 21.0-53.0 Phosphate [Mass/volume] in Serum or Plasma 2024-05-14 08:28:24 9.6 mg/dL F 2.4-5.1 Calcium [Mass/volume] in Serum or Plasma 2024-05-14 08:28:24 7.5 mg/dL F 8.7-10.4 Phosphate [Mass/volume] in Serum or Plasma 2024-05-14 08:28:24 9.6 mg/dL F 2.4-5.1 Calcium [Mass/volume] in Serum or Plasma 2024-05-14 08:28:24 7.5 mg/dL F 8.7-10.4 25-Hydroxyvitamin D3+25-Hydroxyvitamin D2 [Mass/volume] in Serum or Plasma 2024-05-14 07:05:12 22.1 ng/mL F 25-Hydroxyvitamin D3+25-Hydroxyvitamin D2 [Mass/volume] in Serum or Plasma 2024-05-14 07:05:12 22.1 ng/mL F Parathyrin.intact [Mass/volume] in Serum or Plasma 2024-05-13 17:53:16 1111 pg/mL F 18.0-80.0 Parathyrin.intact [Mass/volume] in Serum or Plasma 2024-05-13 17:53:16 1111 pg/mL F 18.0-80.0 Nutrition Description Draw Date Result/Unit Status Ref Range Result Comments Potassium [Moles/volume] in Serum or Plasma 2024-12-31 17:06:03 6 mEq/L F 3.5-5.1 GLOBULIN 2024-12-31 15:20:15 3.4 g/dL F 0.9-5.0 A/G RATIO 2024-12-31 15:20:15 1.1 Calc F 1.0-2.5 Albumin [Mass/volume] in Serum or Plasma by Bromocresol green (BCG) dye binding method 2024-12-31 15:19:21 3.8 g/dL F 3.2-4.8 Protein [Mass/volume] in Serum or Plasma 2024-12-31 15:19:19 7.2 g/dL F 5.7-8.2 Bicarbonate [Moles/volume] in Serum or Plasma 2024-12-31 15:19:19 25 mEq/L F 20.0-31.0 Lactate dehydrogenase [Enzymatic activity/volume] in Serum or Plasma 2024-12-31 15:19:19 227 U/L F 120.0-246.0 Potassium [Moles/volume] in Serum or Plasma 2024-12-03 15:50:52 5.4 mEq/L F 3.5-5.1 A/G RATIO 2024-12-03 04:20:49 1.1 Calc F 1.0-2.5 GLOBULIN 2024-12-03 04:20:49 3.4 g/dL F 0.9-5.0 Bicarbonate [Moles/volume] in Serum or Plasma 2024-12-03 04:20:14 26 mEq/L F 20.0-31.0 Albumin [Mass/volume] in Serum or Plasma by Bromocresol green (BCG) dye binding method 2024-12-03 04:20:14 3.9 g/dL F 3.2-4.8 Lactate dehydrogenase [Enzymatic activity/volume] in Serum or Plasma 2024-12-03 04:20:14 203 U/L F 120.0-246.0 Protein [Mass/volume] in Serum or Plasma 2024-12-03 04:20:14 7.3 g/dL F 5.7-8.2 Potassium [Moles/volume] in Serum or Plasma 2024-11-06 01:57:51 5.2 mEq/L F 3.5-5.1 Potassium [Moles/volume] in Serum or Plasma 2024-11-06 01:57:51 5.2 mEq/L F 3.5-5.1 A/G RATIO 2024-11-05 19:11:11 1.1 Calc F 1.0-2.5 GLOBULIN 2024-11-05 19:11:11 3.5 g/dL F 0.9-5.0 GLOBULIN 2024-11-05 19:11:11 3.5 g/dL F 0.9-5.0 A/G RATIO 2024-11-05 19:11:11 1.1 Calc F 1.0-2.5 Albumin [Mass/volume] in Serum or Plasma by Bromocresol green (BCG) dye binding method 2024-11-05 19:10:08 3.8 g/dL F 3.2-4.8 Bicarbonate [Moles/volume] in Serum or Plasma 2024-11-05 19:10:08 27 mEq/L F 20.0-31.0 Lactate dehydrogenase [Enzymatic activity/volume] in Serum or Plasma 2024-11-05 19:10:08 224 U/L F 120.0-246.0 Protein [Mass/volume] in Serum or Plasma 2024-11-05 19:10:08 7.3 g/dL F 5.7-8.2 Lactate dehydrogenase [Enzymatic activity/volume] in Serum or Plasma 2024-11-05 19:10:08 224 U/L F 120.0-246.0 Bicarbonate [Moles/volume] in Serum or Plasma 2024-11-05 19:10:08 27 mEq/L F 20.0-31.0 Albumin [Mass/volume] in Serum or Plasma by Bromocresol green (BCG) dye binding method 2024-11-05 19:10:08 3.8 g/dL F 3.2-4.8 Protein [Mass/volume] in Serum or Plasma 2024-11-05 19:10:08 7.3 g/dL F 5.7-8.2 Potassium [Moles/volume] in Serum or Plasma 2024-10-01 07:10:02 5 mEq/L F 3.5-5.1 Potassium [Moles/volume] in Serum or Plasma 2024-10-01 07:10:02 5 mEq/L F 3.5-5.1 A/G RATIO 2024-09-30 21:42:29 1.1 Calc F 1.0-2.5 GLOBULIN 2024-09-30 21:42:29 3.4 g/dL F 0.9-5.0 GLOBULIN 2024-09-30 21:42:29 3.4 g/dL F 0.9-5.0 A/G RATIO 2024-09-30 21:42:29 1.1 Calc F 1.0-2.5 Lactate dehydrogenase [Enzymatic activity/volume] in Serum or Plasma 2024-09-30 21:41:19 239 U/L F 120.0-246.0 Albumin [Mass/volume] in Serum or Plasma by Bromocresol green (BCG) dye binding method 2024-09-30 21:41:19 3.9 g/dL F 3.2-4.8 Bicarbonate [Moles/volume] in Serum or Plasma 2024-09-30 21:41:19 30 mEq/L F 20.0-31.0 Protein [Mass/volume] in Serum or Plasma 2024-09-30 21:41:19 7.3 g/dL F 5.7-8.2 Lactate dehydrogenase [Enzymatic activity/volume] in Serum or Plasma 2024-09-30 21:41:19 239 U/L F 120.0-246.0 Bicarbonate [Moles/volume] in Serum or Plasma 2024-09-30 21:41:19 30 mEq/L F 20.0-31.0 Albumin [Mass/volume] in Serum or Plasma by Bromocresol green (BCG) dye binding method 2024-09-30 21:41:19 3.9 g/dL F 3.2-4.8 Protein [Mass/volume] in Serum or Plasma 2024-09-30 21:41:19 7.3 g/dL F 5.7-8.2 Potassium [Moles/volume] in Serum or Plasma 2024-08-24 16:58:43 4.9 mEq/L F 3.5-5.5 Potassium [Moles/volume] in Serum or Plasma 2024-08-24 16:58:43 4.9 mEq/L F 3.5-5.5 A/G RATIO 2024-08-24 15:19:05 0.8 Calc F 1.0-2.5 GLOBULIN 2024-08-24 15:19:05 3.4 g/dL F 0.9-5.0 GLOBULIN 2024-08-24 15:19:05 3.4 g/dL F 0.9-5.0 A/G RATIO 2024-08-24 15:19:05 0.8 Calc F 1.0-2.5 Lactate dehydrogenase [Enzymatic activity/volume] in Serum or Plasma 2024-08-24 15:18:15 347 U/L F 120.0-246.0 Bicarbonate [Moles/volume] in Serum or Plasma 2024-08-24 15:18:15 31 mEq/L F 20.0-31.0 Albumin [Mass/volume] in Serum or Plasma by Bromocresol green (BCG) dye binding method 2024-08-24 15:18:15 2.8 g/dL F 3.4-4.8 Protein [Mass/volume] in Serum or Plasma 2024-08-24 15:18:15 6.2 g/dL F 5.7-8.2 Bicarbonate [Moles/volume] in Serum or Plasma 2024-08-24 15:18:15 31 mEq/L F 20.0-31.0 Albumin [Mass/volume] in Serum or Plasma by Bromocresol green (BCG) dye binding method 2024-08-24 15:18:15 2.8 g/dL F 3.4-4.8 Protein [Mass/volume] in Serum or Plasma 2024-08-24 15:18:15 6.2 g/dL F 5.7-8.2 Lactate dehydrogenase [Enzymatic activity/volume] in Serum or Plasma 2024-08-24 15:18:15 347 U/L F 120.0-246.0 Potassium [Moles/volume] in Serum or Plasma 2024-08-19 04:59:59 3.9 mEq/L F 3.4-5 Albumin [Mass/volume] in Serum or Plasma by Bromocresol green (BCG) dye binding method 2024-08-19 04:59:59 2.8 g/dL F 3.5-5.1 Potassium [Moles/volume] in Serum or Plasma 2024-08-19 04:59:59 3.9 mEq/L F 3.4-5 Albumin [Mass/volume] in Serum or Plasma by Bromocresol green (BCG) dye binding method 2024-08-19 04:59:59 2.8 g/dL F 3.5-5.1 Potassium [Moles/volume] in Serum or Plasma 2024-07-04 07:15:18 4.4 mEq/L F 3.5-5.5 A/G RATIO 2024-07-03 14:14:19 1 Calc F 1.0-2.5 GLOBULIN 2024-07-03 14:14:19 2.8 g/dL F 0.9-5.0 Lactate dehydrogenase [Enzymatic activity/volume] in Serum or Plasma 2024-07-03 14:13:19 303 U/L F 120.0-246.0 Bicarbonate [Moles/volume] in Serum or Plasma 2024-07-03 14:13:19 31 mEq/L F 20.0-31.0 Albumin [Mass/volume] in Serum or Plasma by Bromocresol green (BCG) dye binding method 2024-07-03 14:13:19 2.7 g/dL F 3.4-4.8 Protein [Mass/volume] in Serum or Plasma 2024-07-03 14:13:19 5.5 g/dL F 5.7-8.2 Potassium [Moles/volume] in Serum or Plasma 2024-06-04 07:52:29 4.2 mEq/L F 3.5-5.5 GLOBULIN 2024-06-03 17:40:09 3.1 g/dL F 0.9-5.0 A/G RATIO 2024-06-03 17:40:09 0.9 Calc F 1.0-2.5 Lactate dehydrogenase [Enzymatic activity/volume] in Serum or Plasma 2024-06-03 17:39:27 295 U/L F 120.0-246.0 Bicarbonate [Moles/volume] in Serum or Plasma 2024-06-03 17:39:27 29 mEq/L F 20.0-31.0 Albumin [Mass/volume] in Serum or Plasma by Bromocresol green (BCG) dye binding method 2024-06-03 17:39:27 2.9 g/dL F 3.4-4.8 Protein [Mass/volume] in Serum or Plasma 2024-06-03 17:39:27 6 g/dL F 5.7-8.2 Potassium [Moles/volume] in Serum or Plasma 2024-05-14 08:36:53 5.3 mEq/L F 3.5-5.5 Potassium [Moles/volume] in Serum or Plasma 2024-05-14 08:36:53 5.3 mEq/L F 3.5-5.5 Bicarbonate [Moles/volume] in Serum or Plasma 2024-05-13 22:55:40 24 mEq/L F 20.0-31.0 Albumin [Mass/volume] in Serum or Plasma by Bromocresol green (BCG) dye binding method 2024-05-13 22:55:40 2.9 g/dL F 3.4-4.8 Glucose [Mass/volume] in Serum or Plasma 2024-05-13 22:55:40 96 mg/dL F 70.0-99.0 Albumin [Mass/volume] in Serum or Plasma by Bromocresol green (BCG) dye binding method 2024-05-13 22:55:40 2.9 g/dL F 3.4-4.8 Glucose [Mass/volume] in Serum or Plasma 2024-05-13 22:55:40 96 mg/dL F 70.0-99.0 Bicarbonate [Moles/volume] in Serum or Plasma 2024-05-13 22:55:40 24 mEq/L F 20.0-31.0 Encounters No encounter information to report Immunizations Ordered Immunization Name Filled Immunization Name Date Status Comments Refusal Reason [id number] intradermal 2024-05-21 22:30:00 Influenza Vaccination 2024-02-19 05:00:00 Plan of Treatment Planned Activity Provider Planned Date Details Commen ts Diagnostic Test Pending [facility] 2024-08-04 05:00:00 Hemoglobin [Mass/volume] in Blood [code = 718-7] Diagnostic Test Pending [facility] 2024-07-23 15:28:45 Potassium [Moles/volume] in Serum or Plasma [code = 2823-3] Diagnostic Test Pending [facility] 2024-07-23 15:28:10 Creatinine [Mass/volume] in Serum or Plasma [code = 2160-0] Diagnostic Test Pending [facility] 2024-07-23 15:29:33 Reticulocytes/100 erythrocytes in Blood by Automated count [code = 69294-0] Diagnostic Test Pending NAVA ARSEN 2024-07-24 06:14:15 Parathyrin.intact [Mass/volume] in Serum or Plasma [code = 2731-8] Diagnostic Test Pending NAVA ARSEN 2024-07-30 18:30:03 Hemoglobin [Mass/volume] in Blood [code = 718-7] Diagnostic Test Pending NAVA ARSEN 2024-07-24 06:14:09 Ferritin [Mass/volume] in Serum or Plasma [code = 2276-4] Diagnostic Test Pending [facility] 2024-08-27 05:00:00 Parathyrin.intact [Mass/volume] in Serum or Plasma [code = 2731-8] Diagnostic Test Pending BRANDY LEGER 2024-07-23 15:27:23 Alanine aminotransferase [Enzymatic activity/volume] in Serum or Plasma [code = 1742-6] Diagnostic Test Pending NAVA ARSEN 2024-07-23 15:27:[address] [code = 2265] Diagnostic Test Pending NAVA ARSEN 2024-07-23 15:26:50 Sodium [Moles/volume] in Serum or Plasma [code = 2951-2] Diagnostic Test Pending NAVA ARSEN 2024-09-24 05:00:00 Hemoglobin [Mass/volume] in Blood [code = 718-7] Diagnostic Test Pending NAVA ARSEN 2024-11-21 05:00:00 Ferritin [Mass/volume] in Serum or Plasma [code = 2276-4] Diagnostic Test Pending NADJA CHILDRESS 2024-10-10 05:00:00 Hemoglobin [Mass/volume] in Blood [code = 718-7] Diagnostic Test Pending BRANDY LEGER [facility] 2024-09-15 13:05:41 In-Center Hemodialysis Treatment [code = ARW428] Diagnostic Test Pending NAVA ARSEN [facility] 2024-08-25 14:13:13 In-Center Hemodialysis Treatment [code = YJU233] Diet Order [facility] May 21, 2024 Diet Calorie 20 kcal/d Fluid Value 1200 mL/d Phosphorus Value 1000 mg/d Potassium Value 2000 mg/d Protein Value 1.3 gm/kg Sodium Value 2000 mg/d Calculated Weight 153 kg
== END 2025-01-01 07:39 | disposition home or self-care (01) ==
PROVIDERS: PCP Emergency Medicine; Visit Provider Internal Medicine Hematology & Oncology
DX: C7A.8 Other malignant neuroendocrine tumors (principal)
CPT/HCPCS: 74176